=== PATIENT | male | born 1940 | race Caucasian/White ===

== ENCOUNTER → 2018-08-30 16:23 | Outpatient (CLI) | payer MEDICARE, OTHER, SELFPAY | PROVIDERS: PCP Internal Medicine; Visit Provider Internal Medicine | DX: N48.9 Disorder of penis, unspecified (principal) | CPT/HCPCS: 87255 ==

== ENCOUNTER → 2018-10-19 09:55 | Outpatient (CLI) | payer MEDICARE, OTHER, SELFPAY ==
[2018-10-19 10:39] LABS: Add Manual Diff / Slide Review NO; Basophils Percent Auto 0.7 % (0-2); Eosinophils Percent Auto 6.4 % (2-4); Hematocrit 42.5 % (41-53); Hemoglobin 14.5 g/dL (13.5-17.5); Lymphocytes Percent Auto 23.5 % (25-40); Mean Corpuscular HGB Conc 34.1 % (30-36); Mean Corpuscular Hemoglobin 32.4 PG (26-34); Mean Corpuscular Volume 95.3 fL (80-100); Monocytes Percent Auto 6.3 % (3-14); Neutrophils Absolute Auto 4200 /uL (1500-7000); Neutrophils Percent Auto 63.1 % (50-75); Platelet Count 156 X10^3/uL (150-400); Red Blood Cell Count 4.46 X10^6/uL (4.5-5.9); Red Cell Distribution Width 13.4 % (11.6-14.8); White Blood Cell Count 6.7 X10^3/uL (4.5-11.0)
[2018-10-19 10:51] LABS: Alanine Aminotransferase 34 IU/L (21-72); Albumin 4.4 g/dL (3.5-5.0); Albumin Globulin Ratio 1.2 (1.0-2.8); Alkaline Phosphatase 74 U/L (38-126); Aspartate Aminotransferase 32 IU/L (17-59); BUN Creatinine Ratio 22.2 (6-22); Bilirubin Total 0.4 mg/dL (0.2-1.3); Blood Urea Nitrogen 20 mg/dL (9-20); Calcium 9.3 mg/dL (8.4-10.2); Carbon Dioxide 29 mmol/L (22-32); Chloride 102 mmol/L (98-107); Cholesterol 134 mg/dL (140-199); Estimated Glomerular Filt Rate > 60.0 mL/min (>60); Globulin 3.6 g/dL (1.7-4.1); Glucose 98 mg/dL (80-110); HDL Cholesterol 30 mg/dL (40-60); HEMOLYSIS < 15 (0-50); LDL Cholesterol Calculated 79 mg/dL (<100); Potassium 3.7 mmol/L (3.4-5.1); Sodium 142 mmol/L (137-145); Triglycerides 126 mg/dL (35-150)
[2018-10-19 11:37] LABS: Thyroid Stimulating Hormone 1.66 uIU/mL (0.47-4.68)
== END ==
PROVIDERS: PCP Internal Medicine; Visit Provider Internal Medicine Cardiovascular Disease
DX: R60.0 Localized edema (principal); I48.0 Paroxysmal atrial fibrillation; E78.5 Hyperlipidemia, unspecified
CPT/HCPCS: 36415; 80053; 80061; 84443; 85025

== ENCOUNTER → 2018-11-04 12:12 | Outpatient (CLI) | payer MEDICARE, OTHER, SELFPAY ==
--- NOTE | 2018-11-04 | DI.ECHO.S_ITS ---
[facility]---------+ [facility] +---------+ : : [address] : [place] [address] : : : : [id number] : : : : Phone: [phone]---------+ Echocardiogram Report + + :Name: LIVAN GARCIA Study Date: 11/04/2018 Height: 72 in : :[facility] Weight: 260 lb : : Gender: Male BSA: 2.4 m2 : :: 1940 Age: 78 yrs BP: 122/58 mmHg: :Reason For Study: Edema : :Ordering Physician: Hillary : :Larissa Performed By: Lesly Salmon : :Referring: Dr. Ruiz Christian : + + Interpretation Summary The left ventricle is normal in size. The ejection fraction is estimated to be 60-65%. No significant change in LV function from the previous study. The right ventricle is grossly normal size. The right ventricular systolic function is normal. There is mild tricuspid regurgitation. The right ventricular systolic pressure is estimated to be at least 22 mmHg based on an estimated right atrial pressure of 3 mm Hg. The aortic root is mildly dilated. There is aortic root sclerosis/calcification. The patient was in atrial fibrillation with heart rates between 53-64 bpm during the exam. Since previous study, Cuauhtemoc byran is new. Procedure: A two-dimensional transthoracic echocardiogram with color flow and Doppler was performed. The study quality was technically adequate. Comparison is made with the echocardiogram of 04-16-17. The patient was in atrial fibrillation with heart rates between 53-64 bpm during the exam. Left Ventricle: The left ventricle is normal in size. Proximal septal thickening is noted. There is no echo evidence for significant left ventricular outflow tract obstruction. There is no thrombus. The ejection fraction is estimated to be 60-65%. There are no focal wall motion abnormalities. Diastolic parameters suggest a relaxation abnormality of the left ventricle, consistent with probable normal filling pressures. Right Ventricle: The right ventricle is grossly normal size. The right ventricular systolic function is normal. Atria: The left atrium is moderately dilated. The left atrium has mildly decreased in size since the prior echo exam. Right atrial size is normal. The interatrial septum is intact with no evidence for an atrial septal defect. Mitral Valve: The mitral valve leaflets appear mildly thickened, but open well. The mitral valve leaflets appear to open well. The mitral valve leaflets are slightly calcified. There is trace mitral regurgitation. Aortic Valve: The aortic valve is trileaflet. Leaflet mobility is minimally reduced. The aortic valve is mildly calcified. There is a nodular thickening of the right as well as noncoronary cusp seen in previous echo as well. There is no hemodynamically significant valvular aortic stenosis. No aortic regurgitation is present. Tricuspid Valve: The tricuspid valve leaflets are thin and pliable. There is mild tricuspid regurgitation. The right ventricular systolic pressure is estimated to be at least 22 mmHg based on an estimated right atrial pressure of 3 mm Hg. Pulmonic Valve: The pulmonic valve is not well seen, but is grossly normal. There is trace pulmonic regurgitation. Great Vessels: The aortic root is mildly dilated. There is aortic root sclerosis/calcification. The ascending aorta is at the upper limits of normal in size. Pericardium/ Pleura There is no pericardial effusion. There is no pleural effusion. MMode/2D Measurements & Calculations LVIDd: 5.6 cm Ao root diam: 4.2 cm LVIDs: 3.2 cm Aortic Jxn: 3.0 cm FS: 42.5 % asc Aorta Diam: 3.6 cm EPSS: 1.2 cm Ao Arch Diam (Prox Trans): 3.4 cm IVSd: 0.98 cm LVPWd: 0.91 cm LV potter. diameter/BSA (cm/m^2): 2.3 LV sys. diameter/BSA (cm/m^2): 1.4 LA dimension: 4.9 cm RA long axis: 5.5 cm LA A2 area: 31.5 cm2 RA area: 17.6 cm2 LA A4 area: 24.7 cm2 RA vol: 48.2 ml LA length (vol): 6.7 cm RA : 20.2 ml/m2 LA vol: 99.2 ml IVC diam: 1.1 cm LA vol index: 41.7 ml/m2 RVDd major: 6.1 cm RVD1 (basal): 3.7 cm RVD2 (mid): 3.4 cm Doppler Measurements & Calculations Ao V2 max: 173.0 cm/sec MV E max ru: 76.9 cm/sec Ao V2 mean: 120.6 cm/sec MV A max ru: 85.7 cm/sec Ao max P.0 mmHg MV E/A: 0.90 Ao mean P.6 mmHg Med Peak E' Ru: 7.4 cm/sec Ao V2 VTI: 40.1 cm E/E' med: 10.4 Lat Peak E' Ru: 9.1 cm/sec E/E' lat: 8.5 E/e' average: 9.5 MV dec time: 0.30 sec MV P1/2t: 87.0 msec TR max ru: 216.4 cm/sec MV P1/2t max ru: 76.6 cm/sec TR max P.8 mmHg MVA(P1/2t): 2.5 cm2 PA V2 max: 70.7 cm/sec PA V2 mean: 42.6 cm/sec PA mean P.88 mmHg PA Accel Time: 0.09 sec Reading Physician:EDGARDO
--- NOTE | 2018-11-04 | DI.US.S_ITS ---
PROCEDURE: US PERIPH VENOUS LOW EXTREM BI INDICATIONS: BILATERAL EDEMA TECHNIQUE: Real-time imaging, as well as color and pulse Doppler interrogation, were performed of the deep veins of both legs from the inguinal ligament to the popliteal fossa. COMPARISON: None. FINDINGS: The deep veins are normally compressible, and free of intraluminal thrombus. Color and pulse Doppler demonstrate normal phasic intravascular flow. There is normal augmentation response to distal compression maneuver. Edema present. IMPRESSION: No deep venous thrombosis identified within either the left or right lower extremities. Dictated by: Joey Spencer [facility] Interpreted: Wing Schneider MD on 11/04/2018 at 14:26 Approved by: Wing Schneider M.D. on 11/04/2018 at 17:17
== END ==
PROVIDERS: PCP Internal Medicine; Visit Provider Internal Medicine Cardiovascular Disease
DX: I07.1 Rheumatic tricuspid insufficiency (principal); R60.0 Localized edema; I48.91 Unspecified atrial fibrillation
CPT/HCPCS: 93306; 93970

== ENCOUNTER → 2019-04-10 14:34 | Outpatient (CLI) | payer MEDICARE, OTHER, SELFPAY ==
[2019-04-10 14:55] LABS: Hematocrit 43.4 % (41-53); Hemoglobin 14.6 g/dL (13.5-17.5)
[2019-04-10 15:15] LABS: Blood Urea Nitrogen 19 mg/dL (9-20); Calcium 9.2 mg/dL (8.4-10.2); Carbon Dioxide 28 mmol/L (22-32); Chloride 103 mmol/L (98-107); Estimated Glomerular Filt Rate > 60.0 mL/min (>60); Glucose 103 mg/dL (80-110); HEMOLYSIS < 15 (0-50); Sodium 141 mmol/L (137-145)
== END ==
PROVIDERS: Family Provider Internal Medicine; PCP Internal Medicine; Visit Provider Nurse Practitioner
DX: I48.1 Persistent atrial fibrillation (principal); R29.898 Other symptoms and signs involving the musculoskeletal system
CPT/HCPCS: 36415; 80048; 85014; 85018

== ENCOUNTER → 2019-04-17 07:44 | Outpatient (CLI) | payer MEDICARE, OTHER, SELFPAY ==
--- NOTE | 2019-04-17 07:48 | DI.US.S_ITS ---
PROCEDURE: US CAROTID DOPPLER BI INDICATIONS: TIA TECHNIQUE: Color and pulse Doppler interrogation was performed of both carotid systems, with image documentation and velocity measurements. COMPARISON: None. FINDINGS: Stenosis calculations are based on SRU (Society of Radiologists in Ultrasound) criteria. Right side: Brachial blood pressure: 134 / 74 mm Hg. Common carotid artery peak systolic velocity: 71 cm/sec. Internal carotid artery peak systolic velocity: 62 cm/sec. Internal carotid artery end diastolic velocity: 30 cm/sec. External carotid artery peak systolic velocity: 79 cm/sec. ICA/CCA peak systolic ratio: 0.9. Kaba scale imaging description: Mild soft plaque Percent internal carotid artery stenosis: Less than 50% stenosis. Vertebral artery: Flow direction is antegrade. Left side: Brachial blood pressure: 127/67 mm Hg. Common carotid artery peak systolic velocity: 86 cm/sec. Internal carotid artery peak systolic velocity: 55 cm/sec. Internal carotid artery end diastolic velocity: 17 cm/sec. External carotid artery peak systolic velocity: 116 cm/sec. ICA/CCA peak systolic ratio: 0.6. Kaba scale imaging description: Mild soft and calcific plaque Percent internal carotid artery stenosis: Less than 50% stenosis. Vertebral artery: Flow direction is antegrade. IMPRESSION: Less than 50% stenosis at the internal carotid arteries bilaterally. Dictated by: Km López M.D. on 04/17/2019 at 9:09 Approved by: Km López M.D. on 04/17/2019 at 9:11
== END ==
PROVIDERS: Family Provider Internal Medicine; PCP Internal Medicine; Referring Provider Internal Medicine Cardiovascular Disease; Visit Provider Nurse Practitioner
DX: G45.9 Transient cerebral ischemic attack, unspecified (principal)
CPT/HCPCS: 93880

== ENCOUNTER 2019-10-11 13:40 | Emergency (ER) | payer MEDICARE, OTHER, SELFPAY ==
[2019-10-11 13:40] VITALS: BP 152/68; PULSE 54; RESP 20; TEMP 36.9; O2SAT 97
[2019-10-11 14:01] VITALS: BP 102/62; PULSE 50; RESP 17; O2SAT 98
[2019-10-11 15:00] VITALS: BP 124/72; PULSE 78; O2SAT 98
--- NOTE | 2019-10-11 15:04 | DI.RAD.S_ITS ---
PROCEDURE: XR FOOT LT MIN 3V INDICATIONS: s/p fall 1 week ago, pain and swelling from knee to mid foot TECHNIQUE: 3 views of the foot were acquired. COMPARISON: [facility], , FOOT 3V LEFT, 10/27/2011, 11:13. [facility], , XR TIBIA FIBULA LT 2V, 10/11/2019, 15:01. FINDINGS: Bones: No fractures or dislocations. No suspicious bony lesions. Several accessory ossicles are seen. Age-appropriate bony degenerative changes are seen. Plantar and Achilles calcaneal spurs are seen. There is a small amount residual thymus tissue seen, which is not regarded to be pathologic in a patient of this age. Soft tissues: No tibiotalar joint effusion. Achilles tendon appears normal. IMPRESSION: No displaced fractures are seen. Dictated by: Arnaud Doshi M.D. on 10/11/2019 at 14:30 Approved by: Arnaud Doshi M.D. on 10/11/2019 at 14:32
--- NOTE | 2019-10-11 15:04 | DI.RAD.S_ITS ---
PROCEDURE: XR TIBIA FIBULA RT 2V INDICATIONS: s/p fall 1 week ago , pain and swelling TECHNIQUE: 2 views of the tibia and fibula were acquired. COMPARISON: [facility], CR, XR FOOT LT MIN 3V, 10/11/2019, 15:01. Knee series, 01/04/18. FINDINGS: Bones: No fractures or dislocations. No suspicious bony lesions. Age-appropriate bony degenerative changes are seen. Soft tissues: Prepatellar soft tissue swelling is seen. Calcification is seen along the knee jointline, which is attributed to meniscal calcification. IMPRESSION: No acute bony injury is seen. Prepatellar soft tissue swelling is seen. Dictated by: Arnaud Doshi M.D. on 10/11/2019 at 14:33 Approved by: Arnaud Doshi M.D. on 10/11/2019 at 14:34
--- NOTE | 2019-10-11 15:31 | ED_ITS ---
HPI - Fall <Nickolas LALY Hart - Last Filed: 10/11/19 23:29> General Chief Complaint: Fall Stated Complaint: GLF week ago, L ankle and hip pain Time Seen by Provider: 10/11/19 14:19 Source: patient Mode of arrival: Ambulatory Limitations: no limitations History of Present Illness HPI Narrative: This is a 79-year-old gentleman, nonsmoker, who presents to ED with left lower leg pain since he accidentally tripped and fall from vertigo about 10 days ago. He denies losing consciousness, neck pain, headache, vision change since the fall. Patient states he had bad bruise on his left side buttock which is improved at this time but the pain in his left ankle and mid foot is worse and has not improved. He also reports remaining swelling in left knee, lower extremity, ankle and midfoot. He had used his Percocet at home but this has not touched the pain. Patient reports pain improves when he dangles his affected leg and pain worsen with when he elevated the affected leg up on the bed. Patient reports intact sensation. Patient currently takes Xarelto daily for AFib. Related Data Home Medications Medication Instructions Recorded Confirmed metoprolol succinate [Toprol XL] 12.5 mg PO QDAY #0 07/23/17 09/21/19 acetylcarnitine 500 mg capsule 500 mg PO DAILY cap 04/10/19 09/21/19 alpha lipoic acid 100 mg capsule 300 mg PO DAILY cap 04/10/19 09/21/19 ascorbic acid (vitamin C) 500 mg 500 mg PO DAILY tab 04/10/19 09/21/19 tablet coenzyme Q10 150 mg capsule 150 mg PO DAILY 04/10/19 09/21/19 meclizine 25 mg chewable tablet 25 mg PO BID tab 04/10/19 09/21/19 quetiapine 25 mg tablet 25 mg PO DAILY tab 04/10/19 09/21/19 rivaroxaban 20 mg tablet 20 mg PO DAILY 04/10/19 09/21/19 Respironics Dreamstation CPAP #1 ea 07/27/19 09/21/19 melatonin 5 mg/15 mL oral liquid 1.5 mg PO ml 09/21/19 09/21/19 tizanidine 4 mg tablet See Rx Instructions PO SEE 12/12/19 12/12/19 INSTRUCTIONS tab Previous Rx's Medication Instructions Recorded clotrimazole-betamethasone 1 celestino TP TID #15 gm 02/24/17 Disabled Parking Permit ea #1 12/23/17 fluticasone propionate 1 spray INTRANASAL QDAY #1 bot 04/04/18 clindamycin phosphate 1 % TOPICAL BID #60 ml 11/09/18 rosuvastatin 20 mg tablet 20 mg PO QDAY #90 tab 03/22/19 hydrochlorothiazide 25 mg tablet 50 mg PO DAILY #180 tab 04/24/19 gabapentin 600 mg tablet 1,200 mg PO TID #540 tab 05/08/19 sertraline 100 mg tablet See Rx Instructions .ROUTE 07/25/19 .COMPLEX #180 tablet omeprazole 20 mg capsule,delayed 20 mg PO BID #180 cap 09/06/19 release lorazepam 0.5 mg tablet 0.5 mg PO BEDTIME PRN #14 tab MDD 10/09/19 0.5 mg oxycodone-acetaminophen 5 mg-325 1 tab PO Q4H PRN #60 tab 10/10/19 mg tablet cephalexin [Keflex] 500 mg PO Q6H 7 Days #28 cap 10/11/19 Allergies Allergy/AdvReac Type Severity Reaction Status Date / Time No Known Drug Allergies Allergy Verified 09/21/19 11:19 Review of Systems <LALY Garcia - Last Filed: 10/11/19 23:29> Review of Systems Narrative: General: Denies fever, chills, fatigue, malaise, sweats. HEENT: Denies sinus pain, ear pain, sore throat, difficulty swallowing, dizzines s. Respiratory: Denies dyspnea, cough, wheezing, hemoptysis, sputum. Cardiovascular: Denies chest pain, palpitations, orthopnea, edema. Gastrointestinal: Denies nausea, vomiting, abdominal pain, diarrhea, constipation, melena. : Denies dysuria, frequency, incontinence, hematuria, urinary retention. Musculoskeletal: See HPI Skin: Dry scab and redness on left knee. Denies rash, skin lesions, or other. Neurologic: Denies weakness, headache, numbness, change in speech, confusion, seizures, incoordination. Psychiatric: No concerning psychosocial issues. 12-point review of systems is negative except for those stated above. 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) Chronic anticoagulation (Chronic) Dorsalgia (Chronic) Mixed hyperlipidemia (Chronic 12/19/15) Obstructive sleep apnea syndrome (Chronic) Other insomnia (Chronic 06/26/16) Persistent atrial fibrillation (Chronic 11/09/17) Family History Brother Family history of esophageal cancer Social History marital status: number of children: 2 household members: spouse lives independently: Yes caregiver/support person: No housing: house pets and animals: No education level: college occupational status: other current occupational exposures/hazards: No 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 Head: normocephalic, atraumatic, no scalp lesions, non-tender. ENT: Bilateral auditory canals and tympanic membranes clear. Hearing grossly intact. Nose without bleeding, purulent discharge, septal hematoma or deviation. Turbinate without erythema or swelling. Facial sinuses nontender to palpate. Mucous membrane moist, no mucosal lesion. Throat without erythema, tonsillar hypertrophy or exudate. Uvula in midline, airway patent. Neck/Thyroid: neck supple, full range of motion, no visible masses or meningeal signs. No JVD, non-tender without lymphadenopathy. Skin: Redness, warmth, swelling around left patella. no suspicious rashes, lesions over other visible areas. Warm and dry and appropriate color for ethnicity. Heart: no clubbing, no cyanosis, no edema. S1 and S2 normal. RRR w/o murmurs, clicks, or bruits. Lungs: Breathing even and unlabored. No stridor. No accessory muscles used. Able to speak in full sentences. Chest: normal shape and expansion. Abdomen: non-obese, non-distended. Neurologic: alert and oriented. Cognitive exam, [employer] and PNS grossly intact on informal exam. Psych: good eye contact, normal affect. Initial Vital Signs Initial Vital Signs: Vital Signs Temperature 98.4 F 10/11/19 13:40 Pulse Rate 54 L 10/11/19 13:40 Respiratory Rate 10/11/19 13:40 Blood Pressure 152/68 H 10/11/19 13:40 Pulse Oximetry 97 10/11/19 13:40 Extrem Left lower extremity: normal capillary refill, edema (Left knee, amaya, ankle and mid foot) Details: pitting and 1+, knee Details: tenderness, swelling, normal ROM, abrasion and warmth, lower leg Details: tenderness (Anterior aspect of amaya), localized swelling Location: of the proximal lower leg, of the mid lower leg and of the distal lower leg and pitting edema Details: 1+; no deformity and no unusual warmth, ankle Details: tenderness, swelling and normal ROM and foot Details: normal capillary refill, tenderness, toes with normal ROM, edema Location: of the dorsal foot (Proximal to Mid foot) and vascular exam Details: dorsalis pedis pulse present and normal capillary refill <Sandy Cohn DO - Last Filed: 10/12/19 16:49> Initial Vital Signs Initial Vital Signs: Vital Signs Temperature 98.4 F 10/11/19 13:40 Pulse Rate 54 L 10/11/19 13:40 Respiratory Rate 10/11/19 13:40 Blood Pressure 152/68 H 10/11/19 13:40 Pulse Oximetry 97 10/11/19 13:40 Scores <LALY Garcia - Last Filed: 10/11/19 23:29> GCS [place] coma scale eye opening: Spontaneous [place] coma scale verbal response: Orientated [place] coma scale motor response: Obey commands [place] coma scale total score: 15 Course <LALY Garcia - Last Filed: 10/11/19 23:29> Orders Ordered: Discontinued Medications Cephalexin HCl (Keflex) 500 mg PO NOW ONE Stop: 10/11/19 16:08 Last Admin: 10/11/19 16:15 Dose: 500 mg Documented by: ERICOTEM Oxycodone/Acetaminophen (Percocet 5/325) 1 tab PO NOW ONE Stop: 10/11/19 15:06 Last Admin: 10/11/19 15:33 Dose: 1 tab Documented by: ANNALISE Vital Signs Vital signs: Vital Signs - 8 hr 10/11/19 15:57 10/11/19 16:00 Pulse Rate 83 55 L Respiratory Rate 16 Blood Pressure [Right Arm] 132/61 142/66 H Pulse Oximetry 98 98 <Sandy Cohn DO - Last Filed: 10/12/19 16:49> Orders Ordered: Discontinued Medications Cephalexin HCl (Keflex) 500 mg PO NOW ONE Stop: 10/11/19 16:08 Last Admin: 10/11/19 16:15 Dose: 500 mg Documented by: ERICOTEM Oxycodone/Acetaminophen (Percocet 5/325) 1 tab PO NOW ONE Stop: 10/11/19 15:06 Last Admin: 10/11/19 15:33 Dose: 1 tab Documented by: ANNALISE Vital Signs Vital signs: Vital Signs - 8 hr 10/11/19 15:57 10/11/19 16:00 Pulse Rate 83 55 L Respiratory Rate 16 Blood Pressure [Right Arm] 132/61 142/66 H Pulse Oximetry 98 98 MDM - Fall <LALY Garcia - Last Filed: 10/11/19 23:29> Differential Diagnosis Differential diagnosis: Likely other (Left knee fracture, cellulitis on left knee, sprain on left foot/ ankle, fracture on left foot/ ankle) Medical Records Attestation: I reviewed the patient's medical records. Imaging Data XR-Tib/fib LT: Radiologist's Impression: [address] [address] XRay Report Signed Patient: Bertin Bautista [facility]#: [id number] : 1940Acct:[id number] Age/Sex: 79 / MDate of Service: 10/11/19 Loc: ED Accession Number: [id number] Procedure: XR tibia fibula LT 2V Ordering Provider: Nickolas Hart PROCEDURE: XR TIBIA FIBULA RT 2V INDICATIONS: s/p fall 1 week ago , pain and swelling TECHNIQUE: 2 views of the tibia and fibula were acquired. COMPARISON: [facility], CR, XR FOOT LT MIN 3V, 10/11/2019, 15:01. Knee series, 01/04/18. FINDINGS: Bones: No fractures or dislocations. No suspicious bony lesions. Age- appropriate bony degenerative changes are seen. Soft tissues: Prepatellar soft tissue swelling is seen. Calcification is seen along the knee jointline, which is attributed to meniscal calcification. IMPRESSION: No acute bony injury is seen. Prepatellar soft tissue swelling is seen. Dictated by: Arnaud Doshi M.D. on 10/11/2019 at 14:33 Approved by: Arnaud Doshi M.D. on 10/11/2019 at 14:34 XR-Foot LT: Radiologist's Impression: [place] [address] XRay Report Signed Patient: Bertin Bautista [facility]#: [id number] : 1940Acct:[id number] Age/Sex: 79 / MDate of Service: 10/11/19 Loc: ED Accession Number: [id number] Procedure: XR foot LT min 3V Ordering Provider: Nickolas Hart PROCEDURE: XR FOOT LT MIN 3V INDICATIONS: s/p fall 1 week ago, pain and swelling from knee to mid foot TECHNIQUE: 3 views of the foot were acquired. COMPARISON: [facility], CR, FOOT 3V LEFT, 10/27/2011, 11:13. [facility], CR, XR TIBIA FIBULA LT 2V, 10/11/2019, 15:01. FINDINGS: Bones: No fractures or dislocations. No suspicious bony lesions. Several accessory ossicles are seen. Age-appropriate bony degenerative changes are seen. Plantar and Achilles calcaneal spurs are seen. There is a small amount residual thymus tissue seen, which is not regarded to be pathologic in a patient of this age. Soft tissues: No tibiotalar joint effusion. Achilles tendon appears normal. IMPRESSION: No displaced fractures are seen. Dictated by: Arnaud Doshi M.D. on 10/11/2019 at 14:30 Approved by: Arnaud Doshi M.D. on 10/11/2019 at 14:32 MDM Narrative Medical decision making narrative: This is a 79-year-old male who presents to ED with left lower leg discomfort from knee to foot for last he accidentally tripped and fell. Patient reports initially his left hip was bothersome which has improved but he continued to have swelling and discomfort mainly in his left mid foot and ankle. Physical exam exhibited swelling, redness, warmth to left knee and generalized swelling below throughout left mid foot. Patient complains of discomfort with palpation in his mid foot and ankle along left lower leg. Left knee physical exam is consistent with cellulitis. Considered DVT on left leg but this would be unlikely since patient is already on Xarelto and his pain is mostly in anterior aspect of lower leg and mid foot and ankle. X-ray shows no acute findings in left knee, tip/fib, ankle or foot. Patient has been walking on his injured foot although this has been increasing with movement. Patient has been taking his oxycodone for his back pain and also leg pain. Patient was medicated with Keflex 500 mg 1st dose while in ED and discharged to home with remaining Rx. Affected foot and ankle was wrapped with Nicholas wrap for support. Patient advised to elevate his affected leg if he continues to have swelling. Patient advised to take Tylenol as needed and he is oxycodone for severe pain. Return precautions were discussed with the patient and patient advised to follow with PCP and possible f/u with orthopedist. Patient verbalized understanding and agrees with the treatment plan. Discharge Plan Departure Patient Disposition: Home Clinical Impression: Cellulitis of knee, right Contusion of lower leg, left Qualifiers: Encounter type: initial encounter Qualified Code(s): S80.12XA - Contusion of left lower leg, initial encounter Discharge Date/Time: 10/11/19 16:32 Instructions: DI for Cellulitis -- Adult, DI for Contusion Activity Restrictions/Additional Instructions: You have been diagnosed with [left lower extremity contusion from fall 10 days ago and cellulitis on left knee. X-ray test today does not show acute findings such as fractures or dislocation on your knee, tip/fib, ankle or foot]. What to do: *Take your medications as directed. You can continue to take [id number] Tylenol and Percocet that you have at home. You can elevate affected leg for swelling. Please start taking Keflex every 6 hours for next 7 days. You were medicated with 1st dose while in ED. the prescription has been transmitted to [facility]. *Follow up with your primary care provider in 2-3 days, call for an appointment. Let them know you were seen in the ED and that we asked you to be seen in follow up. *Return to ED if you have any new, worsening, or concerning symptoms, such as [weakness, severe calf pain, breathing difficulty, chest pain, fever, tingling/numbness to lower extremities, or any acute concerns]. Prescriptions: New cephalexin [Keflex] 500 mg capsule 500 mg PO Q6H 7 Days Qty: 28 RF: 0 No Action clotrimazole-betamethasone 15 GM cream 1 celestino TP TID Qty: 15 RF: 0 metoprolol succinate [Toprol XL] 25 MG tablet extended release 24 hr 12.5 mg PO QDAY Qty: 0 RF: 0 Disabled Parking Permit Qty: 1 RF: 0 fluticasone propionate 50 mcg/actuation spray,suspension 1 spray Intranasal QDAY Qty: 1 RF: 3 clindamycin phosphate 1 % lotion 1 % Topical BID Qty: 60 RF: 3 rosuvastatin [Crestor] 20 mg tablet 20 mg PO QDAY Qty: 90 RF: 3 hydrochlorothiazide 25 mg tablet 50 mg PO DAILY Qty: 180 RF: 1 gabapentin [Neurontin] 600 mg tablet 1,200 mg PO TID Qty: 540 RF: 3 sertraline 100 mg tablet See Rx Instructions .ROUTE .COMPLEX Qty: 180 RF: 3 omeprazole 20 mg capsule,delayed release(DR/EC) 20 mg PO BID Qty: 180 RF: 3 lorazepam 0.5 mg tablet 0.5 mg PO BEDTIME MDD 0.5 mg PRN (Reason: sleep) Qty: 14 RF: 0 oxycodone-acetaminophen 5-325 mg tablet 1 tab PO Q4H PRN (Reason: pain in back/joints) Qty: 60 RF: 0 melatonin 5 mg/15 mL liquid 1.5 mg PO RF: 0 meclizine [Bonine] 25 mg tablet,chewable 25 mg PO BID RF: 0 Xarelto 20 mg tablet 20 mg PO DAILY RF: 0 quetiapine [Seroquel] 25 mg tablet 25 mg PO DAILY RF: 0 acetylcarnitine 500 mg capsule 500 mg PO DAILY RF: 0 ascorbic acid (vitamin C) 500 mg tablet 500 mg PO DAILY RF: 0 coenzyme Q10 150 mg capsule 150 mg PO DAILY RF: 0 alpha lipoic acid 100 mg capsule 300 mg PO DAILY RF: 0 tizanidine 4 mg tablet See Rx Instructions PO SEE INSTRUCTIONS RF: 0 (DME) Respironics Dreamstation CPAP Qty: 1 RF: 0 Referrals: Ruiz Christian MD [Primary Care Provider] -
[2019-10-11] MEDS: OXYCODONE/ACETAMINOPHEN 5/325 TABLET 1 TAB PO (15:33)
[2019-10-11 15:57] VITALS: BP 132/61; PULSE 83; O2SAT 98
[2019-10-11 16:00] VITALS: BP 142/66; PULSE 55; RESP 16; O2SAT 98
[2019-10-11] MEDS: cephALEXin 250 MG CAPSULE 500 MG PO (16:15)
== END 2019-10-11 16:32 | disposition home or self-care (01) ==
PROVIDERS: Emergency Provider Nurse Practitioner Family; Family Provider Internal Medicine; PCP Internal Medicine
DX: S90.32XA Contusion of left foot, initial encounter (principal); S90.02XA Contusion of left ankle, initial encounter; L03.115 Cellulitis of right lower limb; W01.0XXA Fall on same level from slipping, tripping and stumbling without subsequent striking against object, initial encounter
CPT/HCPCS: 73590; 73630; 99283

== ENCOUNTER 2019-11-27 15:39 | Emergency (ER) | payer MEDICARE, OTHER, SELFPAY ==
[2019-11-27 15:53] VITALS: BP 123/65; PULSE 56; RESP 14; TEMP 36.4; O2SAT 96; BMI 32.7
[2019-11-27 20:46] VITALS: BP 135/63; PULSE 67; O2SAT 97
--- NOTE | 2019-11-27 21:12 | ED_ITS ---
HPI - Skin/Abscess/Foreign Bdy General Chief complaint: Skin/Abscess/Foreign Body Stated complaint: Possible Blood Clot Right Leg Time Seen by Provider: 11/27/19 20:52 Source: patient Mode of arrival: Ambulatory Limitations: no limitations History of Present Illness HPI narrative: 79-year-old male comes to the emergency department with complaint of some right leg swelling particularly in the ankle. Patient states that the coloration has not had much change. He states he has had a couple spots that have been tender. He saw his chiropractor who thought he had a DVT. Did have some cellulitis in his left leg and has a bruise as well as a small hematoma on the knee from a fall. He states he was on antibiotics. He states that there is still some tingling and the nerve seem a little sensitive in both feet. Patient has not had fevers. No chest pain or shortness of breath. He states that thinks it does take a water pill or a diuretic to help with swelling in his extremities but he is not 100% sure. He does take Xarelto daily. He has never had any DVTs he has not had any long distance travel. Patient has a follow-up appointment with his primary tomorrow. Related Data Home Medications Medication Instructions Recorded Confirmed metoprolol succinate [Toprol XL] 12.5 mg PO QDAY #0 07/23/17 10/19/19 acetylcarnitine 500 mg capsule 500 mg PO DAILY cap 04/10/19 10/19/19 alpha lipoic acid 100 mg capsule 300 mg PO DAILY cap 04/10/19 10/19/19 ascorbic acid (vitamin C) 500 mg 500 mg PO DAILY tab 04/10/19 10/19/19 tablet coenzyme Q10 150 mg capsule 150 mg PO DAILY 04/10/19 10/19/19 quetiapine 25 mg tablet 25 mg PO DAILY tab 04/10/19 10/19/19 rivaroxaban 20 mg tablet 20 mg PO DAILY 04/10/19 11/27/19 Respironics Dreamstation CPAP #1 ea 07/27/19 10/19/19 tizanidine 4 mg tablet See Rx Instructions PO SEE 09/21/19 10/19/19 INSTRUCTIONS tab hydrochlorothiazide 25 mg tablet 25 mg PO DAILY tab 10/19/19 10/19/19 meclizine 25 mg chewable tablet 25 mg PO DAILY tab 10/19/19 10/19/19 melatonin 5 mg/15 mL oral liquid 2 mg PO ml 10/19/19 10/19/19 rosuvastatin 20 mg tablet 10 mg PO QDAY tab 10/19/19 10/19/19 Previous Rx's Medication Instructions Recorded clotrimazole-betamethasone 1 celestino TP TID #15 gm 02/24/17 Disabled Parking Permit ea #1 12/23/17 fluticasone propionate 1 spray INTRANASAL QDAY #1 bot 04/04/18 clindamycin phosphate 1 % TOPICAL BID #60 ml 11/09/18 gabapentin 600 mg tablet 1,200 mg PO TID #540 tab 05/08/19 sertraline 100 mg tablet See Rx Instructions .ROUTE 07/25/19 .COMPLEX #180 tablet omeprazole 20 mg capsule,delayed 20 mg PO BID #180 cap 09/06/19 release lorazepam 0.5 mg tablet 0.5 mg PO BEDTIME PRN #14 tab MDD 10/09/19 0.5 mg oxycodone-acetaminophen 5 mg-325 1 - 2 tab PO Q4H PRN #60 tab 11/21/19 mg tablet Allergies Allergy/AdvReac Type Severity Reaction Status Date / Time No Known Drug Allergies Allergy Verified 10/19/19 13:54 Review of Systems Review of Systems ROS Unobtainable: All systems reviewed & are unremarkable except as noted in HPI and below Patient History Medical History 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) Chronic anticoagulation (Chronic) Dorsalgia (Chronic) Mixed hyperlipidemia (Chronic 12/19/15) Obstructive sleep apnea syndrome (Chronic) Other insomnia (Chronic 06/26/16) Persistent atrial fibrillation (Chronic 11/09/17) Social History marital status: number of children: 2 household members: spouse lives independently: Yes caregiver/support person: No housing: house pets and animals: No education level: college occupational status: other current occupational exposures/hazards: No 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 HEENT: Head normocephalic, atraumatic, EOMI, pupils reactive, face symmetric, moist mucous membranes NECK: Supple, full range of motion CARDIOVASCULAR: Regular rate and rhythm without murmurs, rubs or gallops. RESPIRATORY: Breath sounds equal bilaterally, no wheezes rales or rhonchi. ABDOMEN: Soft, nontender. Normoactive bowel sounds all 4 quadrants. No guarding or rebound, rigidity, no mass : No CVA tenderness EXTREMITIES: Normal range of motion, no clubbing. Trace edema particularly in the right ankle. Nonpitting. Patient does not have any erythema, pallor or cyanosis in either lower extremity. The left knee does have what appears to be some ecchymosis and hematoma it is mildly tender with no fluctuance no warmth or erythema. Patient has 2+ pulses bilateral lower extremities. Full range of motion, normal gait with 5/5 muscle strength. Neurovascularly intact NEUROLOGICAL: Cranial nerves II through XII grossly intact. Moving all extremities SKIN: Warm, dry, no petechiae, no rashes or lesions. Initial Vital Signs Initial Vital Signs: Vital Signs Temperature 97.5 F L 11/27/19 15:53 Pulse Rate 56 L 11/27/19 15:53 Respiratory Rate 14 11/27/19 15:53 Blood Pressure 123/65 11/27/19 15:53 Pulse Oximetry 96 11/27/19 15:53 Course Orders Ordered: ED Orders 11/27/19 21:25 US perip venous low extrem rt Stat Vital Signs Vital signs: Vital Signs - 8 hr 11/27/19 23:18 Pulse Rate 70 Respiratory Rate 18 Blood Pressure [Left Arm] 125/68 Pulse Oximetry 98 MDM - Skin/Abscess/Foreign Bdy Imaging Data US - DVT: Radiologist's Impression: No evidence of DVT in right lower extremity MDM Narrative Medical decision making narrative: Discussed with patient my suspicion for DVT is low, he is on Xarelto. He has some trace edema at the ankle itself. He does not have any obvious infectious symptoms in either leg. He does not appear to be in CHF clinically or on physical exam. Patient left leg which he states had cellulitis does not appear to be infected at this time any does have some ecchymosis of his knee but that also does not appear infected. Discussed possible causes and reasons for follow-up he has follow-up tomorrow on the with his primary care physician for recheck. Discharge Plan Departure Patient Disposition: Home Clinical Impression: Leg pain, right Discharge Date/Time: 11/27/19 23:44 Instructions: DI for Leg Pain Activity Restrictions/Additional Instructions: Follow-up with your physician at your appointment. Continue home medications as prescribed. I would not recommend having or changing any antibiotics I do not see any obvious signs of cellulitis or infection at this time. I do know the bruising on your left knee. Your right lower extremity does not show any signs of DVT. I would recommend elevating your legs in the evening. Return to the ER for fevers greater 100.4 F, rapidly worsening swelling in her legs, new chest pain, shortness of breath, lightheadedness or passing out, persistent vomiting, black or bloody stools, new redness, pallor or cyanosis in your legs or other new or concerning symptoms. Prescriptions: No Action clotrimazole-betamethasone 15 GM cream 1 celestino TP TID Qty: 15 RF: 0 metoprolol succinate [Toprol XL] 25 MG tablet extended release 24 hr 12.5 mg PO QDAY Qty: 0 RF: 0 Disabled Parking Permit Qty: 1 RF: 0 fluticasone propionate 50 mcg/actuation spray,suspension 1 spray Intranasal QDAY Qty: 1 RF: 3 clindamycin phosphate 1 % lotion 1 % Topical BID Qty: 60 RF: 3 gabapentin [Neurontin] 600 mg tablet 1,200 mg PO TID Qty: 540 RF: 3 sertraline 100 mg tablet See Rx Instructions .ROUTE .COMPLEX Qty: 180 RF: 3 omeprazole 20 mg capsule,delayed release(DR/EC) 20 mg PO BID Qty: 180 RF: 3 lorazepam 0.5 mg tablet 0.5 mg PO BEDTIME MDD 0.5 mg PRN (Reason: sleep) Qty: 14 RF: 0 oxycodone-acetaminophen 5-325 mg tablet 1 - 2 tab PO Q4H PRN (Reason: pain in back/joints) Qty: 60 RF: 0 melatonin 5 mg/15 mL liquid 2 mg PO RF: 0 hydrochlorothiazide 25 mg tablet 25 mg PO DAILY RF: 0 rosuvastatin [Crestor] 20 mg tablet 10 mg PO QDAY RF: 0 Xarelto 20 mg tablet 20 mg PO DAILY RF: 0 quetiapine [Seroquel] 25 mg tablet 25 mg PO DAILY RF: 0 acetylcarnitine 500 mg capsule 500 mg PO DAILY RF: 0 ascorbic acid (vitamin C) 500 mg tablet 500 mg PO DAILY RF: 0 coenzyme Q10 150 mg capsule 150 mg PO DAILY RF: 0 alpha lipoic acid 100 mg capsule 300 mg PO DAILY RF: 0 tizanidine 4 mg tablet See Rx Instructions PO SEE INSTRUCTIONS RF: 0 meclizine [Bonine] 25 mg tablet,chewable 25 mg PO DAILY RF: 0 (DME) Respironics Dreamstation CPAP Qty: 1 RF: 0 Referrals: Ruiz Christian MD [Primary Care Provider] -
--- NOTE | 2019-11-27 21:25 | DI.US.S_ITS ---
PROCEDURE: US PERIPH VENOUS LOW EXTREM RT INDICATIONS: RT LEG SWELLING TECHNIQUE: Real-time imaging, as well as color and pulse Doppler interrogation, were performed of the lower extremity deep veins from the inguinal ligament to the popliteal fossa. COMPARISON: None. FINDINGS: The common femoral, femoral and popliteal veins are normally compressible, and free of intraluminal thrombus. Color and pulse Doppler demonstrate normal phasic intraluminal flow. There is normal augmentation response to distal compression maneuver. IMPRESSION: No evidence of deep vein thrombosis involving the right lower extremity. Dictated by: Alysha Hawley MD, PhD on 11/28/2019 at 7:12 Approved by: Alysha Hawley MD, PhD on 11/28/2019 at 7:13
[2019-11-27 23:18] VITALS: BP 125/68; PULSE 70; RESP 18; O2SAT 98
== END 2019-11-27 23:44 | disposition home or self-care (01) ==
PROVIDERS: Emergency Provider Emergency Medicine; Family Provider Internal Medicine; PCP Internal Medicine
DX: R60.0 Localized edema (principal); M79.661 Pain in right lower leg
CPT/HCPCS: 93971; 99283

== ENCOUNTER → 2020-03-26 10:22 | Outpatient (CLI) | payer MEDICARE, OTHER, SELFPAY ==
[2020-03-26 11:30] LABS: Add Manual Diff / Slide Review NO; Basophils Absolute Auto 0 /uL (0-100); Basophils Percent Auto 0.5 % (0-2); Eosinophils Absolute Auto 100 /uL (0-450); Eosinophils Percent Auto 2.2 % (2-4); Hematocrit 40.2 % (41-53); Hemoglobin 13.7 g/dL (13.5-17.5); Lymphocytes Absolute Auto 1400 /uL (1100-4500); Lymphocytes Percent Auto 26.8 % (25-40); Mean Corpuscular HGB Conc 34.1 % (30-36); Mean Corpuscular Hemoglobin 32.6 PG (26-34); Mean Corpuscular Volume 95.6 fL (80-100); Monocytes Absolute Auto 400 /uL (0-900); Monocytes Percent Auto 6.9 % (3-14); Neutrophils Absolute Auto 3400 /uL (1500-7000); Neutrophils Percent Auto 63.6 % (50-75); Platelet Count 142 X10^3/uL (150-400); Red Blood Cell Count 4.21 X10^6/uL (4.5-5.9); Red Cell Distribution Width 13.7 % (11.6-14.8); White Blood Cell Count 5.3 X10^3/uL (4.5-11.0)
[2020-03-26 12:04] LABS: Alanine Aminotransferase 20 IU/L (<50); Albumin 4.4 g/dL (3.5-5.0); Albumin Globulin Ratio 1.4 (1.0-2.8); Alkaline Phosphatase 75 U/L (38-126); Aspartate Aminotransferase 25 IU/L (17-59); BUN Creatinine Ratio 27.2 (6-22); Bilirubin Total 0.5 mg/dL (0.2-1.3); Blood Urea Nitrogen 22 mg/dL (9-20); Calcium 9.6 mg/dL (8.4-10.2); Carbon Dioxide 31 mmol/L (22-32); Chloride 102 mmol/L (98-107); Cholesterol 119 mg/dL (140-199); Estimated Glomerular Filt Rate > 60.0 mL/min (>60); Globulin 3.1 g/dL (1.7-4.1); Glucose 103 mg/dL (80-110); HDL Cholesterol 30 mg/dL (40-60); HEMOLYSIS < 15 (0-50); LDL Cholesterol Calculated 66 mg/dL (<100); Potassium 4.6 mmol/L (3.4-5.1); Sodium 141 mmol/L (137-145); Total Protein 7.5 g/dL (6.3-8.2); Triglycerides 117 mg/dL (35-150)
[2020-03-26 12:30] LABS: TSH w/ Reflex to FT4 2.09 uIU/mL (0.47-4.68)
== END ==
PROVIDERS: Family Provider Internal Medicine; PCP Internal Medicine; Referring Provider Internal Medicine Cardiovascular Disease; Visit Provider Internal Medicine
DX: I48.91 Unspecified atrial fibrillation (principal); E78.2 Mixed hyperlipidemia; I10 Essential (primary) hypertension; I48.19 Other persistent atrial fibrillation; S80.11XA Contusion of right lower leg, initial encounter; Z79.01 Long term (current) use of anticoagulants
CPT/HCPCS: 36415; 80053; 80061; 84443; 85025

== ENCOUNTER → 2020-08-15 15:01 | Outpatient (CLI) | payer MEDICARE, OTHER, SELFPAY ==
--- NOTE | 2020-08-15 15:04 | DI.RAD.S_ITS ---
PROCEDURE: XR RIBS RT MIN 3V W CXR 1V INDICATIONS: R rib pain approx 5 weeks s/p fall TECHNIQUE: 2 views of the right ribs were acquired, along with a single view chest. COMPARISON: [facility], CT, PE STUDY (CTA CHEST), 10/19/2012, 17:37. FINDINGS: Surgical changes and devices: None. Bones and chest wall: No fractures or dislocations. No suspicious bony lesions. Overlying soft tissues appear unremarkable. Lungs and pleura: There is a nodular density in the right upper lobe. Bilateral interstitial prominence. No pleural effusions or pneumothorax. Lungs appear clear. Mediastinum: Mediastinal contours appear normal. Heart size is normal. There is a moderate to large-sized hiatal hernia. IMPRESSION: 1. No right displaced rib fractures. 2. A nodular density in the right upper lobe. A chest CT with contrast is suggested for follow-up. 3. Moderate to large-sized hiatal hernia. Dictated by: Yaneli Saenz M.D. on 08/15/2020 at 17:18 Approved by: Yaneli Saenz M.D. on 08/15/2020 at 17:22
== END ==
PROVIDERS: Family Provider Internal Medicine; PCP Internal Medicine; Referring Provider Registered Nurse Diabetes Educator; Visit Provider Registered Nurse Diabetes Educator
DX: R07.81 Pleurodynia (principal); R91.1 Solitary pulmonary nodule; K44.9 Diaphragmatic hernia without obstruction or gangrene
CPT/HCPCS: 71101

== ENCOUNTER → 2020-08-19 10:24 | Outpatient (CLI) | payer MEDICARE, OTHER, SELFPAY ==
[2020-08-19 12:56] LABS: Alanine Aminotransferase 19 IU/L (<50); Albumin 4.4 g/dL (3.5-5.0); Albumin Globulin Ratio 1.4 (1.0-2.8); Alkaline Phosphatase 72 U/L (38-126); Aspartate Aminotransferase 25 IU/L (17-59); BUN Creatinine Ratio 28.4 (6-22); Bilirubin Total 0.5 mg/dL (0.2-1.3); Blood Urea Nitrogen 25 mg/dL (9-20); Calcium 9.5 mg/dL (8.4-10.2); Carbon Dioxide 33 mmol/L (22-32); Chloride 102 mmol/L (98-107); Cholesterol 118 mg/dL (140-199); Estimated Glomerular Filt Rate > 60.0 mL/min (>60); Globulin 3.2 g/dL (1.7-4.1); Glucose 94 mg/dL (80-110); HDL Cholesterol 28 mg/dL (40-60); HEMOLYSIS < 15 (0-50); LDL Cholesterol Calculated 63 mg/dL (<100); Potassium 4.3 mmol/L (3.4-5.1); Sodium 140 mmol/L (137-145); Total Protein 7.6 g/dL (6.3-8.2); Triglycerides 137 mg/dL (35-150)
== END ==
PROVIDERS: Internal Medicine Cardiovascular Disease; Family Provider Internal Medicine; PCP Internal Medicine; Referring Provider Internal Medicine; Visit Provider Internal Medicine
DX: E78.5 Hyperlipidemia, unspecified (principal)
CPT/HCPCS: 36415; 80053; 80061

== ENCOUNTER → 2020-08-20 12:11 | Outpatient (CLI) | payer MEDICARE, OTHER, SELFPAY ==
--- NOTE | 2020-08-20 12:12 | DI.CT.S_ITS ---
PROCEDURE: CT CHEST W CON INDICATIONS: abnormal CXR raising concern for nodular mass within the right upper lobe. TECHNIQUE: After the administration of intravenous contrast, 5 mm thick sections acquired from the pulmonary apices to the posterior costophrenic angles. 1 mm axial lung, 5 mm thick coronal and sagittal reformats and 7 mm axial MIP were acquired. For radiation dose reduction, the following was used: automated exposure control, adjustment of mA and/or kV according to patient size. COMPARISON: [facility], CR, XR RIBS RT MIN 3V W CXR 1V, 08/15/2020, 15:10. FINDINGS: Image quality: Excellent. Lungs and pleura: No acute air space opacities there is a chronic appearing interstitial prominence. The area of plain film concern from 08/15/20 at the right upper lobe medially represents superimposition by asymmetric prominence of the 1st costosternal junction, from arthritic change. No pleural effusions or pneumothorax. Central and peripheral airways are patent and normal in caliber. Mediastinum: Heart size is normal. No pericardial effusion. No mediastinal or hilar adenopathy by size criteria. Thoracic aorta and central pulmonary arteries are normal in size. Esophagus is normal in caliber. There is a moderate-sized hiatal hernia. Bones and chest wall: No suspicious bony lesions. No vertebral body compression fractures. No axillary or supraclavicular adenopathy by size criteria. Thyroid gland normal where well seen. Abdomen: Visualized upper abdominal solid organs appear normal. Upper abdominal bowel loops are normal in caliber. IMPRESSION: Mild pulmonary interstitial prominence, no evidence of neoplasm or active pneumonia. 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 No follow-up recommended. Incidental note is made of a moderate-sized hiatal hernia behind the heart. Dictated by: Km López M.D. on 08/20/2020 at 16:38 Approved by: Km López M.D. on 08/20/2020 at 16:41
== END ==
PROVIDERS: Family Provider Internal Medicine; PCP Internal Medicine; Referring Provider Internal Medicine; Visit Provider Internal Medicine
DX: R93.89 Abnormal findings on diagnostic imaging of other specified body structures (principal); R91.1 Solitary pulmonary nodule; K44.9 Diaphragmatic hernia without obstruction or gangrene
CPT/HCPCS: 71260; Q9967

== ENCOUNTER → 2021-01-13 13:25 | Outpatient (CLI) | payer MEDICARE, OTHER, SELFPAY ==
[2021-01-13 16:19] LABS: COVID19 -Nasal RAPID Negative (Negative)
== END ==
PROVIDERS: Family Provider Internal Medicine; PCP Internal Medicine; Visit Provider Physician Assistant
DX: Z01.812 Encounter for preprocedural laboratory examination (principal); Z20.822 Contact with and (suspected) exposure to COVID-19
CPT/HCPCS: 87635; C9803

== ENCOUNTER → 2021-03-24 10:26 | Outpatient (CLI) | payer MEDICARE, OTHER, SELFPAY ==
[2021-03-24 13:21] LABS: Alanine Aminotransferase 31 IU/L (<50); Albumin 4.4 g/dL (3.5-5.0); Albumin Globulin Ratio 1.2 (1.0-2.8); Alkaline Phosphatase 88 U/L (38-126); Aspartate Aminotransferase 33 IU/L (17-59); BUN Creatinine Ratio 22.6 (6-22); Bilirubin Total 0.4 mg/dL (0.2-1.3); Blood Urea Nitrogen 19 mg/dL (9-20); Calcium 9.7 mg/dL (8.4-10.2); Carbon Dioxide 28 mmol/L (22-32); Chloride 103 mmol/L (98-107); Cholesterol 135 mg/dL (140-199); Estimated Glomerular Filt Rate > 60.0 mL/min (>60); Globulin 3.8 g/dL (1.7-4.1); Glucose 111 mg/dL (80-110); HDL Cholesterol 29 mg/dL (40-60); HEMOLYSIS < 15 (0-50); LDL Cholesterol Calculated 73 mg/dL (<100); Potassium 4.2 mmol/L (3.4-5.1); Sodium 140 mmol/L (137-145); Total Protein 8.2 g/dL (6.3-8.2); Triglycerides 164 mg/dL (35-150)
== END ==
PROVIDERS: Family Provider Internal Medicine; PCP Internal Medicine; Referring Provider Internal Medicine; Visit Provider Internal Medicine
DX: E78.2 Mixed hyperlipidemia (principal); I10 Essential (primary) hypertension; I48.19 Other persistent atrial fibrillation
CPT/HCPCS: 36415; 80053; 80061

== ENCOUNTER → 2021-06-19 11:52 | Outpatient (CLI) | payer MEDICARE, OTHER, SELFPAY ==
--- NOTE | 2021-06-19 11:54 | DI.RAD.S_ITS ---
PROCEDURE: XR CHEST 2V INDICATIONS: chest pain TECHNIQUE: 2 views of the chest were acquired. COMPARISON: [facility], CR, XR SHOULDER 2+ VIEWS RIGHT, 04/08/2021, 15:00. [facility], CT, CT CHEST W CON, 08/20/2020, 12:30. FINDINGS: Surgical changes and devices: None. Lungs and pleura: Chronic interstitial prominence. No focal consolidation or pleural effusion. No pneumothorax. Mediastinum: Mediastinal contours are normal. Heart size is normal. Large hiatal hernia. Bones and chest wall: No suspicious bony abnormalities. Soft tissues appear unremarkable. Postsurgical changes in the left shoulder. IMPRESSION: 1. Chronic interstitial prominence. No focal consolidation. 2. Large hiatal hernia. Dictated by: Yaneli Saenz M.D. on 06/19/2021 at 17:56 Approved by: Yaneli Saenz M.D. on 06/19/2021 at 17:57
== END ==
PROVIDERS: Family Provider Internal Medicine; PCP Internal Medicine; Referring Provider Internal Medicine; Visit Provider Internal Medicine
DX: R07.89 Other chest pain (principal); K44.9 Diaphragmatic hernia without obstruction or gangrene; I48.0 Paroxysmal atrial fibrillation; I10 Essential (primary) hypertension; M25.561 Pain in right knee
CPT/HCPCS: 71046; 93005

== ENCOUNTER → 2021-07-21 13:44 | Outpatient (CLI) | payer MEDICARE, OTHER, SELFPAY ==
[2021-07-21 16:10] LABS: COVID19 -Nasal RAPID Negative (Negative)
== END ==
PROVIDERS: Family Provider Internal Medicine; PCP Internal Medicine; Visit Provider Nurse Practitioner Family
DX: Z01.812 Encounter for preprocedural laboratory examination (principal); Z20.822 Contact with and (suspected) exposure to COVID-19
CPT/HCPCS: 87635; C9803

== ENCOUNTER → 2021-07-22 13:23 | Outpatient (CLI) | payer MEDICARE, OTHER, SELFPAY ==
--- NOTE | 2021-07-22 14:46 | PM.TREADMILL ---
Cardiac Stress Test Report Referral & Results Date Patient Seen: 07/22/21 Requesting provider: Ruiz Christian Indication: Chest pain Rest ECG: Atrial fibrillation with ventricular response about 95 Procedure Note: Today following both written and verbal informed consent, the patient was exercised according to a standard Bud protocol. The patient exercised for a total of 2 minutes 50 seconds achieving a maximum heart rate of 161. Patient's maximum systolic blood pressure was 160. This was an estimated 4.6 MET's. Patient was unable to keep up with the treadmill even at the very slow rate and we had to discontinue the procedure. He also had rapid ventricular response in his atrial fibrillation with any exercise or activity although rapidly returned to a heart rate in the 90s at cessation of activity Blood pressure response was normal No ST-T segment changes Function aerobic impairment rates about 40% on the sedentary scale Impression: No evidence of ischemia. Atrial fibrillation with rapid ventricular response to exercise Patient's symptoms chest pain or very unlikely to be related to a cardiac source of symptoms. Patient persists with his paroxysmal atrial fibrillation as demonstrated by his AFib today when he was in normal sinus rhythm when I saw him in the office. He will return to his metoprolol therapy which should improve his overall rate control Please note: Actual ECG tracings can be found in the PACS system.
== END ==
PROVIDERS: Family Provider Internal Medicine; PCP Internal Medicine; Referring Provider Internal Medicine; Visit Provider Internal Medicine
DX: R07.9 Chest pain, unspecified (principal); I48.0 Paroxysmal atrial fibrillation
CPT/HCPCS: 93016; 93017; 93018

== ENCOUNTER → 2021-09-10 11:40 | Outpatient (CLI) | payer MEDICARE, OTHER, SELFPAY ==
--- NOTE | 2021-09-10 11:42 | DI.RAD.S_ITS ---
PROCEDURE: XR LUMBAR SPINE MIN 4V INDICATIONS: chronic Right buttock pain s/p lami and spinal cord stim TECHNIQUE: 5 views of the lumbar spine were acquired, including bilateral oblique views. COMPARISON: [facility], CT, CT LUMBAR SPINE WO CON, 09/10/2021, 11:52. FINDINGS: Bones: 5 nonrib-bearing vertebrae are present. Levocurvature of the lumbar spine. No vertebral body compression fractures. Mild to moderate disc height loss with endplate osteophytosis and facet arthrosis, most prominent at L3 -5. No suspicious bony lesions. Soft tissues: Overlying bowel gas pattern is normal. No suspicious soft tissue calcifications. A dorsal spinal device is noted. Oblique images: No substantial pars defects. IMPRESSION: Multilevel degenerative change. Dictated by: Zeke Booker M.D. on 09/10/2021 at 14:53 Approved by: Zeke Booker M.D. on 09/10/2021 at 14:58
--- NOTE | 2021-09-10 11:47 | DI.CT.S_ITS ---
PROCEDURE: CT LUMBAR SPINE WO CON INDICATIONS: chronic Right buttock pain s/p lami and spinal cord stim TECHNIQUE: Noncontrast 3 mm thick sections acquired from the T12 level to the sacrum. Sagittal and coronal reformats were constructed. For radiation dose reduction, the following was used: automated exposure control. COMPARISON: [facility], CR, XR LUMBAR SPINE MIN 4V, 09/10/2021, 11:45. FINDINGS: Image quality: Excellent. Bones: There is approximately 25? of convex left lumbar spine scoliosis. There is normal alignment of the visualized vertebral bodies. No acute vertebral body compression fractures. No suspicious lytic or blastic bony lesions. No pars defects. T12-L1: Disc height is normal. Mild, diffuse disc bulge. Mild bilateral facet hypertrophy. Mild narrowing of the central canal. Mild bilateral neural foraminal narrowing. No neural compression. L1-L2: Loss of disc height. Vacuum disc phenomenon. Mild to moderate diffuse disc bulge. [id number] bilateral facet hypertrophy. Moderate narrowing of the central canal. Mild bilateral neural foraminal narrowing. No neural compression. L2-L3: Loss of disc height. Mild, diffuse disc bulge. Mild bilateral facet hypertrophy. Mild narrowing of the central canal. Moderate right and mild left neural foraminal narrowing. No neural compression. L3-L4: Loss of disc height. Mild to moderate diffuse disc bulge. [id number] bilateral facet hypertrophy. Moderate narrowing of the central canal. Moderate right and mild left neural foraminal narrowing. No neural compression. L4-L5: Loss of disc height. Vacuum disc phenomenon. Moderate, diffuse disc bulge. Moderate bilateral facet hypertrophy. Status post left laminotomy. Moderate narrowing of the central canal. Severe right and moderate to severe left neural foraminal narrowing with compression of the exiting right L4 nerve root and slight compression of the exiting left L4 nerve root. L5-S1: Loss of disc height. Mild, diffuse disc bulge. Mild bilateral facet hypertrophy. Status post left laminotomy. No central stenosis. Mild right and severe left neural foraminal narrowing with compression of the exiting left L5 nerve root. Soft tissues: Spinal cord stimulator noted in the posterior paraspinous soft tissues with leads entering the epidural space at the L1-L2 level. No retroperitoneal masses or hematomas. Visualized aorta is normal in caliber. Scattered atherosclerotic calcifications involving the visualized abdominal and pelvic vasculature. IMPRESSION: 1. Convex left scoliosis. 2. Status post left L4-L5 and L5-S1 laminotomies. 3. Multilevel degenerative disc disease. 4. Multilevel facet arthropathy. 5. No severe central canal narrowing. 6. Severe right and moderate to severe left L4-L5 neural foraminal narrowing with compression of the exiting L4 nerve roots. Severe left L5-S1 neural foraminal narrowing with compression of the exiting left L5 nerve root. Dictated by: Alysha Hawley MD, PhD on 09/10/2021 at 14:28 Approved by: Alysha Hawley MD, PhD on 09/10/2021 at 14:35
== END ==
PROVIDERS: Family Provider Internal Medicine; PCP Internal Medicine; Referring Provider Physical Medicine & Rehabilitation; Visit Provider Physical Medicine & Rehabilitation
DX: M96.1 Postlaminectomy syndrome, not elsewhere classified (principal); M51.36 Other intervertebral disc degeneration, lumbar region; M51.37 Other intervertebral disc degeneration, lumbosacral region; M47.816 Spondylosis without myelopathy or radiculopathy, lumbar region; M47.817 Spondylosis without myelopathy or radiculopathy, lumbosacral region; M48.061 Spinal stenosis, lumbar region without neurogenic claudication; M48.07 Spinal stenosis, lumbosacral region; M41.86 Other forms of scoliosis, lumbar region; G89.29 Other chronic pain; Z96.82 Presence of neurostimulator
CPT/HCPCS: 72110; 72131

== ENCOUNTER → 2021-11-12 13:16 | Outpatient (CLI) | payer MEDICARE, OTHER, SELFPAY ==
[2021-11-12 15:06] LABS: COVID-19 CEPHEID PCR (VTM/NP) Negative (Negative)
== END ==
PROVIDERS: Family Provider Internal Medicine; PCP Internal Medicine; Visit Provider Family Medicine Sleep Medicine
DX: Z20.822 Contact with and (suspected) exposure to COVID-19 (principal)
CPT/HCPCS: C9803; U0003; U0005

== ENCOUNTER → 2021-11-21 10:40 | Outpatient (CLI) | payer MEDICARE, OTHER, SELFPAY ==
[2021-11-21 12:26] LABS: Alanine Aminotransferase 25 IU/L (<50); Albumin 4.3 g/dL (3.5-5.0); Albumin Globulin Ratio 1.3 (1.0-2.8); Alkaline Phosphatase 78 U/L (38-126); Aspartate Aminotransferase 29 IU/L (17-59); BUN Creatinine Ratio 28.6 (6-22); Bilirubin Total 0.5 mg/dL (0.2-1.3); Blood Urea Nitrogen 28 mg/dL (9-20); Calcium 9.4 mg/dL (8.4-10.2); Carbon Dioxide 32 mmol/L (22-32); Chloride 102 mmol/L (98-107); Cholesterol 145 mg/dL (140-199); Estimated Glomerular Filt Rate > 60.0 mL/min (>60); Globulin 3.3 g/dL (1.7-4.1); Glucose 95 mg/dL (80-110); HDL Cholesterol 35 mg/dL (40-60); HEMOLYSIS < 15 (0-50); LDL Cholesterol Calculated 74 mg/dL (<100); Potassium 4.1 mmol/L (3.4-5.1); Sodium 141 mmol/L (137-145); Total Protein 7.6 g/dL (6.3-8.2); Triglycerides 179 mg/dL (35-150)
== END ==
PROVIDERS: Family Provider Internal Medicine; PCP Internal Medicine; Referring Provider Internal Medicine Cardiovascular Disease; Visit Provider Internal Medicine Cardiovascular Disease
DX: E78.5 Hyperlipidemia, unspecified (principal)
CPT/HCPCS: 36415; 80053; 80061

== ENCOUNTER → 2022-04-02 13:47 | Outpatient (CLI) | payer MEDICARE, OTHER, SELFPAY ==
--- NOTE | 2022-04-02 | DI.ECHO.S_ITS ---
[facility] +---------+ : : [address] [place] [address] : : : : [phone] : : : : Phone: [phone] Echocardiogram Report + + :Name: LIVAN GARCIA Study Date: 04/02/2022 Height: 74 in : :[facility] ReadingLocation: Weight: 250 lb : : Gender: Male BSA: 2.4 m2 : :: 1940 Age: 81 yrs BP: 118/81 mmHg: :Reason For Study: ATRIAL FIBRILLATION : :Ordering Physician: MIKE, : :SINDI Performed By: Hoa Salazar : :Referring: SINDI MCKEON : + + Interpretation Summary The patient was in atrial fibrillation with heart rates between 85-115 bpm during the exam. The left ventricle is normal in size. The ejection fraction is estimated to be 50-55%. Previous LV ejection fraction 60 to 65%. That time patient was in A. fib and ventricular rate about 53-64 bpm. The right ventricle is mildly dilated. The right ventricular systolic function is normal. The aortic valve is mildly calcified. There is mildly reduced leaflet mobility. There is no hemodynamically significant valvular aortic stenosis. There is mild tricuspid regurgitation. Compared to the prior echo exam, there has been no change in TR severity. The right ventricular systolic pressure is estimated to be at least 31 mmHg based on an estimated right atrial pressure of 8 mm Hg. Procedure: A two-dimensional transthoracic echocardiogram with color flow and Doppler was performed. The study quality was technically adequate. Comparison is made with the echocardiogram of 11/04/2018. The patient was in atrial fibrillation with heart rates between 85-115 bpm during the exam. Left Ventricle: The left ventricle is normal in size. Proximal septal thickening is noted. There is no thrombus. The ejection fraction is estimated to be 50-55%. There is a mild dyssynchronous contraction pattern, consistent with a conduction abnormality. Diastolic function could not be accurately assessed due to atrial fibrillation. Right Ventricle: The right ventricle is mildly dilated. The right ventricular systolic function is normal. Atria: The left atrium is mildly dilated. The right atrium is moderate to severely dilated. The right atrium has significantly increased in size since the prior echo exam. There is no Doppler evidence for an interatrial shunt. Mitral Valve: The mitral valve leaflets appear mildly thickened, but open well. There is mild mitral annular calcification. The mitral valve leaflets are mildly calcified. There is mild mitral regurgitation. Aortic Valve: The aortic valve is mildly calcified. There is mildly reduced leaflet mobility. The aortic valve is trileaflet. There is a nodular thickening of the right as well as noncoronary cusp seen in previous echo as well. There is no hemodynamically significant valvular aortic stenosis. No aortic regurgitation is present. Tricuspid Valve: The tricuspid valve is normal in structure and function. There is mild tricuspid regurgitation. The right ventricular systolic pressure is estimated to be at least 31 mmHg based on an estimated right atrial pressure of 8 mm Hg. Compared to the prior echo exam, there has been no change in TR severity. Pulmonic Valve: The pulmonic valve is not well seen, but is grossly normal. There is trace pulmonic regurgitation. Great Vessels: The aortic root is mildly dilated. There is aortic root sclerosis/calcification. This is unchanged compared to the previous study. The dimensions of the ascending aorta are normal. The IVC is dilated (diameter is greater than 2.1 cm) yet it collapses greater than 50% with a sniff. This suggests a right atrial pressure of 8 mm Hg. Pericardium/ Pleura There is no pericardial effusion. There is no pleural effusion. MMode/2D Measurements & Calculations LVIDd: 4.7 cm LVOT diam: 2.1 cm LVIDs: 3.0 cm Ao root diam: 4.2 cm FS: 34.9 % asc Aorta Diam: 3.5 cm IVSd: 0.95 cm Ao Arch Diam (Prox Trans): 3.3 cm LVPWd: 1.2 cm LV potter. diameter/BSA (cm/m^2): 2.0 LV sys. diameter/BSA (cm/m^2): 1.3 LA A2 area: 33.5 cm2 RA long axis: 6.8 cm LA A4 area: 31.4 cm2 RA area: 29.0 cm2 LA length (vol): 7.9 cm RA vol: 104.0 ml LA vol: 112.6 ml RA : 43.5 ml/m2 LA vol index: 47.1 ml/m2 IVC diam: 2.1 cm RVD1 (basal): 4.4 cm RVD2 (mid): 3.4 cm TAPSE: 1.9 cm Doppler Measurements & Calculations Ao V2 max: 163.0 cm/sec LVOT Max Ru: 102.1 cm/sec Ao V2 mean: 117.8 cm/sec LV V1 max P.2 mmHg Ao max P.7 mmHg LV V1 VTI: 18.1 cm Ao mean P.3 mmHg KONSTANTIN(I,D): 2.2 cm2 Ao V2 VTI: 29.0 cm KONSTANTIN(V,D): 2.2 cm2 sev ratio: 0.62 KONSTANTIN indexed to BSA (cm^2/m^2): 0.93 MV E max ru: 110.2 cm/sec TR max ru: 239.8 cm/sec MV A max ru: 3.1 cm/sec TR max P.0 mmHg MV E/A: 35.8 PA V2 max: 78.5 cm/sec Med Peak E' Ru: 8.7 cm/sec PA V2 mean: 54.9 cm/sec E/E' med: 12.7 PA mean P.3 mmHg Lat Peak E' Ru: 10.0 cm/sec PA pr(Accel): 41.3 mmHg E/E' lat: 11.0 E/e' average: 11.8 MV dec time: 0.21 sec SV(LVOT): 64.2 ml Reading Physician:10:38 AM
== END ==
PROVIDERS: Family Provider Internal Medicine; PCP Internal Medicine; Referring Provider Internal Medicine Cardiovascular Disease; Visit Provider Internal Medicine Cardiovascular Disease
DX: I08.1 Rheumatic disorders of both mitral and tricuspid valves (principal); I48.19 Other persistent atrial fibrillation
CPT/HCPCS: 93306

== ENCOUNTER → 2022-07-08 13:50 | Outpatient (CLI) | payer MEDICARE, OTHER, SELFPAY | PROVIDERS: Family Provider Internal Medicine; PCP Internal Medicine; Referring Provider Physician Assistant; Visit Provider Physician Assistant | DX: I48.19 Other persistent atrial fibrillation (principal) ==

== ENCOUNTER → 2022-07-09 12:55 | Outpatient (CLI) | payer MEDICARE, OTHER, SELFPAY ==
--- NOTE | 2022-07-09 13:01 | DI.CT.S_ITS ---
PROCEDURE: CT ANGIO CHEST INDICATIONS: Other persistent atrial fibrillation TECHNIQUE: After the administration of intravenous contrast, 3 mm thick sections acquired from the pulmonary apices to the posterior costophrenic angles. 3-dimensional maximum intensity projection (MIP) coronal reformats were then acquired parallel to the pulmonary veins. For radiation dose reduction, the following was used: automated exposure control, adjustment of mA and/or kV according to patient size. COMPARISON: None. FINDINGS: Image quality: Excellent. Pulmonary veins: 3 pulmonary veins are identified. * Right superior pulmonary vein: 2.2 cm diameter, 1.4 cm from ostium to 1st order branch. * Right inferior pulmonary vein: 2.2 cm diameter, 2.0 cm from ostium to 1st order branch. * Left pulmonary vein: 1.9 cm diameter, 1.4 cm from ostium to 1st order branch. Lungs and pleura: No acute airspace opacities. There is peripheral interlobular septal thickening bilaterally and early honeycombing fibrosis at the bilateral lung bases. No acute airspace opacities. No pleural effusion or pneumothorax. Focal bronchiectatic airways are present within the lingula. Mediastinum: Heart size is normal, without pericardial effusion. No mediastinal or hilar adenopathy. Thoracic aorta and pulmonary arteries are normal in caliber and enhancement. Scattered atheromatous calcifications are present within the aortic arch. Esophagus is normal in caliber. There is a large hiatal hernia which is filled with food debris and gas. Bones and chest wall: No suspicious bony lesions. Ribs and thoracic spine appear intact throughout. No axillary or supraclavicular adenopathy. Thyroid gland is unremarkable . Abdomen: Visualized upper abdominal solid organs appear normal in the early arterial phase of enhancement. IMPRESSION: 1. Pulmonary veins as above. 2. Large hiatal hernia. 3. Pulmonary fibrosis. Dictated by: Malu Webb M.D. on 07/09/2022 at 16:15 Approved by: Malu Webb M.D. on 07/09/2022 at 16:21
[2022-07-09 13:36] LABS: BUN Creatinine Ratio 19.6 (6-22); Blood Urea Nitrogen 20 mg/dL (9-20); Calcium 8.9 mg/dL (8.4-10.2); Carbon Dioxide 25 mmol/L (22-32); Chloride 105 mmol/L (98-107); Estimated Glomerular Filt Rate > 60 mL/min (>60); Glucose 88 mg/dL (80-110); HEMOLYSIS < 15 (0-50); Potassium 4.3 mmol/L (3.4-5.1); Sodium 142 mmol/L (137-145)
== END ==
PROVIDERS: Family Provider Internal Medicine; PCP Internal Medicine; Referring Provider Physician Assistant; Visit Provider Physician Assistant
DX: I48.0 Paroxysmal atrial fibrillation (principal); I48.19 Other persistent atrial fibrillation; K44.9 Diaphragmatic hernia without obstruction or gangrene; J84.10 Pulmonary fibrosis, unspecified
CPT/HCPCS: 36415; 71275; 80048; Q9967

== ENCOUNTER → 2022-10-01 11:45 | Outpatient (CLI) | payer MEDICARE, OTHER, SELFPAY ==
[2022-10-01 13:23] LABS: BUN Creatinine Ratio 26.3 (6-22); Blood Urea Nitrogen 21 mg/dL (9-20); Carbon Dioxide 27 mmol/L (22-32); Chloride 102 mmol/L (98-107); Estimated Glomerular Filt Rate > 60 mL/min (>60); Glucose 102 mg/dL (80-110); HEMOLYSIS 15 (0-50); Potassium 4.2 mmol/L (3.4-5.1); Sodium 140 mmol/L (137-145)
== END ==
PROVIDERS: Physician Assistant Medical; Family Provider Internal Medicine; PCP Internal Medicine; Referring Provider Internal Medicine Cardiovascular Disease; Visit Provider Internal Medicine Cardiovascular Disease
DX: I48.0 Paroxysmal atrial fibrillation (principal)
CPT/HCPCS: 36415; 80048

== ENCOUNTER 2023-01-07 18:01 | Emergency (ER) | payer MEDICARE, OTHER, SELFPAY ==
[2023-01-07 18:20] VITALS: BP 124/86; PULSE 75; RESP 18; TEMP 36.2; O2SAT 99; BMI 32.7
--- NOTE | 2023-01-07 18:26 | DI.RAD.S_ITS ---
PROCEDURE: XR SHOULDER RT MIN 2V INDICATIONS: fall TECHNIQUE: 3 views of the shoulder were acquired. COMPARISON: None. FINDINGS: Bones: Moderate glenohumeral and acromioclavicular degenerative changes. No displaced fracture. Soft tissues: No suspicious calcifications. IMPRESSION: Degenerative changes. No acute radiographic abnormality. If there is high concern for further derangement, consider MRI evaluation. Dictated by: Marbin Martel M.D. on 01/07/2023 at 19:37 Approved by: Marbin Martel M.D. on 01/07/2023 at 19:38
--- NOTE | 2023-01-07 18:26 | DI.RAD.S_ITS ---
PROCEDURE: XR KNEE RT 3V INDICATIONS: fall TECHNIQUE: 3 views of the knee were acquired. COMPARISON: None. FINDINGS: Bones: Placed fracture or dislocation. Moderate tricompartmental joint space narrowing. Patellar enthesopathy. Soft tissues: Possible trace joint effusion. There are vascular calcifications. IMPRESSION: Possible small joint effusion. No displaced fracture or dislocation. If there is high concern for further derangement, consider MRI evaluation. Dictated by: Marbin Martel M.D. on 01/07/2023 at 19:38 Approved by: Marbin Martel M.D. on 01/07/2023 at 19:39
--- NOTE | 2023-01-07 19:51 | ED_ITS ---
HPI - General Adult General Chief complaint: Extremity Injury, Upper Stated complaint: rt shoulder injury Time Seen by Provider: 01/07/23 18:28 Source: patient Mode of arrival: Ambulatory Limitations: no limitations History of Present Illness HPI narrative: 82-year-old male who is here for evaluation of injuries that he sustained when he tripped and fell and injured his right knee in his right shoulder. He did n ot lose consciousness. He did not hit his head. He was able to get up and walk afterwards but is having quite a bit of discomfort in his right shoulder and his right knee. No other injuries from the event. Not on anticoagulation. Related Data Home Medications Medication Instructions Recorded Confirmed acetylcarnitine 500 mg capsule 500 mg PO DAILY 04/10/19 01/04/23 alpha lipoic acid 100 mg capsule 300 mg PO DAILY 04/10/19 01/04/23 ascorbic acid (vitamin C) 500 mg 500 mg PO DAILY 04/10/19 01/04/23 tablet coenzyme Q10 150 mg capsule 150 mg PO DAILY 04/10/19 01/04/23 rivaroxaban 20 mg tablet (Xarelto) 20 mg PO DAILY 04/10/19 01/04/23 Respironics Dreamstation CPAP #1 ea 07/27/19 01/04/23 meclizine 25 mg chewable tablet 25 mg PO DAILY 10/19/19 01/04/23 (Bonine) melatonin 5 mg/15 mL oral liquid 1 mg PO 02/14/20 01/04/23 acetaminophen 500 mg tablet 1,000 mg PO .4-5XD 07/23/22 01/04/23 (Tylenol Extra Strength) metoprolol succinate 25 mg 25 mg PO BID 07/23/22 01/04/23 tablet,extended release 24 hr propafenone 225 mg 225 mg PO Q12H 11/16/22 01/04/23 capsule,extended release 12 hr tizanidine 4 mg tablet 4 mg PO BEDTIME PRN muscle 11/16/22 01/04/23 spasticity Previous Rx's Medication Instructions Recorded Disabled Parking Permit ea ##1 12/23/17 clindamycin phosphate 1 % lotion 1 % topical BID #60 mL 11/09/18 clotrimazole-betamethasone 1 1 applic topical TID #45 grams 08/07/21 %-0.05 % topical cream rosuvastatin 10 mg tablet 10 mg PO DAILY #90 tabs 07/31/22 omeprazole 20 mg capsule,delayed 20 mg PO BID #180 caps 08/04/22 release gabapentin 600 mg tablet 1,200 mg PO TID #540 tabs 09/01/22 (Neurontin) bupropion HCl 150 mg 24 hr tablet, 300 mg PO DAILY #180 tabs 10/02/22 extended release oxycodone-acetaminophen 5 mg-325 1 tab PO Q4H PRN pain in 01/04/23 mg tablet back/joints #120 tabs sertraline 100 mg tablet 200 mg PO DAILY #180 tabs 01/04/23 Allergies Allergy/AdvReac Type Severity Reaction Status Date / Time hydrocodone [From Vicodin] Allergy Intermediate Confusion Verified 01/07/23 18:25 Review of Systems Constitutional Constitutional: Reports system reviewed and no additional complaints, except as documented Musculoskeletal Musculoskeletal: Reports system reviewed and no additional complaints, except as documented Integumentary/Breasts Skin/Breast: Reports system reviewed and no additional complaints, except as documented Neurologic Neurologic: Reports system reviewed and no additional complaints, except as documented Hematologic/Lymphatic On Anticoagulants: No Patient History Medical History 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) Chronic anticoagulation Chronic pain COVID-19 (~02/2022) 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 Lumbar post-laminectomy syndrome Mixed hyperlipidemia (12/19/15) Obstructive sleep apnea syndrome Other insomnia (06/26/16) Paroxysmal atrial fibrillation (~11/09/17) Uncomplicated opioid dependence Family History Brother Family history of esophageal cancer Social History marital status: number of children: 2 household members: spouse lives independently: Yes caregiver/support person: No housing: house pets and animals: No education level: college occupational status: other current occupational exposures/hazards: No Previous occupational history: [employer] travel history: recent leisure activities: music, reading and other Smoking Status: Never smoker Tobacco: How many years used: 0 quit status: quit date established second hand exposure: No alcohol intake: never substance use type: does not use Smoking Status: Never smoker alcohol intake frequency: 0-2 drinks per day Substance Use Type: does not use Exam Initial Vital Signs Initial Vital Signs: Vital Signs Temperature 97.2 F L 01/07/23 18:20 Pulse Rate 75 01/07/23 18:20 Respiratory Rate 18 01/07/23 18:20 Blood Pressure 124/86 01/07/23 18:20 Pulse Oximetry 99 01/07/23 18:20 Oxygen Delivery Method Room Air 01/07/23 18:20 Skin Other: Abrasion to the anterior aspect of the right knee Neuro General: patient alert, patient awake and moves all extremities Extrem Other: Patient has some discomfort the lateral aspect of the right knee however he can do a straight leg raise. Low suspicion for ACL MCL PCL and LCL tear. The right wrist and right elbow unremarkable. Some discomfort over the anterior portion of the right shoulder. AC joint is unremarkable. Patient has some discomfort with forward flexing of the shoulder. Course Orders Ordered: Discontinued Medications Bacitracin (Bacitracin Oint 0.9 Gm Pckt) 1 applic TOP NOW ONE Stop: 01/07/23 19:53 Last Admin: 01/07/23 20:11 Dose: 1 applic Documented By: KALEB Vital Signs Vital signs: Vital Signs - 8 hr 01/07/23 20:15 Temperature 97.7 F Pulse Rate 66 Respiratory Rate 16 Blood Pressure 132/70 Pulse Oximetry 98 Oxygen Delivery Method Room Air Medical Decision Making Imaging Data Extremity x-ray #1: Radiologist's Impression: PROCEDURE:? XR KNEE RT 3V ? INDICATIONS:? fall ? TECHNIQUE:? 3 views of the knee were acquired.? ? COMPARISON:? None. ? FINDINGS:? ? Bones:? Placed fracture or dislocation.? Moderate tricompartmental joint space narrowing. ?Patellar enthesopathy. ? Soft tissues:? Possible trace joint effusion.? There are vascular calcifications. ? ? IMPRESSION:? Possible small joint effusion.? No displaced fracture or dislocation.? If there is high concern for further derangement, consider MRI evaluation. Extremity x-ray #2: Radiologist's Impression: PROCEDURE:? XR SHOULDER RT MIN 2V ? INDICATIONS:? fall ? TECHNIQUE:? 3 views of the shoulder were acquired.? ? COMPARISON:? None. ? FINDINGS:? ? Bones:? Moderate glenohumeral and acromioclavicular degenerative changes.? No displaced fracture. ? Soft tissues:? No suspicious calcifications. ? IMPRESSION:? Degenerative changes.? No acute radiographic abnormality.? If there is high concern for further derangement, consider MRI evaluation. [facility] Narrative Medical decision making narrative: Patient is neurovascularly intact. Has an abrasion over the anterior aspect of his right knee that requires no intervention. No fractures noted. Patient can ambulate. I did discuss all this with him. We discussed the possibility that if his symptoms do not improve that he may need to see his primary doctor about further imaging. Expressed understanding and agreement. Discharge Plan Departure Patient Disposition: Home Clinical Impression: Knee pain, Abrasion of skin, Injury of right shoulder Instructions: Shoulder Sprain, DI for Knee Sprain Activity Restrictions/Additional Instructions: There are no fractures noted on the x-rays. You can use the sling for your comfort. I recommend that you contact your primary doctor for follow-up especially if your symptoms do not improve as you may need further evaluation by either physical therapy or Orthopedics. Return to the emergency department for new symptoms. Prescriptions: No Action Disabled Parking Permit Qty: 1 0RF clindamycin phosphate 1 % lotion 1 % Topical BID Qty: 60 3RF rosuvastatin 10 mg tablet 10 mg PO DAILY Qty: 90 3RF omeprazole 20 mg capsule,delayed release(DR/EC) 20 mg PO BID Qty: 180 3RF gabapentin [Neurontin] 600 mg tablet 1,200 mg PO TID Qty: 540 1RF bupropion HCl 150 mg tablet extended release 24 hr 300 mg PO DAILY Qty: 180 2RF melatonin 5 mg/15 mL liquid 1 mg PO clotrimazole-betamethasone 1-0.05 % cream 1 applic topical TID Qty: 45 3RF propafenone 225 mg capsule,extended release 12 hr 225 mg PO Q12H Xarelto 20 mg tablet 20 mg PO DAILY acetylcarnitine 500 mg capsule 500 mg PO DAILY ascorbic acid (vitamin C) 500 mg tablet 500 mg PO DAILY coenzyme Q10 150 mg capsule 150 mg PO DAILY alpha lipoic acid 100 mg capsule 300 mg PO DAILY meclizine [Bonine] 25 mg tablet,chewable 25 mg PO DAILY sertraline 100 mg tablet 200 mg PO DAILY Qty: 180 3RF oxycodone-acetaminophen 5-325 mg tablet 1 tab PO Q4H MDD 5 tabs per 24 hours PRN (Reason: pain in back/joints) Qty: 120 0RF metoprolol succinate 25 mg tablet extended release 24 hr 25 mg PO BID tizanidine 4 mg tablet 4 mg PO BEDTIME PRN (Reason: muscle spasticity) acetaminophen [Tylenol Extra Strength] 500 mg tablet 1,000 mg PO .4-5XD (DME) Respironics Dreamstation CPAP Qty: 1 Dose Instruction: As directed Patient Comments: Rx Instructions: Pressure: 7-11 cmH2O DME: [facility] Referrals: Ruiz Christian MD [Primary Care Provider] - Stand Alone Forms: Patient Portal/API
[2023-01-07] MEDS: BACITRACIN OINT 0.9 GM PCKT 1 APPLIC TOP (20:11)
[2023-01-07 20:15] VITALS: BP 132/70; PULSE 66; RESP 16; TEMP 36.5; O2SAT 98
== END 2023-01-07 20:10 | disposition home or self-care (01) ==
PROVIDERS: Emergency Provider Emergency Medicine; Family Provider Internal Medicine; PCP Internal Medicine
DX: S49.91XA Unspecified injury of right shoulder and upper arm, initial encounter (principal); S89.91XA Unspecified injury of right lower leg, initial encounter; W01.0XXA Fall on same level from slipping, tripping and stumbling without subsequent striking against object, initial encounter
CPT/HCPCS: 73030; 73562; 99283

== ENCOUNTER → 2023-05-04 13:06 | Outpatient (CLI) | payer MEDICARE, OTHER, SELFPAY ==
--- NOTE | 2023-05-04 13:07 | DI.RAD.S_ITS ---
PROCEDURE: XR LUMBAR SPINE MIN 4V INDICATIONS: Low back pain status post spinal cord stimulator TECHNIQUE: 5 views of the lumbar spine were acquired, including bilateral oblique views. COMPARISON: [facility], , XR LUMBAR SPINE MIN 4V, 09/10/2021, 11:45. FINDINGS: Bones: 5 nonrib-bearing vertebrae are present. There is normal bony alignment. Convex left scoliosis of the lumbar spine. No vertebral body compression fractures. No suspicious bony lesions. Severe degenerative disc changes throughout the lumbar spine. Severe L3-L4, L4-L5 and L5-S1 facet arthropathy. Moderate L1-L2 and L2-L3 facet arthropathy. Soft tissues: Overlying bowel gas pattern is normal. No suspicious soft tissue calcifications. Neurostimulator device is stable. Oblique images: No pars defects. IMPRESSION: 1. Multilevel degenerative disc disease. 2. Multilevel facet arthropathy. 3. No fracture. No acute osseous lesion. If symptoms and/or clinical suspicion for pathology persists, evaluation with CT or MRI should be considered for further assessment. Dictated by: Alysha Hawley MD, PhD on 05/04/2023 at 14:08 Approved by: Alysha Hawley MD, PhD on 05/04/2023 at 14:10
--- NOTE | 2023-05-04 13:14 | DI.CT.S_ITS ---
PROCEDURE: CT LUMBAR SPINE WO CON INDICATIONS: Low back pain status post spinal cord stimulator TECHNIQUE: Noncontrast 3 mm thick sections acquired from the T12 level to the sacrum. Sagittal and coronal reformats were constructed. For radiation dose reduction, the following was used: automated exposure control. COMPARISON: [facility], CT, CT LUMBAR SPINE WO CON, 09/10/2021, 11:52. FINDINGS: Image quality: Excellent. Bones: Mild levocurvature, centered at L2-L3. Spinal cord stimulator enters at L2-L3 and courses superiorly to the level of T10. Left hemilaminectomy at L4-L5 and L5-S1. No compression fractures. No acute vertebral body compression fractures. No suspicious lytic or blastic bony lesions. No pars defects. T10-T11: Posterior disc osteophyte complex. Xaed-iq-ajrungut canal stenosis. T11-T12: Posterior disc osteophyte complex. Mild canal stenosis. T12-L1: No canal stenosis or foraminal stenosis. L1-L2: No canal stenosis or foraminal stenosis. L2-L3: No canal stenosis or foraminal stenosis. L3-L4: Posterior disc osteophyte complex. Facet hypertrophy. Mild canal stenosis. L4-L5: Left hemilaminectomy. No canal stenosis. Moderate right foraminal stenosis and [id number] left foraminal stenosis. L5-S1: Left hemilaminectomy. No canal stenosis. Mild bilateral foraminal stenosis. Soft tissues: No retroperitoneal masses or hematomas. Visualized aorta is normal in caliber. IMPRESSION: 1. No acute bony abnormality. 2. There is a degree of canal stenosis at T10-T11, T11-T12, and L3-L4. Dictated by: Wing Schneider M.D. on 05/04/2023 at 17:23 Approved by: Wing Schneider M.D. on 05/04/2023 at 17:32
== END ==
PROVIDERS: Family Provider Internal Medicine; PCP Family Medicine; Referring Provider Physical Medicine & Rehabilitation; Visit Provider Physical Medicine & Rehabilitation
DX: M96.1 Postlaminectomy syndrome, not elsewhere classified (principal); M51.36 Other intervertebral disc degeneration, lumbar region; M47.816 Spondylosis without myelopathy or radiculopathy, lumbar region; M47.817 Spondylosis without myelopathy or radiculopathy, lumbosacral region; Z96.82 Presence of neurostimulator
CPT/HCPCS: 72110; 72131

== ENCOUNTER → 2023-08-03 12:25 | Outpatient (CLI) | payer MEDICARE, OTHER, SELFPAY ==
--- NOTE | 2023-08-03 12:27 | DI.RAD.S_ITS ---
PROCEDURE: XR SHOULDER LT MIN 2V INDICATIONS: LEFT SHOULDER PAIN TECHNIQUE: 3 views of the shoulder were acquired. COMPARISON: None. FINDINGS: Bones: Suture anchors in the left humeral head. Mild acromioclavicular joint and moderate glenohumeral joint osteoarthritis. No fractures or dislocations. No suspicious bony lesions. Visualized ribs appear intact. Soft tissues: No suspicious soft tissue calcifications. IMPRESSION: Osteoarthritis. Dictated by: Alysha Hawley MD, PhD on 08/03/2023 at 13:28 Approved by: Alysha Hawley MD, PhD on 08/03/2023 at 13:29
[2023-08-03 13:29] LABS: Add Manual Diff / Slide Review NO; Basophils Absolute Auto 0 /uL (0-100); Basophils Percent Auto 0.5 % (0-2); Eosinophils Absolute Auto 100 /uL (0-450); Eosinophils Percent Auto 1.2 % (2-4); Hematocrit 42.3 % (41-53); Hemoglobin 14.2 g/dL (13.5-17.5); Lymphocytes Absolute Auto 2100 /uL (1100-4500); Lymphocytes Percent Auto 30.3 % (25-40); Mean Corpuscular HGB Conc 33.5 % (30-36); Mean Corpuscular Hemoglobin 31.8 PG (26-34); Mean Corpuscular Volume 94.8 fL (80-100); Monocytes Absolute Auto 400 /uL (0-900); Monocytes Percent Auto 6.2 % (3-14); Neutrophils Absolute Auto 4400 /uL (1500-7000); Neutrophils Percent Auto 61.8 % (50-75); Platelet Count 119 X10^3/uL (150-400); Red Blood Cell Count 4.46 X10^6/uL (4.5-5.9); Red Cell Distribution Width 13.9 % (11.6-14.8)
[2023-08-03 13:41] LABS: Alanine Aminotransferase 22 IU/L (<50); Albumin 4.4 g/dL (3.5-5.0); Albumin Globulin Ratio 1.2 (1.0-2.8); Alkaline Phosphatase 92 U/L (38-126); Aspartate Aminotransferase 28 IU/L (17-59); BUN Creatinine Ratio 19.1 (6-22); Bilirubin Total 0.6 mg/dL (0.2-1.3); Blood Urea Nitrogen 17 mg/dL (9-20); Calcium 9.6 mg/dL (8.4-10.2); Carbon Dioxide 26 mmol/L (22-32); Chloride 101 mmol/L (98-107); Estimated Glomerular Filt Rate > 60 mL/min (>60); Globulin 3.7 g/dL (1.7-4.1); Glucose 111 mg/dL (80-110); HEMOLYSIS < 15 (0-50); Potassium 4.3 mmol/L (3.4-5.1); Sodium 139 mmol/L (137-145); Total Protein 8.1 g/dL (6.3-8.2)
== END ==
PROVIDERS: PCP Family Medicine; Referring Provider Physical Medicine & Rehabilitation; Visit Provider Physical Medicine & Rehabilitation
DX: M25.512 Pain in left shoulder (principal); M19.012 Primary osteoarthritis, left shoulder; E78.2 Mixed hyperlipidemia; I10 Essential (primary) hypertension
CPT/HCPCS: 36415; 73030; 80053; 85025

== ENCOUNTER → 2023-09-16 16:24 | Outpatient (CLI) | payer MEDICARE, OTHER, SELFPAY ==
--- NOTE | 2023-09-16 16:26 | DI.RAD.S_ITS ---
PROCEDURE: XR KNEE RT 3V INDICATIONS: knee djd TECHNIQUE: 3 views of the knee were acquired. COMPARISON: [facility], CR, XR KNEE 1 OR 2 VIEWS RIGHT, 07/13/2023, 11:09. [facility], CR, XR KNEE RT 3V, 01/07/2023, 18:31. FINDINGS: Bones: Stable postsurgical changes of right total knee arthroplasty. Stable postsurgical alignment. No evidence for acute hardware complication. No acute fractures. Soft tissues: No substantial joint effusion. No suspicious soft tissue calcifications. IMPRESSION: Stable postsurgical changes of right total knee arthroplasty. No evidence for hardware complication. Dictated by: Giuliano Loyola M.D. on 09/16/2023 at 18:11 Approved by: Giuliano Loyola M.D. on 09/16/2023 at 18:12
--- NOTE | 2023-09-16 16:26 | DI.RAD.S_ITS ---
PROCEDURE: XR KNEE LT 3V INDICATIONS: knee djd TECHNIQUE: 3 views of the knee were acquired. COMPARISON: [facility], CR, XR KNEE 4+ VIEWS BILATERAL, 04/02/2023, 10:36. [facility], CR, XR KNEE RT 3V, 01/07/2023, 18:31. FINDINGS: Bones: No acute fractures or dislocations. No suspicious bony lesions. Moderate tricompartmental degenerative changes of the left knee with marginal osteophyte formation. Mild medial and lateral femorotibial joint space narrowing. Soft tissues: Small joint effusion. No suspicious soft tissue calcifications. IMPRESSION: Left knee without acute fracture or dislocation. Moderate tricompartmental osteoarthrosis. Dictated by: Giuliano Loyola M.D. on 09/16/2023 at 18:09 Approved by: Giuliano Loyola M.D. on 09/16/2023 at 18:11
== END ==
PROVIDERS: PCP Family Medicine; Referring Provider Physical Medicine & Rehabilitation; Visit Provider Physical Medicine & Rehabilitation
DX: M17.0 Bilateral primary osteoarthritis of knee (principal); Z96.651 Presence of right artificial knee joint
CPT/HCPCS: 73562

== ENCOUNTER 2023-09-28 17:21 | Emergency (ER) | payer MEDICARE, OTHER, SELFPAY ==
[2023-09-28] VITALS (11 sets, daily range): BP systolic 119–139; BP diastolic 71–93; PULSE 67–135; RESP 9–23; TEMP 36.6; O2SAT 94–97; BMI 32.7
--- NOTE | 2023-09-28 17:37 | DI.RAD.S_ITS ---
PROCEDURE: XR CHEST 1V INDICATIONS: chest pain TECHNIQUE: One view of the chest was acquired. COMPARISON: [facility], CORI, XR CHEST 2V, 06/19/2021, 11:50. [facility], CORI, CHEST 1 VIEW, 07/23/2017, 17:03. FINDINGS: Surgical changes and devices: Spinal stimulator leads. Lungs and pleura: Lungs are clear. No pleural effusions or pneumothorax. Mediastinum: Mediastinal contours appear normal. Heart size is normal. Large hiatal hernia. Bones and chest wall: No suspicious bony lesions. Overlying soft tissues appear unremarkable. IMPRESSION: No acute cardiopulmonary abnormality is seen. Dictated by: Garcia Thompson M.D. on 09/28/2023 at 18:09 Approved by: Garcia Thompson M.D. on 09/28/2023 at 18:11
[2023-09-28] MEDS: ASPIRIN 81 MG CHEW TAB 324 MG PO (17:44)
[2023-09-28 18:04] LABS: Add Manual Diff / Slide Review NO; Basophils Absolute Auto 100 /uL (0-100); Basophils Percent Auto 0.9 % (0-2); Eosinophils Absolute Auto 200 /uL (0-450); Eosinophils Percent Auto 2.4 % (2-4); Hematocrit 39.7 % (41-53); Hemoglobin 13.4 g/dL (13.5-17.5); Lymphocytes Absolute Auto 1900 /uL (1100-4500); Lymphocytes Percent Auto 25.8 % (25-40); Mean Corpuscular HGB Conc 33.6 % (30-36); Mean Corpuscular Hemoglobin 31.3 PG (26-34); Monocytes Absolute Auto 500 /uL (0-900); Monocytes Percent Auto 6.8 % (3-14); Neutrophils Absolute Auto 4800 /uL (1500-7000); Neutrophils Percent Auto 64.1 % (50-75); Platelet Count 154 X10^3/uL (150-400); Red Blood Cell Count 4.27 X10^6/uL (4.5-5.9); Red Cell Distribution Width 13.6 % (11.6-14.8); White Blood Cell Count 7.5 X10^3/uL (4.5-11.0)
[2023-09-28 18:10] LABS: INR 1.3 (0.9-1.3); Prothrombin Time 15.3 SECONDS (9.4-12.5)
[2023-09-28 18:12] LABS: PTT Partial Thromboplastin Tim 38 SECONDS (25.1-36.5)
[2023-09-28 18:15] LABS: Alanine Aminotransferase 27 IU/L (<50); Albumin 4.2 g/dL (3.5-5.0); Albumin Globulin Ratio 1.1 (1.0-2.8); Alkaline Phosphatase 82 U/L (38-126); Aspartate Aminotransferase 33 IU/L (17-59); BUN Creatinine Ratio 22.6 (6-22); Bilirubin Total 0.6 mg/dL (0.2-1.3); Blood Urea Nitrogen 19 mg/dL (9-20); Calcium 9.4 mg/dL (8.4-10.2); Carbon Dioxide 26 mmol/L (22-32); Chloride 103 mmol/L (98-107); Creatine Kinase 131 U/L (55-170); Estimated Glomerular Filt Rate > 60 mL/min (>60); Globulin 3.7 g/dL (1.7-4.1); Glucose 120 mg/dL (80-110); Lipase 75 U/L (23-300); Potassium 3.9 mmol/L (3.4-5.1); Sodium 138 mmol/L (137-145); Total Protein 7.9 g/dL (6.3-8.2)
[2023-09-28 18:28] LABS: HEMOLYSIS 39 (0-50); Troponin I < 0.012 ng/mL (0.01-0.034)
--- NOTE | 2023-09-28 19:48 | ED_ITS ---
HPI - Chest Pain General Chief Complaint: Chest Pain Stated Complaint: heart problems, sent by Dr Dias Time Seen by Provider: 09/28/23 19:43 Source: patient Mode of arrival: Ambulatory Limitations: no limitations History of Present Illness HPI narrative: Gentleman comes to the ED today with a fleeting episode of chest pain at about 5:00 p.m.. He has atrial fibrillation and takes rivaroxaban for it. He was sitting at his computer when he had this episode of sharp chest pain in the left chest not associated with diaphoresis, dyspnea, nausea or radiation of pain. He is had similar episodes in the past lasting up to 2 hours. No recent stress test. He does not have coronary disease to his knowledge. He does have atrial fibrillation. He does not have hypertension or diabetes. He does take cholesterol lowering medication. He has no recent illness cough or fever. No trauma. Related Data Home Medications Medication Instructions Recorded Confirmed alpha lipoic acid 100 mg capsule 300 mg PO DAILY 04/10/19 09/20/23 ascorbic acid (vitamin C) 500 mg 500 mg PO DAILY 04/10/19 09/20/23 tablet coenzyme Q10 150 mg capsule 150 mg PO DAILY 04/10/19 09/20/23 rivaroxaban 20 mg tablet (Xarelto) 20 mg PO DAILY 04/10/19 09/20/23 Respironics Dreamstation CPAP #1 ea 07/27/19 09/20/23 melatonin 5 mg/15 mL oral liquid 1 mg PO 02/14/20 09/20/23 acetaminophen 500 mg tablet 1,000 mg PO .4-5XD 07/23/22 09/20/23 (Tylenol Extra Strength) metoprolol succinate 25 mg 25 mg PO BID 07/23/22 09/20/23 tablet,extended release 24 hr propafenone 225 mg 225 mg PO Q12H 11/16/22 09/20/23 capsule,extended release 12 hr ipratropium bromide 42 mcg (0.06 2 spray intranasal 3XD PRN 09/06/23 09/20/23 %) nasal spray Previous Rx's Medication Instructions Recorded Disabled Parking Permit ea ##1 12/23/17 clindamycin phosphate 1 % lotion 1 % topical BID #60 mL 11/09/18 rosuvastatin 10 mg tablet 10 mg PO DAILY #90 tabs 07/31/22 clotrimazole-betamethasone 1 1 applic topical TID #45 grams 05/24/23 %-0.05 % topical cream duloxetine 30 mg capsule,delayed 30 mg PO .QHS #90 caps 05/27/23 release duloxetine 60 mg capsule,delayed 60 mg PO DAILY #90 caps 05/27/23 release hydrochlorothiazide 12.5 mg tablet 12.5 mg PO DAILY #90 tabs 05/27/23 tamsulosin 0.4 mg capsule 0.4 mg PO BEDTIME #90 caps 05/27/23 oxycodone-acetaminophen 5 mg-325 1 tab PO Q4H PRN pain in 07/07/23 mg tablet back/joints #120 tabs omeprazole 20 mg capsule,delayed 20 mg PO BID #180 caps 07/13/23 release gabapentin 600 mg tablet 1,200 mg (2 x 600 mg) PO 3XD #540 08/18/23 tabs tizanidine 4 mg tablet 8 mg (2 x 4 mg) PO BEDTIME PRN 08/25/23 muscle spasticity #180 tabs trazodone 50 mg tablet 50 mg PO BEDTIME #60 tabs 08/25/23 Allergies Allergy/AdvReac Type Severity Reaction Status Date / Time hydrocodone [From Vicodin] Allergy Intermediate Confusion Verified 09/28/23 17:36 Patient History Medical History Leg edema BPH (benign prostatic hyperplasia) Spinal cord stimulator dysfunction Parkinsonism Depression COVID-19 (~02/2022) Degenerative joint disease of knee Uncomplicated opioid dependence Lumbar post-laminectomy syndrome Paroxysmal atrial fibrillation (~11/09/17) Chronic pain Chronic anticoagulation Other insomnia (06/26/16) Mixed hyperlipidemia (12/19/15) Obstructive sleep apnea syndrome Dorsalgia 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) Surgical History History of repair of right rotator cuff Family History Brother Family history of esophageal cancer Social History marital status: number of children: 2 household members: spouse lives independently: Yes caregiver/support person: No housing: house pets and animals: No education level: college occupational status: other current occupational exposures/hazards: No 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 HEAD: Atraumatic. Normocephalic. EYES: Sclera are clear without icterus. Extraocular movements are full. ENT: No rhinorrhea. NECK: Supple. Full range of motion. CARDIOVASCULAR: Normal rate and rhythm without murmur gallop or rub. RESPIRATORY: Clear to auscultation. Breath sounds equal bilaterally. No wheezes, rales, or rhonchi. GASTROINTESTINAL: Abdomen soft, non-tender, nondistended. EXTREMITIES: No edema, full range of motion. No obvious trauma. BACK: Normal inspection, no CVA tenderness. NEURO: Nonfocal examination, normal speech SKIN: No rash or erythema of visible areas PSYCH: Normally oriented. Normal range of affect. Appropriate behavior Initial Vital Signs Initial Vital Signs: Vital Signs Temperature 97.9 F 09/28/23 17:31 Pulse Rate 67 09/28/23 17:31 Respiratory Rate 16 09/28/23 17:31 Blood Pressure 139/81 09/28/23 17:31 Pulse Oximetry 95 09/28/23 17:31 Oxygen Delivery Method Room Air 09/28/23 17:31 Scores HEART Score Heart Score history: Slightly Suspicious Heart Score EKG: Normal Heart Score Age: > or = 65 years old Heart Score risk factors: 1-2 risk factors Heart Score troponin: < or = to normal limit Heart Score Total: 3 Course Orders Ordered: ED Orders 09/28/23 17:37 XR chest 1V Stat EKG-12 Lead Stat 09/28/23 17:53 Complete Blood Count AUTO DIFF Stat Comprehensive Metabolic Panel Stat Lipase Stat Magnesium Stat PTT Partial Thromboplastin William Stat Prothrombin Time INR Stat Troponin & CK Cardiac Panel Stat 09/28/23 19:52 Troponin I Stat Discontinued Medications Aspirin (Aspirin 81 Mg Chew Tab) 324 mg PO NOW ONE Stop: 09/28/23 17:38 Last Admin: 09/28/23 17:44 Dose: 324 mg Documented By: SB Vital Signs Vital signs: Vital Signs - 8 hr 09/28/23 17:31 09/28/23 17:42 09/28/23 17:48 Temperature 97.9 F Pulse Rate 67 135 H 130 H Respiratory Rate 16 23 11 L Blood Pressure 139/81 Pulse Oximetry 95 95 96 Oxygen Delivery Method Room Air 09/28/23 17:48 09/28/23 18:00 09/28/23 18:02 Temperature Pulse Rate 126 H 104 H Respiratory Rate 17 21 Blood Pressure 125/76 Pulse Oximetry 95 95 Oxygen Delivery Method 09/28/23 18:02 09/28/23 18:30 09/28/23 18:30 Temperature Pulse Rate 118 H Respiratory Rate 14 Blood Pressure 131/73 129/91 H Pulse Oximetry 94 Oxygen Delivery Method 09/28/23 19:00 09/28/23 19:00 09/28/23 19:30 Temperature Pulse Rate 108 H 123 H Respiratory Rate 9 L 13 Blood Pressure 129/93 H Pulse Oximetry 96 97 Oxygen Delivery Method Room Air 09/28/23 19:30 09/28/23 20:00 09/28/23 20:00 Temperature Pulse Rate 119 H Respiratory Rate 23 Blood Pressure 134/71 119/73 Pulse Oximetry Oxygen Delivery Method 09/28/23 20:30 09/28/23 20:30 09/28/23 20:52 Temperature Pulse Rate 118 H 96 H Respiratory Rate 15 Blood Pressure 129/89 129/89 Pulse Oximetry 97 Oxygen Delivery Method Room Air MDM - Chest Pain Lab Data 09/28/23 17:53 09/28/23 17:53 Labs: Lab Results 09/28/23 09/28/23 Range/Units 17:53 19:52 WBC 7.5 (4.5-11.0) X10^3/uL RBC 4.27 L (4.5-5.9) X10^6/uL Hgb 13.4 L (13.5-17.5) g/dL Hct 39.7 L (41-53) % MCV 93.0 (80-100) fL MCH 31.3 (26-34) PG MCHC 33.6 (30-36) % RDW 13.6 (11.6-14.8) % Plt Count 154 (150-400) X10^3/uL Neut % (Auto) 64.1 (50-75) % Lymph % (Auto) 25.8 (25-40) % [place] % (Auto) 6.8 (3-14) % Eos % (Auto) 2.4 (2-4) % Baso % (Auto) 0.9 (0-2) % Neut # (Auto) 4800 (4951-6533) /uL Lymph # (Auto) 1900 (5087-0679) /uL [place] # (Auto) 500 (0-900) /uL Eos # (Auto) 200 (0-450) /uL Baso # (Auto) 100 (0-100) /uL PT 15.3 H (9.4-12.5) SECONDS INR 1.3 (0.9-1.3) APTT 38 H (25.1-36.5) SECONDS Sodium 138 (137-145) mmol/L Potassium 3.9 (3.4-5.1) mmol/L Chloride 103 (98-107) mmol/L Carbon Dioxide 26 (22-32) mmol/L BUN 19 (9-20) mg/dL Creatinine 0.84 (0.66-1.25) mg/dL Estimated GFR > 60 (>60) mL/min BUN/Creatinine Ratio 22.6 H (6-22) Glucose 120 H (80-110) mg/dL Calcium 9.4 (8.4-10.2) mg/dL Magnesium 2.0 (1.6-2.3) mg/dL Total Bilirubin 0.6 (0.2-1.3) mg/dL AST 33 (17-59) IU/L ALT 27 (<50) IU/L Alkaline Phosphatase 82 (38-126) U/L Total Creatine Kinase 131 (55-170) U/L Troponin I < 0.012 < 0.012 (0.01-0.034) ng/mL Total Protein 7.9 (6.3-8.2) g/dL Albumin 4.2 (3.5-5.0) g/dL Globulin 3.7 (1.7-4.1) g/dL Albumin/Globulin Ratio 1.1 (1.0-2.8) Lipase 75 (23-300) U/L [facility] Narrative Medical decision making narrative: Heart score of 3 with atypical chest pain. Will repeat the troponin is still negative at 2 hours will discharge. He has no chest pain at this time nor has he since the 2 minute episode. Will refer to outpatient follow-up after this. Repeat troponin is negative. Home disposition with outpatient follow-up. Careful return precautions given. Discharge Plan Departure Patient Disposition: Home Clinical Impression: Chest pain Activity Restrictions/Additional Instructions: No immediately dangerous cause for chest pain is identified here after careful evaluation. This does not mean that there is no significant problem with your heart it only means that you do not need to be hospitalized right now. 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 You should return to the ED in the meantime if you have recurrent chest pain. Prescriptions: No Action Disabled Parking Permit Qty: 1 0RF clindamycin phosphate 1 % lotion 1 % Topical BID Qty: 60 3RF rosuvastatin 10 mg tablet 10 mg PO DAILY Qty: 90 3RF clotrimazole-betamethasone 1-0.05 % cream 1 applic topical TID Qty: 45 3RF oxycodone-acetaminophen 5-325 mg tablet 1 tab PO Q4H PRN (Reason: pain in back/joints) Qty: 120 0RF omeprazole 20 mg capsule,delayed release(DR/EC) 20 mg PO BID Qty: 180 3RF gabapentin 600 mg tablet 1,200 mg PO 3XD Qty: 540 3RF melatonin 5 mg/15 mL liquid 1 mg PO propafenone 225 mg capsule,extended release 12 hr 225 mg PO Q12H duloxetine 30 mg capsule,delayed release(DR/EC) 30 mg PO .QHS Qty: 90 1RF duloxetine 60 mg capsule,delayed release(DR/EC) 60 mg PO DAILY Qty: 90 1RF tamsulosin 0.4 mg capsule 0.4 mg PO BEDTIME Qty: 90 1RF hydrochlorothiazide 12.5 mg tablet 12.5 mg PO DAILY Qty: 90 1RF tizanidine 4 mg tablet 8 mg PO BEDTIME PRN (Reason: muscle spasticity) Qty: 180 1RF trazodone 50 mg tablet 50 mg PO BEDTIME Qty: 60 2RF Rx Instructions: 1 at bedtime, after 1 week you may increase to 2 at bedtime if needed Xarelto 20 mg tablet 20 mg PO DAILY ascorbic acid (vitamin C) 500 mg tablet 500 mg PO DAILY coenzyme Q10 150 mg capsule 150 mg PO DAILY alpha lipoic acid 100 mg capsule 300 mg PO DAILY metoprolol succinate 25 mg tablet extended release 24 hr 25 mg PO BID acetaminophen [Tylenol Extra Strength] 500 mg tablet 1,000 mg PO .4-5XD ipratropium bromide 42 mcg (0.06 %) spray,non-aerosol 2 spray intranasal 3XD PRN (DME) Respironics Dreamstation CPAP Qty: 1 Dose Instruction: As directed Patient Comments: Rx Instructions: Pressure: 7-11 cmH2O DME: Chris Referrals: Marco Portillo DO [Primary Care Provider] - Stand Alone Forms: Patient Portal/API
[2023-09-28 20:39] LABS: Troponin I < 0.012 ng/mL (0.01-0.034)
== END 2023-09-28 20:52 | disposition home or self-care (01) ==
PROVIDERS: Emergency Medicine; Emergency Provider Family Medicine Addiction Medicine; PCP Family Medicine; Referring Provider Internal Medicine Cardiovascular Disease
DX: R07.9 Chest pain, unspecified (principal); Z79.01 Long term (current) use of anticoagulants; Z79.899 Other long term (current) drug therapy
CPT/HCPCS: 36415; 71045; 80053; 82550; 83690; 83735; 84484; 85025; 85610; 85730; 93005; 93010; 99284

== ENCOUNTER 2023-09-30 18:08 | Observation (INO) | payer MEDICARE, OTHER, SELFPAY ==
[2023-09-30] VITALS (17 sets, daily range): BP systolic 118–181; BP diastolic 68–106; PULSE 50–122; RESP 0–22; TEMP 36.1–36.6; O2SAT 95–99; BMI 32.7; BMI 32.9
--- NOTE | 2023-09-30 19:37 | DI.RAD.S_ITS ---
PROCEDURE: XR CHEST 1V INDICATIONS: chest pain TECHNIQUE: One view of the chest was acquired. COMPARISON: [facility], CR, XR CHEST 1V, 09/28/2023, 17:52. FINDINGS: Surgical changes and devices: None. Lungs and pleura: Lungs are clear. No pleural effusions or pneumothorax. Mediastinum: Mediastinal contours appear normal. Retrocardiac lucency is present likely related to hernia. Heart size is normal. Bones and chest wall: No suspicious bony lesions. Overlying soft tissues appear unremarkable. IMPRESSION: No acute pulmonary process. Dictated by: Rachel Awan M.D. on 09/30/2023 at 20:15 Approved by: Rachel Awan M.D. on 09/30/2023 at 20:18
--- NOTE | 2023-09-30 19:38 | ED.CHESTPAIN ---
HPI - Chest Pain General Chief Complaint: Chest Pain Stated Complaint: chest pain PCP ref Time Seen by Provider: 09/30/23 19:16 Source: patient Mode of arrival: Ambulatory Limitations: no limitations History of Present Illness HPI narrative: This is an 83-year-old man with a history of permanent atrial fibrillation with chronic anticoagulation presenting with chest pain. He reports 2 episodes today of substernal chest pain lasting 30 minutes to 1 hour each. He describes it as pressure. It was not associated with nausea vomiting shortness of breath or diaphoresis. He was seen here 2 days ago for brief episode of chest pain which he says was different than what he had today. He is followed by Cardiology for atrial fibrillation but has not had a recent stress test has no known history coronary disease he does have elevated cholesterol is on a statin, no family history no history of diabetes he is a nonsmoker. He is not having chest pain when seen. He is not been having leg swelling or leg pain, he has been taking his anticoagulation he is not had fevers chills or other infectious symptoms. Related Data Home Medications Medication Instructions Recorded Confirmed alpha lipoic acid 100 mg capsule 300 mg PO DAILY 04/10/19 09/20/23 ascorbic acid (vitamin C) 500 mg 500 mg PO DAILY 04/10/19 09/20/23 tablet coenzyme Q10 150 mg capsule 150 mg PO DAILY 04/10/19 09/20/23 rivaroxaban 20 mg tablet (Xarelto) 20 mg PO DAILY 04/10/19 09/20/23 Respironics Dreamstation CPAP #1 ea 07/27/19 09/20/23 melatonin 5 mg/15 mL oral liquid 1 mg PO 02/14/20 09/20/23 acetaminophen 500 mg tablet 1,000 mg PO .4-5XD 07/23/22 09/20/23 (Tylenol Extra Strength) metoprolol succinate 25 mg 25 mg PO BID 07/23/22 09/20/23 tablet,extended release 24 hr propafenone 225 mg 225 mg PO Q12H 11/16/22 09/20/23 capsule,extended release 12 hr ipratropium bromide 42 mcg (0.06 2 spray intranasal 3XD PRN 09/06/23 09/20/23 %) nasal spray Previous Rx's Medication Instructions Recorded Disabled Parking Permit ea ##1 12/23/17 clindamycin phosphate 1 % lotion 1 % topical BID #60 mL 11/09/18 rosuvastatin 10 mg tablet 10 mg PO DAILY #90 tabs 07/31/22 clotrimazole-betamethasone 1 1 applic topical TID #45 grams 05/24/23 %-0.05 % topical cream duloxetine 30 mg capsule,delayed 30 mg PO .QHS #90 caps 05/27/23 release duloxetine 60 mg capsule,delayed 60 mg PO DAILY #90 caps 05/27/23 release hydrochlorothiazide 12.5 mg tablet 12.5 mg PO DAILY #90 tabs 05/27/23 tamsulosin 0.4 mg capsule 0.4 mg PO BEDTIME #90 caps 05/27/23 oxycodone-acetaminophen 5 mg-325 1 tab PO Q4H PRN pain in 07/07/23 mg tablet back/joints #120 tabs omeprazole 20 mg capsule,delayed 20 mg PO BID #180 caps 07/13/23 release gabapentin 600 mg tablet 1,200 mg (2 x 600 mg) PO 3XD #540 08/18/23 tabs tizanidine 4 mg tablet 8 mg (2 x 4 mg) PO BEDTIME PRN 08/25/23 muscle spasticity #180 tabs trazodone 50 mg tablet 50 mg PO BEDTIME #60 tabs 08/25/23 Allergies Allergy/AdvReac Type Severity Reaction Status Date / Time hydrocodone [From Vicodin] Allergy Intermediate Confusion Verified 09/30/23 18:19 Patient History Medical History Leg edema BPH (benign prostatic hyperplasia) Spinal cord stimulator dysfunction Parkinsonism Depression COVID-19 (~02/2022) Degenerative joint disease of knee Uncomplicated opioid dependence Lumbar post-laminectomy syndrome Paroxysmal atrial fibrillation (~11/09/17) Chronic pain Chronic anticoagulation Other insomnia (06/26/16) Mixed hyperlipidemia (12/19/15) Obstructive sleep apnea syndrome Dorsalgia 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) Surgical History History of repair of right rotator cuff Family History Brother Family history of esophageal cancer Social History marital status: number of children: 2 household members: spouse lives independently: Yes caregiver/support person: No housing: house pets and animals: No education level: college occupational status: other current occupational exposures/hazards: No 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: [employer] travel history: recent leisure activities: music, reading and other Smoking Status: Never smoker Tobacco: How many years used: 0 quit status: quit date established second hand exposure: No alcohol intake: never substance use type: does not use Smoking Status: Never smoker alcohol intake frequency: holidays/special occasions only Substance Use Type: does not use Exam Initial Vital Signs Initial Vital Signs: Vital Signs Temperature 97.8 F 09/30/23 18:19 Pulse Rate 102 H 09/30/23 18:19 Respiratory Rate 15 09/30/23 18:19 Blood Pressure 118/78 09/30/23 18:19 Pulse Oximetry 98 09/30/23 18:19 Oxygen Delivery Method Room Air 09/30/23 18:19 Const General: No acute distress HENMT Head: normal to inspection, normocephalic and atraumatic Neck Neck: supple Resp Effort & Inspection: normal respiratory effort Auscultation: clear to auscultation bilaterally Cardio Other: Irregularly irregular normal rate, no murmur Skin General: dry skin and warm Neuro General: patient alert and patient oriented x3 Course Orders Ordered: ED Orders 09/30/23 18:50 EKG-12 Lead Stat 09/30/23 19:37 XR chest 1V Stat 09/30/23 19:45 Complete Blood Count AUTO DIFF Stat Comprehensive Metabolic Panel Stat D Dimer Stat Lipase Stat Troponin & CK Cardiac Panel Stat Discontinued Medications Metoprolol Tartrate (Metoprolol Ir 25 Mg Tablet) 25 mg PO NOW ONE Stop: 09/30/23 21:00 Last Admin: 09/30/23 21:10 Dose: 25 mg Documented By: DEVI Reevaluation(s) Reevaluation #1: Patient remains pain-free, discussed plan for admission and plan to obtain CT angiogram he is in agreement. Ordered metoprolol 25 mg p.o. for heart rate above 110. Consultations Consultation #1: D/W hospitalist, Dr. Velez, accepts admission, CT angiogram is pending Vital Signs Vital signs: Vital Signs - 8 hr 09/30/23 18:19 09/30/23 18:40 09/30/23 19:00 Temperature 97.8 F Pulse Rate 102 H 113 H 101 H Respiratory Rate 15 14 Blood Pressure 118/78 Pulse Oximetry 98 98 97 Oxygen Delivery Method Room Air 09/30/23 19:01 09/30/23 19:01 09/30/23 20:00 Temperature Pulse Rate 99 H 109 H Respiratory Rate 13 18 Blood Pressure 134/68 Pulse Oximetry 97 98 Oxygen Delivery Method 09/30/23 20:30 Temperature Pulse Rate 119 H Respiratory Rate 14 Blood Pressure Pulse Oximetry 98 Oxygen Delivery Method MDM - Chest Pain Medical Records Data Medical records narrative: Reviewed cardiology note from May 05 of this year and reviewed emergency department note from 2 days ago Lab Data Lab results narrative: CBC is unremarkable, CMP unremarkable, troponin is normal x2, proBNP is elevated 09/30/23 19:45 09/30/23 19:45 Labs: Lab Results 09/30/23 Range/Units 19:45 WBC 6.3 (4.5-11.0) X10^3/uL RBC 4.18 L (4.5-5.9) X10^6/uL Hgb 13.1 L (13.5-17.5) g/dL Hct 39.0 L (41-53) % MCV 93.3 (80-100) fL MCH 31.2 (26-34) PG MCHC 33.5 (30-36) % RDW 13.8 (11.6-14.8) % Plt Count 139 L (150-400) X10^3/uL Neut % (Auto) 61.2 (50-75) % Lymph % (Auto) 27.8 (25-40) % [place] % (Auto) 6.9 (3-14) % Eos % (Auto) 3.5 (2-4) % Baso % (Auto) 0.6 (0-2) % Neut # (Auto) 3800 (4951-5392) /uL Lymph # (Auto) 1700 (6173-8538) /uL [place] # (Auto) 400 (0-900) /uL Eos # (Auto) 200 (0-450) /uL Baso # (Auto) 0 (0-100) /uL D-Dimer 1878 H (<500) ng/ml Sodium 137 (137-145) mmol/L Potassium 3.9 (3.4-5.1) mmol/L Chloride 102 (98-107) mmol/L Carbon Dioxide 28 (22-32) mmol/L BUN 18 (9-20) mg/dL Creatinine 0.76 (0.66-1.25) mg/dL Estimated GFR > 60 (>60) mL/min BUN/Creatinine Ratio 23.7 H (6-22) Glucose 127 H (80-110) mg/dL Calcium 9.2 (8.4-10.2) mg/dL Total Bilirubin 0.5 (0.2-1.3) mg/dL AST 28 (17-59) IU/L ALT 23 (<50) IU/L Alkaline Phosphatase 81 (38-126) U/L Total Creatine Kinase 117 (55-170) U/L Troponin I < 0.012 (0.01-0.034) ng/mL Total Protein 7.5 (6.3-8.2) g/dL Albumin 4.0 (3.5-5.0) g/dL Globulin 3.5 (1.7-4.1) g/dL Albumin/Globulin Ratio 1.1 (1.0-2.8) Lipase 78 (23-300) U/L Imaging Data Chest x-ray: My Impression: No acute disease on portable chest x-ray, the patient does have cardiomegaly Radiologist's Impression: Per Radiology, no acute findings ECG Data Interpretation: EKG shows atrial fibrillation rate of 99. No acute ST elevation, he has cues in 2 3 and AVF consistent with previous inferior infarction MDM Narrative Medical decision making narrative: 83-year-old man with a history atrial fibrillation who presents with chest pain. He is pain-free when seen, has had a couple of episodes of chest pain today and was also seen 2 days ago for chest pain. By his history, and from review of previous cardiology note he is not known to have ischemic disease. 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 He is hemodynamically stable in atrial fibrillation with an elevated D-dimer, CT angiogram has been ordered but think it is unlikely this is a pulmonary embolism. He will be admitted to the hospitalist service for further evaluation of his chest pain symptoms. Discharge Plan Departure Patient Disposition: Admitted as Observation Clinical Impression: Chest pain Qualifiers: Chest pain type: unspecified Qualified Code(s): R07.9 - Chest pain, unspecified Admit Date/Time: 09/30/23 21:41 Admit Provider: Nils Stroud
[2023-09-30 19:56] LABS: Add Manual Diff / Slide Review NO; Basophils Absolute Auto 0 /uL (0-100); Basophils Percent Auto 0.6 % (0-2); Eosinophils Absolute Auto 200 /uL (0-450); Eosinophils Percent Auto 3.5 % (2-4); Hemoglobin 13.1 g/dL (13.5-17.5); Lymphocytes Absolute Auto 1700 /uL (1100-4500); Lymphocytes Percent Auto 27.8 % (25-40); Mean Corpuscular HGB Conc 33.5 % (30-36); Mean Corpuscular Hemoglobin 31.2 PG (26-34); Mean Corpuscular Volume 93.3 fL (80-100); Monocytes Absolute Auto 400 /uL (0-900); Monocytes Percent Auto 6.9 % (3-14); Neutrophils Absolute Auto 3800 /uL (1500-7000); Neutrophils Percent Auto 61.2 % (50-75); Platelet Count 139 X10^3/uL (150-400); Red Blood Cell Count 4.18 X10^6/uL (4.5-5.9); Red Cell Distribution Width 13.8 % (11.6-14.8); White Blood Cell Count 6.3 X10^3/uL (4.5-11.0)
[2023-09-30 20:09] LABS: Alanine Aminotransferase 23 IU/L (<50); Albumin Globulin Ratio 1.1 (1.0-2.8); Alkaline Phosphatase 81 U/L (38-126); Aspartate Aminotransferase 28 IU/L (17-59); BUN Creatinine Ratio 23.7 (6-22); Bilirubin Total 0.5 mg/dL (0.2-1.3); Blood Urea Nitrogen 18 mg/dL (9-20); Calcium 9.2 mg/dL (8.4-10.2); Carbon Dioxide 28 mmol/L (22-32); Chloride 102 mmol/L (98-107); Creatine Kinase 117 U/L (55-170); D Dimer 1878 ng/ml (<500); Estimated Glomerular Filt Rate > 60 mL/min (>60); Globulin 3.5 g/dL (1.7-4.1); Glucose 127 mg/dL (80-110); HEMOLYSIS 15 (0-50); Lipase 78 U/L (23-300); Potassium 3.9 mmol/L (3.4-5.1); Sodium 137 mmol/L (137-145); Total Protein 7.5 g/dL (6.3-8.2)
[2023-09-30 20:20] LABS: Troponin I < 0.012 ng/mL (0.01-0.034)
[2023-09-30] MEDS: METOPROLOL IR 25 MG TABLET PO (21:10)
[2023-09-30] MEDS: ACETAMINOPHEN 325 MG TABLET 975 MG PO (21:59)
--- NOTE | 2023-09-30 22:00 | DI.CT.S_ITS ---
PROCEDURE: CT ANGIO CHEST PE PROTOCOL INDICATIONS: [facility] suspected TECHNIQUE: After the administration of intravenous contrast, 2 mm thick sections acquired from the pulmonary apices to the posterior costophrenic angles. 3-dimensional maximum intensity projection (MIP) coronal and sagittal reformats were then acquired through the thorax. For radiation dose reduction, the following was used: automated exposure control, adjustment of mA and/or kV according to patient size. COMPARISON: [facility], CR, XR CHEST 1V, 09/30/2023, 19:44. [facility], CT, CT ANGIO CHEST, 07/09/2022, 13:56. FINDINGS: Image quality: Diagnostic. Pulmonary arteries: Pulmonary arteries are normal in size, and demonstrate no intraluminal filling defects to suggest central pulmonary embolism. Lower Neck: No enlarged lymph nodes. Thyroid: No thyroid nodules which require sonographic follow up, per consensus guidelines. Axillae: No enlarged lymph nodes. Chest Wall: Unremarkable. Bones: Unremarkable. Lungs and Pleura: No pneumothorax or pleural effusions. No consolidation or suspicious nodules. Emphysematous changes are present. Heart: Heart size is enlarged. No pericardial effusion. Thoracic Vessels: No aortic aneurysm. Mediastinum and Mable: No enlarged lymph nodes. Esophagus: No wall thickening. Prominent hiatal hernia. Upper Abdomen: Visualized upper abdomen solid organs and bowel loops appear normal. IMPRESSION: No pulmonary embolus. No acute cardiopulmonary process. Dictated by: Rachel Awan M.D. on 09/30/2023 at 23:50 Approved by: Rachel Awan M.D. on 09/30/2023 at 23:52
[2023-09-30 22:33] LABS: Troponin I < 0.012 ng/mL (0.01-0.034)
--- NOTE | 2023-09-30 22:40 | DI.ECHO.S_ITS ---
[facility]+ [facility] +---------+ : : [address] : : : : [id number] : : : : Phone: [phone]+ Echocardiogram Report + + :Name: LIVAN GARCIA Study Date: 10/01/2023 Height: 74 in : :[facility] ReadingLocation: Weight: 255 lb : : Gender: Male BSA: 2.4 m2 : :: 1940 Age: 83 yrs BP: 137/84 mmHg: :Reason For Study: CHEST PAIN : :Ordering Physician: VAMSHI, : :JANUSZ Lyn MD Performed By: Hoa Salazar : :Referring: JANUSZ BONDS MD : + + Interpretation Summary The left ventricle is normal in size. Left ventricular systolic function is low normal. The ejection fraction is estimated to be 50-55%. There has been no significant change since the previous exam. There is a mild dyssynchronous contraction pattern, consistent with a conduction abnormality. The right ventricle is mildly dilated. The right ventricular systolic function is normal. The right ventricular systolic pressure is estimated to be at least 28 mmHg based on an estimated right atrial pressure of 8 mm Hg. The left atrium is moderately dilated. The right atrium is moderately dilated. There is mildly reduced leaflet mobility. There is no hemodynamically significant valvular aortic stenosis. There is mild to moderate tricuspid regurgitation. The aortic root is normal size. Procedure: A two-dimensional transthoracic echocardiogram with color flow and Doppler was performed. The study quality was technically adequate. Comparison is made with the echocardiogram of 04/02/2022. The patient was in atrial fibrillation with heart rates between 57-95 bpm during the exam. Left Ventricle: The left ventricle is normal in size. Proximal septal thickening is noted. Left ventricular systolic function is low normal. The ejection fraction is estimated to be 50-55%. There has been no significant change since the previous exam. There is a mild dyssynchronous contraction pattern, consistent with a conduction abnormality. Diastolic function could not be accurately assessed due to atrial fibrillation. Right Ventricle: The right ventricle is mildly dilated. The right ventricular systolic function is normal. Atria: The left atrium is moderately dilated. The right atrium is moderately dilated. There is no Doppler evidence for an interatrial shunt. Mitral Valve: The mitral valve leaflets appear mildly thickened, but open well. There is mild mitral annular calcification. There is trace mitral regurgitation. Aortic Valve: The aortic valve is moderately calcified. There is mildly reduced leaflet mobility. There is a nodular thickening of the right as well as noncoronary cusp.. There is no hemodynamically significant valvular aortic stenosis. There is trace aortic regurgitation. Tricuspid Valve: The tricuspid valve is normal in structure and function. There is mild to moderate tricuspid regurgitation. The right ventricular systolic pressure is estimated to be at least 28 mmHg based on an estimated right atrial pressure of 8 mm Hg. Pulmonic Valve: The pulmonic valve leaflets are thin and pliable; valve motion is normal. There is a trace or physiologic amount of pulmonic regurgitation. Great Vessels: The aortic root is normal size. The dimensions of the ascending aorta are normal. The IVC is of normal diameter and collapses less than 50% with a sniff. This suggests a right atrial pressure of 8 mm Hg. Pericardium/ Pleura There is no pericardial effusion. There is no pleural effusion. MMode/2D Measurements & Calculations LVIDd: 4.5 cm LVOT diam: 2.2 cm LVIDs: 2.9 cm Ao root diam: 3.9 cm FS: 35.8 % asc Aorta Diam: 3.8 cm EPSS: 1.4 cm IVSd: 1.1 cm LVPWd: 1.2 cm LV potter. diameter/BSA (cm/m^2): 1.9 LV sys. diameter/BSA (cm/m^2): 1.2 LA A2 area: 26.4 cm2 RA long axis: 6.8 cm LA A4 area: 34.0 cm2 RA area: 30.1 cm2 LA length (vol): 7.3 cm RA vol: 113.2 ml LA vol: 105.0 ml RA : 47.0 ml/m2 LA vol index: 43.6 ml/m2 IVC diam: 1.9 cm RVD1 (basal): 4.5 cm RVD2 (mid): 3.2 cm TAPSE: 1.8 cm Doppler Measurements & Calculations Ao V2 max: 157.6 cm/sec LVOT Max Ru: 72.2 cm/sec Ao V2 mean: 115.2 cm/sec LV V1 max P.1 mmHg Ao max P.9 mmHg LV V1 VTI: 14.8 cm Ao mean P.9 mmHg KONSTANTIN(I,D): 1.7 cm2 Ao V2 VTI: 33.8 cm KONSTANTIN(V,D): 1.8 cm2 sev ratio: 0.44 KONSTANTIN indexed to BSA (cm^2/m^2): 0.70 MV E max ru: 99.9 cm/sec TR max ru: 221.4 cm/sec MV A max ru: 0.71 cm/sec TR max P.6 mmHg MV E/A: 141.5 PA V2 max: 62.5 cm/sec Med Peak E' Ru: 8.7 cm/sec PA V2 mean: 42.7 cm/sec E/E' med: 11.5 PA mean P.83 mmHg Lat Peak E' Ru: 8.9 cm/sec PA pr(Accel): 46.5 mmHg E/E' lat: 11.2 E/e' average: 11.3 MV dec time: 0.19 sec MVA(VTI): 2.1 cm2 MV V2 mean: 70.4 cm/sec SV(LVOT): 57.0 ml MV mean P.4 mmHg MV V2 VTI: 26.5 cm Reading Physician:02:09 PM
[2023-10-01 03:00] VITALS: BP 137/84; PULSE 86; RESP 18; TEMP 35.8; O2SAT 93
[2023-10-01] MEDS: MORPHINE 2 MG/ML INJ IV ×3 (04:05→11:15)
--- NOTE | 2023-10-01 04:23 | P.HP_ITS ---
History of Present Illness History of Present Illness Date Patient Seen: 09/30/23 Chief complaint: chest pain PCP ref Narrative: 83 y/o with likely CAD, evidence of probable old OR on ECG, A-fib, HTN and HLD, presented to ed after he had 2 30-min episodes of substernal chest pain, w/o radiation, w/o associated dyspnea, dizziness, diaphoresis, palpitations, nausea. Initial workup negative for ACS or PE. Placed in observation suspected for unstable angina. [facility] Medical History Leg edema BPH (benign prostatic hyperplasia) Spinal cord stimulator dysfunction Parkinsonism Depression COVID-19 (~02/2022) Degenerative joint disease of knee Uncomplicated opioid dependence Lumbar post-laminectomy syndrome Paroxysmal atrial fibrillation (~11/09/17) Chronic pain Chronic anticoagulation Other insomnia (06/26/16) Mixed hyperlipidemia (12/19/15) Obstructive sleep apnea syndrome Dorsalgia 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) Surgical History History of repair of right rotator cuff Family History Brother Family history of esophageal cancer Social History marital status: number of children: 2 household members: spouse lives independently: Yes caregiver/support person: No housing: house pets and animals: No education level: college occupational status: other current occupational exposures/hazards: No 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: [employer] travel history: recent leisure activities: music, reading and other Smoking Status: Never smoker Tobacco: How many years used: 0 quit status: quit date established second hand exposure: No alcohol intake: never substance use type: does not use Meds Home Medications and Allergies Home Medications Medication Instructions Recorded Confirmed Type clindamycin phosphate 1 % lotion 1 % topical BID #60 mL 11/09/18 10/01/23 Rx rivaroxaban 20 mg tablet (Xarelto) 20 mg PO DAILY 04/10/19 10/01/23 History Respironics Dreamstation CPAP #1 ea 07/27/19 10/01/23 History melatonin 5 mg/15 mL oral liquid 1 mg PO BEDTIME 02/14/20 10/01/23 History acetaminophen 500 mg tablet 1,000 mg PO .4-5XD 07/23/22 10/01/23 History (Tylenol Extra Strength) metoprolol succinate 25 mg 25 mg PO BID 07/23/22 10/01/23 History tablet,extended release 24 hr rosuvastatin 10 mg tablet 10 mg PO DAILY #90 tabs 07/31/22 10/01/23 Rx propafenone 225 mg 225 mg PO Q12H 11/16/22 10/01/23 History capsule,extended release 12 hr clotrimazole-betamethasone 1 1 applic topical TID #45 grams 05/24/23 10/01/23 Rx %-0.05 % topical cream duloxetine 30 mg capsule,delayed 30 mg PO .QHS #90 caps 05/27/23 10/01/23 Rx release duloxetine 60 mg capsule,delayed 60 mg PO DAILY #90 caps 05/27/23 10/01/23 Rx release hydrochlorothiazide 12.5 mg tablet 12.5 mg PO DAILY #90 tabs 05/27/23 10/01/23 Rx tamsulosin 0.4 mg capsule 0.4 mg PO BEDTIME #90 caps 05/27/23 10/01/23 Rx oxycodone-acetaminophen 5 mg-325 1 tab PO Q4H PRN pain in 07/07/23 10/01/23 Rx mg tablet back/joints #120 tabs omeprazole 20 mg capsule,delayed 20 mg PO BID #180 caps 07/13/23 10/01/23 Rx release gabapentin 600 mg tablet 1,200 mg (2 x 600 mg) PO 3XD #540 08/18/23 10/01/23 Rx tabs tizanidine 4 mg tablet 8 mg (2 x 4 mg) PO BEDTIME PRN 08/25/23 10/01/23 Rx muscle spasticity #180 tabs trazodone 50 mg tablet 50 mg PO BEDTIME #60 tabs 08/25/23 10/01/23 Rx ipratropium bromide 42 mcg (0.06 2 spray intranasal 3XD PRN Insomnia 09/06/23 10/01/23 History %) nasal spray Disabled Parking Permit 1 ea 10/01/23 History Allergies Allergy/AdvReac Type Severity Reaction Status Date / Time hydrocodone [From Vicodin] Allergy Intermediate Confusion Verified 09/30/23 18:19 Review of Systems Constitutional Comments: negative Cardiovascular Comments: see HPI Respiratory Comments: w/o cough, wheezing, shortness of breath, hemoptysis Gastrointestinal Comments: heartburn Genitourinary Comments: mild voiding difficulties Exam Vital Signs (past 8 hours): - 09/30/23 20:30 09/30/23 21:00 09/30/23 21:11 Temperature Pulse Rate 119 H 117 H Respiratory Rate 14 17 Blood Pressure 139/106 H Pulse Oximetry 98 99 Oxygen Delivery Method Oxygen Flow Rate 09/30/23 21:11 09/30/23 21:30 09/30/23 21:30 Temperature Pulse Rate 122 H 88 Respiratory Rate 17 0 L Blood Pressure 163/85 H Pulse Oximetry 98 97 Oxygen Delivery Method Oxygen Flow Rate 09/30/23 22:00 09/30/23 22:00 09/30/23 22:01 Temperature Pulse Rate 101 H 105 H Respiratory Rate 17 15 Blood Pressure Pulse Oximetry 97 98 Oxygen Delivery Method Room Air CPAP Oxygen Flow Rate 09/30/23 22:01 09/30/23 22:30 09/30/23 22:31 Temperature Pulse Rate 109 H 117 H Respiratory Rate 1 L 12 Blood Pressure 181/99 H Pulse Oximetry 96 95 Oxygen Delivery Method Oxygen Flow Rate 09/30/23 22:31 09/30/23 23:00 09/30/23 23:00 Temperature Pulse Rate 115 H Respiratory Rate 11 L Blood Pressure 138/88 170/102 H Pulse Oximetry 95 Oxygen Delivery Method Oxygen Flow Rate 09/30/23 23:36 09/30/23 23:37 09/30/23 23:37 Temperature Pulse Rate 117 H 117 H Respiratory Rate 22 20 Blood Pressure 145/82 H Pulse Oximetry 96 95 Oxygen Delivery Method Oxygen Flow Rate 09/30/23 23:50 10/01/23 03:00 Temperature 97 F L 96.5 F L Pulse Rate 50 L 86 Respiratory Rate 17 18 Blood Pressure 141/72 H 137/84 Pulse Oximetry 95 93 Oxygen Delivery Method Oxygen Flow Rate 0 0 Oxygen Delivery Method Room Air,CPAP Oxygen Flow Rate 0 Const Other: Sitting in bed in no distress Neck Other: w/o JVD Resp Other: CTA Cardio Other: Irregularly irregular w/o leg edema Objective Labs 09/30/23 19:45 09/30/23 19:45 Labs: Laboratory Results - last 24 hr 09/30/23 09/30/23 19:45 21:54 WBC 6.3 RBC 4.18 L Hgb 13.1 L Hct 39.0 L MCV 93.3 MCH 31.2 MCHC 33.5 RDW 13.8 Plt Count 139 L Neut % (Auto) 61.2 Lymph % (Auto) 27.8 [place] % (Auto) 6.9 Eos % (Auto) 3.5 Baso % (Auto) 0.6 Neut # (Auto) 3800 Lymph # (Auto) 1700 [place] # (Auto) 400 Eos # (Auto) 200 Baso # (Auto) 0 D-Dimer 1878 H Sodium 137 Potassium 3.9 Chloride 102 Carbon Dioxide 28 BUN 18 Creatinine 0.76 Estimated GFR > 60 BUN/Creatinine Ratio 23.7 H Glucose 127 H Calcium 9.2 Total Bilirubin 0.5 AST 28 ALT 23 Alkaline Phosphatase 81 Total Creatine Kinase 117 Troponin I < 0.012 < 0.012 Total Protein 7.5 Albumin 4.0 Globulin 3.5 Albumin/Globulin Ratio 1.1 Lipase 78 Assessment & Plan Assessment and plan (1) Chest pain: Qualifiers: Chest pain type: unspecified Qualified Code(s): R07.9 - Chest pain, unspecified Status: Acute Plan: Likely old OR on ECG Telemetry monitoring, ASA, statin PRN NTG, morphine Echo pending (2) Paroxysmal atrial fibrillation: Status: Chronic Plan: BB, Xarelto (3) Chronic pain: Qualifiers: Chronic pain type: other chronic pain Qualified Code(s): G89.29 - Other chronic pain Status: Chronic Plan: This is in differential (4) Uncomplicated opioid dependence: Status: Chronic Plan: Neurontin, Tizanidine, Oxycodone, Tylenol (5) Depression: Qualifiers: Depression Type: major depressive disorder Major depression recurrence: single episode Active/Remission status: currently active Major depression episode severity: mild Qualified Code(s): F32.0 - Major depressive disorder, single episode, mild Status: Chronic Plan: Cymbalta (6) Hypertension: Qualifiers: Hypertension type: essential hypertension Qualified Code(s): I10 - Essential (primary) hypertension Status: Chronic (7) Mixed hyperlipidemia: Status: Chronic Plan: statin (8) BPH (benign prostatic hyperplasia): Qualifiers: Lower urinary tract symptom presence: symptoms present Lower urinary tract symptom detail: urinary obstruction Qualified Code(s): N40.1 - Benign prostatic hyperplasia with lower urinary tract symptoms; N13.8 - Other obstructive and reflux uropathy Status: Acute Plan: Flomax Quality VTE Deep Vein Thrombosis/Pulmonary Embolism Present on Admission: No
--- NOTE | 2023-10-01 05:14 | PC.NURSE ---
032 Patient complains of 6/10 pressure like chest pain with no radiation noted. Dr. Haskins notified at 032 with vitals of 137/84, heart rate of 86, Room air saturating at 93%. Morphine 2mg and Nitroglycerin 0.4mg (See Dec) ordered.
[2023-10-01 08:02] VITALS: BP 108/71; PULSE 72; RESP 19; TEMP 35.9; O2SAT 94
--- NOTE | 2023-10-01 08:05 | P.HP_ITS ---
History of Present Illness History of Present Illness Date Patient Seen: 09/30/23 Chief complaint: chest pain PCP ref Narrative: From overnight provider: 83 y/o with likely CAD, evidence of probable old AR on ECG, A-fib, HTN and HLD, presented to ed after he had 2 30-min episodes of substernal chest pain, w/o radiation, w/o associated dyspnea, dizziness, diaphoresis, palpitations, nausea. Initial workup negative for ACS or PE. Placed in observation suspected for unstable angina. [facility] Medical History Leg edema BPH (benign prostatic hyperplasia) Spinal cord stimulator dysfunction Parkinsonism Depression COVID-19 (~02/2022) Degenerative joint disease of knee Uncomplicated opioid dependence Lumbar post-laminectomy syndrome Paroxysmal atrial fibrillation (~11/09/17) Chronic pain Chronic anticoagulation Other insomnia (06/26/16) Mixed hyperlipidemia (12/19/15) Obstructive sleep apnea syndrome Dorsalgia 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) Surgical History History of repair of right rotator cuff Family History Brother Family history of esophageal cancer Social History marital status: number of children: 2 household members: spouse lives independently: Yes caregiver/support person: No housing: house pets and animals: No education level: college occupational status: other current occupational exposures/hazards: No 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: [employer] travel history: recent leisure activities: music, reading and other Smoking Status: Never smoker Tobacco: How many years used: 0 quit status: quit date established second hand exposure: No alcohol intake: never substance use type: does not use Meds Home Medications and Allergies Home Medications Medication Instructions Recorded Confirmed Type clindamycin phosphate 1 % lotion 1 % topical BID #60 mL 11/09/18 10/01/23 Rx rivaroxaban 20 mg tablet (Xarelto) 20 mg PO DAILY 04/10/19 10/01/23 History Respironics Dreamstation CPAP #1 ea 07/27/19 10/01/23 History melatonin 5 mg/15 mL oral liquid 1 mg PO BEDTIME 02/14/20 10/01/23 History acetaminophen 500 mg tablet 1,000 mg PO .4-5XD 07/23/22 10/01/23 History (Tylenol Extra Strength) metoprolol succinate 25 mg 25 mg PO BID 07/23/22 10/01/23 History tablet,extended release 24 hr rosuvastatin 10 mg tablet 10 mg PO DAILY #90 tabs 07/31/22 10/01/23 Rx propafenone 225 mg 225 mg PO Q12H 11/16/22 10/01/23 History capsule,extended release 12 hr clotrimazole-betamethasone 1 1 applic topical TID #45 grams 05/24/23 10/01/23 Rx %-0.05 % topical cream duloxetine 30 mg capsule,delayed 30 mg PO .QHS #90 caps 05/27/23 10/01/23 Rx release duloxetine 60 mg capsule,delayed 60 mg PO DAILY #90 caps 05/27/23 10/01/23 Rx release hydrochlorothiazide 12.5 mg tablet 12.5 mg PO DAILY #90 tabs 05/27/23 10/01/23 Rx tamsulosin 0.4 mg capsule 0.4 mg PO BEDTIME #90 caps 05/27/23 10/01/23 Rx oxycodone-acetaminophen 5 mg-325 1 tab PO Q4H PRN pain in 07/07/23 10/01/23 Rx mg tablet back/joints #120 tabs omeprazole 20 mg capsule,delayed 20 mg PO BID #180 caps 07/13/23 10/01/23 Rx release gabapentin 600 mg tablet 1,200 mg (2 x 600 mg) PO 3XD #540 08/18/23 10/01/23 Rx tabs tizanidine 4 mg tablet 8 mg (2 x 4 mg) PO BEDTIME PRN 08/25/23 10/01/23 Rx muscle spasticity #180 tabs trazodone 50 mg tablet 50 mg PO BEDTIME #60 tabs 08/25/23 10/01/23 Rx ipratropium bromide 42 mcg (0.06 2 spray intranasal 3XD PRN Insomnia 09/06/23 10/01/23 History %) nasal spray Allergies Allergy/AdvReac Type Severity Reaction Status Date / Time hydrocodone [From Vicodin] Allergy Intermediate Confusion Verified 09/30/23 18:19 Review of Systems Constitutional Comments: negative Cardiovascular Comments: see HPI Respiratory Comments: w/o cough, wheezing, shortness of breath, hemoptysis Gastrointestinal Comments: heartburn Genitourinary Comments: mild voiding difficulties Exam Vital Signs (past 8 hours): - 10/01/23 03:00 10/01/23 08:02 Temperature 96.5 F L 96.6 F L Pulse Rate 86 72 Respiratory Rate 18 19 Blood Pressure 137/84 108/71 Pulse Oximetry 93 94 Oxygen Flow Rate 0 0 Oxygen Delivery Method Room Air,CPAP Oxygen Flow Rate 0 Const Other: Sitting in bed in no distress Neck Other: w/o JVD Resp Other: CTA Cardio Other: Irregularly irregular w/o leg edema Objective Labs 10/01/23 08:05 10/01/23 08:05 Labs: Laboratory Results - last 24 hr 09/30/23 09/30/23 19:45 21:54 WBC 6.3 RBC 4.18 L Hgb 13.1 L Hct 39.0 L MCV 93.3 MCH 31.2 MCHC 33.5 RDW 13.8 Plt Count 139 L Neut % (Auto) 61.2 Lymph % (Auto) 27.8 [place] % (Auto) 6.9 Eos % (Auto) 3.5 Baso % (Auto) 0.6 Neut # (Auto) 3800 Lymph # (Auto) 1700 [place] # (Auto) 400 Eos # (Auto) 200 Baso # (Auto) 0 D-Dimer 1878 H Sodium 137 Potassium 3.9 Chloride 102 Carbon Dioxide 28 BUN 18 Creatinine 0.76 Estimated GFR > 60 BUN/Creatinine Ratio 23.7 H Glucose 127 H Calcium 9.2 Total Bilirubin 0.5 AST 28 ALT 23 Alkaline Phosphatase 81 Total Creatine Kinase 117 Troponin I < 0.012 < 0.012 Total Protein 7.5 Albumin 4.0 Globulin 3.5 Albumin/Globulin Ratio 1.1 Lipase 78 Assessment & Plan Assessment and plan (1) Chest pain: Qualifiers: Chest pain type: unspecified Qualified Code(s): R07.9 - Chest pain, unspecified Status: Acute Plan: Likely old AR on ECG Telemetry monitoring, ASA, statin PRN NTG, morphine Echo pending non-nuc stress pending (2) Paroxysmal atrial fibrillation: Status: Chronic Plan: Deacon DOMINGUEZ (3) Chronic pain: Qualifiers: Chronic pain type: other chronic pain Qualified Code(s): G89.29 - Other chronic pain Status: Chronic Plan: This is in differential (4) Uncomplicated opioid dependence: Status: Chronic Plan: Neurontin, Tizanidine, Oxycodone, Tylenol (5) Depression: Qualifiers: Active/Remission status: currently active Depression Type: major depressive disorder Major depression episode severity: mild Major depression recurrence: single episode Qualified Code(s): F32.0 - Major depressive disorder, single episode, mild Status: Chronic Plan: Cymbalta (6) Hypertension: Qualifiers: Hypertension type: essential hypertension Qualified Code(s): I10 - Essential (primary) hypertension Status: Chronic (7) Mixed hyperlipidemia: Status: Chronic Plan: statin (8) BPH (benign prostatic hyperplasia): Qualifiers: Lower urinary tract symptom detail: urinary obstruction Lower urinary tract symptom presence: symptoms present Qualified Code(s): N40.1 - Benign prostatic hyperplasia with lower urinary tract symptoms; N13.8 - Other obstructive and reflux uropathy Status: Acute Plan: Flomax Quality VTE Deep Vein Thrombosis/Pulmonary Embolism Present on Admission: No
[2023-10-01 08:25] LABS: Add Manual Diff / Slide Review NO; Basophils Absolute Auto 0 /uL (0-100); Basophils Percent Auto 0.7 % (0-2); Eosinophils Absolute Auto 200 /uL (0-450); Eosinophils Percent Auto 3.7 % (2-4); Hematocrit 35.9 % (41-53); Hemoglobin 12.1 g/dL (13.5-17.5); Lymphocytes Absolute Auto 2100 /uL (1100-4500); Lymphocytes Percent Auto 32.6 % (25-40); Mean Corpuscular HGB Conc 33.7 % (30-36); Mean Corpuscular Hemoglobin 31.4 PG (26-34); Mean Corpuscular Volume 93.2 fL (80-100); Monocytes Absolute Auto 500 /uL (0-900); Monocytes Percent Auto 7.5 % (3-14); Neutrophils Absolute Auto 3600 /uL (1500-7000); Neutrophils Percent Auto 55.5 % (50-75); Platelet Count 120 X10^3/uL (150-400); Red Blood Cell Count 3.85 X10^6/uL (4.5-5.9); Red Cell Distribution Width 14.1 % (11.6-14.8); White Blood Cell Count 6.6 X10^3/uL (4.5-11.0)
[2023-10-01 08:27] LABS: BUN Creatinine Ratio 21.8 (6-22); Blood Urea Nitrogen 17 mg/dL (9-20); Calcium 9.1 mg/dL (8.4-10.2); Carbon Dioxide 27 mmol/L (22-32); Chloride 104 mmol/L (98-107); Estimated Glomerular Filt Rate > 60 mL/min (>60); Glucose 92 mg/dL (80-110); HEMOLYSIS < 15 (0-50); Sodium 138 mmol/L (137-145)
[2023-10-01] MEDS: DULOXETINE 30 MG CAPSULE 60 MG PO (10:11)
[2023-10-01] MEDS: RIVAROXABAN 10 MG TABLET 20 MG PO (10:12)
[2023-10-01] MEDS: OXYCODONE/ACETAMINOPHEN 5/325 TABLET 1 TAB PO (10:12)
[2023-10-01] MEDS: GABAPENTIN 600 MG TABLET 1200 MG PO (10:12)
[2023-10-01] MEDS: ACETAMINOPHEN 325 MG TABLET 650 MG PO (10:14)
--- NOTE | 2023-10-01 13:08 | CM.DANOTE ---
Initial DCP Assessment Note Pt is an 83 yo male, resident of [place], arrives w/chest pain, admitted OBS for work up, chest pain r/o PCP: Marco Portillo Payer: EUGENIA/Teja Reviewed chart, pt discussed in multidisciplinary rounds this morning. Nuclear stress test and echo then likely home pending results. Met w/patient and his Gisele, introduced self and role. Patient lives w/spouse, indp w/walker only at night when he gets up to the BR. Patient continues to drive. 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 No barriers identified at this time to patient's safe discharge home w/family to assist; close outpatient f/u recommended. CM team will plan to follow closely in case any DC needs or concerns arise. RODRIGO Martines Discharge Planning/Care Management CM Discharge Assessment Start: 10/01/23 13:01 Freq: Status: Active Protocol: Document 10/01/23 13:06 STACIA (Rec: 10/01/23 13:07 STACIA [id number]) Discharge Planning Assessment Assigned Manager Grant RODRIGO Amezcua DPOA/Assigned Designee Name Gisele Bautista, spouse Contact Information [phone] Advance Directives? No History Provided By Patient,Significant Other, Medical Record Prior Living Arrangements House Household Members spouse Type of transporation used prior to Drives own vehicle admit Independent with ADL's Yes Is patient alert and oriented? Yes Barriers to Discharge No Comment Home w/spouse with close outpatient follow up Discharge Plan Home Transportation Arrangement Spouse Referrals Initiated None needed
--- NOTE | 2023-10-01 15:13 | PC.NURSE ---
DSischarge: Pt feels ready to d/c to home. Had some mild c/p this am which resolved. Had echo/stress test. He was given results by Dr. Barrientos. Reviewed d/c instructions. Questions answered. Pt d/c to home via auto with spouse.
--- NOTE | 2023-10-01 15:23 | PM.DS.1 ---
History of Present Illness History of Present Illness Chief complaint: chest pain PCP ref Narrative: From overnight provider: 83 y/o with likely CAD, evidence of probable old CT on ECG, A-fib, HTN and HLD, presented to ed after he had 2 30-min episodes of substernal chest pain, w/o radiation, w/o associated dyspnea, dizziness, diaphoresis, palpitations, nausea. Initial workup negative for ACS or PE. Placed in observation suspected for unstable angina. Discharge Providers Provider Date of admission: 09/30/23 21:41 Discharge Date: 10/01/23 Primary care physician: Marco Portillo DO Discharge provider: River Barrientos DO Summary Hospital Course Discharge Diagnosis: (1) Chest pain: Qualifiers: Chest pain type: unspecified Qualified Code(s): R07.9 - Chest pain, unspecified Status: Acute Plan: Likely old CT on ECG, no acute changes Telemetry monitoring, ASA, statin PRN NTG, morphine Echo reassuring with EF 50-55%, no WMA, mild-mod TR Nuclear stress test was low risk Patient will f/up with cardiology in 1 week Chest pain may be esophageal spasms as he has h/o GERD and Parra's (2) Paroxysmal atrial fibrillation: Status: Chronic Plan: BB, Xarelto (3) Chronic pain: Qualifiers: Chronic pain type: other chronic pain Qualified Code(s): G89.29 - Other chronic pain Status: Chronic Plan: This is in differential (4) Uncomplicated opioid dependence: Status: Chronic Plan: Neurontin, Tizanidine, Oxycodone, Tylenol (5) Depression: Qualifiers: Depression Type: major depressive disorder Major depression recurrence: single episode Active/Remission status: currently active Major depression episode severity: mild Qualified Code(s): F32.0 - Major depressive disorder, single episode, mild Status: Chronic Plan: Cymbalta (6) Hypertension: Qualifiers: Hypertension type: essential hypertension Qualified Code(s): I10 - Essential (primary) hypertension Status: Chronic (7) Mixed hyperlipidemia: Status: Chronic Plan: statin (8) BPH (benign prostatic hyperplasia): Qualifiers: Lower urinary tract symptom presence: symptoms present Lower urinary tract symptom detail: urinary obstruction Qualified Code(s): N40.1 - Benign prostatic hyperplasia with lower urinary tract symptoms; N13.8 - Other obstructive and reflux uropathy Status: Acute Plan: [facility] Hospital Course: Admitted for chest pain. Echo, nuclear stress test, EKG, and troponins all reassuring suggesting non-cardiac cause. Discharged home to follow-up with his superintendent menagerie in 1 week. Exam Vital Signs (past 8 hours): - 10/01/23 08:02 10/01/23 09:00 Temperature 96.6 F L Pulse Rate 72 Respiratory Rate 19 Blood Pressure 108/71 Pulse Oximetry 94 Oxygen Delivery Method Room Air Oxygen Flow Rate 0 Oxygen Delivery Method Room Air Oxygen Flow Rate 0 Const Other: Sitting in bed in no distress Neck Other: w/o JVD Resp Other: CTA Cardio Other: Irregularly irregular w/o leg edema Objective Labs 10/01/23 08:05 10/01/23 08:05 Labs: Laboratory Results - last 24 hr 09/30/23 09/30/23 10/01/23 19:45 21:54 08:05 WBC 6.3 6.6 RBC 4.18 L 3.85 L Hgb 13.1 L 12.1 L Hct 39.0 L 35.9 L MCV 93.3 93.2 MCH 31.2 31.4 MCHC 33.5 33.7 RDW 13.8 14.1 Plt Count 139 L 120 L Neut % (Auto) 61.2 55.5 Lymph % (Auto) 27.8 32.6 Clare % (Auto) 6.9 7.5 Eos % (Auto) 3.5 3.7 Baso % (Auto) 0.6 0.7 Neut # (Auto) 3800 3600 Lymph # (Auto) 1700 2100 Clare # (Auto) 400 500 Eos # (Auto) 200 200 Baso # (Auto) 0 0 D-Dimer 1878 H Sodium 137 138 Potassium 3.9 4.0 Chloride 102 104 Carbon Dioxide 28 27 BUN 18 17 Creatinine 0.76 0.78 Estimated GFR > 60 > 60 BUN/Creatinine Ratio 23.7 H 21.8 Glucose 127 H 92 Calcium 9.2 9.1 Total Bilirubin 0.5 AST 28 ALT 23 Alkaline Phosphatase 81 Total Creatine Kinase 117 Troponin I < 0.012 < 0.012 Total Protein 7.5 Albumin 4.0 Globulin 3.5 Albumin/Globulin Ratio 1.1 Lipase 78 [facility] Medical History Leg edema BPH (benign prostatic hyperplasia) Spinal cord stimulator dysfunction Parkinsonism Depression COVID-19 (~02/2022) Degenerative joint disease of knee Uncomplicated opioid dependence Lumbar post-laminectomy syndrome Paroxysmal atrial fibrillation (~11/09/17) Chronic pain Chronic anticoagulation Other insomnia (06/26/16) Mixed hyperlipidemia (12/19/15) Obstructive sleep apnea syndrome Dorsalgia 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) Surgical History History of repair of right rotator cuff Family History Brother Family history of esophageal cancer Social History marital status: number of children: 2 household members: spouse lives independently: Yes caregiver/support person: No housing: house pets and animals: No education level: college occupational status: other current occupational exposures/hazards: No 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 All of your cardiac workup was reassuring suggesting this pain is not from your heart. Please follow-up with your superintendent [facility]agerie about this. It may have been an esophageal spasm. Discharge orders & Medications Prescriptions: Continued clindamycin phosphate 1 % lotion 1 % Topical BID Qty: 60 3RF rosuvastatin 10 mg tablet 10 mg PO DAILY Qty: 90 3RF clotrimazole-betamethasone 1-0.05 % cream 1 applic topical TID Qty: 45 3RF oxycodone-acetaminophen 5-325 mg tablet 1 tab PO Q4H PRN (Reason: pain in back/joints) Qty: 120 0RF omeprazole 20 mg capsule,delayed release(DR/EC) 20 mg PO BID Qty: 180 3RF gabapentin 600 mg tablet 1,200 mg PO 3XD Qty: 540 3RF melatonin 5 mg/15 mL liquid 1 mg PO BEDTIME propafenone 225 mg capsule,extended release 12 hr 225 mg PO Q12H duloxetine 30 mg capsule,delayed release(DR/EC) 30 mg PO .QHS Qty: 90 1RF duloxetine 60 mg capsule,delayed release(DR/EC) 60 mg PO DAILY Qty: 90 1RF tamsulosin 0.4 mg capsule 0.4 mg PO BEDTIME Qty: 90 1RF hydrochlorothiazide 12.5 mg tablet 12.5 mg PO DAILY Qty: 90 1RF tizanidine 4 mg tablet 8 mg PO BEDTIME PRN (Reason: muscle spasticity) Qty: 180 1RF trazodone 50 mg tablet 50 mg PO BEDTIME Qty: 60 2RF Rx Instructions: 1 at bedtime, after 1 week you may increase to 2 at bedtime if needed Xarelto 20 mg tablet 20 mg PO DAILY metoprolol succinate 25 mg tablet extended release 24 hr 25 mg PO BID acetaminophen [Tylenol Extra Strength] 500 mg tablet 1,000 mg PO .4-5XD ipratropium bromide 42 mcg (0.06 %) spray,non-aerosol 2 spray intranasal 3XD PRN (Reason: Insomnia) (DME) [employer]pir[employer] CPAP Qty: 1 Dose Instruction: As directed Patient Comments: Rx Instructions: Pressure: 7-11 cmH2O DME: [facility] Follow up/Referrals: Marco Portillo, [Primary Care Provider] - 2 Weeks Visit Report/Discharge Packet Instructions: DI for Cardiac Stress Test, DI for Chest Pain Stand Alone Forms: Patient Portal/API, Stroke Signs & Symptoms Discharge Data Primary Care Provider: Marco Portillo Attending Provider: Nils Stroud Admit Date/Time: 09/30/23 21:41 Quality VTE Deep Vein Thrombosis/Pulmonary Embolism Present on Admission: No
--- NOTE | 2023-10-02 04:49 | DI.NM.S_ITS ---
DATE OF SERVICE: 10/01/2023 PROCEDURE: Pharmacological perfusion study INDICATIONS: Chest pain with underlying AFib, hypertension, hyperlipidemia. RADIOPHARMACEUTICAL: 26.6 mCi technetium-99m Myoview IV was injected at stress and 11.7 mCi technetium-99m Myoview IV was injected at rest. CARDIAC STRESS: The patient underwent IV Lexiscan perfusion study under the supervision of an attending and staff. She remained hemodynamically stable. Baseline rhythm AFib. During stress, no convincing ischemic EKG changes seen. No new significant arrhythmias. Minimal dyspnea. No chest discomfort. RAW DATA: There is increased subdiaphragmatic activity. GATED STUDY: Resting LV ejection fraction 54% and stress LV ejection fraction 62% without any significant wall motion abnormalities. Resting end-diastolic volume 109 mL. TID ratio 0.90 which is within normal limits. Lung/heart ratio 0.34 which is within normal limits. MYOCARDIAL PERFUSION SCAN: Stress supine, resting supine images were compared to each other. There are no stress prone images. Resting supine images revealed small size minimally decreased perfusion of inferior apex; however stress supine images revealed normal myocardial perfusion. Sum stress score and resting score is zero. There is increased subdiaphragmatic activity. CONCLUSION: This is a normal myocardial perfusion scan as some stress score and summed rest score is zero. Normal myocardial perfusion seen during stress supine images. The stress LV ejection fraction is 62%. Overall low-risk myocardial perfusion scan. Bertin Bautista - GINA/olivia/jeni doc#: [id number]/job#: [id number] dd: 10/01/2023 13:01:00 dt: 10/02/2023 04:38:00 DICTATING MD/COPIES TO: Hillary Dias MD COPIES MNE: MEG;
== END 2023-10-01 15:30 | disposition home or self-care (01) ==
LOC: ED 20:59 → AC 21:42
PROVIDERS: Admitting Provider Internal Medicine; Emergency Provider Emergency Medicine; PCP Family Medicine; Visit Provider Internal Medicine
DX: R07.9 Chest pain, unspecified (principal); I48.0 Paroxysmal atrial fibrillation; I10 Essential (primary) hypertension; E78.2 Mixed hyperlipidemia; G89.29 Other chronic pain; F11.20 Opioid dependence, uncomplicated; F32.0 Major depressive disorder, single episode, mild; N40.1 Benign prostatic hyperplasia with lower urinary tract symptoms; N13.8 Other obstructive and reflux uropathy
CPT/HCPCS: 36415; 71045; 71275; 78452; 80048; 80053; 82550; 83690; 84484; 85025; 85379; 93005; 93010; 93017; 93306; 96374; 96376; 99284; G0378; A9502; J2270; J2785; Q9967

== ENCOUNTER → 2024-02-15 17:00 | Outpatient (CLI) | payer MEDICARE, OTHER, SELFPAY ==
[2023-09-30 22:00] VITALS: BMI 32.9
--- NOTE | 2024-02-15 17:03 | DI.RAD.S_ITS ---
PROCEDURE: XR KNEE RT 3V INDICATIONS: Fall onto right knee 02/01/24, previous knee replacement TECHNIQUE: 3 views of the knee were acquired. COMPARISON: [facility], CR, XR KNEE LT 3V, 09/16/2023, 16:40. [facility], CR, XR KNEE RT 3V, 01/07/2023, 18:31. FINDINGS: Bones: No fractures or dislocations. No suspicious bony lesions. Well-aligned, intact arthroplasty without hardware complication. Soft tissues: No joint effusion. No suspicious soft tissue calcifications. IMPRESSION: No acute bony abnormality or significant effusion. Dictated by: Garcia Thompson M.D. on 02/16/2024 at 8:11 Approved by: Garcia Thompson M.D. on 02/16/2024 at 8:11
--- NOTE | 2024-02-15 17:03 | DI.RAD.S_ITS ---
PROCEDURE: XR SHOULDER RT MIN 2V INDICATIONS: Increased pain of right shoulder after fall on 01/31 TECHNIQUE: 3 views of the shoulder were acquired. COMPARISON: [facility], CR, XR SHOULDER LT MIN 2V, 08/03/2023, 12:30. [facility], CR, XR SHOULDER RT MIN 2V, 01/07/2023, 18:31. FINDINGS: Bones: No fractures or dislocations. No suspicious bony lesions. Visualized ribs appear intact. Glenohumeral joint space narrowing with osteophytosis. Soft tissues: No suspicious soft tissue calcifications. IMPRESSION: No acute bony abnormality. Moderate glenohumeral osteoarthritis. Dictated by: Garcia Thompson M.D. on 02/16/2024 at 8:53 Approved by: Garcia Thompson M.D. on 02/16/2024 at 8:54
== END ==
PROVIDERS: PCP Family Medicine; Referring Provider Physician Assistant; Visit Provider Physician Assistant
DX: S46.009A Unspecified injury of muscle(s) and tendon(s) of the rotator cuff of unspecified shoulder, initial encounter (principal); M19.011 Primary osteoarthritis, right shoulder; M25.561 Pain in right knee; Z96.651 Presence of right artificial knee joint; X58.XXXA Exposure to other specified factors, initial encounter
CPT/HCPCS: 73030; 73562

== ENCOUNTER 2024-04-04 13:30 | Outpatient (CLI) | payer MEDICARE, OTHER, SELFPAY ==
[2023-09-30 22:00] VITALS: BMI 32.9
[2024-04-04] VITALS (7 sets, daily range): BP systolic 115–138; BP diastolic 61–79; PULSE 76–116; RESP 10–18; TEMP 36.7; O2SAT 93–97
--- NOTE | 2024-04-04 14:23 | DI.RAD.S_ITS ---
PROCEDURE: PAIN L INTERLAMINAR/CAUDAL INJ INDICATIONS: PARA LEFT L5/S1 TLESI COMPARISON: None. FINDINGS: Fluoroscopic spot filming was performed to verify placement of spinal needles at the left L5-S1 level(s), as labeled on the films. Appropriate location(s) of the needle tip(s) was confirmed by injection of iodinated contrast. IMPRESSION: Intraoperative guidance provided. Dictated by: Fady Gomez M.D. on 04/04/2024 at 22:26 Approved by: Fady Gomez M.D. on 04/04/2024 at 22:26
[2024-04-04] MEDS: MIDAZOLAM 2 MG/2 ML VIAL IV (14:38)
[2024-04-04] MEDS: BUPIVACAINE 0.25% (PF) VIAL 2 ML INJ (14:40)
[2024-04-04] MEDS: DEXAMETHASONE 10 MG/ML VIAL INJ (14:40)
[2024-04-04] MEDS: iopamidoL 15 ML VIAL 3 ML INJ (14:40)
[2024-04-04] MEDS: BETAMETHASONE 30 MG/5 ML MDV 6 MG INJ (14:40)
--- NOTE | 2024-04-04 14:51 | P.PCN_ITS ---
Date/Time/Diagnoses Date of procedure: 04/04/24 Time of procedure: 14:51 Pre-procedure diagnosis: 1. HNP WITH RADICULAR FEATURES, 2. MULTILEVEL CENTRAL STENOSIS, Post-procedure diagnosis: same Procedure Notes Procedure: 1. FLUOROSCOPICALLY GUIDED CONTRAST CONTROLLED INTERLAMINAR EPIDURAL STEROID INJECTION - L5/S1 Indications: Bertin is referred by Dr. Portillo for treatment of Bilateral Foraminal Stenosis L>R LE symptoms. Physician: Mario Cornejo Total Fluoroscopy time (seconds): 9 Total sedation minutes: 9 Complications: none Procedure in detail & Post-procedure care: FINDINGS Multilevel Central Spinal Stenosis with Nerve Root Compression DESCRIPTION OF PROCEDURE Fluoroscopically guided, contrast-controlled L5/S1 translaminar epidural steroid injection. Following review of allergy and review of potential side effects and complications, including, but not necessarily limited to, infection, allergic reaction, local tissue breakdown, temporary as well as permanent nerve injury, paralysis, stroke and possible , the patient indicated that the patient understood and agreed to proceed. An informed consent document was signed by the patient, witnessed by a nurse, and placed in the patient's chart. Additionally, other treatment options including modalities, medications, and physical therapy were reviewed with the patient. After review of previous anaesthesic history and IV conscious sedation the patient was deemed safe to proceed with today?s procedure with IV conscious sedation as ASA class II designation. Safety time-out was performed to confirm patient ID, procedure to be performed and site of procedure. IV sedation was accomplished with a combination of 2mg of Versed administered by the RN after DO order, titrated to patient comfort during the course of the procedure while the patient remained responsive to all verbal commands. In the prone position, following sterile prep and drape of the lumbar region, the L5/S1 translaminar space was identified fluoroscopically. The skin was anesthetized via a 25-gauge, 1.5-inch needle with 1% lidocaine solution. At this point, a 22-gauge short bevel spinal needle was atraumatically introduced and advanced under fluoroscopic guidance into the region of the L5/S1 translaminar space. Depth was confirmed on lateral view. Radiological data, including multiple fluoroscopic views of the lumbar spine, reveal a spinal needle at the L5/S1 translaminar space. Lateral views then show placement of the needle in the epidural space. Subsequent views show contrast material flowing superiorly and inferiorly in the epidural space. No vascular or intrathecal uptake is observed. At this point, using loss of resistance technique with saline and air, the epidural space was entered. This was confirmed following negative aspiration with injection of approximately 1.5cc of Isovue 200, showing excellent epidural flow without vascular or intrathecal uptake. At this point, 1 cc of 1% lidocai ne solution combined with 2cc or 10mg of dexamethasone and 6mg of betamethasone was injected without incident. The patent tolerated the procedure without signs of symptoms of complications prior to transfer to the recovery area for further monitoring. The patient was then transferred to the recovery area where they were observed for an appropriate period of time after the injection. The patient reported a VAS score of 6 prior to the procedure and a post-procedure VAS of 0. POST OP INSTRUCTIONS The patient was provided a Pain Log to continue to record their response to the target-specific procedure prior to follow-up visit with their referring physician. Additionally, specific post-injection care instructions and a contact number to our office were provided if concerns arise regarding possible complications associated with the procedure are suspected.
--- NOTE | 2024-04-04 15:16 | PC.NURSE ---
Discharge Patient very sleepy after procedure. Patient easily wakes to verbal stimuli. Patient able to stand with stand-by assistance. Patient able to tuck in his shirts and button pants and belt by himself. Patient's notified that patient is still sleepy but is appropriate to discharge home. Patient's stated that there is one step into the home and that she is okay with patient discharging at this time.
== END 2024-04-04 15:15 | disposition home or self-care (01) ==
PROVIDERS: PCP Family Medicine; Referring Provider Physical Medicine & Rehabilitation; Visit Provider Physical Medicine & Rehabilitation
DX: M51.17 Intervertebral disc disorders with radiculopathy, lumbosacral region (principal); M48.07 Spinal stenosis, lumbosacral region
CPT/HCPCS: 62323; J0702; J1100; J2250; J3490

== ENCOUNTER 2024-05-03 19:01 | Emergency (ER) | payer MEDICARE, OTHER, SELFPAY ==
[2023-09-30 22:00] VITALS: BMI 32.9
[2024-05-03] VITALS (13 sets, daily range): BP systolic 132–156; BP diastolic 77–96; PULSE 71–116; RESP 16–18; TEMP 36.8; O2SAT 92–99; BMI 32.7
--- NOTE | 2024-05-03 19:15 | DI.RAD.S_ITS ---
PROCEDURE: XR KNEE LT 3V INDICATIONS: pain/swelling s/p fall TECHNIQUE: 3 views of the knee were acquired. COMPARISON: [facility], CR, XR KNEE RT 3V, 02/15/2024, 17:13. FINDINGS: Bones: Moderate tricompartmental degenerative changes of the left knee. No fractures or dislocations. No suspicious bony lesions. Soft tissues: Small joint effusion. Moderate soft tissue swelling over the anteromedial aspect of the left knee. Concurrent prepatellar bursitis not excluded. No suspicious soft tissue calcifications. IMPRESSION: No acute bony abnormality. Tricompartmental degenerative changes. Small joint effusion. Moderate soft tissue swelling over the anteromedial aspect of the left knee with possible concurrent prepatellar bursitis. If there are persistent symptoms or clinical suspicion for pathology, then repeat radiographs or advanced imaging (CT or MRI) may be considered for further evaluation. Dictated by: Giuliano Loyola M.D. on 05/03/2024 at 20:15 Approved by: Giuliano Loyola M.D. on 05/03/2024 at 20:16
--- NOTE | 2024-05-03 19:44 | PC.NURSE ---
Pt has swelling to left knee. Measures 55 cm in diameter. Bruising noted to medial aspect of knee. Pt reports pain to left side.
--- NOTE | 2024-05-03 21:22 | ED_ITS ---
HPI - Fall General Chief Complaint: Fall Stated Complaint: lt knee injury, swelling, pain Time Seen by Provider: 05/03/24 21:22 Source: patient Mode of arrival: Wheelchair History of Present Illness HPI Narrative: 83-year-old male with history of chronic Eliquis anticoagulation, prior right knee replacement, no left knee replacement or surgery, had ground level fall yesterday afternoon, with increasing pain and swelling to the left knee since then. No other injuries. He does not have injury to his right knee replacement, no right lower extremity pain. He does not have pain to his distal affected side and left ankle or foot, no pain at left proximal femur to hip. He denies also any injury or pain to his face, head, neck, upper back, lower back, abdomen, chest. No upper extremity injuries. He is still taking blood thinner medications. He has chronic pain for which he takes Percocet usually half tablet multiple times daily. No numbness or tingling to his distal right leg foot toes. Related Data Home Medications Medication Instructions Recorded Confirmed rivaroxaban 20 mg tablet (Xarelto) 20 mg PO DAILY 04/10/19 03/27/24 Respironics Dreamstation CPAP #1 ea 07/27/19 03/27/24 acetaminophen 500 mg tablet 1,000 mg PO .4-5XD 07/23/22 03/27/24 (Tylenol Extra Strength) metoprolol succinate 25 mg 25 mg PO BID 07/23/22 03/27/24 tablet,extended release 24 hr propafenone 225 mg 225 mg PO Q12H 11/16/22 03/27/24 capsule,extended release 12 hr ipratropium bromide 42 mcg (0.06 2 spray intranasal 3XD PRN Insomnia 09/06/23 03/27/24 %) nasal spray tizanidine 4 mg tablet 10.5 mg PO BEDTIME PRN muscle 02/10/24 03/27/24 spasticity Previous Rx's Medication Instructions Recorded clindamycin phosphate 1 % lotion 1 % topical BID #60 mL 11/09/18 clotrimazole-betamethasone 1 1 applic topical TID #45 grams 05/24/23 %-0.05 % topical cream omeprazole 20 mg capsule,delayed 20 mg PO BID #180 caps 07/13/23 release gabapentin 600 mg tablet 1,200 mg (2 x 600 mg) PO 3XD #540 08/18/23 tabs rosuvastatin 10 mg tablet 10 mg PO DAILY #90 tabs 10/05/23 Disabled Parking Permint #1 ea 11/09/23 oxycodone-acetaminophen 5 mg-325 1 tab PO Q4H PRN pain in 01/04/24 mg tablet back/joints #120 tabs tamsulosin 0.4 mg capsule 0.4 mg PO BID #180 caps 02/10/24 mupirocin 2 % topical ointment 1 applic topical TID #15 grams 02/11/24 hydrochlorothiazide 12.5 mg tablet 12.5 mg PO DAILY #90 tabs 03/09/24 duloxetine 60 mg capsule,delayed 60 mg PO DAILY #90 caps 03/20/24 release Allergies Allergy/AdvReac Type Severity Reaction Status Date / Time hydrocodone [From Vicodin] Allergy Intermediate Confusion Verified 02/21/24 15:09 Review of Systems Review of Systems Narrative: see HPI Patient History Medical History Cellulitis Rotator cuff tear arthropathy Leg edema BPH (benign prostatic hyperplasia) Spinal cord stimulator dysfunction Parkinsonism Depression COVID-19 (~02/2022) Degenerative joint disease of knee Uncomplicated opioid dependence Lumbar post-laminectomy syndrome Paroxysmal atrial fibrillation (~11/09/17) Chronic pain Chronic anticoagulation Other insomnia (06/26/16) Mixed hyperlipidemia (12/19/15) Obstructive sleep apnea syndrome Dorsalgia 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) Surgical History History of repair of right rotator cuff Family History Brother Family history of esophageal cancer Social History marital status: number of children: 2 household members: spouse lives independently: Yes caregiver/support person: No housing: house pets and animals: No education level: college occupational status: other current occupational exposures/hazards: No 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 HEAD: Atraumatic. Normocephalic. EYES: Pupils equal round and reactive. Extraocular motions intact. No scleral icterus. No injection or drainage. ENT: Nose without bleeding, purulent drainage. Throat without erythema, tonsillar hypertrophy or exudate. Airway patent. NECK: Trachea midline. Non tender CARDIOVASCULAR: Regular rate and rhythm without murmurs, gallops, or rubs. RESPIRATORY: Clear to auscultation. Breath sounds equal bilaterally. No wheezes, rales, or rhonchi. GASTROINTESTINAL: Abdomen soft, non-tender, nondistended. EXTREMITIES: Left knee with medial swelling, non fluctuant, no tenderness to medial or lateral joint line. No tenderness to the proximal mid left thigh or hip, no tenderness to distal left foreleg ankle or foot. No obvious injury to the right lower extremity, nor to either upper extremity. BACK: Nontender without deformity or crepitance. No flank tenderness. NEURO: AOx3. Nonfocal gross motor functions, limited left lower extremity evaluation due to knee injury/pain SKIN: No rash or erythema of visible areas Initial Vital Signs Initial Vital Signs: Vital Signs Temperature 98.3 F 05/03/24 19:07 Pulse Rate 114 H 05/03/24 19:07 Respiratory Rate 16 05/03/24 19:07 Blood Pressure 142/84 H 05/03/24 19:07 Pulse Oximetry 99 05/03/24 19:07 Oxygen Delivery Method Room Air 05/03/24 19:07 Course Orders Ordered: ED Orders 05/03/24 19:15 XR knee LT 3V Stat 05/03/24 22:18 CT LE LT wo con Stat Discontinued Medications Acetaminophen (Acetaminophen 325 Mg Tablet) 650 mg PO NOW ONE Stop: 05/03/24 21:23 Last Admin: 05/03/24 23:00 Dose: 650 mg Documented By: Oxycodone/Acetaminophen (Oxycodone/Acetaminophen 5/325 Tablet) 1 tab PO NOW ONE Stop: 05/04/24 01:23 Last Admin: 05/04/24 01:30 Dose: 1 tab Documented By: Vital Signs Vital signs: Vital Signs - 8 hr 05/03/24 20:00 05/03/24 20:02 05/03/24 20:02 Temperature Pulse Rate 75 95 H Respiratory Rate Blood Pressure 134/86 Pulse Oximetry 92 98 Oxygen Delivery Method 05/03/24 20:30 05/03/24 20:30 05/03/24 21:00 Temperature Pulse Rate 104 H Respiratory Rate Blood Pressure 137/77 145/78 H Pulse Oximetry 98 Oxygen Delivery Method 05/03/24 21:00 05/03/24 21:30 05/03/24 21:31 Temperature Pulse Rate 96 H 109 H Respiratory Rate Blood Pressure 153/96 H Pulse Oximetry 98 98 Oxygen Delivery Method 05/03/24 21:31 05/03/24 22:00 05/03/24 22:00 Temperature Pulse Rate 109 H 87 Respiratory Rate Blood Pressure 142/83 H Pulse Oximetry 99 98 Oxygen Delivery Method 05/03/24 22:30 05/03/24 22:34 05/03/24 22:34 Temperature Pulse Rate 71 79 Respiratory Rate Blood Pressure 132/77 Pulse Oximetry 98 98 Oxygen Delivery Method 05/04/24 00:29 05/04/24 00:30 05/04/24 00:31 Temperature Pulse Rate 70 101 H 82 Respiratory Rate 18 Blood Pressure 155/89 H Pulse Oximetry 96 97 97 Oxygen Delivery Method 05/04/24 00:31 05/04/24 01:00 05/04/24 01:48 Temperature 98.4 F Pulse Rate 77 65 Respiratory Rate 18 18 Blood Pressure 155/89 H 135/78 Pulse Oximetry 97 98 Oxygen Delivery Method Room Air MDM - Fall Imaging Data CT Left Knee: Radiologist's Impression: [address] [address] [address] Scan Report Signed Patient: Bertin Bautista MR#: [id number] : 1940 Acct:[id number] Age/Sex: 83 / M Date of Service: 05/03/24 Loc: ED Accession Number: [id number] Procedure: CT LE LT wo con Ordering Provider: Kleber Cleveland MD PROCEDURE: CT LE LT W CON INDICATIONS: left knee TECHNIQUE: Noncontrast 1-1.5 mm axial sections acquired from the mid-patella to the proximal tibia, with coronal and sagittal reformats. COMPARISON: [facility], CR, XR KNEE 4+ VIEWS RIGHT, 09/09/2022, 9:52. [facility], CT, LOWER EXTREMITY WO CONTRAST, 05/28/2017, 13:24. FINDINGS: Image quality: Diagnostic Bones: Visualized osseous structures appear intact. No acute fracture or dislocation identified. Moderate tricompartmental osteoarthrosis noted with prominent marginal osteophytes. Small intra-articular calcifications may represent sequela of osteoarthrosis/osseous intra-articular loose bodies. Soft tissues: Small knee joint effusion. There is mild diffuse skin thickening of the left knee with moderate diffuse subcutaneous soft tissue edema. There is a heterogeneous, ill-defined, relatively hyperdense area noted over the anteromedial aspect of the left knee measuring approximately 10.0 x 5.0 cm in axial cross-sectional dimension approximately 10.3 cm in longitudinal dimension. This is noted just superficial to the medial patellofemoral retinaculum. Possible more focal component over the superficial margin of the patella. No suspicious soft tissue mass. Vascular calcifications. IMPRESSION: Moderate tricompartmental osteoarthritic changes of the left knee. No definite fracture. Normal alignment. Small suprapatellar joint effusion. Moderate diffuse skin thickening and subcutaneous soft tissue edema involving the anterior left knee with a more focal, heterogeneous hyperdense area over the anteromedial aspect of the left knee, just superficial to the medial patellofemoral retinaculum. Findings may represent a hematoma. A more focal component suggested over the superficial margin of the patella which may represent concurrent prepatellar bursitis. An infectious process not excluded if clinically appropriate. Dictated by: Giuliano Loyola M.D. on 05/03/2024 at 23:59 Approved by: Giuliano Loyola M.D. on 05/04/2024 at 0:08 Extremity x-ray #1: Radiologist's Impression: [address] [address] XRay Report Signed Patient: Bertin Bautista MR#: [id number] : 1940 Acct:[id number] Age/Sex: 83 / M Date of Service: 05/03/24 Loc: ED Accession Number: [id number] Procedure: XR knee LT 3V Ordering Provider: Kleber Cleveland MD PROCEDURE: XR KNEE LT 3V INDICATIONS: pain/swelling s/p fall TECHNIQUE: 3 views of the knee were acquired. COMPARISON: [facility], CR, XR KNEE RT 3V, 02/15/2024, 17:13. FINDINGS: Bones: Moderate tricompartmental degenerative changes of the left knee. No fractures or dislocations. No suspicious bony lesions. Soft tissues: Small joint effusion. Moderate soft tissue swelling over the anteromedial aspect of the left knee. Concurrent prepatellar bursitis not excluded. No suspicious soft tissue calcifications. IMPRESSION: No acute bony abnormality. Tricompartmental degenerative changes. Small joint effusion. Moderate soft tissue swelling over the anteromedial aspect of the left knee with possible concurrent prepatellar bursitis. If there are persistent symptoms or clinical suspicion for pathology, then repeat radiographs or advanced imaging (CT or MRI) may be considered for further evaluation. Dictated by: Giuliano Loyola M.D. on 05/03/2024 at 20:15 Approved by: Giuliano Loyola M.D. on 05/03/2024 at 20:16 Discharge Plan Departure Patient Disposition: Home Clinical Impression: Contusion of knee, Chronic anticoagulation, Hematoma Activity Restrictions/Additional Instructions: History of Eliquis chronic anticoagulation. Ground level fall, left knee pain and swelling, on exam there is considerable swelling to the anteromedial aspect of the left knee, possibly in the subcutaneous region, versus intra-articular within the joint. X-ray knee without obvious fracture changes per radiologist's report. CT scan left knee showed hematoma changes in the soft tissue, no obvious fracture to the bony structures, small effusion within the knee joint at this time. Knee placed in immobilizer, you tolerated your walker in the knee immobilizer well, try to keep from putting weight on that knee for now. Continue taking your Percocet chronic pain medication. Follow up with Orthopedic surgery, contact information given for Dr. Baugh who you sedating you seen in the past. Return earlier to this/nearest emergency department for any change worsening symptoms or any concerns prior Prescriptions: No Action clindamycin phosphate 1 % lotion 1 % Topical BID Qty: 60 3RF clotrimazole-betamethasone 1-0.05 % cream 1 applic topical TID Qty: 45 3RF omeprazole 20 mg capsule,delayed release(DR/EC) 20 mg PO BID Qty: 180 3RF gabapentin 600 mg tablet 1,200 mg PO 3XD Qty: 540 3RF rosuvastatin 10 mg tablet 10 mg PO DAILY Qty: 90 3RF (DME) Disabled Parking Permint See Rx Instructions .ROUTE .MEDSUPPLY Qty: 1 0RF Rx Instructions: I find this patient to be medically disabled and qualified for Disabled Parking as indicated and signed on the Accompanying Disabled Parking Application for individuals. tamsulosin 0.4 mg capsule 0.4 mg PO BID Qty: 180 1RF mupirocin 2 % ointment 1 applic topical TID Qty: 15 0RF Rx Instructions: apply three times a day to affected area hydrochlorothiazide 12.5 mg tablet 12.5 mg PO DAILY Qty: 90 1RF duloxetine 60 mg capsule,delayed release(DR/EC) 60 mg PO DAILY Qty: 90 1RF propafenone 225 mg capsule,extended release 12 hr 225 mg PO Q12H oxycodone-acetaminophen 5-325 mg tablet 1 tab PO Q4H PRN (Reason: pain in back/joints) Qty: 120 0RF tizanidine 4 mg tablet 10.5 mg PO BEDTIME PRN (Reason: muscle spasticity) Xarelto 20 mg tablet 20 mg PO DAILY metoprolol succinate 25 mg tablet extended release 24 hr 25 mg PO BID acetaminophen [Tylenol Extra Strength] 500 mg tablet 1,000 mg PO .4-5XD ipratropium bromide 42 mcg (0.06 %) spray,non-aerosol 2 spray intranasal 3XD PRN (Reason: Insomnia) (DME) Respironics Dreamstation CPAP Qty: 1 Dose Instruction: As directed Patient Comments: Rx Instructions: Pressure: 7-11 cmH2O DME: [facility] Referrals: Jasmina Street MD [Physician] - Marco Portillo DO [Primary Care Provider] - Stand Alone Forms: Patient Portal/API
--- NOTE | 2024-05-03 22:18 | DI.CT.S_ITS ---
PROCEDURE: CT LE LT W CON INDICATIONS: left knee TECHNIQUE: Noncontrast 1-1.5 mm axial sections acquired from the mid-patella to the proximal tibia, with coronal and sagittal reformats. COMPARISON: [facility] [place], CR, XR KNEE 4+ VIEWS RIGHT, 09/09/2022, 9:52. [facility], CT, LOWER EXTREMITY WO CONTRAST, 05/28/2017, 13:24. FINDINGS: Image quality: Diagnostic Bones: Visualized osseous structures appear intact. No acute fracture or dislocation identified. Moderate tricompartmental osteoarthrosis noted with prominent marginal osteophytes. Small intra-articular calcifications may represent sequela of osteoarthrosis/osseous intra-articular loose bodies. Soft tissues: Small knee joint effusion. There is mild diffuse skin thickening of the left knee with moderate diffuse subcutaneous soft tissue edema. There is a heterogeneous, ill-defined, relatively hyperdense area noted over the anteromedial aspect of the left knee measuring approximately 10.0 x 5.0 cm in axial cross-sectional dimension approximately 10.3 cm in longitudinal dimension. This is noted just superficial to the medial patellofemoral retinaculum. Possible more focal component over the superficial margin of the patella. No suspicious soft tissue mass. Vascular calcifications. IMPRESSION: Moderate tricompartmental osteoarthritic changes of the left knee. No definite fracture. Normal alignment. Small suprapatellar joint effusion. Moderate diffuse skin thickening and subcutaneous soft tissue edema involving the anterior left knee with a more focal, heterogeneous hyperdense area over the anteromedial aspect of the left knee, just superficial to the medial patellofemoral retinaculum. Findings may represent a hematoma. A more focal component suggested over the superficial margin of the patella which may represent concurrent prepatellar bursitis. An infectious process not excluded if clinically appropriate. Dictated by: Giuliano Loyola M.D. on 05/03/2024 at 23:59 Approved by: Giuliano Loyola M.D. on 05/04/2024 at 0:08
[2024-05-03] MEDS: ACETAMINOPHEN 325 MG TABLET 650 MG PO (23:00)
[2024-05-04 00:29] VITALS: BP 155/89; PULSE 70; RESP 18; O2SAT 96
[2024-05-04 00:30] VITALS: PULSE 101; O2SAT 97
[2024-05-04 00:31] VITALS: BP 155/89; PULSE 82; O2SAT 97
--- NOTE | 2024-05-04 00:34 | PC.NURSE ---
Pt up in room with knee immobilizer in place and using walker. pt able to ambulate in room with steady gait.
[2024-05-04 01:00] VITALS: PULSE 77; RESP 18; O2SAT 97
[2024-05-04] MEDS: OXYCODONE/ACETAMINOPHEN 5/325 TABLET 1 TAB PO (01:30)
[2024-05-04 01:48] VITALS: BP 135/78; PULSE 65; RESP 18; TEMP 36.9; O2SAT 98
== END 2024-05-04 01:50 | disposition home or self-care (01) ==
PROVIDERS: Emergency Provider Emergency Medicine; PCP Family Medicine
DX: S80.02XA Contusion of left knee, initial encounter (principal); Z79.01 Long term (current) use of anticoagulants; W18.30XA Fall on same level, unspecified, initial encounter; Z79.899 Other long term (current) drug therapy
CPT/HCPCS: 73562; 73700; 99283; 99284

== ENCOUNTER → 2024-05-16 16:25 | Outpatient (CLI) | payer MEDICARE, OTHER, SELFPAY ==
[2023-09-30 22:00] VITALS: BMI 32.9
--- NOTE | 2024-05-16 16:27 | DI.US.S_ITS ---
PROCEDURE: US PERIPH VENOUS LOW EXTREM LT INDICATIONS: PAIN IN LEFT ANKLE AND JOINTS OF LEFT FOOT TECHNIQUE: Real-time imaging, as well as color and pulse Doppler interrogation, were performed of the lower extremity deep veins from the inguinal ligament to the popliteal fossa, with documentation of the visualized calf veins. COMPARISON: None. FINDINGS: The common femoral, femoral, popliteal, and the visualized calf veins are normally compressible, and free of intraluminal thrombus. Color and pulse Doppler demonstrate normal phasic intraluminal flow. There is normal augmentation response to distal compression maneuver. Note is made of a fluid collection left medial knee measuring 2.9 x 6.2 x 14.6 cm. IMPRESSION: No findings of lower extremity deep venous thrombosis. Relatively prominent fluid collection involving the medial left knee, uncertain etiology and clinical significance. This does not appear entirely hypoechoic and could represent a resolving hematoma or unusual manifestation of synovial protrusion. Please correlate clinically and depending on the clinical status follow-up by MR scanning may become necessary. Dictated by: Km López M.D. on 05/17/2024 at 9:48 Approved by: Km López M.D. on 05/17/2024 at 9:50
== END ==
LOC: US 16:26
PROVIDERS: PCP Family Medicine; Referring Provider Orthopaedic Surgery Foot and Ankle Surgery; Visit Provider Orthopaedic Surgery Foot and Ankle Surgery
DX: M25.572 Pain in left ankle and joints of left foot (principal)
CPT/HCPCS: 93971

== ENCOUNTER → 2024-06-06 12:49 | Outpatient (CLI) | payer MEDICARE, OTHER, SELFPAY ==
[2023-09-30 22:00] VITALS: BMI 32.9
--- NOTE | 2024-06-06 12:51 | DI.RAD.S_ITS ---
PROCEDURE: XR SHOULDER LT MIN 2V INDICATIONS: LEFT SHOULDER PAIN TECHNIQUE: Three views of the shoulder were acquired. COMPARISON: [facility], CR, XR SHOULDER RT MIN 2V, 02/15/2024, 17:13. FINDINGS: Bones: No fractures or dislocations. Bone anchors in the humeral head. Spurring of the glenoid fossa partially seen. No shoulder separation. No suspicious bony lesions. Visualized ribs appear intact. Soft tissues: No suspicious soft tissue calcifications. IMPRESSION: No acute bony abnormality. Surgical changes in the left humeral head. Probable glenohumeral joint osteoarthritis. Dictated by: Oralia Friedman M.D. on 06/06/2024 at 13:37 Approved by: Oralia Friedman M.D. on 06/06/2024 at 13:38
--- NOTE | 2024-06-06 12:51 | DI.RAD.S_ITS ---
PROCEDURE: XR SHOULDER RT MIN 2V INDICATIONS: RIGHT SHOULDER PAIN TECHNIQUE: Three views of the shoulder were acquired. COMPARISON: [facility], CR, XR SHOULDER RT MIN 2V, 02/15/2024, 17:13. FINDINGS: Bones: No fractures or dislocations. There is a tiny calcification inferior to the glenoid fossa, present previously. No suspicious bony lesions. Visualized ribs appear intact. Soft tissues: No suspicious soft tissue calcifications. IMPRESSION: No acute bony abnormality. Dictated by: Oralia Friedman M.D. on 06/06/2024 at 13:38 Approved by: Oralia Friedman M.D. on 06/06/2024 at 13:39
== END ==
PROVIDERS: PCP Family Medicine; Referring Provider Physical Medicine & Rehabilitation; Visit Provider Physical Medicine & Rehabilitation
DX: M75.101 Unspecified rotator cuff tear or rupture of right shoulder, not specified as traumatic (principal); M12.811 Other specific arthropathies, not elsewhere classified, right shoulder; M25.511 Pain in right shoulder; M25.512 Pain in left shoulder
CPT/HCPCS: 73030

== ENCOUNTER → 2024-07-20 10:20 | Outpatient (CLI) | payer MEDICARE, OTHER, SELFPAY ==
[2023-09-30 22:00] VITALS: BMI 32.9
[2024-07-20 11:26] LABS: Add Manual Diff / Slide Review NO; Basophils Absolute Auto 0 /uL (0-100); Basophils Percent Auto 0.5 % (0-2); Eosinophils Absolute Auto 100 /uL (0-450); Eosinophils Percent Auto 1.7 % (2-4); Hematocrit 39.9 % (41-53); Lymphocytes Absolute Auto 1300 /uL (1100-4500); Lymphocytes Percent Auto 23.2 % (25-40); Mean Corpuscular HGB Conc 32.6 % (30-36); Mean Corpuscular Volume 95.1 fL (80-100); Monocytes Absolute Auto 500 /uL (0-900); Neutrophils Absolute Auto 3800 /uL (1500-7000); Neutrophils Percent Auto 66.6 % (50-75); Platelet Count 100 X10^3/uL (150-400); Red Cell Distribution Width 14.2 % (11.6-14.8); White Blood Cell Count 5.7 X10^3/uL (4.5-11.0)
[2024-07-20 11:42] LABS: Alanine Aminotransferase 22 IU/L (<50); Albumin 4.1 g/dL (3.5-5.0); Albumin Globulin Ratio 1.3 (1.0-2.8); Alkaline Phosphatase 85 U/L (38-126); Aspartate Aminotransferase 25 IU/L (17-59); BUN Creatinine Ratio 21.1 (6-22); Bilirubin Total 0.5 mg/dL (0.2-1.3); Blood Urea Nitrogen 19 mg/dL (9-20); Calcium 9.2 mg/dL (8.4-10.2); Carbon Dioxide 30 mmol/L (22-32); Chloride 104 mmol/L (98-107); Cholesterol 111 mg/dL (140-199); Estimated Glomerular Filt Rate > 60 mL/min (>60); Globulin 3.1 g/dL (1.7-4.1); Glucose 115 mg/dL (80-110); HDL Cholesterol 39 mg/dL (40-60); HEMOLYSIS < 15 (0-50); LDL Cholesterol Calculated 50 mg/dL (<100); Potassium 4.1 mmol/L (3.4-5.1); Sodium 139 mmol/L (137-145); Total Protein 7.2 g/dL (6.3-8.2); Triglycerides 111 mg/dL (35-150)
== END ==
LOC: LAB 10:23
PROVIDERS: PCP Family Medicine; Referring Provider Internal Medicine Cardiovascular Disease; Visit Provider Internal Medicine Cardiovascular Disease
DX: I48.20 Chronic atrial fibrillation, unspecified (principal); I65.23 Occlusion and stenosis of bilateral carotid arteries; I48.0 Paroxysmal atrial fibrillation
CPT/HCPCS: 36415; 80053; 80061; 85025

== ENCOUNTER → 2024-11-13 13:12 | Outpatient (CLI) | payer MEDICARE, OTHER, SELFPAY ==
[2023-09-30 22:00] VITALS: BMI 32.9
--- NOTE | 2024-11-13 13:14 | DI.RAD.S_ITS ---
PROCEDURE: FL ARTHROGRAM SHOULDER RT INDICATIONS: H/O rotator cuff surgery COMPARISON: None. TECHNIQUE: The indications, alternatives, benefits, risks, and complications of the procedure were explained to the patient. Written informed consent was obtained and placed in the chart. The shoulder was examined fluoroscopically and a site for needle placement chosen for entry into the glenohumeral joint from an anterior approach. The skin was prepped and draped in a sterile fashion, and 1% lidocaine infiltrated from skin down to joint capsule. A spinal needle was inserted into the glenohumeral joint, and a small amount of iodinated contrast media injected to confirm intra-articular placement of the needle tip. This was followed by approximately 12 mL of iodinated contrast. The needle was removed and a dressing was applied. The patient was given postprocedural instructions and sent to the CT suite for imaging. FINDINGS: A single fluoroscopic spot image demonstrates intra-articular location of injected iodinated contrast. IMPRESSION: Successful fluoroscopically guided administration of iodinated contrast solution into the shoulder joint for CT arthrogram. Dictated by: Abdifatah George M.D. on 11/13/2024 at 14:21 Approved by: Abdifatah George M.D. on 11/13/2024 at 14:22
--- NOTE | 2024-11-13 13:16 | DI.CT.S_ITS ---
PROCEDURE: CT UPPER EXT RIGHT ARTHROGRAM INDICATIONS: H/O rotator cuff surgery TECHNIQUE: After the intra-articular administration of 12 mL of dilute non-ionic contrast, 1-1.5 mm thick sections acquired from the acromioclavicular joint to the inferior scapula, with coronal and sagittal reformatting. COMPARISON: None. FINDINGS: Image quality: Excellent. Bones: Moderate degenerative changes of the acromioclavicular joint. Type 1 acromion. No os acromiale. Large amount of contrast extravasating into the subacromial/subdeltoid space. No acute fracture. No focal chondral defect of the glenohumeral articulation. Soft tissues: There is full-thickness, full width tear of the supraspinatus at the footprint. There is full-thickness, full width tear of the infraspinatus at the critical zone. The tendon of the supraspinatus and the infraspinatus are retracted to the level of the glenoid. The teres minor is unremarkable. Full-thickness tear of the superior fiber of the subscapularis. Severe fatty atrophy of the supraspinatus, infraspinatus, and the superior fiber of the subscapularis. Superior labral tear, extending anteriorly to the anterior labrum. Punctate paralabral cyst about the anterior superior labrum. Full-thickness tear of the extra-articular biceps tendon. There is 6 mm loose body within the bicipital groove. The intra-articular biceps tendon is not well visualized, likely torn as well. Other soft tissue findings: Left atrial appendage occluder device is noted. Mild calcification of the visualized thoracic aorta. Peripheral reticulation of bilateral lung, most pronounced in the left lingula, raising concern for pulmonary fibrosis. Mosaic attenuation of the visualized upper lung, raising concern for air trapping versus small vessel disease. IMPRESSION: 1. Moderate degenerative changes of the acromioclavicular joint. 2. Full-thickness, full width tear of the supraspinatus and infraspinatus with tendon retraction. 3. Full-thickness tear of the superior fiber of the subscapularis. 4. Labral tear with punctate paralabral cyst. 5. Full-thickness tear of the proximal biceps tendon with 6 mm loose body within the bicipital sheath. 6. Findings suggestive of pulmonary fibrosis. Dictated by: Radha Messer M.D. on 11/13/2024 at 16:09 Approved by: Radha Messer M.D. on 11/13/2024 at 16:21
[2024-11-13] MEDS: LIDOCAINE 1% 20 ML INJ (14:02)
== END ==
PROVIDERS: Family Provider Family Medicine; PCP Family Medicine; Referring Provider Orthopaedic Surgery; Visit Provider Orthopaedic Surgery
DX: M75.121 Complete rotator cuff tear or rupture of right shoulder, not specified as traumatic (principal); S43.431A Superior glenoid labrum lesion of right shoulder, initial encounter; S46.211A Strain of muscle, fascia and tendon of other parts of biceps, right arm, initial encounter; M75.40 Impingement syndrome of unspecified shoulder; Z98.890 Other specified postprocedural states
CPT/HCPCS: 23350; 73040; 73200; Q9967

== ENCOUNTER → 2025-01-11 11:57 | Outpatient (CLI) | payer MEDICARE, OTHER, SELFPAY ==
[2023-09-30 22:00] VITALS: BMI 32.9
--- NOTE | 2025-01-11 11:59 | DI.CT.S_ITS ---
PROCEDURE: CT SHOULDER RIGHT WITHOUT CON INDICATIONS: IMPINGEMENT SYNDROME. RIGHT SHOULDER PAIN TECHNIQUE: Noncontrast 0.75 mm thick sections acquired from the acromioclavicular joint to the inferior scapula, with coronal and sagittal reformatting. COMPARISON: [facility], CT, CT UPPER EXT RIGHT ARTHROGRAM, 11/13/2024, 13:56. FINDINGS: Image quality: Excellent. Bones: No acute fracture or dislocation. Joints: Moderate glenohumeral osteoarthritis. Mild acromioclavicular osteoarthritis. Small glenohumeral joint effusion. Muscles: Severe supraspinatus, subscapularis, and infraspinatus muscle atrophy. Tendons: Nonvisualization of the long head of the biceps tendon contour at the bicipital groove. Vessels: No aneurysmal dilatation of the visualized right upper extremity arterial vasculature. Lymph nodes: No right axillary lymphadenopathy. Other soft tissues: Subpleural reticulation without honeycombing of the right lung parenchyma. Mild traction bronchiolectasis. IMPRESSION: 1. Moderate glenohumeral osteoarthritis. 2. Mild acromioclavicular osteoarthritis. 3. Interstitial lung disease. Dictated by: Danny Dial M.D. on 01/11/2025 at 20:43 Approved by: Danny Dial M.D. on 01/11/2025 at 20:50
== END ==
PROVIDERS: Family Provider Family Medicine; PCP Family Medicine; Referring Provider Family Medicine; Visit Provider Orthopaedic Surgery
DX: M75.41 Impingement syndrome of right shoulder (principal); M19.011 Primary osteoarthritis, right shoulder; J84.9 Interstitial pulmonary disease, unspecified
CPT/HCPCS: 73200

== ENCOUNTER 2025-03-28 15:48 | Emergency (ER) | payer MEDICARE, OTHER, SELFPAY ==
[2025-01-25 08:43] VITALS: BMI 32.9
[2025-03-28] VITALS (12 sets, daily range): BP systolic 125–155; BP diastolic 72–104; PULSE 59–104; RESP 1–20; TEMP 36.5–36.6; O2SAT 96–99; BMI 35.2
--- NOTE | 2025-03-28 16:01 | DI.CT.S_ITS ---
PROCEDURE: CT HEAD/BRAIN WO CON INDICATIONS: glf TECHNIQUE: Noncontrast 4.5 mm thick angled axial sections acquired from the foramen magnum to the vertex, with coronal and sagittal reformats. For radiation dose reduction, the following was used: automated exposure control, adjustment of mA and/or kV according to patient size. COMPARISON: None. FINDINGS: Image quality: Diagnostic. CSF spaces: Basal cisterns are patent. No extra-axial fluid collections. The ventricles are symmetric in size and shape. Brain: No acute intracranial hemorrhage or mass effect. There is cerebral volume loss, with resultant ventricular and sulcal prominence. There are periventricular and deep white matter chronic small vessel ischemic changes. There is intracranial internal carotid artery atherosclerosis. Skull and face: Frontal scalp edema is seen with overlying dressing material. Calvarium and visualized facial bones appear intact, without suspicious lesions. Sinuses: Visualized sinuses and mastoids are clear. IMPRESSION: No acute intracranial pathology. Approved by: Silvino Thrasher M.D. on 03/28/2025 at 16:49
--- NOTE | 2025-03-28 16:01 | DI.CT.S_ITS ---
PROCEDURE: CT CERVICAL SPINE WO CON INDICATIONS: glf TECHNIQUE: Noncontrast 3 mm thick sections acquired from the skull base to the T4 level. Sagittal and coronal reformats were then constructed. For radiation dose reduction, the following was used: automated exposure control, adjustment of mA and/or kV according to patient size. COMPARISON: None. FINDINGS: Image quality: Excellent. Bones: No acute fractures or dislocations. Visualized superior ribs are intact. Osseous bridging across the C3-4 and C6-7 disc spaces. Atlanto odontoid degenerative changes with surrounding calcified pannus. No acute odontoid fracture is seen. Multilevel disc space narrowing and degenerative endplate changes. Multilevel uncovertebral joint and facet hypertrophy. Soft tissues: Prevertebral soft tissues are normal in thickness. No paravertebral hematomas. No apical pneumothoraces. Heart is enlarged. Bilateral carotid bifurcation atherosclerotic calcifications. IMPRESSION: No acute displaced fracture or traumatic subluxation. Approved by: Silvino Thrasher M.D. on 03/28/2025 at 16:53
--- NOTE | 2025-03-28 16:02 | DI.RAD.S_ITS ---
PROCEDURE: XR KNEE LT 3V INDICATIONS: glf TECHNIQUE: 3 views of the knee were acquired. COMPARISON: [facility], CR, XR KNEE LT 3V, 05/03/2024, 19:29. [facility], CR, XR KNEE LT 3V, 09/16/2023, 16:40. FINDINGS: Bones: No acute fractures or dislocations. No suspicious bony lesions. Tricompartmental joint space narrowing. Soft tissues: Small joint effusion. Chondrocalcinosis. IMPRESSION: No acute osseous abnormality. If there is continued clinical concern or persistent symptoms, repeat radiographs or cross-sectional imaging (e.g. CT, MRI) may be helpful for further evaluation. Tricompartmental osteoarthrosis. Chondrocalcinosis. Small joint effusion. Approved by: Silvino Thrasher M.D. on 03/28/2025 at 16:47
[2025-03-28 16:31] LABS: Add Manual Diff / Slide Review NO; Basophils Absolute Auto 0 /uL (0-100); Basophils Percent Auto 0.4 % (0-2); Eosinophils Absolute Auto 200 /uL (0-450); Eosinophils Percent Auto 2.9 % (2-4); Hematocrit 40.7 % (41-53); Hemoglobin 13.3 g/dL (13.5-17.5); Lymphocytes Absolute Auto 1500 /uL (1100-4500); Lymphocytes Percent Auto 25.2 % (25-40); Mean Corpuscular HGB Conc 32.7 % (30-36); Mean Corpuscular Hemoglobin 30.9 PG (26-34); Mean Corpuscular Volume 94.5 fL (80-100); Monocytes Absolute Auto 500 /uL (0-900); Monocytes Percent Auto 7.8 % (3-14); Neutrophils Absolute Auto 3900 /uL (1500-7000); Neutrophils Percent Auto 63.7 % (50-75); Platelet Count 106 X10^3/uL (150-400); White Blood Cell Count 6.1 X10^3/uL (4.5-11.0)
[2025-03-28 16:32] LABS: INR 1.1 (0.9-1.3)
[2025-03-28 16:35] LABS: PTT Partial Thromboplastin Tim 38 SECONDS (25.1-36.5)
--- NOTE | 2025-03-28 16:48 | ED.TRAUMA ---
HPI - Trauma General Chief Complaint: Trauma Stated Complaint: Mechanical Fall Time Seen by Provider: 03/28/25 15:51 Source: patient and EMS Mode of arrival: Ambulatory History of Present Illness HPI narrative: 84-year-old gentleman history of atrial fibrillation status post Watchman on both Plavix and aspirin had a mechanical fall today tripping and hitting the hardwood floor on the way down with his head but did not lose any consciousness but bleeding profusely brought in via EMS for further evaluation. Patient denies dizziness, chest pain, shortness of breath, blurred vision, bowel or bladder incontinence. Other than what is stated 14 point review of system is negative. Related Data Home Medications ?Medication ?Instructions ?Recorded ?Confirmed Respironics Dreamstation CPAP #1 ea 07/27/19 02/19/25 acetaminophen 500 mg tablet 1,000 mg PO .4-5XD 07/23/22 02/19/25 (Tylenol Extra Strength) ipratropium bromide 42 mcg (0.06 2 spray intranasal 3XD PRN Insomnia 09/06/23 02/19/25 %) nasal spray alpha lipoic acid PO 11/10/24 02/19/25 ascorbate calcium (vitamin C) PO 11/10/24 02/19/25 aspirin 81 mg tablet,delayed 81 mg PO DAILY 11/10/24 02/19/25 release (Adult Low Dose Aspirin) cholecalciferol (vitamin D3) PO 11/10/24 02/19/25 metoprolol succinate 25 mg 12.5 mg PO BID 11/10/24 02/19/25 tablet,extended release 24 hr clopidogrel 75 mg tablet 75 mg PO DAILY 01/12/25 02/19/25 pantoprazole 20 mg tablet,delayed 20 mg PO BID 01/12/25 02/19/25 release Previous Rx's ?Medication ?Instructions ?Recorded clindamycin phosphate 1 % lotion 1 % topical BID #60 mL 11/09/18 clotrimazole-betamethasone 1 1 applic topical TID #45 grams 05/24/23 %-0.05 % topical cream Disabled Parking Permint #1 ea 11/09/23 mupirocin 2 % topical ointment 1 applic topical TID #15 grams 02/11/24 gabapentin 600 mg tablet 1,200 mg (2 x 600 mg) PO 3XD #540 10/22/24 tabs duloxetine 60 mg capsule,delayed 60 mg PO DAILY #90 caps 09/18/24 release tamsulosin 0.4 mg capsule 0.4 mg PO BID #180 caps 11/09/24 rosuvastatin 10 mg tablet 10 mg PO ONCE PM #90 tabs 11/28/24 tizanidine 4 mg tablet 10 mg (2.5 x 4 mg) PO BEDTIME PRN 01/23/25 muscle spasticity #75 tabs hydrocodone 5 mg-acetaminophen 325 1 tab PO BEDTIME PRN pain #30 tabs 01/30/25 mg tablet hydrocodone 5 mg-acetaminophen 325 1 tab PO BEDTIME PRN pain #30 tabs 01/30/25 mg tablet duloxetine 30 mg capsule,delayed 30 mg PO DAILY #90 caps 02/19/25 release hydrocodone 5 mg-acetaminophen 325 1 tab PO BEDTIME PRN pain #30 tabs 02/19/25 mg tablet oxycodone-acetaminophen 5 mg-325 1 tab PO BID PRN pain #60 tabs 02/19/25 mg tablet oxycodone-acetaminophen 5 mg-325 1 tab PO BID PRN pain #60 tabs 02/19/25 mg tablet oxycodone-acetaminophen 5 mg-325 1 tab PO BID PRN pain in 02/19/25 mg tablet back/joints #60 tabs hydrochlorothiazide 12.5 mg tablet 12.5 mg PO DAILY #90 tabs 03/16/25 Allergies Allergy/AdvReac Type Severity Reaction Status Date / Time No Known Drug Allergies Allergy Verified 03/28/25 15:56 Review of Systems Review of Systems ROS Unobtainable: All systems reviewed & are unremarkable except as noted in HPI and below Patient History Medical History Presence of Watchman left atrial appendage closure device Cellulitis Rotator cuff tear arthropathy Leg edema BPH (benign prostatic hyperplasia) Spinal cord stimulator dysfunction Parkinsonism Depression COVID-19 (~02/2022) Degenerative joint disease of knee Uncomplicated opioid dependence Lumbar post-laminectomy syndrome Paroxysmal atrial fibrillation (~11/09/17) Chronic pain Chronic anticoagulation Other insomnia (06/26/16) Mixed hyperlipidemia (12/19/15) Obstructive sleep apnea syndrome Dorsalgia 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) Surgical History History of repair of right rotator cuff Family History Brother Family history of esophageal cancer Social History marital status: number of children: 2 household members: spouse lives independently: Yes caregiver/support person: No housing: house pets and animals: No education level: college occupational status: other current occupational exposures/hazards: No 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 Well-developed patient, in mild distress. HEAD: Atraumatic. Normocephalic. EYES: Pupils equal round and reactive. Extraocular motions intact. No scleral icterus. No injection or drainage. ENT: Nose without bleeding, purulent drainage. Throat without erythema, tonsillar hypertrophy or exudate. Airway patent. NECK: Trachea midline. Non tender CARDIOVASCULAR: Regular rate and rhythm without murmurs, gallops, or rubs. RESPIRATORY: Clear to auscultation. Breath sounds equal bilaterally. No wheezes, rales, or rhonchi. GASTROINTESTINAL: Abdomen soft, non-tender, nondistended. EXTREMITIES: No edema or joint tenderness. BACK: Nontender without deformity or crepitance. No flank tenderness. NEURO: AOx3. GCS 15 nonfocal neuro exam moving all extremities spontaneously SKIN: No rash or erythema of visible areas Initial Vital Signs Initial Vital Signs: Vital Signs Temperature 98 F 03/28/25 15:56 Pulse Rate 59 L 03/28/25 15:56 Respiratory Rate 20 03/28/25 15:56 Blood Pressure 148/87 H 03/28/25 15:56 Pulse Oximetry 97 03/28/25 15:56 Oxygen Delivery Method Room Air 03/28/25 15:56 Procedures Laceration Repair Laceration 1: Time of procedure: 17:42 Site: scalp Size (cm): 2.0 Description: irregular Depth: simple, single layer Local Anesthetic: lidocaine 1% and with epi Amount of anesthesia used (mL): 3 Skin layer closed with: vivi Number of sutures: 6 Course Orders Ordered: ED Orders 03/28/25 15:50 CBC Auto Diff [Complete Blood Count AUTO DIFF] Stat PT [Prothrombin Time INR] Stat PTT Partial Thromboplastin William Stat 03/28/25 16:01 CT cervical spine wo con Stat CT head/brain wo con Stat 03/28/25 16:02 XR knee LT 3V Stat Vital Signs Vital signs: Vital Signs - 8 hr 03/28/25 15:56 Temperature 98 F Pulse Rate 59 L Respiratory Rate 20 Blood Pressure 148/87 H Pulse Oximetry 97 Oxygen Delivery Method Room Air MDM - Trauma Lab Data 03/28/25 15:50 Labs: Lab Results 03/28/25 Range/Units 15:50 WBC 6.1 (4.5-11.0) X10^3/uL RBC 4.30 L (4.5-5.9) X10^6/uL Hgb 13.3 L (13.5-17.5) g/dL Hct 40.7 L (41-53) % MCV 94.5 (80-100) fL MCH 30.9 (26-34) PG MCHC 32.7 (30-36) % RDW 16.0 H (11.6-14.8) % Plt Count 106 L (150-400) X10^3/uL Neut % (Auto) 63.7 (50-75) % Lymph % (Auto) 25.2 (25-40) % Coffey % (Auto) 7.8 (3-14) % Eos % (Auto) 2.9 (2-4) % Baso % (Auto) 0.4 (0-2) % Neut # (Auto) 3900 (0146-7967) /uL Lymph # (Auto) 1500 (8287-0051) /uL Coffey # (Auto) 500 (0-900) /uL Eos # (Auto) 200 (0-450) /uL Baso # (Auto) 0 (0-100) /uL PT 13.0 H (9.4-12.5) SECONDS INR 1.1 (0.9-1.3) APTT 38 H (25.1-36.5) SECONDS Imaging Data CT scan - head: Radiologist's Impression: [address] [address] [address] Scan Report Signed Patient: Bertin Bautista MR#: [id number] : 1940 Acct:[id number] Age/Sex: 84 / M Date of Service: 03/28/25 Loc: ED Accession Number: [id number] Procedure: CT head/brain wo con Ordering Provider: Ruiz Reyez D.O. PROCEDURE: CT HEAD/BRAIN WO CON INDICATIONS: glf TECHNIQUE: Noncontrast 4.5 mm thick angled axial sections acquired from the foramen magnum to the vertex, with coronal and sagittal reformats. For radiation dose reduction, the following was used: automated exposure control, adjustment of mA and/or kV according to patient size. COMPARISON: None. FINDINGS: Image quality: Diagnostic. CSF spaces: Basal cisterns are patent. No extra-axial fluid collections. The ventricles are symmetric in size and shape. Brain: No acute intracranial hemorrhage or mass effect. There is cerebral volume loss, with resultant ventricular and sulcal prominence. There are periventricular and deep white matter chronic small vessel ischemic changes. There is intracranial internal carotid artery atherosclerosis. Skull and face: Frontal scalp edema is seen with overlying dressing material. Calvarium and visualized facial bones appear intact, without suspicious lesions. Sinuses: Visualized sinuses and mastoids are clear. IMPRESSION: No acute intracranial pathology. Extremity x-ray #1: Radiologist's Impression: [address] [address] XRay Report Signed Patient: Bertin Bautista MR#: [id number] : 1940 Acct:[id number] Age/Sex: 84 / M Date of Service: 03/28/25 Loc: ED Accession Number: [id number] Procedure: XR knee LT 3V Ordering Provider: Ruiz Reyez D.O. PROCEDURE: XR KNEE LT 3V INDICATIONS: glf TECHNIQUE: 3 views of the knee were acquired. COMPARISON: [facility], CR, XR KNEE LT 3V, 05/03/2024, 19:29. [facility], CR, XR KNEE LT 3V, 09/16/2023, 16:40. FINDINGS: Bones: No acute fractures or dislocations. No suspicious bony lesions. Tricompartmental joint space narrowing. Soft tissues: Small joint effusion. Chondrocalcinosis. IMPRESSION: No acute osseous abnormality. If there is continued clinical concern or persistent symptoms, repeat radiographs or cross-sectional imaging (e.g. CT, MRI) may be helpful for further evaluation. Tricompartmental osteoarthrosis. Chondrocalcinosis. Small joint effusion. MDM Narrative Medical decision making narrative: Vital signs, nurse triage note, medication list, previous ER visits, and CT scan reviewed all reviewed. CT scan did not show any acute process. And knee x-ray did not show any acute process. 6 vivi placed with Surgicel applied to affected area. Differential diagnosis subarachnoid hemorrhage subdural epidural hemorrhage contusion fracture. Follow up with PCP in 7-14 days for staple removal. Discharge Plan Departure Patient Disposition: Home Clinical Impression: Forehead laceration Qualifiers: Encounter type: initial encounter Qualified Code(s): S01.81XA - Laceration without foreign body of other part of head, initial encounter Instructions: DI for Trauma Activity Restrictions/Additional Instructions: Return with new or worsening symptom. Staple removal in 7-14 days with PCP Prescriptions: No Action clindamycin phosphate 1 % lotion 1 % Topical BID Qty: 60 3RF clotrimazole-betamethasone 1-0.05 % cream 1 applic topical TID Qty: 45 3RF (DME) Disabled Parking Permint See Rx Instructions .ROUTE .MEDSUPPLY Qty: 1 0RF Rx Instructions: I find this patient to be medically disabled and qualified for Disabled Parking as indicated and signed on the Accompanying Disabled Parking Application for individuals. mupirocin 2 % ointment 1 applic topical TID Qty: 15 0RF Rx Instructions: apply three times a day to affected area gabapentin 600 mg tablet 1,200 mg PO 3XD Qty: 540 3RF duloxetine 60 mg capsule,delayed release(DR/EC) 60 mg PO DAILY Qty: 90 1RF tamsulosin 0.4 mg capsule 0.4 mg PO BID Qty: 180 3RF rosuvastatin 10 mg tablet 10 mg PO ONCE PM Qty: 90 3RF tizanidine 4 mg tablet 10 mg PO BEDTIME PRN (Reason: muscle spasticity) Qty: 75 2RF hydrocodone-acetaminophen 5-325 mg tablet 1 tab PO BEDTIME PRN (Reason: pain) Qty: 30 0RF Rx Instructions: refill 2 hydrocodone-acetaminophen 5-325 mg tablet 1 tab PO BEDTIME PRN (Reason: pain) Qty: 30 0RF Rx Instructions: refill 3 hydrochlorothiazide 12.5 mg tablet 12.5 mg PO DAILY Qty: 90 3RF alpha lipoic acid PO ascorbate calcium (vitamin C) PO aspirin [Adult Low Dose Aspirin] 81 mg tablet,delayed release (DR/EC) 81 mg PO DAILY cholecalciferol (vitamin D3) PO duloxetine 30 mg capsule,delayed release(DR/EC) 30 mg PO DAILY Qty: 90 3RF oxycodone-acetaminophen 5-325 mg tablet 1 tab PO BID PRN (Reason: pain) Qty: 60 0RF oxycodone-acetaminophen 5-325 mg tablet 1 tab PO BID PRN (Reason: pain) Qty: 60 0RF oxycodone-acetaminophen 5-325 mg tablet 1 tab PO BID PRN (Reason: pain in back/joints) Qty: 60 0RF hydrocodone-acetaminophen 5-325 mg tablet 1 tab PO BEDTIME PRN (Reason: pain) Qty: 30 0RF pantoprazole 20 mg tablet,delayed release (DR/EC) 20 mg PO BID clopidogrel 75 mg tablet 75 mg PO DAILY metoprolol succinate 25 mg tablet extended release 24 hr 12.5 mg PO BID acetaminophen [Tylenol Extra Strength] 500 mg tablet 1,000 mg PO .4-5XD ipratropium bromide 42 mcg (0.06 %) spray,non-aerosol 2 spray intranasal 3XD PRN (Reason: Insomnia) (DME) Respironics Dreamstation CPAP Qty: 1 Dose Instruction: As directed Patient Comments: Rx Instructions: Pressure: 7-11 cmH2O DME: [facility] Referrals: Marco Portillo DO [Primary Care Provider, Family Practice] Stand Alone Forms: Patient Portal/API
== END 2025-03-28 18:14 | disposition home or self-care (01) ==
PROVIDERS: Emergency Provider Family Medicine; Family Provider Family Medicine; PCP Family Medicine
DX: S01.81XA Laceration without foreign body of other part of head, initial encounter (principal); W01.198A Fall on same level from slipping, tripping and stumbling with subsequent striking against other object, initial encounter; Z79.01 Long term (current) use of anticoagulants
CPT/HCPCS: 12001; 70450; 72125; 73562; 85025; 85610; 85730; 99283; 99284

== ENCOUNTER → 2025-05-15 15:12 | Outpatient (CLI) | payer MEDICARE, OTHER, SELFPAY ==
[2025-01-25 08:43] VITALS: BMI 32.9
--- NOTE | 2025-05-15 15:16 | DI.RAD.S_ITS ---
PROCEDURE: XR LUMBAR SPINE 2-3V INDICATIONS: Severe worsening Lumbar/L hip pain TECHNIQUE: 3 views of the lumbar spine were acquired. COMPARISON: [facility], CR, XR LUMBAR SPINE MIN 4V, 05/04/2023, 13:05. FINDINGS: Lumbar spine curvature and alignment: Normal. Bones: Mild chronic right lateral L2-L3 L4 compression fractures noted Disc spaces: Severe degenerative disc disease is seen at each lumbar level. There is also severe L4-5 and L5-S1 degenerative facet disease Soft tissues: No soft tissue swelling, calcification or mass. IMPRESSION: Degeneration. Progressing 2022 Dictated by: Ruiz Cabrera M.D. on 05/16/2025 at 11:10 Approved by: Ruiz Cabrera M.D. on 05/16/2025 at 11:11
--- NOTE | 2025-05-15 15:16 | DI.RAD.S_ITS ---
PROCEDURE: XR HIP W PEL IF DONE LT 2V INDICATIONS: Severe worsening Lumbar/L hip pain TECHNIQUE: Two views of the hip were acquired. COMPARISON: None. FINDINGS: Bones: CAM configuration left femoral head neck junction predispose to femoral acetabular impingement and labral tear SI and hip joints: Normal in width and alignment without arthritic change. Severe L3-4 L4-5 L5-S1 degenerative disc disease noted. Soft tissues: No soft tissue swelling, calcification or mass. IMPRESSION: Severe L3-4 through L5-S1 degenerative disc disease. CAM configuration left femoral head neck junction Dictated by: Ruiz Cabrera M.D. on 05/16/2025 at 11:09 Approved by: Ruiz Cabrera M.D. on 05/16/2025 at 11:10
== END ==
PROVIDERS: Family Provider Family Medicine; PCP Family Medicine; Referring Provider Family Medicine; Visit Provider Family Medicine
DX: M51.369 Other intervertebral disc degeneration, lumbar region without mention of lumbar back pain or lower extremity pain (principal); M51.379 Other intervertebral disc degeneration, lumbosacral region without mention of lumbar back pain or lower extremity pain; M47.816 Spondylosis without myelopathy or radiculopathy, lumbar region; M47.817 Spondylosis without myelopathy or radiculopathy, lumbosacral region; M48.56XA Collapsed vertebra, not elsewhere classified, lumbar region, initial encounter for fracture; M21.852 Other specified acquired deformities of left thigh; M96.1 Postlaminectomy syndrome, not elsewhere classified; M25.552 Pain in left hip
CPT/HCPCS: 72100; 73502

== ENCOUNTER → 2025-07-10 11:37 | Outpatient (CLI) | payer MEDICARE, OTHER, SELFPAY ==
[2025-05-21 12:41] VITALS: BMI 32.9
[2025-07-10 12:58] LABS: Alanine Aminotransferase 21 IU/L (<50); Albumin 4.4 g/dL (3.5-5.0); Albumin Globulin Ratio 1.3 (1.0-2.8); Alkaline Phosphatase 101 U/L (38-126); Blood Urea Nitrogen 16 mg/dL (9-20); Calcium 9.2 mg/dL (8.4-10.2); Carbon Dioxide 26 mmol/L (22-32); Chloride 100 mmol/L (98-107); Cholesterol 125 mg/dL (140-199); Estimated Glomerular Filt Rate > 60 mL/min (>60); Globulin 3.3 g/dL (1.7-4.1); Glucose 115 mg/dL (70-99); HDL Cholesterol 40 mg/dL (40-60); HEMOLYSIS < 15 (0-50); Potassium 4.2 mmol/L (3.4-5.1); Sodium 138 mmol/L (137-145); Total Protein 7.7 g/dL (6.3-8.2); Triglycerides 139 mg/dL (35-150)
== END ==
PROVIDERS: Family Provider Family Medicine; PCP Family Medicine; Referring Provider Family Medicine; Visit Provider Internal Medicine Cardiovascular Disease
DX: E78.5 Hyperlipidemia, unspecified (principal)
CPT/HCPCS: 36415; 80053; 80061

== ENCOUNTER → 2025-07-25 09:34 | Outpatient (CLI) | payer MEDICARE, OTHER, SELFPAY ==
[2025-05-21 12:41] VITALS: BMI 32.9
[2025-07-25 10:11] LABS: Add Manual Diff / Slide Review NO; Hematocrit 41.0 % (41-53); Hemoglobin 13.6 g/dL (13.5-17.5); Lymphocytes Absolute Auto 1400 /uL (1100-4500); Mean Corpuscular HGB Conc 33.1 % (30-36); Mean Corpuscular Hemoglobin 31.0 PG (26-34); Mean Corpuscular Volume 93.6 fL (80-100); Platelet Count 123 X10^3/uL (150-400)
[2025-07-25 10:29] LABS: Alanine Aminotransferase 18 IU/L (<50); Albumin 4.4 g/dL (3.5-5.0); Albumin Globulin Ratio 1.3 (1.0-2.8); Alkaline Phosphatase 75 U/L (38-126); Blood Urea Nitrogen 22 mg/dL (9-20); Calcium 9.0 mg/dL (8.4-10.2); Carbon Dioxide 28 mmol/L (22-32); Chloride 99 mmol/L (98-107); Estimated Glomerular Filt Rate > 60 mL/min (>60); Globulin 3.3 g/dL (1.7-4.1); Glucose 114 mg/dL (70-99); Potassium 5.2 mmol/L (3.4-5.1); Sodium 136 mmol/L (137-145); Total Protein 7.7 g/dL (6.3-8.2)
[2025-07-25 10:30] LABS: HEMOLYSIS 140 (0-50)
[2025-07-25 11:17] LABS: Appearance Urine UA CLEAR; Bilirubin Urine UA NEGATIVE (NEGATIVE); Color Urine UA YELLOW; Glucose Urine UA NEGATIVE (Negative); Ketones Urine UA NEGATIVE (NEGATIVE); Leukocyte Esterase Urine UA NEGATIVE (NEGATIVE); Nitrite Urine UA NEGATIVE (Negative); Occult Blood Urine UA NEGATIVE (Negative); Protein Urine UA NEGATIVE (Negative); Specific Gravity Urine UA 1.015 (1.000-1.035); Urobilinogen Urine UA 0.2 E.U./dL (0.2); pH Urine UA 5.5 (4.5-8.0)
[2025-07-25 11:32] LABS: Culture Indicated Urine Cult Not Indicated
== END ==
PROVIDERS: Family Provider Family Medicine; PCP Family Medicine; Referring Provider Family Medicine; Visit Provider Family Medicine
DX: R10.30 Lower abdominal pain, unspecified (principal)
CPT/HCPCS: 36415; 80053; 81001; 85025

== ENCOUNTER → 2025-07-26 15:58 | Outpatient (CLI) | payer MEDICARE, OTHER, SELFPAY ==
[2025-05-21 12:41] VITALS: BMI 32.9
--- NOTE | 2025-07-26 16:00 | DI.ECHO.S_ITS ---
[facility] : : [address] : : [place] : : [address] : : Phone: [phone] Echocardiogram Report + + :Name: LIVAN GARCIA Study Date: 07/26/2025 Height: 74 in : :[facility] : Weight: 260 lb : : Gender: Male BSA: 2.4 m2 : :: 1940 Age: 84 yrs BP: 118/80 mmHg: :Reason For Study: A-Fib : :Ordering Physician: Sindi : :Sunita Mckeon Performed By: Erick Stevenosn : :Referring: SINDI MCKEON : + + Interpretation Summary Atrial fibrillation with heart rate 94-114 bpm. The left ventricle is normal in size. The ejection fraction is estimated to be 50-55%. The right ventricle is mildly dilated. The right ventricular systolic function is normal. There is mild mitral regurgitation. The aortic valve is moderately calcified. The aortic valve is trileaflet. There is mild to moderately reduced leaflet mobility. Previously mildly reduced. The peak aortic velocity is 1.8 m/sec. The calculated aortic valve area is 1.6 cm2. There is no hemodynamically significant valvular aortic stenosis. There is mild to moderate tricuspid regurgitation. Compared to the prior echo exam, there has been no change in TR severity. The inferior vena cava was not well visualized. Procedure: A two-dimensional transthoracic echocardiogram with color flow and Doppler was performed. The study quality was technically adequate. Comparison is made with the echocardiogram of 10/01/2023. The heart rate ranged between 94-114 bpm during the study. Atrial fibrillation with heart rate 94-114 bpm. Left Ventricle: The left ventricle is normal in size. Left ventricular wall thickness is mildly increased. There is no thrombus. The ejection fraction is estimated to be 50-55%. There has been no significant change since the previous exam. There is a mild dyssynchronous contraction pattern, consistent with a conduction abnormality. Diastolic function is indeterminate. Right Ventricle: The right ventricle is mildly dilated. There has been no significant change since the previous study. The right ventricular systolic function is normal. Atria: The left atrium is moderately dilated. There has been no significant change since the previous study. The right atrium is moderately dilated. There is no Doppler evidence for an interatrial shunt. Mitral Valve: There is mild to moderate mitral annular calcification. The mitral valve leaflets appear mildly thickened. Some restriction of mitral leaflets excursion without any significant mitral stenosis. No significant mitral valve stenosis. There is mild mitral regurgitation. Aortic Valve: The aortic valve is trileaflet. The aortic valve is moderately calcified. There is a nodular thickening of the right as well as noncoronary cusp. Seen on previous echo as well. There is mild to moderately reduced leaflet mobility. There is mild aortic stenosis. The calculated aortic valve area is 1.6 cm2. The peak aortic velocity is 1.8 m/sec. The aortic valve mean gradient is 7.6 mmHg. sev ratio 0.39. There is no hemodynamically significant valvular aortic stenosis. No aortic regurgitation is present. Tricuspid Valve: The tricuspid valve is not well visualized, but is grossly normal. There is mild to moderate tricuspid regurgitation. Right ventricular systolic pressure is estimated to be 28 mmHg plus the clinically estimated CVP which cannot be estimated on this exam. Compared to the prior echo exam, there has been no change in TR severity. Pulmonic Valve: The pulmonic valve is not well seen, but is grossly normal. There is trace pulmonic regurgitation. Great Vessels: There is aortic root sclerosis/calcification. The aortic root is normal size. The dimensions of the ascending aorta are normal. The aortic arch could not be visualized. The pulmonary artery is normal size. The inferior vena cava was not well visualized. Pericardium/ Pleura There is no pericardial effusion. MMode/2D Measurements & Calculations LVIDd: 4.4 cm LVOT diam: 2.2 cm LVIDs: 2.8 cm Ao root diam: 3.7 cm FS: 34.9 % asc Aorta Diam: 3.2 cm EPSS: 1.4 cm IVSd: 1.2 cm LVPWd: 1.3 cm LV potter. diameter/BSA (cm/m^2): 1.8 LV sys. diameter/BSA (cm/m^2): 1.2 LA A2 area: 30.0 cm2 RA long axis: 7.4 cm LA A4 area: 32.9 cm2 RA area: 29.3 cm2 LA length (vol): 8.4 cm RA vol: 99.0 ml LA vol: 100.3 ml RA : 40.8 ml/m2 LA vol index: 41.3 ml/m2 RVD1 (basal): 3.9 cm RVD2 (mid): 4.8 cm TAPSE: 1.6 cm Doppler Measurements & Calculations Ao V2 max: 182.8 cm/sec LVOT Max Ru: 72.2 cm/sec Ao V2 mean: 129.6 cm/sec LV V1 max P.1 mmHg Ao max P.4 mmHg LV V1 VTI: 11.4 cm Ao mean P.6 mmHg KONSTANTIN(I,D): 1.5 cm2 Ao V2 VTI: 29.6 cm KONSTANTIN(V,D): 1.5 cm2 sev ratio: 0.39 KONSTANTIN indexed to BSA (cm^2/m^2): 0.62 MV E max ru: 103.3 cm/sec TR max ru: 248.4 cm/sec MV A max ru: 47.4 cm/sec TR max P.7 mmHg MV E/A: 2.2 PA V2 max: 52.8 cm/sec Med Peak E' Ru: 8.8 cm/sec PA V2 mean: 33.3 cm/sec E/E' med: 11.8 PA mean P.56 mmHg Lat Peak E' Ru: 8.9 cm/sec PA pr(Accel): 39.2 mmHg E/E' lat: 11.6 E/e' average: 11.7 MV dec time: 0.13 sec SV(LVOT): 44.7 ml Qp/Qs (V,Ao): 1.0/11.7 Qp/Qs (V,LVOT): 1.0/1.7 Reading Physician:04:34 PM
== END ==
LOC: ECHO 16:00
PROVIDERS: Family Provider Family Medicine; PCP Family Medicine; Referring Provider Internal Medicine Cardiovascular Disease; Visit Provider Internal Medicine Cardiovascular Disease
DX: I48.21 Permanent atrial fibrillation (principal); I08.3 Combined rheumatic disorders of mitral, aortic and tricuspid valves; I70.0 Atherosclerosis of aorta
CPT/HCPCS: 93306

== ENCOUNTER → 2025-08-02 14:49 | Outpatient (CLI) | payer MEDICARE, OTHER, SELFPAY ==
[2025-05-21 12:41] VITALS: BMI 32.9
--- NOTE | 2025-08-02 14:51 | DI.CT.S_ITS ---
PROCEDURE: CT CHEST ABD PEL W CON INDICATIONS: LOWER ABD PAIN TECHNIQUE: After the administration of intravenous contrast, 5 mm thick sections acquired from the lung apices to the symphysis. 5 mm coronal and sagittal reformats were performed, with additional 7 mm MIP reformats through the lungs. For radiation dose reduction, the following was used: automated exposure control, adjustment of mA and/or kV according to patient size. COMPARISON: None. FINDINGS: Image quality: Excellent. CHEST: Lower Neck: No enlarged lymph nodes. Thyroid: No thyroid nodules which require sonographic follow up, per consensus guidelines. Axillae: No enlarged lymph nodes. Chest Wall: Unremarkable. Lungs and Pleura: No pneumothorax or pleural effusions. Multifocal areas of subpleural reticulation and fibrotic change, with honeycombing in the lingula. Heart: Cardiomegaly with right heart enlargement. No pericardial effusion. Moderate coronary artery calcifications. Left atrial appendage devices present. Thoracic Vessels: The aorta and pulmonary arteries demonstrate normal size. Mediastinum and Mable: Mildly prominent mediastinal lymph nodes, not enlarged. Esophagus: No wall thickening. Large hiatal hernia containing the majority of the stomach. ABDOMEN: Liver: Cirrhotic liver morphology. Indeterminate hypodense lesions in the liver : a 2.9 centimeter lesion in segment 6 at the posterior medial aspect (2/104), and a 2.8 centimeter lesion at the inferior aspect of segment 8 anteriorly (2/85). Gallbladder: No radiopaque gallstones or wall thickening. Biliary ducts: No biliary dilation. Pancreas: No ductal dilation. Spleen: Size is within normal limits. Adrenal Glands: No adrenal nodules. Kidneys and Ureters: Cysts and additional subcentimeter hypodensities too small to fully characterize. A left renal cyst contains a coarse peripheral calcification (2/127). There is a left greater than right pelviectasis without joel hydronephrosis. Stomach and Bowel: Multifocal areas of long segment colonic wall thickening, for example in the right upper quadrants (2/122) and the sigmoid (2/169), which may be seen with portal colopathy. Colonic diverticulosis without evidence of acute diverticulitis. Peritoneum: Small volume ascites, predominantly in the right upper quadrant. No free air. Ventral Wall: No significant ventral hernia. Abdominal Nodes: No retroperitoneal or mesenteric adenopathy by size criteria. Vessels: Aorta and inferior vena cava are normal in size. PELVIS: Pelvic Organs: Unremarkable. Bladder: No bladder wall thickening, accounting for underdistention. Pelvic Nodes: No enlarged lymph nodes. Miscellaneous: No inguinal hernias are seen. Bones: No aggressive osseous abnormality. Degenerative changes are present. The thoracic spinal cord stimulator is present. IMPRESSION: 1. Cirrhotic liver with indeterminate hypodense lesions in the right liver as above. Recommend further characterization with triphasic liver protocol CT or MR. 2. Small volume ascites. 3. Large hiatal hernia containing a majority of the stomach. 4. Multifocal areas of long segment colonic wall thickening which may be seen with portal colopathy, although infectious/inflammatory process cannot be excluded. 5. Multifocal areas of subpleural reticulation and fibrotic change in the lungs, with honeycombing in the lingula. Findings may be seen with early interstitial lung disease in a UIP pattern, although findings are not basilar predominant as would be typical. Recommend correlation with pulmonary consultation and pulmonary function testing. Dictated by: Yesenia Mtz M.D. on 08/02/2025 at 18:16 Approved by: Yesenia Mtz M.D. on 08/02/2025 at 18:33
== END ==
LOC: CT 14:50
PROVIDERS: Family Provider Family Medicine; PCP Family Medicine; Referring Provider Family Medicine; Visit Provider Family Medicine
DX: K74.60 Unspecified cirrhosis of liver (principal); R18.8 Other ascites; K44.9 Diaphragmatic hernia without obstruction or gangrene; R10.30 Lower abdominal pain, unspecified; K76.9 Liver disease, unspecified; K57.90 Diverticulosis of intestine, part unspecified, without perforation or abscess without bleeding; I51.7 Cardiomegaly; I25.10 Atherosclerotic heart disease of native coronary artery without angina pectoris; N28.1 Cyst of kidney, acquired
CPT/HCPCS: 71260; 74177; Q9967

== ENCOUNTER → 2025-08-09 12:46 | Outpatient (CLI) | payer MEDICARE, OTHER, SELFPAY ==
[2025-05-21 12:41] VITALS: BMI 32.9
--- NOTE | 2025-08-09 12:47 | DI.CT.S_ITS ---
PROCEDURE: CT ABDOMEN LIVER PROTOCOL INDICATIONS: Abnormalities found on plain CT scan concerning for cirrhosi TECHNIQUE: 4 phase scanning was performed. Non-contrast 5 mm axial sections acquired from the diaphragm to the iliac crests. Following the administration of intravenous contrast, 5 mm thick arterial-phase, portal venous-phase, and 5-minute delayed phase images were acquired through the liver. 5 mm thick coronal and sagittal reformats were performed. For radiation dose reduction, the following was used: automated exposure control, adjustment of mA and/or kV according to patient size. COMPARISON: [facility], CT, CT CHEST ABD PEL W CON, 08/02/2025, 16:10. FINDINGS: Image quality: Excellent. Lower chest: Stable interstitial densities. Large hiatal hernia. Trace right pleural effusion. Cardiomegaly. ABDOMEN: Liver: Cirrhotic liver again seen. Stable appearance on the unenhanced images of the hypodense area anteriorly at the junction of segments 4 and 8 measuring 2.2 cm as well as the area posteriorly in segment 6 measuring also 2.2 cm. There is no abnormal enhancement at these levels. No areas of arterial hyper enhancement or washout seen. Major vascular structures appear patent Gallbladder: No radiopaque gallstones or wall thickening. Biliary ducts: No biliary dilation. Pancreas: No ductal dilation. Spleen: Mild splenomegaly measuring 14.1 cm. Adrenal Glands: No adrenal nodules. Kidneys and Ureters: Stable Bosniak 2 cystic lesion the left kidney. Stomach and Bowel: Normal colonic caliber, without significant wall thickening. Peritoneum: There is stable small to moderate amount of ascites. Significant mesenteric edema again seen. No definite fluid collection. Ventral Wall: No hernia. Abdominal Nodes: No retroperitoneal or mesenteric adenopathy by size criteria. Vessels: Aorta and inferior vena cava are normal in size. PELVIS: Pelvic Organs: Unremarkable. Bladder: Unremarkable. Pelvic Nodes: No enlarged lymph nodes. Miscellaneous: No inguinal hernias are seen. Bones: No aggressive osseous abnormality. IMPRESSION: 1. Redemonstration of cirrhotic liver with mild splenomegaly and stable small to moderate amount of ascites. 2. The previously seen hypodense areas in the liver anteriorly and posteriorly do not demonstrate abnormal enhancement. These are probably due to confluent fibrosis given the subcapsular location. No suspicious focal lesion otherwise. 3. If there is significant elevation of tumor markers for hepatocellular carcinoma or cholangiocarcinoma, MRI may be considered at this time, given the superior soft tissue contrast. Otherwise, follow-up MRI may be obtained in 3 months. Dictated by: Tung House M.D. on 08/09/2025 at 21:44 Approved by: Tung House M.D. on 08/09/2025 at 21:54
== END ==
PROVIDERS: Family Provider Family Medicine; PCP Family Medicine; Referring Provider Family Medicine; Visit Provider Family Medicine
DX: K74.60 Unspecified cirrhosis of liver (principal); R18.8 Other ascites; K44.9 Diaphragmatic hernia without obstruction or gangrene; I51.7 Cardiomegaly; R16.1 Splenomegaly, not elsewhere classified; K76.9 Liver disease, unspecified
CPT/HCPCS: 74170; Q9967

== ENCOUNTER → 2025-08-15 13:46 | Outpatient (CLI) | payer MEDICARE, OTHER, SELFPAY ==
[2025-05-21 12:41] VITALS: BMI 32.9
[2025-08-16 15:35] LABS: Hep C Virus Ab w/Reflex Quant NEGATIVE s/c (NEGATIVE)
[2025-08-17 01:40] LABS: Hepatitis A Antibody IgM Negative (Negative); Hepatitis B Core Antibody IgM Negative (Negative); Hepatitis C Antibody Non Reactive (Non Reactive)
== END ==
PROVIDERS: Family Provider Family Medicine; PCP Family Medicine; Referring Provider Family Medicine; Visit Provider Family Medicine
DX: K74.60 Unspecified cirrhosis of liver (principal); R18.8 Other ascites
CPT/HCPCS: 36415; 80074; 86803

== ENCOUNTER → 2025-08-23 10:02 | Outpatient (CLI) | payer MEDICARE, OTHER, SELFPAY ==
[2025-05-21 12:41] VITALS: BMI 32.9
--- NOTE | 2025-08-23 10:03 | DI.US.S_ITS ---
PROCEDURE: US ABDOMEN LIMITED INDICATIONS: Cirrhosis of liver TECHNIQUE: Real-time scanning was performed of the abdominal and retroperitoneal organs, with image documentation. COMPARISON: [facility], CT, CT ABDOMEN LIVER PROTOCOL, 08/09/2025, 13:26. [facility], US, ABDOMEN LIMITED, 05/08/2015, 9:56. FINDINGS: Liver: Suboptimal visualization of the left liver lobe. Right liver measures 14.6 cm in length. Coarse liver parenchyma. Indeterminate poorly defined 1.7 x 1.3 x 1.3 cm subcapsular right liver focus. Questionable peripheral vascularity. No intrahepatic biliary dilation. Nodular liver capsule compatible with cirrhosis. Gallbladder: Fluid noted in the gallbladder fossa. Gallbladder wall thickening is noted. No gallstones identified. Sonographic [place] sign was not assessed or documented. Biliary ducts: Not well seen. Pancreas: Not well seen. Miscellaneous: Djdx-[id number] ascites. Spleen measures 11.4 x 11.4 x 5.4 cm. Volume measures 372 cc. IMPRESSION: Cirrhotic liver. Indeterminate 1.7 cm possible right liver mass. Recommend correlating with beta HCG levels and follow-up MRI with and without contrast. Gallbladder wall thickening. No definite gallstones. Findings could be due to ascites and/or underlying liver dysfunction. Suboptimal visualization of the biliary system and pancreas. [id number] ascites. Prominent spleen. Dictated by: Bren العراقي M.D. on 08/24/2025 at 14:56 Approved by: Bren العراقي M.D. on 08/24/2025 at 15:04
[2025-08-23 11:38] LABS: Add Manual Diff / Slide Review NO; Hematocrit 41.9 % (41-53); Hemoglobin 13.9 g/dL (13.5-17.5); Lymphocytes Absolute Auto 1300 /uL (1100-4500); Mean Corpuscular HGB Conc 33.3 % (30-36); Mean Corpuscular Hemoglobin 31.0 PG (26-34); Mean Corpuscular Volume 93.4 fL (80-100); Platelet Count 147 X10^3/uL (150-400)
[2025-08-23 11:47] LABS: INR 1.2 (0.9-1.3); Prothrombin Time 13.5 SECONDS (9.4-12.5)
[2025-08-23 11:57] LABS: Alanine Aminotransferase 18 IU/L (<50); Albumin 4.0 g/dL (3.5-5.0); Albumin Globulin Ratio 1.3 (1.0-2.8); Alkaline Phosphatase 102 U/L (38-126); Globulin 3.2 g/dL (1.7-4.1); HEMOLYSIS < 15 (0-50); Total Protein 7.2 g/dL (6.3-8.2)
[2025-08-23 15:50] LABS: Hepatitis B Surface Antigen NEGATIVE s/c (NEGATIVE)
[2025-08-27 10:09] LABS: ANA Screen, IFA Positive (.)
== END ==
PROVIDERS: Family Provider Family Medicine; PCP Family Medicine; Referring Provider Family Medicine; Visit Provider Nurse Practitioner Gerontology
DX: K74.69 Other cirrhosis of liver (principal); R18.8 Other ascites
CPT/HCPCS: 36415; 76705; 80076; 85025; 85610; 86015; 86038; 87340

== ENCOUNTER → 2025-09-20 14:29 | Outpatient (CLI) | payer MEDICARE, OTHER, SELFPAY ==
[2025-05-21 12:41] VITALS: BMI 32.9
[2025-09-20 15:22] LABS: Add Manual Diff / Slide Review NO; Hematocrit 42.6 % (41-53); Hemoglobin 14.2 g/dL (13.5-17.5); Lymphocytes Absolute Auto 1500 /uL (1100-4500); Mean Corpuscular HGB Conc 33.4 % (30-36); Mean Corpuscular Hemoglobin 31.2 PG (26-34); Mean Corpuscular Volume 93.5 fL (80-100); Platelet Count 285 X10^3/uL (150-400)
== END ==
PROVIDERS: Family Provider Family Medicine; PCP Family Medicine; Referring Provider Family Medicine
DX: R10.84 Generalized abdominal pain (principal)
CPT/HCPCS: 36415; 82105; 85025

== ENCOUNTER 2025-10-02 11:20 | Inpatient (IN) | payer MEDICARE, OTHER, SELFPAY ==
[2025-10-01 16:14] VITALS: BMI 32.9
[2025-10-02] VITALS (40 sets, daily range): BP systolic 103–186; BP diastolic 65–114; PULSE 82–153; RESP 18–26; TEMP 35.9–36.6; O2SAT 90–97; BMI 35.8
--- NOTE | 2025-10-02 11:43 | DI.CT.S_ITS ---
PROCEDURE: CT ABDOMEN PELVIS W CON INDICATIONS: abd pain TECHNIQUE: After the administration of intravenous contrast, axial sections acquired from the lung bases to the pubic symphysis. Coronal and sagittal reformats were performed. For radiation dose reduction, the following was used: automated exposure control, adjustment of mA and/or kV according to patient size. COMPARISON: [facility], CT, CT CHEST ABD PEL W CON, 08/02/2025, 16:10. [facility], CT, CT ABDOMEN LIVER PROTOCOL, 08/09/2025, 13:26. FINDINGS: Image quality: Diagnostic. Lower Chest: Interval worsening of pulmonary status. [id number] bilateral pleural effusions with bibasilar atelectasis. Moderate hiatal hernia containing stomach. Cardiomegaly with percutaneous aortic valve. ABDOMEN: Liver: Cirrhosis. Interval increase in the size of a hypodense lesion at the junction of segment 4 and segment 8 which previously measured 2.2 cm. It now measures 3.2 cm on image 40 of series 2. A posterior inferior right lobe liver lesion in segment 6 appears to have increased in size, it previously measured approximately 2.1 cm on prior image 53 of series 6. It currently measures approximately 2.6 cm on image 58. Gallbladder: No radiopaque gallstones or wall thickening. Biliary ducts: No biliary dilation. Pancreas: No ductal dilation. Spleen: Size is within normal limits. Adrenal Glands: No adrenal nodules. Kidneys and Ureters: No hydronephrosis. No solid mass. No complex renal cystic lesion which requires follow up. Stomach and Bowel: Normal colonic caliber, without significant wall thickening. Peritoneum: Interval increase in diffuse ascites, now severe. Suspect peritoneal carcinomatosis. Ventral Wall: No significant ventral hernia. Abdominal Nodes: No retroperitoneal or mesenteric adenopathy by size criteria. Vessels: Aorta and inferior vena cava are normal in size. PELVIS: Pelvic Organs: Unremarkable. Bladder: No bladder wall thickening, accounting for underdistention. Pelvic Nodes: No enlarged lymph nodes. Miscellaneous: No inguinal hernias are seen. Bones: No aggressive osseous abnormality. Remote posterior decompressive surgery in the lower lumbar region. Dorsal column stimulator. Severe lumbar degenerative change. IMPRESSION: 1. Significant interval increase in ascites, now large. 2. Suspect peritoneal carcinomatosis. 3. Interval increase in 1 and possibly 2 liver lesions in a patient with underlying cirrhosis. Suspect hepatoma. 3. Bilateral mild to moderate pleural effusions with bibasilar atelectasis now present. 4. Cardiomegaly. Dictated by: Wing Schneider M.D. on 10/02/2025 at 13:38 Approved by: Wing Schneider M.D. on 10/02/2025 at 13:40
[2025-10-02 11:55] LABS: Add Manual Diff / Slide Review NO; Hematocrit 43.5 % (41-53); Hemoglobin 14.4 g/dL (13.5-17.5); Lymphocytes Absolute Auto 1100 /uL (1100-4500); Mean Corpuscular HGB Conc 33.0 % (30-36); Mean Corpuscular Hemoglobin 30.8 PG (26-34); Mean Corpuscular Volume 93.3 fL (80-100); Platelet Count 270 X10^3/uL (150-400)
--- NOTE | 2025-10-02 12:02 | EKG_ITS ---
[place] [address] [address] [place] [id number] Test Date: 2025-10-02 Pat Name: Bertin Bautista Department: [facility] Room: Gender: Male Public Address Technician: : 1940 Requested By: Order Number: [id number] Reading MD: Ruiz Christian MD Measurements Intervals Wanda Rate: 143 P: NE: QRS: -69 QRSD: 78 T: 47 QT: 294 QTc: 453 Interpretive Statements Critical Test Result: High HR Atrial fibrillation with rapid ventricular response Left axis deviation Inferior infarct , age undetermined Anterior infarct , age undetermined Electronically Signed On 10-02-2025 17:15:00 PST by Ruiz Christian MD
[2025-10-02 12:06] LABS: Alanine Aminotransferase 27 IU/L (<50); Albumin 3.7 g/dL (3.5-5.0); Albumin Globulin Ratio 1.0 (1.0-2.8); Alkaline Phosphatase 110 U/L (38-126); Blood Urea Nitrogen 18 mg/dL (9-20); Calcium 8.8 mg/dL (8.4-10.2); Carbon Dioxide 24 mmol/L (22-32); Chloride 99 mmol/L (98-107); Estimated Glomerular Filt Rate > 60 mL/min (>60); Globulin 3.7 g/dL (1.7-4.1); Glucose 125 mg/dL (70-99); HEMOLYSIS 19 (0-50); Lipase 31 U/L (23-300); Potassium 3.7 mmol/L (3.4-5.1); Sodium 133 mmol/L (137-145); Total Protein 7.4 g/dL (6.3-8.2)
--- NOTE | 2025-10-02 13:40 | ED.ABDPAIN ---
HPI - Abdominal Pain <Sandycedrick Cohn, DO - Last Filed: 10/03/25 10:04> General Chief Complaint: Abdominal Pain Stated Complaint: sent by pcp, liver concerns Time Seen by Provider: 10/02/25 11:24 Source: patient Mode of arrival: Wheelchair History of Present Illness HPI narrative: 85-year-old male history of atrial fibrillation status post Watchman, hypertension, dyslipidemia on Flomax chronic back pain with a spinal stimulator head. Patient presents today with a increasing discomfort in the right liver region abdomen becoming more distended over time. Patient notes she has has a liver pain and describes the edges of has a belly hurting. He states he has been somewhat distended. Denies any chest pain or pressure, sometimes feel short of breath with the exertion. Denies any nausea or vomiting. He notes some decreased appetite, states he has been having tube stools daily no black or bloody stools reported. He has noted some decrease in urine output. Denies any new edema bilateral lower extremities. Patient states that has quite uncomfortable today he has been prescribed oxycodone by Dr. Portillo but has not filled it yet, he also takes gabapentin. He has not had anything for pain today. He has been following with a gastro enterology, he is scheduled to have an MRI of his abdomen on 10/09/2025 in [place] because of a spinal stimulator he can not have 1 locally. States he has had prior shoulder surgery, knee replacement in the [facility], spinal stimulator replaced several times, and a Watchman device. He does not take any anticoagulants see takes medications for hypertension, dyslipidemia Flomax denies any diabetes. No tobacco, alcohol or recreational drugs. Notes allergy to codeine but states he has seemed to tolerate other narcotics without issue. Dr. Portillo is his primary care physician. Related Data Home Medications ?Medication ?Instructions ?Recorded ?Confirmed ascorbate calcium (vitamin C) 1 tab PO .qday 11/10/24 10/02/25 aspirin 81 mg tablet,delayed 81 mg PO DAILY 11/10/24 10/02/25 release (Adult Low Dose Aspirin) cholecalciferol (vitamin D3) 1 tab PO 11/10/24 09/10/25 azelastine 137 mcg (0.1 %) nasal 2 spray intranasal Q12H 05/21/25 10/02/25 spray ipratropium bromide 42 mcg (0.06 2 spray intranasal ONCE PM PRN 08/30/25 10/02/25 %) nasal spray Insomnia omeprazole 20 mg capsule,delayed 20 mg PO DAILY 08/30/25 10/02/25 release tizanidine 4 mg tablet 12 mg PO DAILY PRN for muscle spasm 08/30/25 10/02/25 amitriptyline 10 mg tablet 10 mg PO BEDTIME 10/02/25 10/02/25 gabapentin 600 mg tablet See Rx Instructions PO .COMPLEX 10/02/25 10/02/25 metoprolol succinate 25 mg 37.5 mg PO BID 10/02/25 10/02/25 tablet,extended release 24 hr polyethylene glycol 3350 17 17 g PO BID 10/02/25 10/02/25 gram/dose oral powder Previous Rx's ?Medication ?Instructions ?Recorded clindamycin phosphate 1 % lotion 1 % topical BID #60 mL 11/09/18 tamsulosin 0.4 mg capsule 0.4 mg PO BID #180 caps 11/09/24 hydrochlorothiazide 12.5 mg tablet 12.5 mg PO DAILY #90 tabs 03/16/25 duloxetine 60 mg capsule,delayed 60 mg PO DAILY #90 caps 04/16/25 release lidocaine 5 % topical patch 1 patch topical DAILY #30 ea 08/28/25 duloxetine 30 mg capsule,delayed 30 mg PO DAILY #90 caps 09/25/25 release oxycodone 5 mg tablet 5 mg PO BID PRN pain #90 tabs 10/02/25 rosuvastatin 10 mg tablet 10 mg PO DAILY #90 tabs 10/02/25 Allergies Allergy/AdvReac Type Severity Reaction Status Date / Time codeine Allergy Verified 10/02/25 11:25 Review of Systems <Sandy Cohn DO - Last Filed: 10/03/25 10:04> Review of Systems ROS Unobtainable: All systems reviewed & are unremarkable except as noted in HPI and below Patient History <Sandy Cohn DO - Last Filed: 10/03/25 10:04> Medical History Chronic atrial fibrillation with rapid ventricular response Cirrhosis of liver Insomnia Greater trochanteric bursitis of right hip Mild concussion Presence of Watchman left atrial appendage closure device Cellulitis Rotator cuff tear arthropathy Leg edema BPH (benign prostatic hyperplasia) Spinal cord stimulator dysfunction Parkinsonism Depression COVID-19 (~02/2022) Degenerative joint disease of knee Uncomplicated opioid dependence Lumbar post-laminectomy syndrome Paroxysmal atrial fibrillation (~11/09/17) Chronic pain Chronic anticoagulation Other insomnia (06/26/16) Mixed hyperlipidemia (12/19/15) Obstructive sleep apnea syndrome Dorsalgia 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) Surgical History History of repair of right rotator cuff Family History Brother Family history of esophageal cancer Social History marital status: number of children: 2 household members: spouse lives independently: Yes caregiver/support person: No housing: house pets and animals: No education level: college occupational status: other current occupational exposures/hazards: No 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[employer]: [employer] travel history: recent leisure activities: music, reading and other Smoking Status: Never smoker Tobacco: How many years used: 0 quit status: quit date established second hand exposure: No alcohol intake: never substance use type: does not use Smoking Status: Never smoker alcohol intake frequency: holidays/special occasions only Exam <Sandy Cohn DO - Last Filed: 10/03/25 10:04> Narrative Exam Narrative: GENERAL: Alert and oriented x three, male in moderate distress HEENT: Head normocephalic, atraumatic, EOMI, pupils reactive, face symmetric, moist mucous membranes NECK: Supple, full range of motion CARDIOVASCULAR: Regular rate and rhythm without murmurs, rubs or gallops. RESPIRATORY: Breath sounds equal bilaterally, no wheezes rales or rhonchi. No tachypnea or accessory muscle use. ABDOMEN: Soft, abdomen is distended in his soft. He has mild tenderness particularly over the liver. Normoactive bowel sounds all 4 quadrants. No guarding or rebound, rigidity, no mass : No CVA tenderness EXTREMITIES: Normal range of motion, mild edema bilateral lower extremities.. Neurovascularly intact NEUROLOGICAL: Cranial nerves II through XII grossly intact. Moving all extremities SKIN: Warm, dry, no petechiae, no rashes or lesions. Initial Vital Signs Initial Vital Signs: Vital Signs Temperature 96.6 F L 10/02/25 11:24 Pulse Rate 82 10/02/25 11:24 Respiratory Rate 18 10/02/25 11:24 Blood Pressure 119/80 10/02/25 11:24 Pulse Oximetry 94 10/02/25 11:24 Oxygen Delivery Method Room Air 10/02/25 11:24 <Ruiz Reyez, DO - Last Filed: 10/02/25 17:06> Initial Vital Signs Initial Vital Signs: Vital Signs Temperature 96.6 F L 10/02/25 11:24 Pulse Rate 82 10/02/25 11:24 Respiratory Rate 18 10/02/25 11:24 Blood Pressure 119/80 10/02/25 11:24 Pulse Oximetry 94 10/02/25 11:24 Oxygen Delivery Method Room Air 10/02/25 11:24 Course <Sandy Cohn, DO - Last Filed: 10/03/25 10:04> Orders Ordered: Amitriptyline HCl (Amitriptyline 10 Mg Tablet) 10 mg PO BEDTIME [facility] Last Admin: 10/02/25 21:33 Dose: 10 mg Documented By: FM Aspirin (Aspirin Ec 81 Mg Tablet) 81 mg PO DAILY [facility] Last Admin: 10/03/25 09:25 Dose: 81 mg Documented By: NW Atorvastatin Calcium (Atorvastatin 20 Mg Tablet) 20 mg PO DAILY [facility] Last Admin: 10/03/25 09:25 Dose: 20 mg Documented By: NW Duloxetine HCl (Duloxetine 30 Mg Capsule.Dr) 90 mg PO BEDTIME [facility] Last Admin: 10/02/25 21:33 Dose: 90 mg Documented By: FM Gabapentin (Gabapentin 600 Mg Tablet) 600 mg PO AC [facility] Last Admin: 10/03/25 07:57 Dose: 600 mg Documented By: NW Gabapentin (Gabapentin 600 Mg Tablet) 1,200 mg PO BEDTIME [facility] Last Admin: 10/02/25 21:37 Dose: 1,200 mg Documented By: FM Ibuprofen (Ibuprofen 600 Mg Tablet) 600 mg PO Q6H PRN PRN Reason: Fever/Mild Pain (1-3) Last Admin: 10/03/25 07:56 Dose: 600 mg Documented By: NW Ipratropium Bono (Ipratropium 0.06% Nasal 15 Ml) 2 spray NASAL BEDTIME PRN PRN Reason: Nasal Congestion Lidocaine (Lidocaine 5% Patch) 1 each TOP DAILY [facility] Last Admin: 10/03/25 09:24 Dose: 1 each Documented By: NW Metoprolol Succinate (Metoprolol Er 25 Mg Tablet) 37.5 mg PO BID [facility] Last Admin: 10/03/25 09:31 Dose: 37.5 mg Documented By: Admin: 10/02/25 21:35 Dose: 37.5 mg Documented By: FM Morphine Sulfate (Morphine 2 Mg/Ml Inj) 2 mg IV Q4HR PRN PRN Reason: Pain, Moderate (4-6) Last Admin: 10/02/25 21:29 Dose: 2 mg Documented By: FM Naloxone HCl (Naloxone 0.4 Mg/Ml Vial) 0.2 mg IV Q2MIN PRN PRN Reason: Opiate Reversal Non-Formulary Medication (Azelastine) 2 spray NASAL Q12H [facility] Last Admin: 10/03/25 09:32 Dose: Not Given Documented By: Admin: 10/02/25 22:43 Dose: Not Given Documented By: PINO Oxycodone HCl (Oxycodone Ir 5 Mg Tablet) 5 mg PO BID PRN PRN Reason: pain Last Admin: 10/03/25 07:56 Dose: 5 mg Documented By: CRISTI Pantoprazole Sodium (Pantoprazole Dr 20 Mg Tablet) 20 mg PO 0600 [facility] Last Admin: 10/03/25 05:58 Dose: 20 mg Documented By: PINO Polyethylene Glycol (Polyethylene Glycol 3350 17 Gm Powd.Pack) 17 gm PO BID [facility] Last Admin: 10/03/25 09:24 Dose: 17 gm Documented By: Admin: 10/02/25 21:33 Dose: 17 gm Documented By: PINO Tamsulosin HCl (Tamsulosin 0.4 Mg Capsule) 0.4 mg PO BID [facility] Last Admin: 10/03/25 09:25 Dose: 0.4 mg Documented By: Admin: 10/02/25 21:37 Dose: 0.4 mg Documented By: PINO Tizanidine HCl (Tizanidine 4 Mg Tablet) 12 mg PO DAILY PRN PRN Reason: for muscle spasm Last Admin: 10/02/25 21:33 Dose: 12 mg Documented By: FM Discontinued Medications Diltiazem HCl (Diltiazem 25 Mg/5 Ml Sdv) 10 mg IV NOW ONE Stop: 10/02/25 15:05 Last Admin: 10/02/25 15:14 Dose: 10 mg Documented By: DEVI Diltiazem HCl (Diltiazem 25 Mg/5 Ml Sdv) 10 mg IV NOW ONE Stop: 10/02/25 17:05 Last Admin: 10/02/25 17:15 Dose: 10 mg Documented By: DEVI Duloxetine HCl (Duloxetine 30 Mg Capsule.Dr) 60 mg PO DAILY SAROJ Gabapentin (Gabapentin 600 Mg Tablet) 0 mg PO .COMPLEX SAROJ Diltiazem HCl 125 mg/ Sodium (Chloride) 125 mls @ 5 mls/hr IV TITRATE SAROJ; Protocol Last Titration: 10/02/25 21:30 Dose: 0 mg/hr, 0 mls/hr Documented By: Titration: 10/02/25 18:45 Dose: 15 mg/hr, 15 mls/hr Documented By: Titration: 10/02/25 18:06 Dose: 10 mg/hr, 10 mls/hr Documented By: Admin: 10/02/25 17:20 Dose: 5 mg/hr, 5 mls/hr Documented By: DEVI Metoprolol Succinate (Metoprolol Er 25 Mg Tablet) 37.5 mg PO NOW ONE Stop: 10/02/25 15:28 Last Admin: 10/02/25 15:44 Dose: 37.5 mg Documented By: DEVI Metoprolol Tartrate (Metoprolol Tartrate 5 Mg/5 Ml Inj) 5 mg IV Q5M SAROJ Stop: 10/02/25 16:41 Last Admin: 10/02/25 16:57 Dose: 5 mg Documented By: DEVI Metoprolol Tartrate (Metoprolol Ir 25 Mg Tablet) 25 mg PO NOW ONE Stop: 10/02/25 19:16 Morphine Sulfate (Morphine 4 Mg/Ml Inj) 4 mg IV NOW ONE Stop: 10/02/25 14:11 Last Admin: 10/02/25 14:31 Dose: 4 mg Documented By: DVEI Morphine Sulfate (Morphine 4 Mg/Ml Inj) 4 mg IV NOW ONE Stop: 10/02/25 17:04 Last Admin: 10/02/25 17:16 Dose: 4 mg Documented By: DEVI Non-Formulary Medication (Omeprazole) 20 mg PO DAILY [facility] Non-Formulary Medication (Rosuvastatin) 10 mg PO DAILY [facility] Ondansetron HCl (Ondansetron 4 Mg/2 Ml Inj) 4 mg IV NOW PRN PRN Reason: Nausea And Vomiting Ondansetron HCl (Ondansetron 4 Mg Odt) 4 mg PO NOW PRN PRN Reason: Nausea And Vomiting Vital Signs Vital signs: Vital Signs - 8 hr 10/02/25 11:24 10/02/25 12:02 10/02/25 12:03 Temperature 96.6 F L Pulse Rate 82 150 H Respiratory Rate 18 Blood Pressure 119/80 123/90 Pulse Oximetry 94 94 Oxygen Delivery Method Room Air 10/02/25 12:15 10/02/25 12:15 10/02/25 12:33 Temperature Pulse Rate 144 H 130 H Respiratory Rate Blood Pressure 127/94 H Pulse Oximetry 96 95 Oxygen Delivery Method 10/02/25 12:34 10/02/25 12:34 10/02/25 12:45 Temperature Pulse Rate 131 H 140 H Respiratory Rate Blood Pressure 137/88 Pulse Oximetry 95 91 Oxygen Delivery Method 10/02/25 12:45 10/02/25 13:00 10/02/25 13:00 Temperature Pulse Rate 142 H Respiratory Rate Blood Pressure 151/97 H 152/89 H Pulse Oximetry 90 L Oxygen Delivery Method 10/02/25 13:15 10/02/25 13:15 10/02/25 13:30 Temperature Pulse Rate 141 H 142 H Respiratory Rate Blood Pressure 132/84 Pulse Oximetry 90 L 93 Oxygen Delivery Method 10/02/25 13:30 10/02/25 13:45 10/02/25 13:45 Temperature Pulse Rate 144 H Respiratory Rate Blood Pressure 131/102 H 141/114 H Pulse Oximetry 96 Oxygen Delivery Method 10/02/25 14:00 10/02/25 14:00 10/02/25 14:15 Temperature Pulse Rate 141 H Respiratory Rate Blood Pressure 154/96 H 137/91 H Pulse Oximetry 96 Oxygen Delivery Method 10/02/25 14:15 10/02/25 14:47 10/02/25 14:48 Temperature Pulse Rate 141 H 140 H 138 H Respiratory Rate Blood Pressure Pulse Oximetry 96 96 96 Oxygen Delivery Method 10/02/25 14:48 10/02/25 15:00 10/02/25 15:00 Temperature Pulse Rate 149 H Respiratory Rate 20 Blood Pressure 153/94 H 136/97 H Pulse Oximetry 97 Oxygen Delivery Method 10/02/25 15:14 10/02/25 15:44 10/02/25 16:59 Temperature Pulse Rate 153 H 130 H 135 H Respiratory Rate Blood Pressure 136/97 H 133/95 H Pulse Oximetry Oxygen Delivery Method <Ruiz Reyez, DO - Last Filed: 10/02/25 17:06> Orders Ordered: Amitriptyline HCl (Amitriptyline 10 Mg Tablet) 10 mg PO BEDTIME [facility] Last Admin: 10/02/25 21:33 Dose: 10 mg Documented By: FM Aspirin (Aspirin Ec 81 Mg Tablet) 81 mg PO DAILY [facility] Last Admin: 10/03/25 09:25 Dose: 81 mg Documented By: NW Atorvastatin Calcium (Atorvastatin 20 Mg Tablet) 20 mg PO DAILY [facility] Last Admin: 10/03/25 09:25 Dose: 20 mg Documented By: NW Duloxetine HCl (Duloxetine 30 Mg Capsule.Dr) 90 mg PO BEDTIME [facility] Last Admin: 10/02/25 21:33 Dose: 90 mg Documented By: FM Gabapentin (Gabapentin 600 Mg Tablet) 600 mg PO AC [facility] Last Admin: 10/03/25 07:57 Dose: 600 mg Documented By: NW Gabapentin (Gabapentin 600 Mg Tablet) 1,200 mg PO BEDTIME [facility] Last Admin: 10/02/25 21:37 Dose: 1,200 mg Documented By: PINO Ibuprofen (Ibuprofen 600 Mg Tablet) 600 mg PO Q6H PRN PRN Reason: Fever/Mild Pain (1-3) Last Admin: 10/03/25 07:56 Dose: 600 mg Documented By: NW Ipratropium Bono (Ipratropium 0.06% Nasal 15 Ml) 2 spray NASAL BEDTIME PRN PRN Reason: Nasal Congestion Lidocaine (Lidocaine 5% Patch) 1 each TOP DAILY [facility] Last Admin: 10/03/25 09:24 Dose: 1 each Documented By: NW Metoprolol Succinate (Metoprolol Er 25 Mg Tablet) 37.5 mg PO BID [facility] Last Admin: 10/03/25 09:31 Dose: 37.5 mg Documented By: Admin: 10/02/25 21:35 Dose: 37.5 mg Documented By: FM Morphine Sulfate (Morphine 2 Mg/Ml Inj) 2 mg IV Q4HR PRN PRN Reason: Pain, Moderate (4-6) Last Admin: 10/02/25 21:29 Dose: 2 mg Documented By: FM Naloxone HCl (Naloxone 0.4 Mg/Ml Vial) 0.2 mg IV Q2MIN PRN PRN Reason: Opiate Reversal Non-Formulary Medication (Azelastine) 2 spray NASAL Q12H [facility] Last Admin: 10/03/25 09:32 Dose: Not Given Documented By: Admin: 10/02/25 22:43 Dose: Not Given Documented By: PINO Oxycodone HCl (Oxycodone Ir 5 Mg Tablet) 5 mg PO BID PRN PRN Reason: pain Last Admin: 10/03/25 07:56 Dose: 5 mg Documented By: NW Pantoprazole Sodium (Pantoprazole Dr 20 Mg Tablet) 20 mg PO 0600 [facility] Last Admin: 10/03/25 05:58 Dose: 20 mg Documented By: PINO Polyethylene Glycol (Polyethylene Glycol 3350 17 Gm Powd.Pack) 17 gm PO BID [facility] Last Admin: 10/03/25 09:24 Dose: 17 gm Documented By: Admin: 10/02/25 21:33 Dose: 17 gm Documented By: PINO Tamsulosin HCl (Tamsulosin 0.4 Mg Capsule) 0.4 mg PO BID [facility] Last Admin: 10/03/25 09:25 Dose: 0.4 mg Documented By: Admin: 10/02/25 21:37 Dose: 0.4 mg Documented By: PINO Tizanidine HCl (Tizanidine 4 Mg Tablet) 12 mg PO DAILY PRN PRN Reason: for muscle spasm Last Admin: 10/02/25 21:33 Dose: 12 mg Documented By: PINO Discontinued Medications Diltiazem HCl (Diltiazem 25 Mg/5 Ml Sdv) 10 mg IV NOW ONE Stop: 10/02/25 15:05 Last Admin: 10/02/25 15:14 Dose: 10 mg Documented By: DEVI Diltiazem HCl (Diltiazem 25 Mg/5 Ml Sdv) 10 mg IV NOW ONE Stop: 10/02/25 17:05 Last Admin: 10/02/25 17:15 Dose: 10 mg Documented By: DEVI Duloxetine HCl (Duloxetine 30 Mg Capsule.Dr) 60 mg PO DAILY [facility] Gabapentin (Gabapentin 600 Mg Tablet) 0 mg PO .COMPLEX SAROJ Diltiazem HCl 125 mg/ Sodium (Chloride) 125 mls @ 5 mls/hr IV TITRATE SAROJ; Protocol Last Titration: 10/02/25 21:30 Dose: 0 mg/hr, 0 mls/hr Documented By: Titration: 10/02/25 18:45 Dose: 15 mg/hr, 15 mls/hr Documented By: Titration: 10/02/25 18:06 Dose: 10 mg/hr, 10 mls/hr Documented By: Admin: 10/02/25 17:20 Dose: 5 mg/hr, 5 mls/hr Documented By: DEVI Metoprolol Succinate (Metoprolol Er 25 Mg Tablet) 37.5 mg PO NOW ONE Stop: 10/02/25 15:28 Last Admin: 10/02/25 15:44 Dose: 37.5 mg Documented By: DEVI Metoprolol Tartrate (Metoprolol Tartrate 5 Mg/5 Ml Inj) 5 mg IV Q5M SAROJ Stop: 10/02/25 16:41 Last Admin: 10/02/25 16:57 Dose: 5 mg Documented By: DEVI Metoprolol Tartrate (Metoprolol Ir 25 Mg Tablet) 25 mg PO NOW ONE Stop: 10/02/25 19:16 Morphine Sulfate (Morphine 4 Mg/Ml Inj) 4 mg IV NOW ONE Stop: 10/02/25 14:11 Last Admin: 10/02/25 14:31 Dose: 4 mg Documented By: DEVI Morphine Sulfate (Morphine 4 Mg/Ml Inj) 4 mg IV NOW ONE Stop: 10/02/25 17:04 Last Admin: 10/02/25 17:16 Dose: 4 mg Documented By: DEVI Non-Formulary Medication (Omeprazole) 20 mg PO DAILY [facility] Non-Formulary Medication (Rosuvastatin) 10 mg PO DAILY [facility] Ondansetron HCl (Ondansetron 4 Mg/2 Ml Inj) 4 mg IV NOW PRN PRN Reason: Nausea And Vomiting Ondansetron HCl (Ondansetron 4 Mg Odt) 4 mg PO NOW PRN PRN Reason: Nausea And Vomiting Vital Signs Vital signs: Vital Signs - 8 hr 10/02/25 11:24 10/02/25 12:02 10/02/25 12:03 Temperature 96.6 F L Pulse Rate 82 150 H Respiratory Rate 18 Blood Pressure 119/80 123/90 Pulse Oximetry 94 94 Oxygen Delivery Method Room Air 10/02/25 12:15 10/02/25 12:15 10/02/25 12:33 Temperature Pulse Rate 144 H 130 H Respiratory Rate Blood Pressure 127/94 H Pulse Oximetry 96 95 Oxygen Delivery Method 10/02/25 12:34 10/02/25 12:34 10/02/25 12:45 Temperature Pulse Rate 131 H 140 H Respiratory Rate Blood Pressure 137/88 Pulse Oximetry 95 91 Oxygen Delivery Method 10/02/25 12:45 10/02/25 13:00 10/02/25 13:00 Temperature Pulse Rate 142 H Respiratory Rate Blood Pressure 151/97 H 152/89 H Pulse Oximetry 90 L Oxygen Delivery Method 10/02/25 13:15 10/02/25 13:15 10/02/25 13:30 Temperature Pulse Rate 141 H 142 H Respiratory Rate Blood Pressure 132/84 Pulse Oximetry 90 L 93 Oxygen Delivery Method 10/02/25 13:30 10/02/25 13:45 10/02/25 13:45 Temperature Pulse Rate 144 H Respiratory Rate Blood Pressure 131/102 H 141/114 H Pulse Oximetry 96 Oxygen Delivery Method 10/02/25 14:00 10/02/25 14:00 10/02/25 14:15 Temperature Pulse Rate 141 H Respiratory Rate Blood Pressure 154/96 H 137/91 H Pulse Oximetry 96 Oxygen Delivery Method 10/02/25 14:15 10/02/25 14:47 10/02/25 14:48 Temperature Pulse Rate 141 H 140 H 138 H Respiratory Rate Blood Pressure Pulse Oximetry 96 96 96 Oxygen Delivery Method 10/02/25 14:48 10/02/25 15:00 10/02/25 15:00 Temperature Pulse Rate 149 H Respiratory Rate 20 Blood Pressure 153/94 H 136/97 H Pulse Oximetry 97 Oxygen Delivery Method 10/02/25 15:14 10/02/25 15:44 10/02/25 16:59 Temperature Pulse Rate 153 H 130 H 135 H Respiratory Rate Blood Pressure 136/97 H 133/95 H Pulse Oximetry Oxygen Delivery Method MDM - Abdominal Pain <Sandy Cohn, DO - Last Filed: 10/03/25 10:04> Lab Data 10/03/25 04:45 10/03/25 04:45 Labs: Lab Results 10/02/25 Range/Units 11:30 WBC 9.5 (4.5-11.0) X10^3/uL RBC 4.66 (4.5-5.9) X10^6/uL Hgb 14.4 (13.5-17.5) g/dL Hct 43.5 (41-53) % MCV 93.3 (80-100) fL MCH 30.8 (26-34) PG MCHC 33.0 (30-36) % RDW 15.2 H (11.6-14.8) % Plt Count 270 (150-400) X10^3/uL Neut % (Auto) 78.9 H (50-75) % Lymph % (Auto) 11.5 L (25-40) % Armstrong % (Auto) 7.9 (3-14) % Eos % (Auto) 1.0 L (2-4) % Baso % (Auto) 0.7 (0-2) % Neut # (Auto) 7500 H (6686-1774) /uL Lymph # (Auto) 1100 (5532-9522) /uL Armstrong # (Auto) 700 (0-900) /uL Eos # (Auto) 100 (0-450) /uL Baso # (Auto) 100 (0-100) /uL Sodium 133 L (137-145) mmol/L Potassium 3.7 (3.4-5.1) mmol/L Chloride 99 (98-107) mmol/L Carbon Dioxide 24 (22-32) mmol/L BUN 18 (9-20) mg/dL Creatinine 0.81 (0.66-1.25) mg/dL Estimated GFR > 60 (>60) mL/min BUN/Creatinine Ratio 22.2 H (6-22) Glucose 125 H (70-99) mg/dL Calcium 8.8 (8.4-10.2) mg/dL Total Bilirubin 0.8 (0.2-1.3) mg/dL AST 35 (17-59) IU/L ALT 27 (<50) IU/L Alkaline Phosphatase 110 (38-126) U/L Total Protein 7.4 (6.3-8.2) g/dL Albumin 3.7 (3.5-5.0) g/dL Globulin 3.7 (1.7-4.1) g/dL Albumin/Globulin Ratio 1.0 (1.0-2.8) Lipase 31 (23-300) U/L MDM Narrative Medical decision making narrative: Labs show white count of 9.5 hemoglobin of 14.4 platelets of 270. Chemistries shows sodium 133 otherwise appropriate BUN and creatinine are normal glucose is 125 LFTs are normal, lipase is 31. EKG shows AFib rate of 143 QRS is 78 QTC 453. Patient has prior this shows atrial fibrillation with a rate of 99 from 09/30/2023. AFib with a RVR rate of 135, QRS [address] QTC [address] No acute ST changes. CT abdomen pelvis shows significant interval increase in the ascites not large, suspect peritoneal carcinomatosis, interval increase in 1 and possibly 2 liver lesions in patient with the underlying cirrhosis, suspect hepatoma. Bilateral [id number] pleural effusions with bibasilar atelectasis now present. Cardiomegaly. Reviewed findings with the patient he has been following with the Gastroenterology, he is supposed to have an MR of his abdomen 10/09/2025 he states he had tumor marker ordered recently but was in normal range reviewed his imaging today which is concerning for potential malignancy. He is currently stable discussed possibly obtaining paracentesis. Spoke with Dr. Harris who would recommend waiting the pad patient follow up with Oncology before paracentesis. Patient developed AFib RVR initially at a heart rate in the 80s, he notes he has chronic atrial fibrillation states he is always in atrial fibrillation does have a Watchman is not anticoagulated he states it did not he gives medications today. We will give him his oral morning medications. Spoke with the patient's Gastroenterology team, they recommend admitting for diagnosis paracentesis and treatment in his atrial fibrillation. Spoke with Dr. Mustafa, asked if we can try to rate control with IV metoprolol x3 and new paracentesis here in the department. If unsuccessful she is happy to accept for AFib RVR with the plan for paracentesis tomorrow. I did speak with diagnostic imaging they state radiology is available for paracentesis tomorrow. Patient signed out to Dr. Reyez while awaiting, metoprolol Case d/w to give another dilitazem dose IVP push and to start on Diltiazem drip and admission to hospital. <Ruiz Reyez, DO - Last Filed: 10/02/25 17:06> Lab Data Labs: Lab Results 10/02/25 Range/Units 11:30 WBC 9.5 (4.5-11.0) X10^3/uL RBC 4.66 (4.5-5.9) X10^6/uL Hgb 14.4 (13.5-17.5) g/dL Hct 43.5 (41-53) % MCV 93.3 (80-100) fL MCH 30.8 (26-34) PG MCHC 33.0 (30-36) % RDW 15.2 H (11.6-14.8) % Plt Count 270 (150-400) X10^3/uL Neut % (Auto) 78.9 H (50-75) % Lymph % (Auto) 11.5 L (25-40) % Armstrong % (Auto) 7.9 (3-14) % Eos % (Auto) 1.0 L (2-4) % Baso % (Auto) 0.7 (0-2) % Neut # (Auto) 7500 H (6843-6723) /uL Lymph # (Auto) 1100 (0768-8790) /uL Armstrong # (Auto) 700 (0-900) /uL Eos # (Auto) 100 (0-450) /uL Baso # (Auto) 100 (0-100) /uL Sodium 133 L (137-145) mmol/L Potassium 3.7 (3.4-5.1) mmol/L Chloride 99 (98-107) mmol/L Carbon Dioxide 24 (22-32) mmol/L BUN 18 (9-20) mg/dL Creatinine 0.81 (0.66-1.25) mg/dL Estimated GFR > 60 (>60) mL/min BUN/Creatinine Ratio 22.2 H (6-22) Glucose 125 H (70-99) mg/dL Calcium 8.8 (8.4-10.2) mg/dL Total Bilirubin 0.8 (0.2-1.3) mg/dL AST 35 (17-59) IU/L ALT 27 (<50) IU/L Alkaline Phosphatase 110 (38-126) U/L Total Protein 7.4 (6.3-8.2) g/dL Albumin 3.7 (3.5-5.0) g/dL Globulin 3.7 (1.7-4.1) g/dL Albumin/Globulin Ratio 1.0 (1.0-2.8) Lipase 31 (23-300) U/L MDM Narrative Medical decision making narrative: Labs show white count of 9.5 hemoglobin of 14.4 platelets of 270. Chemistries shows sodium 133 otherwise appropriate BUN and creatinine are normal glucose is 125 LFTs are normal, lipase is 31. EKG shows AFib rate of 143 QRS is 78 QTC 453. Patient has prior this shows atrial fibrillation with a rate of 99 from 09/30/2023. AFib with a RVR rate of 135, QRS 78 QTC 453. No acute ST changes. CT abdomen pelvis shows significant interval increase in the ascites not large, suspect peritoneal carcinomatosis, interval increase in 1 and possibly 2 liver lesions in patient with the underlying cirrhosis, suspect hepatoma. Bilateral [id number] pleural effusions with bibasilar atelectasis now present. Cardiomegaly. Reviewed findings with the patient he has been following with the Gastroenterology, he is supposed to have an MR of his abdomen 10/09/2025 he states he had tumor marker ordered recently but was in normal range reviewed his imaging today which is concerning for potential malignancy. He is currently stable discussed possibly obtaining paracentesis. Spoke with Dr. Harris who would recommend waiting the pad patient follow up with Oncology before paracentesis. Patient developed AFib RVR initially at a heart rate in the 80s, he notes he has chronic atrial fibrillation states he is always in atrial fibrillation does have a Watchman is not anticoagulated he states it did not he gives medications today. We will give him his oral morning medications. Spoke with the patient's Gastroenterology team, they recommend admitting for diagnosis paracentesis and treatment in his atrial fibrillation. Case d/w to give another dilitazem dose IVP push and to start on Diltiazem drip and admission to hospital. Discharge Plan Departure Patient Disposition: Admitted As Inpatient Clinical Impression: Atrial fibrillation, Abdominal ascites Admit Date/Time: 10/02/25 17:05 Admit Provider: Adry Mustafa
[2025-10-02] MEDS: MORPHINE 4 MG/ML INJ IV ×2 (14:31→17:16)
--- NOTE | 2025-10-02 14:51 | EKG_ITS ---
[address] [address] Test Date: 2025-10-02 Pat Name: Bertin Bautista Department: [facility] Room: Gender: Male Receiving Associate: KEYLA : 1940 Requested By: Order Number: [id number] Reading MD: Ruiz Christian MD Measurements Intervals [place] Rate: 135 P: [place]: QRS: -64 QRSD: 78 T: 43 QT: 302 QTc: 453 Interpretive Statements Atrial fibrillation with rapid ventricular response Left axis deviation Inferior infarct , age undetermined Anterolateral infarct , age undetermined NO SIGNIFICANT CHANGE FROM PRIOR TRACING Electronically Signed On 10-02-2025 17:17:05 PST by Ruiz Christian MD
[2025-10-02] MEDS: METOPROLOL ER 25 MG TABLET 37.5 MG PO ×2 (15:44→21:35)
[2025-10-02] MEDS: METOPROLOL TARTRATE 5 MG/5 ML INJ IV (16:57)
--- NOTE | 2025-10-02 18:16 | PC.NURSE ---
Pt up from ED, telemetry showing Afib with a rate >120. Dilt drip titrated up to 10. Pt alert and in good spirits. RQ pain under control at this time.
--- NOTE | 2025-10-02 20:05 | PM.HP.1 ---
History of Present Illness History of Present Illness Date Patient Seen: 10/02/25 Time Patient Seen: 19:00 Chief complaint: Ascites Narrative: 85-year-old male with atrial fibrillation status post Watchman, hypertension, hyperlipidemia, chronic back pain with spinal stimulator who presents with increasing abdominal discomfort and distention. The patient notes that the edges of his belly hurt. He ascribes this pain to being liver pain. He has ascites for which she has been followed by Gastroenterology in [place]. The patient tells me that they initially thought he had cirrhosis then fatty liver. He also mentioned that 1 of the providers said his liver problem might be related to chronic Tylenol use. Patient states that he takes up to 6 500 mg Tylenol tablets daily and has been doing this for 15 years. He is scheduled for an MRI of his abdomen on 10/09/2025 in [place]. The MRI can not be done locally because he has a spinal stimulator. The patient was sent to the ER by his primary care provider for paracentesis for diagnosis and for therapeutic reasons. However presentation in the emergency room he was found to have rapid ventricular rate not responsive to IV diltiazem or IV metoprolol. He was then placed on a diltiazem drip and admitted to the ICU. The patient denies chest pain or shortness of breath. He has not been having nausea or vomiting. He notes just the abdominal distention, pain and decreased appetite. Otherwise review of systems is negative. [facility] Medical History Chronic atrial fibrillation with rapid ventricular response Cirrhosis of liver Insomnia Greater trochanteric bursitis of right hip Mild concussion Presence of Watchman left atrial appendage closure device Cellulitis Rotator cuff tear arthropathy Leg edema BPH (benign prostatic hyperplasia) Spinal cord stimulator dysfunction Parkinsonism Depression COVID-19 (~02/2022) Degenerative joint disease of knee Uncomplicated opioid dependence Lumbar post-laminectomy syndrome Paroxysmal atrial fibrillation (~11/09/17) Chronic pain Chronic anticoagulation Other insomnia (06/26/16) Mixed hyperlipidemia (12/19/15) Obstructive sleep apnea syndrome Dorsalgia 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) Surgical History History of repair of right rotator cuff Family History Brother Family history of esophageal cancer Social History marital status: number of children: 2 household members: spouse lives independently: Yes caregiver/support person: No housing: house pets and animals: No education level: college occupational status: other current occupational exposures/hazards: No 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: [employer] travel history: recent leisure activities: music, reading and other Smoking Status: Never smoker Tobacco: How many years used: 0 quit status: quit date established second hand exposure: No alcohol intake: never substance use type: does not use Meds Home Medications and Allergies Home Medications ?Medication ?Instructions ?Recorded ?Confirmed ?Type clindamycin phosphate 1 % lotion 1 % topical BID #60 mL 11/09/18 10/02/25 Rx tamsulosin 0.4 mg capsule 0.4 mg PO BID #180 caps 11/09/24 10/02/25 Rx ascorbate calcium (vitamin C) 1 tab PO .qday 11/10/24 10/02/25 History aspirin 81 mg tablet,delayed 81 mg PO DAILY 11/10/24 10/02/25 History release (Adult Low Dose Aspirin) cholecalciferol (vitamin D3) 1 tab PO 11/10/24 09/10/25 History hydrochlorothiazide 12.5 mg tablet 12.5 mg PO DAILY #90 tabs 03/16/25 10/02/25 Rx duloxetine 60 mg capsule,delayed 60 mg PO DAILY #90 caps 04/16/25 10/02/25 Rx release azelastine 137 mcg (0.1 %) nasal 2 spray intranasal Q12H 05/21/25 10/02/25 History spray lidocaine 5 % topical patch 1 patch topical DAILY #30 ea 08/28/25 10/02/25 Rx ipratropium bromide 42 mcg (0.06 2 spray intranasal ONCE PM PRN 08/30/25 10/02/25 History %) nasal spray Insomnia omeprazole 20 mg capsule,delayed 20 mg PO DAILY 08/30/25 10/02/25 History release tizanidine 4 mg tablet 12 mg PO DAILY PRN for muscle spasm 08/30/25 10/02/25 History duloxetine 30 mg capsule,delayed 30 mg PO DAILY #90 caps 09/25/25 10/02/25 Rx release amitriptyline 10 mg tablet 10 mg PO BEDTIME 10/02/25 10/02/25 History gabapentin 600 mg tablet See Rx Instructions PO .COMPLEX 10/02/25 10/02/25 History metoprolol succinate 25 mg 37.5 mg PO BID 10/02/25 10/02/25 History tablet,extended release 24 hr oxycodone 5 mg tablet 5 mg PO BID PRN pain #90 tabs 10/02/25 10/02/25 Rx polyethylene glycol 3350 17 17 g PO BID 10/02/25 10/02/25 History gram/dose oral powder rosuvastatin 10 mg tablet 10 mg PO DAILY #90 tabs 10/02/25 10/02/25 Rx Allergies Allergy/AdvReac Type Severity Reaction Status Date / Time codeine Allergy Verified 10/02/25 11:25 Review of Systems Review of Systems Narrative: Fourteen system review of systems performed and pertinent positives and negatives are noted in the HPI. Otherwise review of systems negative. Exam Vital Signs (past 8 hours): - 10/02/25 12:15 10/02/25 12:15 10/02/25 12:33 Pulse Rate 144 H 130 H Respiratory Rate Blood Pressure 127/94 H Pulse Oximetry 96 95 Oxygen Delivery Method 10/02/25 12:34 10/02/25 12:34 10/02/25 12:45 Pulse Rate 131 H 140 H Respiratory Rate Blood Pressure 137/88 Pulse Oximetry 95 91 Oxygen Delivery Method 10/02/25 12:45 10/02/25 13:00 10/02/25 13:00 Pulse Rate 142 H Respiratory Rate Blood Pressure 151/97 H 152/89 H Pulse Oximetry 90 L Oxygen Delivery Method 10/02/25 13:15 10/02/25 13:15 10/02/25 13:30 Pulse Rate 141 H 142 H Respiratory Rate Blood Pressure 132/84 Pulse Oximetry 90 L 93 Oxygen Delivery Method 10/02/25 13:30 10/02/25 13:45 10/02/25 13:45 Pulse Rate 144 H Respiratory Rate Blood Pressure 131/102 H 141/114 H Pulse Oximetry 96 Oxygen Delivery Method 10/02/25 14:00 10/02/25 14:00 10/02/25 14:15 Pulse Rate 141 H Respiratory Rate Blood Pressure 154/96 H 137/91 H Pulse Oximetry 96 Oxygen Delivery Method 10/02/25 14:15 10/02/25 14:47 10/02/25 14:48 Pulse Rate 141 H 140 H 138 H Respiratory Rate Blood Pressure Pulse Oximetry 96 96 96 Oxygen Delivery Method 10/02/25 14:48 10/02/25 15:00 10/02/25 15:00 Pulse Rate 149 H Respiratory Rate 20 Blood Pressure 153/94 H 136/97 H Pulse Oximetry 97 Oxygen Delivery Method 10/02/25 15:14 10/02/25 15:15 10/02/25 15:15 Pulse Rate 153 H 151 H Respiratory Rate 22 Blood Pressure 136/97 H 126/90 Pulse Oximetry 96 Oxygen Delivery Method 10/02/25 15:30 10/02/25 15:30 10/02/25 15:44 Pulse Rate 137 H 130 H Respiratory Rate 20 Blood Pressure 133/95 H 133/95 H Pulse Oximetry 95 Oxygen Delivery Method 10/02/25 15:45 10/02/25 15:45 10/02/25 16:00 Pulse Rate 141 H 144 H Respiratory Rate 22 22 Blood Pressure 126/87 Pulse Oximetry 97 96 Oxygen Delivery Method 10/02/25 16:00 10/02/25 16:15 10/02/25 16:15 Pulse Rate 142 H Respiratory Rate 20 Blood Pressure 116/83 130/93 H Pulse Oximetry 96 Oxygen Delivery Method 10/02/25 16:30 10/02/25 16:30 10/02/25 16:45 Pulse Rate 142 H Respiratory Rate 20 Blood Pressure 111/90 113/85 Pulse Oximetry 96 Oxygen Delivery Method 10/02/25 16:45 10/02/25 16:59 10/02/25 17:00 Pulse Rate 145 H 135 H 139 H Respiratory Rate 20 22 Blood Pressure Pulse Oximetry 95 96 Oxygen Delivery Method 10/02/25 17:00 10/02/25 17:15 10/02/25 17:15 Pulse Rate 135 H Respiratory Rate Blood Pressure 130/88 124/91 H 124/91 H Pulse Oximetry Oxygen Delivery Method 10/02/25 17:15 10/02/25 17:20 10/02/25 17:30 Pulse Rate 133 H 114 H 93 H Respiratory Rate 25 H 18 Blood Pressure 124/91 H Pulse Oximetry 96 95 Oxygen Delivery Method 10/02/25 17:31 10/02/25 17:31 10/02/25 17:58 Pulse Rate 94 H 129 H Respiratory Rate 22 22 Blood Pressure 138/83 Pulse Oximetry 96 Oxygen Delivery Method 10/02/25 17:58 10/02/25 18:00 10/02/25 18:35 Pulse Rate 127 H Respiratory Rate 20 Blood Pressure 156/84 H Pulse Oximetry 92 Oxygen Delivery Method Nasal Cannula Oxygen Delivery Method Nasal Cannula Narrative Exam Narrative: Vitals reviewed and notable for tachycardia Alert and oriented, well-nourished, well-developed, no acute distress Tachycardic, irregular, no murmurs Clear to auscultation bilaterally Abdomen tense, distended, dull to percussion, with diffuse tenderness to palpation Warm without edema Neuro grossly nonfocal Pleasant and cooperative Objective ECG Impression: EKG demonstrates atrial fibrillation with rapid ventricular rate Imaging CT scan - abdomen: Radiologist's impression: Abdominal pelvic CT with significant interval increase in ascites, now large. Suspect peritoneal carcinomatosis, increased size of 1 or 2 liver lesions inpatient with underlying cirrhosis, bilateral [id number] pleural effusions Labs 10/02/25 11:30 10/02/25 11:30 Labs: Laboratory Results - last 24 hr 10/02/25 11:30 WBC 9.5 RBC 4.66 Hgb 14.4 Hct 43.5 MCV 93.3 MCH 30.8 MCHC 33.0 RDW 15.2 H Plt Count 270 Neut % (Auto) 78.9 H Lymph % (Auto) 11.5 L [place] % (Auto) 7.9 Eos % (Auto) 1.0 L Baso % (Auto) 0.7 Neut # (Auto) 7500 H Lymph # (Auto) 1100 eviewed and notable forMono # (Auto) 700 Eos # (Auto) 100 Baso # (Auto) 100 Sodium 133 L Potassium 3.7 Chloride 99 Carbon Dioxide 24 BUN 18 Creatinine 0.81 Estimated GFR > 60 BUN/Creatinine Ratio 22.2 H Glucose 125 H Calcium 8.8 Total Bilirubin 0.8 AST 35 ALT 27 Alkaline Phosphatase 110 Total Protein 7.4 Albumin 3.7 Globulin 3.7 Albumin/Globulin Ratio 1.0 Lipase 31 Assessment & Plan Assessment & Plan narrative: 85-year-old male with increasing ascites, possible peritoneal carcinomatosis and cirrhosis demonstrated on CT. He was referred for paracentesis but was found to be in AFib with rapid ventricular rate. The AFib is not new but he is generally rate rate controlled. Atrial fibrillation with RVR Noting any coagulated with anything besides aspirin because he is status post Watchman Continue aspirin Continue diltiazem drip, taper off as tolerated Resume outpatient metoprolol Cirrhosis Ascites Possible peritoneal carcinomatosis Therapeutic/diagnostic Paracentesis tomorrow if the patient's rate is controlled -study has not been ordered pending response to diltiazem drip Follow-up with gastroenterology in [place] for further evaluation of liver disease and peritoneal carcinomatosis Time-Based Coding :: 55 minutes spent with patient and on the chart (including review of chart, obtaining history, exam, reviewing outside data, placing orders, documenting exam and treatment plan, and counseling patient).
[2025-10-02] MEDS: MORPHINE 2 MG/ML INJ IV (21:29)
[2025-10-02] MEDS: tiZANidine 4 MG TABLET 12 MG PO (21:33)
[2025-10-02] MEDS: AMITRIPTYLINE 10 MG TABLET PO (21:33)
[2025-10-02] MEDS: GABAPENTIN 600 MG TABLET 1200 MG PO (21:37)
[2025-10-02] MEDS: TAMSULOSIN 0.4 MG CAPSULE PO (21:37)
[2025-10-03] VITALS (88 sets, daily range): BP systolic 71–175; BP diastolic 52–110; PULSE 70–144; RESP 14–27; TEMP 36.2–36.7; O2SAT 89–98
[2025-10-03 05:30] LABS: Blood Urea Nitrogen 15 mg/dL (9-20); Calcium 8.4 mg/dL (8.4-10.2); Carbon Dioxide 25 mmol/L (22-32); Chloride 101 mmol/L (98-107); Estimated Glomerular Filt Rate > 60 mL/min (>60); Glucose 115 mg/dL (70-99); HEMOLYSIS < 15 (0-50); Potassium 3.6 mmol/L (3.4-5.1); Sodium 134 mmol/L (137-145)
[2025-10-03 05:33] LABS: Add Manual Diff / Slide Review NO; Hematocrit 40.4 % (41-53); Hemoglobin 13.4 g/dL (13.5-17.5); Lymphocytes Absolute Auto 1200 /uL (1100-4500); Mean Corpuscular HGB Conc 33.1 % (30-36); Mean Corpuscular Hemoglobin 30.6 PG (26-34); Mean Corpuscular Volume 92.6 fL (80-100); Platelet Count 246 X10^3/uL (150-400)
[2025-10-03] MEDS: PANTOPRAZOLE DR 20 MG TABLET PO (05:58)
[2025-10-03] MEDS: IBUPROFEN 600 MG TABLET PO ×2 (07:56→17:05)
[2025-10-03] MEDS: GABAPENTIN 600 MG TABLET PO ×3 (07:57→17:05)
--- NOTE | 2025-10-03 08:42 | DI.CT.S_ITS ---
PROCEDURE: CT CHEST WO CON INDICATIONS: chf effusion TECHNIQUE: Noncontrast 5 mm thick sections acquired from the pulmonary apices to the posterior costophrenic angles. 1 mm lung window, 5 mm thick coronal and sagittal and 7 mm axial MIP reformats were then acquired. For radiation dose reduction, the following was used: automated exposure control, adjustment of mA and/or kV according to patient size. COMPARISON: [facility], CT, CT CHEST ABD PEL W CON, 08/02/2025, 16:10. FINDINGS: Image quality: Diagnostic. Lower Neck: No enlarged lymph nodes. Thyroid: No thyroid nodules which require sonographic follow up, per consensus guidelines. Axillae: No enlarged lymph nodes. Chest Wall: Unremarkable. Bones: Unremarkable. Lungs and Pleura: N no pneumothorax. Small left and moderate right layering dependent pleural effusions. Smooth interlobular septal thickening with subpleural ground-glass opacities mild consistent with pulmonary edema. Heart: Heart size is enlarged with a left atrial closure device, aortic valve calcifications, and moderate LAD and left circumflex coronary artery calcifications.. No pericardial effusion. Thoracic Vessels: The aorta and pulmonary arteries demonstrate normal size. Mediastinum and Mable: No enlarged lymph nodes. Esophagus: No wall thickening. Large hiatal hernia. Upper Abdomen: Cirrhotic liver morphology with moderate abdominal ascites. IMPRESSION: Moderate pulmonary edema with right moderate and small left pleural effusions. Cardiomegaly with biatrial enlargement, and moderate coronary artery calcifications. Large hiatal hernia. Partially visualized cirrhosis with moderate ascites. Dictated by: Jonatan Beckwith M.D. on 10/03/2025 at 17:17 Approved by: Jonatan Beckwith M.D. on 10/03/2025 at 17:20
[2025-10-03] MEDS: LIDOCAINE 5% PATCH 1 EACH TOP (09:24)
[2025-10-03] MEDS: ASPIRIN EC 81 MG TABLET PO (09:25)
[2025-10-03] MEDS: ATORVASTATIN 20 MG TABLET PO (09:25)
[2025-10-03] MEDS: TAMSULOSIN 0.4 MG CAPSULE PO ×2 (09:25→21:57)
[2025-10-03] MEDS: METOPROLOL ER 25 MG TABLET 37.5 MG PO ×2 (09:31→21:48)
--- NOTE | 2025-10-03 10:31 | DI.ECHO.S_ITS ---
[facility] : : [id number] : [place] : : [id number] : : Phone: [phone] Echocardiogram Report + + :Name: LIVAN GARCIA Study Date: 10/04/2025 Height: 72 in : :[facility] ReadingLocation: Weight: 264 lb : : Gender: Male BSA: 2.4 m2 : :: 1940 Age: 85 yrs BP: 107/78 mmHg: :Reason For Study: ATRIAL FIBRILLATION : :Ordering Physician: TELMA, : :RAY Performed By: Robert Morgan : :Referring: RAY HOLLIS : + + Interpretation Summary This is a technically difficult study characterized by limited endocardial visualization. It was a limited study in scope ordered for A-fib evaluation; available views suggest that the goal of the study was to evaluate LV systolic function. Next time I recommend Definity echo contrast due to limited endocardial visualization on apical views. A-fib with variable rate; heart rate is 99-115 bpm. Normal LV size and mild concentric LVH. There is mild global hypokinesis. Ejection fraction is mildly reduced estimated at 45-50%.. D-shaped LV in systole and diastole consistent with RV pressure overload. Aortic valve is a trileaflet structure characterized by moderately thickened and calcified leaflets with mildly reduced leaflet excursion. Mildly dilated aortic root. Compared to prior echo July 26, 2025 LV is slightly less dynamic. Ejection fraction is down from 50-55% to 45-50%. D-shaped appearance of LV in systole and diastole is stable. Procedure: A two-dimensional transthoracic echocardiogram with color flow and Doppler was performed. The study quality was technically adequate. Comparison is made with the echocardiogram of 07/26/2025. The patient was in atrial fibrillation with heart rates between 82-121 bpm during the exam. Left Ventricle: The left ventricle is normal in size. Left ventricular wall thickness is mildly increased. A false chord is noted (normal variant). The ejection fraction is estimated to be 45-50%. Mitral Valve: There is mild to moderate mitral annular calcification. The mitral valve leaflets appear mildly thickened. There is no mitral regurgitation noted. Aortic Valve: The aortic valve is trileaflet. The aortic valve is moderately calcified. No aortic regurgitation is present. Tricuspid Valve: There is mild tricuspid regurgitation. The right ventricular systolic pressure is estimated to be at least 40 mmHg based on an estimated right atrial pressure of 8 mm Hg. Pulmonic Valve: The pulmonic valve is not well visualized. There is trace pulmonic regurgitation. Great Vessels: The aortic root is mildly dilated. The IVC is dilated (diameter is greater than 2.1 cm) yet it collapses greater than 50% with a sniff. This suggests a right atrial pressure of 8 mm Hg. Pericardium/ Pleura There is no pericardial effusion. There is no pleural effusion. MMode/2D Measurements & Calculations LVIDd: 3.6 cm Ao root diam: 4.1 cm LVIDs: 2.9 cm FS: 20.8 % IVSd: 1.2 cm LVPWd: 1.1 cm LV potter. diameter/BSA (cm/m^2): 1.5 LV sys. diameter/BSA (cm/m^2): 1.2 Doppler Measurements & Calculations TR max candy: 280.5 cm/sec TR max P.5 mmHg Electronically signed by: Herminia Farmer M.D. on Reading Physician:10/04/2025 03:15 PM
[2025-10-03] MEDS: AMIODARONE 150 MG/100 ML PIGGYBACK 600 MG IV (11:51)
[2025-10-03 12:02] LABS: NT-proBNP (BNP-Adult 18+) 1540 pg/mL (<450)
[2025-10-03] MEDS: AMIODARONE 360 MG/200 ML PIGGYBACK 33.3 MG IV (12:08)
[2025-10-03] MEDS: MORPHINE 2 MG/ML INJ IV ×2 (14:06→21:46)
[2025-10-03] MEDS: DOCUSATE 100 MG CAPSULE PO ×2 (15:23→21:50)
--- NOTE | 2025-10-03 15:37 | CM.DANOTE ---
Initial DCP Assessment Note. Review EMR and PT Interview. Met with patient at bedside to discuss discharge needs.PT is alert x 4 sitting up in bed.. No acute distress. Dependent on DME Lives with . [facility]. P. [phone] Payor:?MCR? PCP: Summary & Plan: 85 y/o male arrived to ED via POV c/o Abd pain. Admitted INPT. Dx. Acites, A. Fib. with RVR. Plan: Medical management of Heart Rate, Diagnostic Parenthesis (r/o CA). History of Whatchman procedure. Discharge Planning/Care Management CM Discharge Assessment Start: 10/02/25 17:20 Freq: Status: Active Protocol: Document 10/03/25 15:35 SM (Rec: 10/03/25 15:37 SM [id number]) Discharge Planning Assessment Assigned Discharge Marina Freedman RN CM Home Theater Experience Expert Provider Dr. Portillo Insurance Medicare Advance Directives? No History Provided By Patient,Significant Other,Medical Record Prior Living House Arrangements Household Members spouse Type of Drives own vehicle transporation used prior to admit Caregiver for No Another Comment TBD DME Already Rented / Bath Bench,FWW / Walker,Cane,Bedside Commode Owned Comment TBD Barriers to No Discharge Comment Home w/spouse with close outpatient follow up Discharge Plan Home Transportation Spouse Arrangement Additional Comment TBD Review Status In Process Please Provide Date 10/03/25 Initial DC Assessment Was Performed Next Review Type Continued Stay Review
--- NOTE | 2025-10-03 16:09 | PC.NURSE ---
[id number] pt has had difficulty with bowel movements; added colace to orders; pt started this; pt has rested in bed after lunch; HR still tachy; amiodarone continues as charted. pt has visiting; BP is more stable than this am. will continue to follow for all changes. Placed 20 g IV right anterior wrist about 1115, this got accidentally removed when pt got out of chair to go to bed; site at left AC in use for IV med; pt tolerating care well. spouse remains with pt.
--- NOTE | 2025-10-03 16:14 | PC.NURSE ---
pt tolerated IV access for 2nd site; this site got accidentally removed when pt went from chair back to bed.
--- NOTE | 2025-10-03 16:32 | P.PN_ITS ---
Subjective Subjective Date Patient Seen: 10/03/25 Time Patient Seen: 16:32 Interval history: Chief complaint: Abdominal discomfort with the ascites with possible carcinomatosis versus portal hypotension or congestive hepatopathy with AFib RVR History of present illness: 10/02: 85-year-old male with atrial fibrillation status post Watchman, hypertension, hyperlipidemia, chronic back pain with spinal stimulator who presents with increasing abdominal discomfort and distention. The patient notes that the edges of his belly hurt. He ascribes this pain to being liver pain. He has ascites for which she has been followed by Gastroenterology in [place]. The patient tells me that they initially thought he had cirrhosis then fatty liver. He also mentioned that 1 of the providers said his liver problem might be related to chronic Tylenol use. Patient states that he takes up to 6 500 mg Tylenol tablets daily and has been doing this for 15 years. He is scheduled for an MRI of his abdomen on 10/09/2025 in [place]. The MRI can not be done locally because he has a spinal stimulator. The patient was sent to the ER by his primary care provider for paracentesis for diagnosis and for therapeutic reasons. However presentation in the emergency room he was found to have rapid ventricular rate not responsive to IV diltiazem or IV metoprolol. He was then placed on a diltiazem drip and admitted to the ICU. The patient denies chest pain or shortness of breath. He has not been having nausea or vomiting. He notes just the abdominal distention, pain and decreased appetite. Otherwise review of systems is negative. CT abdomen and pelvis: 1. Significant interval increase in ascites, now large. 2. Suspect peritoneal carcinomatosis. 3. Interval increase in 1 and possibly 2 liver lesions in a patient with underlying cirrhosis. Suspect hepatoma. 3. Bilateral mild to moderate pleural effusions with bibasilar atelectasis now present. 4. Cardiomegaly. CT of the chest by my evaluation does not show pericardial effusion any change from previous done in July Hospital course: 10/03: Discussed the patient with Dr. Dias [phone] we reviewed the findings and recommendations were to start amiodarone infusion and consider digoxin 250 mcg for [address] of the chest does not show pericardial effusion pain can obtain an echocardiogram tomorrow. Concern is that the increased abdominal pressure is compressing or reducing the flow of the IVC and triggering rapid response to chronic atrial fibrillation. We will need an attempt to do ultrasound-guided paracentesis hopefully this will help relieve Review of systems: No fever or chills rigors No chest pain dyspnea despite tachycardia Is having abdominal pain discomfort especially with coughing No nausea vomiting diarrhea Physical exam: Alert cogent elderly male HEENT unremarkable Heart irregularly irregular rhythm Lungs clear from apices to bases Abdomen is tense not particularly locally tender but generalized tenderness Extremities 2+ pedal edema Assessment and plan 85-year-old male with increasing ascites, possible peritoneal carcinomatosis and cirrhosis demonstrated on CT. He was referred for paracentesis but was found to be in AFib with rapid ventricular rate. The AFib is not new but he is generally rate rate controlled. Atrial fibrillation with RVR Noting any coagulated with anything besides aspirin because he is status post Watchman * Continue aspirin * Loading with amiodarone and digoxin short-term (complications may occur and long-term use) * Echocardiogram to evaluate for compression of the IVC and hemodynamics * Attempt to get a paracentesis and observe the effect Cirrhosis Ascites Possible peritoneal carcinomatosis * Therapeutic/diagnostic Paracentesis tomorrow if the patient's rate is controlled -study has not been ordered pending response to diltiazem drip * Follow-up with gastroenterology in [place] for further evaluation of liver disease and peritoneal carcinomatosis DVT prophylaxis: * Aspirin and SCDs only Code status: * Full code blue Disposition: * Inpatient ICU Time-Based Coding :: 55 minutes spent with patient and on the chart (including review of chart, obtaining history, exam, reviewing outside data, placing orders, documenting exam and treatment plan, and counseling patient). Exam Vital Signs (past 8 hours): - 10/03/25 08:45 10/03/25 08:45 10/03/25 08:50 Temperature 97.1 F L Pulse Rate 70 Respiratory Rate Blood Pressure 117/79 Pulse Oximetry 95 10/03/25 09:01 10/03/25 09:28 10/03/25 09:29 Temperature Pulse Rate 134 H Respiratory Rate Blood Pressure 113/84 107/69 Pulse Oximetry 98 10/03/25 09:30 10/03/25 09:31 10/03/25 10:33 Temperature Pulse Rate 82 144 H 136 H Respiratory Rate Blood Pressure 107/68 Pulse Oximetry 98 89 L 10/03/25 10:36 10/03/25 10:36 10/03/25 10:39 Temperature Pulse Rate 122 H 129 H Respiratory Rate Blood Pressure 107/81 Pulse Oximetry 96 96 10/03/25 11:00 10/03/25 11:11 10/03/25 11:17 Temperature Pulse Rate 140 H 120 H Respiratory Rate 27 H Blood Pressure 106/77 106/77 Pulse Oximetry 10/03/25 11:30 10/03/25 11:58 10/03/25 11:58 Temperature Pulse Rate 136 H 139 H Respiratory Rate 20 18 Blood Pressure 133/84 Pulse Oximetry 10/03/25 12:00 10/03/25 12:00 10/03/25 12:02 Temperature Pulse Rate 137 H 134 H Respiratory Rate 22 21 Blood Pressure 107/75 Pulse Oximetry 10/03/25 12:02 10/03/25 12:05 10/03/25 12:05 Temperature Pulse Rate 129 H Respiratory Rate 22 Blood Pressure 112/82 110/80 Pulse Oximetry 10/03/25 12:11 10/03/25 12:11 10/03/25 12:15 Temperature Pulse Rate 128 H 129 H Respiratory Rate 18 18 Blood Pressure 120/79 Pulse Oximetry 10/03/25 12:15 10/03/25 12:21 10/03/25 12:21 Temperature Pulse Rate 135 H Respiratory Rate 21 Blood Pressure 133/82 152/94 H Pulse Oximetry 10/03/25 12:26 10/03/25 12:26 10/03/25 12:30 Temperature Pulse Rate 133 H 137 H Respiratory Rate 23 23 Blood Pressure 120/75 Pulse Oximetry 10/03/25 12:32 10/03/25 12:32 10/03/25 12:35 Temperature Pulse Rate 133 H 135 H Respiratory Rate 20 23 Blood Pressure 111/89 Pulse Oximetry 10/03/25 12:35 10/03/25 12:40 10/03/25 12:40 Temperature Pulse Rate 129 H Respiratory Rate 19 Blood Pressure 119/87 111/90 Pulse Oximetry 10/03/25 12:45 10/03/25 12:45 10/03/25 13:00 Temperature Pulse Rate 131 H 132 H Respiratory Rate 20 22 Blood Pressure 127/95 H Pulse Oximetry 10/03/25 13:03 10/03/25 13:03 10/03/25 13:06 Temperature Pulse Rate 127 H 125 H Respiratory Rate 23 20 Blood Pressure 145/93 H Pulse Oximetry 10/03/25 13:06 10/03/25 13:11 10/03/25 13:11 Temperature Pulse Rate 120 H Respiratory Rate 19 Blood Pressure 107/66 108/73 Pulse Oximetry 10/03/25 13:15 10/03/25 13:15 10/03/25 13:20 Temperature Pulse Rate 124 H 124 H Respiratory Rate 19 19 Blood Pressure 108/66 Pulse Oximetry 10/03/25 13:20 10/03/25 13:30 10/03/25 13:30 Temperature Pulse Rate 124 H Respiratory Rate 16 Blood Pressure 117/73 110/68 Pulse Oximetry 10/03/25 13:35 10/03/25 13:35 10/03/25 13:40 Temperature Pulse Rate 130 H Respiratory Rate 19 Blood Pressure 122/81 139/101 H Pulse Oximetry 10/03/25 13:40 10/03/25 13:46 10/03/25 13:46 Temperature Pulse Rate 132 H 130 H Respiratory Rate 21 17 Blood Pressure 156/87 H Pulse Oximetry 10/03/25 13:51 10/03/25 13:51 10/03/25 13:57 Temperature Pulse Rate 129 H Respiratory Rate 17 Blood Pressure 115/61 102/75 Pulse Oximetry 10/03/25 13:57 10/03/25 14:00 10/03/25 14:00 Temperature Pulse Rate 126 H 126 H Respiratory Rate 16 16 Blood Pressure 112/68 Pulse Oximetry 10/03/25 14:05 10/03/25 14:05 10/03/25 14:39 Temperature Pulse Rate 126 H 118 H Respiratory Rate 21 25 H Blood Pressure 112/86 Pulse Oximetry 90 L 10/03/25 14:43 10/03/25 14:43 10/03/25 15:00 Temperature Pulse Rate 125 H 126 H Respiratory Rate 18 17 Blood Pressure 106/79 Pulse Oximetry 95 95 10/03/25 15:00 10/03/25 15:30 10/03/25 15:30 Temperature Pulse Rate 127 H Respiratory Rate 19 Blood Pressure 114/62 135/75 Pulse Oximetry 96 10/03/25 16:00 10/03/25 16:00 10/03/25 16:04 Temperature Pulse Rate 129 H 130 H Respiratory Rate 19 20 Blood Pressure 146/107 H Pulse Oximetry 96 96 10/03/25 16:04 Temperature Pulse Rate Respiratory Rate Blood Pressure 127/94 H Pulse Oximetry Oxygen Delivery Method Nasal Cannula Oxygen Flow Rate 2 Objective Labs 10/03/25 04:45 10/03/25 04:45 Labs: Laboratory Results - last 24 hr 10/03/25 04:45 WBC 7.6 RBC 4.36 L Hgb 13.4 L Hct 40.4 L MCV 92.6 MCH 30.6 MCHC 33.1 RDW 15.2 H Plt Count 246 Neut % (Auto) 71.5 Lymph % (Auto) 16.3 L [place] % (Auto) 9.2 Eos % (Auto) 1.8 L Baso % (Auto) 1.2 Neut # (Auto) 5400 Lymph # (Auto) 1200 [place] # (Auto) 700 Eos # (Auto) 100 Baso # (Auto) 100 Sodium 134 L Potassium 3.6 Chloride 101 Carbon Dioxide 25 BUN 15 Creatinine 0.74 Estimated GFR > 60 BUN/Creatinine Ratio 20.3 Glucose 115 H Calcium 8.4 NT-Pro-B Natriuret Pep 1540 H PFS Medical History Chronic atrial fibrillation with rapid ventricular response Cirrhosis of liver Insomnia Greater trochanteric bursitis of right hip Mild concussion Presence of Watchman left atrial appendage closure device Cellulitis Rotator cuff tear arthropathy Leg edema BPH (benign prostatic hyperplasia) Spinal cord stimulator dysfunction Parkinsonism Depression COVID-19 (~02/2022) Degenerative joint disease of knee Uncomplicated opioid dependence Lumbar post-laminectomy syndrome Paroxysmal atrial fibrillation (~11/09/17) Chronic pain Chronic anticoagulation Other insomnia (06/26/16) Mixed hyperlipidemia (12/19/15) Obstructive sleep apnea syndrome Dorsalgia 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) Surgical History History of repair of right rotator cuff Family History Brother Family history of esophageal cancer Social History marital status: number of children: 2 household members: spouse lives independently: Yes caregiver/support person: No housing: house pets and animals: No education level: college occupational status: other current occupational exposures/hazards: No 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
[2025-10-03] MEDS: DIGOXIN 500 MCG/2 ML AMPUL 250 MCG IV ×2 (17:35→23:30)
[2025-10-03] MEDS: AMIODARONE 360 MG/200 ML PIGGYBACK 16.7 MG IV (18:05)
--- NOTE | 2025-10-03 18:36 | PC.NURSE ---
[id number] has followed pt.and effects of Amiodarone Pt has remained in afib with rate above 110; pt has had some abd. pain; pt reports some issues in his past history with swallowing and has had some issues with recent cough. Spouse is still with pt; pt is able to sit up in chair and use restroom as needed; pt able to use walker and take steps; pt has no acute changes in heart rate with motion, but afib. has been addressed by Cardiology and hospitalist; IV digoxin initiated; Amioderone continues at the standard rate 16.7 ml/hr for this time.
--- NOTE | 2025-10-03 18:55 | PC.NURSE ---
1615 placed SL IV left wrist and noted great blood return and easy flush with NS; pt tolerated this site and IV digoxin well tolerated; HR by 1900 remains above 120; pt has no new symptoms.
[2025-10-03] MEDS: guaiFENesin Solution 100 MG/5 ML UDC 200 MG PO (21:45)
[2025-10-03] MEDS: GABAPENTIN 600 MG TABLET 1200 MG PO (21:46)
[2025-10-03] MEDS: AMITRIPTYLINE 10 MG TABLET PO (21:47)
[2025-10-03 21:48] LABS: Magnesium 2.0 mg/dL (1.6-2.3)
[2025-10-04] VITALS (86 sets, daily range): BP systolic 84–161; BP diastolic 51–101; PULSE 76–145; RESP 13–33; TEMP 36.2–36.4; O2SAT 90–97
[2025-10-04] MEDS: DIGOXIN 500 MCG/2 ML AMPUL 250 MCG IV ×2 (04:34→10:41)
[2025-10-04] MEDS: PANTOPRAZOLE DR 20 MG TABLET PO (05:21)
[2025-10-04] MEDS: AMIODARONE 180 MG/100 ML PIGGYBACK 16.7 MG IV (05:23)
[2025-10-04] MEDS: MORPHINE 2 MG/ML INJ IV (05:42)
[2025-10-04] MEDS: LIDOCAINE 5% PATCH 1 EACH TOP (05:59)
[2025-10-04 08:06] LABS: Add Manual Diff / Slide Review NO; Hematocrit 42.8 % (41-53); Hemoglobin 14.3 g/dL (13.5-17.5); Lymphocytes Absolute Auto 1400 /uL (1100-4500); Mean Corpuscular HGB Conc 33.6 % (30-36); Mean Corpuscular Hemoglobin 31.0 PG (26-34); Mean Corpuscular Volume 92.5 fL (80-100); Platelet Count 259 X10^3/uL (150-400)
[2025-10-04 08:15] LABS: INR 1.2 (0.9-1.3); Prothrombin Time 13.2 SECONDS (9.4-12.5)
[2025-10-04 08:18] LABS: PTT Partial Thromboplastin Tim 32 SECONDS (25.1-36.5)
[2025-10-04 08:20] LABS: Alanine Aminotransferase 28 IU/L (<50); Albumin 3.5 g/dL (3.5-5.0); Albumin Globulin Ratio 1.0 (1.0-2.8); Alkaline Phosphatase 119 U/L (38-126); Blood Urea Nitrogen 15 mg/dL (9-20); Calcium 8.7 mg/dL (8.4-10.2); Carbon Dioxide 27 mmol/L (22-32); Chloride 97 mmol/L (98-107); Estimated Glomerular Filt Rate > 60 mL/min (>60); Globulin 3.6 g/dL (1.7-4.1); Glucose 125 mg/dL (70-99); HEMOLYSIS 19 (0-50); Magnesium 1.9 mg/dL (1.6-2.3); Potassium 3.9 mmol/L (3.4-5.1); Sodium 133 mmol/L (137-145); Total Protein 7.1 g/dL (6.3-8.2)
[2025-10-04] MEDS: GABAPENTIN 600 MG TABLET PO ×3 (08:27→17:38)
[2025-10-04] MEDS: ATORVASTATIN 20 MG TABLET PO (08:27)
[2025-10-04] MEDS: DOCUSATE 100 MG CAPSULE PO (08:27)
[2025-10-04] MEDS: METOPROLOL ER 25 MG TABLET 37.5 MG PO ×2 (08:27→20:42)
[2025-10-04] MEDS: TAMSULOSIN 0.4 MG CAPSULE PO ×2 (08:27→20:43)
[2025-10-04] MEDS: ASPIRIN EC 81 MG TABLET PO (08:27)
[2025-10-04] MEDS: guaiFENesin Solution 100 MG/5 ML UDC 200 MG PO (08:32)
--- NOTE | 2025-10-04 08:49 | PC.NURSE ---
0730 DR CASTRO AT BEDSIDE. AWARE OF PT WITH CONTINUED AFIB RVR 130S-140S ON AMIO GTT. PLAN DISCUSSED WITH MD. AWAITING ECHO. 0830 DR CASTRO AT BEDSIDE. STATES ER DOC PLANNING TO COME UP TO PERFORM PARACENTESIS.
--- NOTE | 2025-10-04 10:18 | PM.CN.IH.1 ---
History of Present Illness Consult details Date Patient Seen: 10/04/25 Time Patient Seen: 10:18 Chief complaint: Ascites Reason for consult: Paracentesis Requesting provider: Km Medina Narrative: Surgical consult requested for paracentesis procedure. 85yo M with worsening ascites, caval compression, reduced cardiac preload. Meds Home Medications and Allergies Home Medications ?Medication ?Instructions ?Recorded ?Confirmed ?Type clindamycin phosphate 1 % lotion 1 % topical BID #60 mL 11/09/18 10/02/25 Rx tamsulosin 0.4 mg capsule 0.4 mg PO BID #180 caps 11/09/24 10/02/25 Rx ascorbate calcium (vitamin C) 1 tab PO .qday 11/10/24 10/02/25 History aspirin 81 mg tablet,delayed 81 mg PO DAILY 11/10/24 10/02/25 History release (Adult Low Dose Aspirin) cholecalciferol (vitamin D3) 1 tab PO 11/10/24 09/10/25 History hydrochlorothiazide 12.5 mg tablet 12.5 mg PO DAILY #90 tabs 03/16/25 10/02/25 Rx duloxetine 60 mg capsule,delayed 60 mg PO DAILY #90 caps 04/16/25 10/02/25 Rx release azelastine 137 mcg (0.1 %) nasal 2 spray intranasal Q12H 05/21/25 10/02/25 History spray lidocaine 5 % topical patch 1 patch topical DAILY #30 ea 08/28/25 10/02/25 Rx ipratropium bromide 42 mcg (0.06 2 spray intranasal ONCE PM PRN 08/30/25 10/02/25 History %) nasal spray Insomnia omeprazole 20 mg capsule,delayed 20 mg PO DAILY 08/30/25 10/02/25 History release tizanidine 4 mg tablet 12 mg PO DAILY PRN for muscle spasm 08/30/25 10/02/25 History duloxetine 30 mg capsule,delayed 30 mg PO DAILY #90 caps 09/25/25 10/02/25 Rx release amitriptyline 10 mg tablet 10 mg PO BEDTIME 10/02/25 10/02/25 History gabapentin 600 mg tablet See Rx Instructions PO .COMPLEX 10/02/25 10/02/25 History metoprolol succinate 25 mg 37.5 mg PO BID 10/02/25 10/02/25 History tablet,extended release 24 hr oxycodone 5 mg tablet 5 mg PO BID PRN pain #90 tabs 10/02/25 10/02/25 Rx polyethylene glycol 3350 17 17 g PO BID 10/02/25 10/02/25 History gram/dose oral powder rosuvastatin 10 mg tablet 10 mg PO DAILY #90 tabs 10/02/25 10/02/25 Rx Allergies Allergy/AdvReac Type Severity Reaction Status Date / Time codeine Allergy Verified 10/02/25 11:25 Exam Vital Signs (past 8 hours): - 10/04/25 02:30 10/04/25 03:00 10/04/25 03:00 Temperature Pulse Rate 125 H 126 H Respiratory Rate 21 20 Blood Pressure 140/70 Pulse Oximetry 92 93 Oxygen Delivery Method 10/04/25 03:30 10/04/25 04:00 10/04/25 04:00 Temperature Pulse Rate 125 H 127 H Respiratory Rate 25 H 24 Blood Pressure 127/82 Pulse Oximetry 91 92 Oxygen Delivery Method 10/04/25 04:13 10/04/25 04:30 10/04/25 04:34 Temperature 97.1 F L Pulse Rate 130 H 127 H Respiratory Rate 19 Blood Pressure 127/82 Pulse Oximetry 92 Oxygen Delivery Method 10/04/25 05:17 10/04/25 05:30 10/04/25 06:00 Temperature Pulse Rate 126 H 127 H 128 H Respiratory Rate 22 20 18 Blood Pressure Pulse Oximetry 94 94 93 Oxygen Delivery Method 10/04/25 06:30 10/04/25 06:47 10/04/25 06:47 Temperature Pulse Rate 133 H 132 H Respiratory Rate 18 20 Blood Pressure 121/82 Pulse Oximetry 95 94 Oxygen Delivery Method 10/04/25 07:00 10/04/25 07:00 10/04/25 07:30 Temperature Pulse Rate 136 H 138 H Respiratory Rate 20 21 Blood Pressure 124/83 Pulse Oximetry 94 94 Oxygen Delivery Method 10/04/25 08:00 10/04/25 08:00 10/04/25 08:27 Temperature Pulse Rate 135 H 134 H Respiratory Rate 25 H Blood Pressure 124/83 131/98 H Pulse Oximetry Oxygen Delivery Method Room Air 10/04/25 08:28 10/04/25 08:28 10/04/25 08:30 Temperature Pulse Rate 137 H 137 H Respiratory Rate 19 24 Blood Pressure 131/98 H Pulse Oximetry 95 95 Oxygen Delivery Method 10/04/25 09:00 10/04/25 09:03 10/04/25 09:03 Temperature Pulse Rate 141 H 124 H Respiratory Rate 33 H 24 Blood Pressure 107/78 Pulse Oximetry 95 96 Oxygen Delivery Method 10/04/25 09:34 Temperature Pulse Rate 120 H Respiratory Rate Blood Pressure 107/78 Pulse Oximetry Oxygen Delivery Method Oxygen Delivery Method Room Air Oxygen Flow Rate 0 Narrative Exam Narrative: ABD: distended abd with ascites, non-peritoneal Objective Labs 10/04/25 07:58 10/04/25 07:58 Labs: Laboratory Results - last 24 hr 10/03/25 10/03/25 10/04/25 04:45 21:17 07:58 WBC 9.8 RBC 4.62 Hgb 14.3 Hct 42.8 MCV 92.5 MCH 31.0 MCHC 33.6 RDW 14.7 Plt Count 259 Neut % (Auto) 77.1 H Lymph % (Auto) 13.7 L [place] % (Auto) 7.1 Eos % (Auto) 1.4 L Baso % (Auto) 0.7 Neut # (Auto) 7600 H Lymph # (Auto) 1400 [place] # (Auto) 700 Eos # (Auto) 100 Baso # (Auto) 100 PT 13.2 H INR 1.2 APTT 32 Sodium 133 L Potassium 3.9 Chloride 97 L Carbon Dioxide 27 BUN 15 Creatinine 0.76 Estimated GFR > 60 BUN/Creatinine Ratio 19.7 Glucose 125 H Calcium 8.7 Magnesium 2.0 1.9 Total Bilirubin 0.6 AST 45 ALT 28 Alkaline Phosphatase 119 NT-Pro-B Natriuret Pep 1540 H Total Protein 7.1 Albumin 3.5 Globulin 3.6 Albumin/Globulin Ratio 1.0 PFSH Medical History Chronic atrial fibrillation with rapid ventricular response Cirrhosis of liver Insomnia Greater trochanteric bursitis of right hip Mild concussion Presence of Watchman left atrial appendage closure device Cellulitis Rotator cuff tear arthropathy Leg edema BPH (benign prostatic hyperplasia) Spinal cord stimulator dysfunction Parkinsonism Depression COVID-19 (~02/2022) Degenerative joint disease of knee Uncomplicated opioid dependence Lumbar post-laminectomy syndrome Paroxysmal atrial fibrillation (~11/09/17) Chronic pain Chronic anticoagulation Other insomnia (06/26/16) Mixed hyperlipidemia (12/19/15) Obstructive sleep apnea syndrome Dorsalgia 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) Surgical History History of repair of right rotator cuff Family History Brother Family history of esophageal cancer Social History marital status: number of children: 2 household members: spouse lives independently: Yes caregiver/support person: No housing: house pets and animals: No education level: college occupational status: other current occupational exposures/hazards: No 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 CT images demonstrate RUQ as best target due to large volume of ascites between liver and abdominal wall. Platelet count and coags acceptable for procedure The risks, benefits and options regarding the procedure were explained to the patient in detail. Risk discussion included but not limited to: bleeding, infection, injury to underlying viscera. The patient was encouraged to ask questions and they were answered to their satisfaction. The patient understands and is agreeable to proceed. Time-Based Coding :: [TOTAL MINUTES] spent with patient and on the chart (including review of chart, obtaining history, exam, reviewing outside data, placing orders, documenting exam and treatment plan, and counseling patient) on [DATE]. PROFEE Charge Codes Inpatient or Observation consultation: [id number]
--- NOTE | 2025-10-04 10:21 | PM.OP.1 ---
Operative Date/Time/Diagnoses Date of procedure: 10/04/25 Time of procedure: 10:21 Pre-op diagnosis: Malignant ascites Post-op diagnosis: same Procedure & Clinicians Procedure: Paracentesis Same procedure(s) as scheduled: Yes Indications: 85yo M with worsening malignant ascites, caval compression, decreased cardiac preload Surgeon: Sukh Salgado Assisted?: No Anesthesia Type: Local Operative Notes Findings: Easy access on initial insertion, high volume, thin, serous fluid Closure Type: not applicable Specimen(s): other (Specimen containers filled with ascites fluid for lab) Prosthetic devices, grafts, tissues, transplants, or devices: Paracentesis catheter Applied: other (Paracentesis catheter) Estimated Blood Loss (mL): 1 Blood products transfused: none Procedure in detail: After informed consent, the right upper quadrant was prepped and draped in the usual sterile manner. I selected a site in the right upper quadrant that was free of underlying viscera after reviewing the CT images. This site was anesthetized with 1% lidocaine a total of 5 cc. I infiltrated the skin and subcutaneous tissues. I made a small skin opening with the tip of an 11 blade. The paracentesis catheter was inserted easily and immediately returned ascites fluid. The needle was withdrawn and the catheter was advanced. It was secured to the skin with 2-0 silk and a sterile dressing. The tubing was connected to the catheter and applied to low intermittent wall suction. I filled the specimen containers with ascites fluid. The fluid was thin and serous and nonbloody. The patient tolerated the procedure well. All sharps used during the procedure were disposed of in the sharps container. The estimated blood loss was nil. This was performed as a bedside procedure in the ICU. Complications: none Post-operative Condition: stable Disposition: ICU Plan for aftercare: Continued ICU care
[2025-10-04] MEDS: AMIODARONE 200 MG TABLET PO ×2 (10:41→17:38)
--- NOTE | 2025-10-04 10:55 | CM.DPC ---
DCP Cont. Reviewed EMR and team rounds for pt's medical status and updates. Per Hospitalist, pt will be getting a paracentesis today. Monitoring for any final needs.
--- NOTE | 2025-10-04 11:13 | P.PN_ITS ---
Subjective Subjective Date Patient Seen: 10/04/25 Time Patient Seen: 11:14 Interval history: Chief complaint: Abdominal discomfort with the ascites with possible carcinomatosis versus portal hypotension or congestive hepatopathy with AFib RVR History of present illness: 10/02: 85-year-old male with atrial fibrillation status post Watchman, hypertension, hyperlipidemia, chronic back pain with spinal stimulator who presents with increasing abdominal discomfort and distention. The patient notes that the edges of his belly hurt. He ascribes this pain to being liver pain. He has ascites for which she has been followed by Gastroenterology in [place]. The patient tells me that they initially thought he had cirrhosis then fatty liver. He also mentioned that 1 of the providers said his liver problem might be related to chronic Tylenol use. Patient states that he takes up to 6 500 mg Tylenol tablets daily and has been doing this for 15 years. He is scheduled for an MRI of his abdomen on 10/09/2025 in [place]. The MRI can not be done locally because he has a spinal stimulator. The patient was sent to the ER by his primary care provider for paracentesis for diagnosis and for therapeutic reasons. However presentation in the emergency room he was found to have rapid ventricular rate not responsive to IV diltiazem or IV metoprolol. He was then placed on a diltiazem drip and admitted to the ICU. The patient denies chest pain or shortness of breath. He has not been having nausea or vomiting. He notes just the abdominal distention, pain and decreased appetite. Otherwise review of systems is negative. CT abdomen and pelvis: 1. Significant interval increase in ascites, now large. 2. Suspect peritoneal carcinomatosis. 3. Interval increase in 1 and possibly 2 liver lesions in a patient with underlying cirrhosis. Suspect hepatoma. 3. Bilateral mild to moderate pleural effusions with bibasilar atelectasis now present. 4. Cardiomegaly. CT of the chest by my evaluation does not show pericardial effusion any change from previous done in July Hospital course: 10/03: Discussed the patient with Dr. Dias [phone] we reviewed the findings and recommendations were to start amiodarone infusion and consider digoxin 250 mcg for [address] of the chest does not show pericardial effusion pain can obtain an echocardiogram tomorrow. Concern is that the increased abdominal pressure is compressing or reducing the flow of the IVC and triggering rapid response to chronic atrial fibrillation. We will need an attempt to do ultrasound-guided paracentesis hopefully this will help relieve 10/04: Developed nonproductive cough today paracentesis performed by Dr. Salgado and is draining heart rate still 135 despite amiodarone and digoxin intravenously converted over to oral amiodarone today Review of systems: No fever or chills rigors No chest pain dyspnea despite tachycardia Is having abdominal pain discomfort especially with coughing No nausea vomiting diarrhea Physical exam: Alert cogent elderly male HEENT unremarkable Heart irregularly irregular rhythm Lungs clear from apices to bases Abdomen is tense not particularly locally tender but generalized tenderness Extremities 2+ pedal edema Assessment and plan 85-year-old male with increasing ascites, possible peritoneal carcinomatosis and cirrhosis demonstrated on CT. He was referred for paracentesis but was found to be in AFib with rapid ventricular rate. The AFib is not new but he is generally rate rate controlled. Atrial fibrillation with RVR Noting any coagulated with anything besides aspirin because he is status post Watchman * Continue aspirin * Loading with amiodarone and digoxin short-term (complications may occur and long-term use) * Echocardiogram to evaluate for compression of the IVC and hemodynamics * Hopefully paracentesis we will reduce intra-abdominal pressure and possible IVC dynamics resulting in better rate control Cirrhosis Ascites Possible peritoneal carcinomatosis * Therapeutic/diagnostic Paracentesis performed 10/[address] Salgado sent for cell count cytology and culture * Follow-up with gastroenterology in [place] for further evaluation of liver disease and suspected peritoneal carcinomatosis DVT prophylaxis: * Aspirin and SCDs only Code status: * Full code blue Disposition: * Inpatient ICU Time-Based Coding :: 35 minutes spent with patient and on the chart (including review of chart, obtaining history, exam, reviewing outside data, placing orders, documenting exam and treatment plan, and counseling patient). Exam Vital Signs (past 8 hours): - 10/04/25 03:30 10/04/25 04:00 10/04/25 04:00 Temperature Pulse Rate 125 H 127 H Respiratory Rate 25 H 24 Blood Pressure 127/82 Pulse Oximetry 91 92 Oxygen Delivery Method 10/04/25 04:13 10/04/25 04:30 10/04/25 04:34 Temperature 97.1 F L Pulse Rate 130 H 127 H Respiratory Rate 19 Blood Pressure 127/82 Pulse Oximetry 92 Oxygen Delivery Method 10/04/25 05:17 10/04/25 05:30 10/04/25 06:00 Temperature Pulse Rate 126 H 127 H 128 H Respiratory Rate 22 20 18 Blood Pressure Pulse Oximetry 94 94 93 Oxygen Delivery Method 10/04/25 06:30 10/04/25 06:47 10/04/25 06:47 Temperature Pulse Rate 133 H 132 H Respiratory Rate 18 20 Blood Pressure 121/82 Pulse Oximetry 95 94 Oxygen Delivery Method 10/04/25 07:00 10/04/25 07:00 10/04/25 07:30 Temperature Pulse Rate 136 H 138 H Respiratory Rate 20 21 Blood Pressure 124/83 Pulse Oximetry 94 94 Oxygen Delivery Method 10/04/25 08:00 10/04/25 08:00 10/04/25 08:27 Temperature Pulse Rate 135 H 134 H Respiratory Rate 25 H Blood Pressure 124/83 131/98 H Pulse Oximetry Oxygen Delivery Method Room Air 10/04/25 08:28 10/04/25 08:28 10/04/25 08:30 Temperature Pulse Rate 137 H 137 H Respiratory Rate 19 24 Blood Pressure 131/98 H Pulse Oximetry 95 95 Oxygen Delivery Method 10/04/25 09:00 10/04/25 09:03 10/04/25 09:03 Temperature Pulse Rate 141 H 124 H Respiratory Rate 33 H 24 Blood Pressure 107/78 Pulse Oximetry 95 96 Oxygen Delivery Method 10/04/25 09:30 10/04/25 09:34 10/04/25 10:00 Temperature Pulse Rate 124 H 120 H Respiratory Rate 20 Blood Pressure 107/78 116/80 Pulse Oximetry 94 Oxygen Delivery Method 10/04/25 10:00 10/04/25 10:05 10/04/25 10:05 Temperature Pulse Rate 120 H 116 H Respiratory Rate 23 20 Blood Pressure 116/78 Pulse Oximetry 92 92 Oxygen Delivery Method 10/04/25 10:10 10/04/25 10:10 10/04/25 10:15 Temperature Pulse Rate 117 H 118 H Respiratory Rate 24 21 Blood Pressure 116/69 Pulse Oximetry 92 93 Oxygen Delivery Method 10/04/25 10:15 10/04/25 10:20 10/04/25 10:20 Temperature Pulse Rate 116 H Respiratory Rate 20 Blood Pressure 118/78 108/72 Pulse Oximetry 93 Oxygen Delivery Method 10/04/25 10:25 10/04/25 10:25 10/04/25 10:30 Temperature Pulse Rate 118 H 115 H Respiratory Rate 23 21 Blood Pressure 121/70 Pulse Oximetry 92 93 Oxygen Delivery Method 10/04/25 10:30 10/04/25 10:36 10/04/25 10:36 Temperature Pulse Rate 116 H Respiratory Rate 19 Blood Pressure 102/75 116/68 Pulse Oximetry 92 Oxygen Delivery Method 10/04/25 10:40 10/04/25 10:40 10/04/25 10:41 Temperature Pulse Rate 118 H 114 H Respiratory Rate 23 Blood Pressure 109/76 109/76 Pulse Oximetry 94 Oxygen Delivery Method 10/04/25 10:45 10/04/25 10:45 10/04/25 10:50 Temperature Pulse Rate 118 H 116 H Respiratory Rate 21 21 Blood Pressure 97/73 Pulse Oximetry 93 94 Oxygen Delivery Method 10/04/25 10:50 10/04/25 10:55 10/04/25 10:55 Temperature Pulse Rate 117 H Respiratory Rate 20 Blood Pressure 119/89 117/83 Pulse Oximetry 94 Oxygen Delivery Method Oxygen Delivery Method Room Air Oxygen Flow Rate 0 Objective Labs 10/04/25 07:58 10/04/25 07:58 Labs: Laboratory Results - last 24 hr 10/03/25 10/03/25 10/04/25 04:45 21:17 07:58 WBC 9.8 RBC 4.62 Hgb 14.3 Hct 42.8 MCV 92.5 MCH 31.0 MCHC 33.6 RDW 14.7 Plt Count 259 Neut % (Auto) 77.1 H Lymph % (Auto) 13.7 L [place] % (Auto) 7.1 Eos % (Auto) 1.4 L Baso % (Auto) 0.7 Neut # (Auto) 7600 H Lymph # (Auto) 1400 [place] # (Auto) 700 Eos # (Auto) 100 Baso # (Auto) 100 PT 13.2 H INR 1.2 APTT 32 Sodium 133 L Potassium 3.9 Chloride 97 L Carbon Dioxide 27 BUN 15 Creatinine 0.76 Estimated GFR > 60 BUN/Creatinine Ratio 19.7 Glucose 125 H Calcium 8.7 Magnesium 2.0 1.9 Total Bilirubin 0.6 AST 45 ALT 28 Alkaline Phosphatase 119 NT-Pro-B Natriuret Pep 1540 H Total Protein 7.1 Albumin 3.5 Globulin 3.6 Albumin/Globulin Ratio 1.0 PFSH Medical History Chronic atrial fibrillation with rapid ventricular response Cirrhosis of liver Insomnia Greater trochanteric bursitis of right hip Mild concussion Presence of Watchman left atrial appendage closure device Cellulitis Rotator cuff tear arthropathy Leg edema BPH (benign prostatic hyperplasia) Spinal cord stimulator dysfunction Parkinsonism Depression COVID-19 (~02/2022) Degenerative joint disease of knee Uncomplicated opioid dependence Lumbar post-laminectomy syndrome Paroxysmal atrial fibrillation (~11/09/17) Chronic pain Chronic anticoagulation Other insomnia (06/26/16) Mixed hyperlipidemia (12/19/15) Obstructive sleep apnea syndrome Dorsalgia 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) Surgical History History of repair of right rotator cuff Family History Brother Family history of esophageal cancer Social History marital status: number of children: 2 household members: spouse lives independently: Yes caregiver/support person: No housing: house pets and animals: No education level: college occupational status: other current occupational exposures/hazards: No 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
--- NOTE | 2025-10-04 11:38 | PC.NURSE ---
0981 DR MOSER AT BEDSIDE TO PERFORM PARACENTESIS. CONSENT COMPLETED BY AND PLACED IN CHART. TIME OUT DONE BY DR MOSER. APPROXIMATELY 15 MIN TO COMPLETE PROCEDURE. VITALS OBSERVED CONTINUOUSLY THROUGHOUT SHIFT. DRAIN PLACED TO LIWS PER DR CASTRO AT BEDSIDE. ASCITES FLUID DRAINING TO SUCTION CANISTER. LAB SAMPLES WALKED DOWN TO LAB.
[2025-10-04 12:01] LABS: Body Fluid Tot Nucleated Cells 620 /uL
[2025-10-04 12:48] LABS: Body Fluid Clotted? NO CLOTS PRESENT
[2025-10-04 13:04] LABS: Basophils Body Fluid 0 %; Eosinophils Body Fluid 0 %
[2025-10-04 13:26] LABS: Lymphocytes Body Fluid 49 %; Neutrophils Body Fluid 10 %
[2025-10-04 13:28] LABS: Abnormal Cells Body Fluid 7 %; MESO/MACRO/MONO Body Fluid 34 %
[2025-10-04 13:31] LABS: Comment Body Fluid ABNORMAL CELLS SEEN:
--- NOTE | 2025-10-04 14:27 | PC.NURSE ---
1415 MATTHEW AT BEDSIDE DISCUSSING PLAN OF CARE. PARACENTESIS DRAIN STOPPED/TUBING CLAMPED. BP STABLE BUT DECREASED WITH SYSTOLIC IN 90S. TOTAL OF 7.4L OF ASCITES FLUID REMOVED. CATHETER REMOVED BY AMBAR RANKIN PER DR CASTRO VERBAL ORDER. CHG TEGADERM DRESSING PLACED. PT STATES FEELING OF RELIEF. ABDOMEN APPEARS FLATTER/ SOFTER TO PALPATION COMPARED TO THIS MORNING.
[2025-10-04] MEDS: ALBUMIN HUMAN 12.5 GM/50 ML VIAL IV (14:51)
[2025-10-04] MEDS: AMITRIPTYLINE 10 MG TABLET PO (20:41)
[2025-10-04] MEDS: GABAPENTIN 600 MG TABLET 1200 MG PO (20:47)
[2025-10-04] MEDS: tiZANidine 4 MG TABLET 12 MG PO (20:56)
[2025-10-05] VITALS (45 sets, daily range): BP systolic 89–146; BP diastolic 53–82; PULSE 69–130; RESP 6–65; TEMP 36–36.6; O2SAT 91–96
[2025-10-05] MEDS: TAMSULOSIN 0.4 MG CAPSULE PO ×2 (08:55→20:31)
[2025-10-05] MEDS: AMIODARONE 200 MG TABLET 400 MG PO ×2 (08:55→17:14)
[2025-10-05] MEDS: GABAPENTIN 600 MG TABLET PO ×3 (08:56→17:14)
[2025-10-05] MEDS: ATORVASTATIN 20 MG TABLET PO (08:56)
[2025-10-05] MEDS: ASPIRIN EC 81 MG TABLET PO (08:56)
[2025-10-05] MEDS: DOCUSATE 100 MG CAPSULE PO ×2 (08:56→20:31)
[2025-10-05] MEDS: PANTOPRAZOLE DR 20 MG TABLET PO (08:56)
[2025-10-05] MEDS: DIGOXIN 500 MCG/2 ML AMPUL IV (08:56)
[2025-10-05] MEDS: LIDOCAINE 5% PATCH 1 EACH TOP (08:57)
--- NOTE | 2025-10-05 09:22 | PC.NURSE ---
0745 DR CASTRO AT BEDSIDE. MADE AWARE OF PATIENT'S HYPOTENSION WITH SYSTOLIC BP IN 90S OVERNIGHT. ALSO MADE AWARE OF AFIB CONTINUED UP TO 120S-130S BUT NOT SUSTAINED. PLAN TO DISCUSS WITH CARDIOLOGY AND ADJUST ORDERS.
--- NOTE | 2025-10-05 12:16 | P.PN_ITS ---
Subjective Subjective Date Patient Seen: 10/05/25 Time Patient Seen: 12:16 Interval history: Paracentesis 7.4 liters yesterday Catheter removed Exam Vital Signs (past 8 hours): - 10/05/25 07:00 10/05/25 08:00 10/05/25 08:25 Pulse Rate 118 H 116 H 130 H Respiratory Rate 18 20 24 Blood Pressure Pulse Oximetry 96 Oxygen Delivery Method 10/05/25 08:25 10/05/25 08:45 10/05/25 08:56 Pulse Rate 122 H Respiratory Rate Blood Pressure 126/72 126/72 Pulse Oximetry Oxygen Delivery Method Room Air 10/05/25 08:56 10/05/25 09:00 10/05/25 10:00 Pulse Rate 122 H 123 H 107 H Respiratory Rate 14 20 Blood Pressure 126/72 Pulse Oximetry Oxygen Delivery Method 10/05/25 11:00 10/05/25 11:15 10/05/25 11:15 Pulse Rate 69 116 H Respiratory Rate 20 Blood Pressure 120/71 Pulse Oximetry 95 94 Oxygen Delivery Method Oxygen Delivery Method Room Air Oxygen Flow Rate 0 Narrative Exam Narrative: ABD: paracentesis catheter site in RUQ clean and dry, without drainage or erythema Objective Labs 10/04/25 07:58 10/04/25 07:58 Labs: Laboratory Results - last 24 hr 10/04/25 10:23 Fluid Color Yellow Fluid Appearance Slightly cloudy Fluid Neutrophils % 10 Fluid Lymphocytes % 49 Fluid Eosinophils % 0 Fluid Basophils % 0 Fluid [place] % 34 Fluid Abnormal Cells 7 Body Fluid Clot No clots present Fluid Comment Abnormal cells seen: [facility] Medical History Chronic atrial fibrillation with rapid ventricular response Cirrhosis of liver Insomnia Greater trochanteric bursitis of right hip Mild concussion Presence of Watchman left atrial appendage closure device Cellulitis Rotator cuff tear arthropathy Leg edema BPH (benign prostatic hyperplasia) Spinal cord stimulator dysfunction Parkinsonism Depression COVID-19 (~02/2022) Degenerative joint disease of knee Uncomplicated opioid dependence Lumbar post-laminectomy syndrome Paroxysmal atrial fibrillation (~11/09/17) Chronic pain Chronic anticoagulation Other insomnia (06/26/16) Mixed hyperlipidemia (12/19/15) Obstructive sleep apnea syndrome Dorsalgia 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) Surgical History History of repair of right rotator cuff Family History Brother Family history of esophageal cancer Social History marital status: number of children: 2 household members: spouse lives independently: Yes caregiver/support person: No housing: house pets and animals: No education level: college occupational status: other current occupational exposures/hazards: No 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: [employer] travel history: recent leisure activities: music, reading and other Smoking Status: Never smoker Tobacco: How many years used: 0 quit status: quit date established second hand exposure: No alcohol intake: never substance use type: does not use Assessment & Plan Assessment and plan (1) Abdominal ascites: Qualifiers: Ascites type: malignant Qualified Code(s): R18.0 - Malignant ascites Status: Acute Plan Catheter removed after 7.4l Will sign off Available to repeat paracentesis prn Time-Based Coding :: [TOTAL MINUTES] spent with patient and on the chart (including review of chart, obtaining history, exam, reviewing outside data, placing orders, documenting exam and treatment plan, and counseling patient) on [DATE]. 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
--- NOTE | 2025-10-05 13:22 | PC.NURSE ---
4459 DR CASTRO AT BEDSIDE DISCUSSING PLAN OF CARE WITH PATIENT AND . PT C/O PAIN TO ABDOMEN AND OVERALL NOT FEELING WELL. MD TO PLACE ORDERS FOR CT ABDOMEN, LABS, AND POSSIBLY ATBX.
[2025-10-05] MEDS: MORPHINE 2 MG/ML INJ IV (13:28)
--- NOTE | 2025-10-05 13:42 | DI.CT.S_ITS ---
PROCEDURE: CT ABDOMEN PELVIS WO CON INDICATIONS: Abdominal pain carcinomatosis paracentesis TECHNIQUE: CT of the abdomen and pelvis was obtained without intravenous contrast. Coronal and sagittal reformats were performed. For radiation dose reduction, the following was used: automated exposure control, adjustment of mA and/or kV according to patient size. COMPARISON: [facility], CT, CT ABDOMEN PELVIS W CON, 10/02/2025, 12:18. [facility], US, US ABDOMEN LIMITED, 08/23/2025, 10:32. FINDINGS: Image quality: Quality of visualization is reduced by absence of intravenous contrast. No oral contrast either. Lower Chest: Bilateral small to moderate pleural effusions slightly greater on the left when compared to the recent prior contrast-enhanced CT scanning 10/02/25. Large hiatal hernia behind the heart, previously present ABDOMEN: Liver: Cirrhotic morphology of the liver, several anterior subcapsular right anterior hepatic segment hypodensities are less well visualized on this noncontrast study but have not changed over the prior 3 days. Gallbladder: Poorly visualized, no calcified gallstones. Biliary ducts: No biliary dilation. Pancreas: No ductal dilation. Spleen: Size is within normal limits. Adrenal Glands: No adrenal nodules. Kidneys and Ureters: No hydronephrosis. No contour-deforming mass. Stomach and Bowel: Normal colonic caliber, without significant wall thickening. Peritoneum: Again noted is significant ascites and evidence of peritoneal carcinomatosis as indicated by peritoneal surface thickening along both the visceral and parietal peritoneal surfaces.. No free air. Ventral Wall: No significant hernia. Abdominal Nodes: No retroperitoneal or mesenteric adenopathy by size criteria. Vessels: Aorta and inferior vena cava are normal in size. PELVIS: Pelvic Organs: Unremarkable. Bladder: Unremarkable. Pelvic Nodes: No enlarged lymph nodes. Miscellaneous: No inguinal hernias are seen. Bones: No aggressive osseous abnormality. IMPRESSION: 1. Quality of visualization is limited by the absence of both oral and intravenous contrast. Within the constraints of this study and with comparison to the contrast-enhanced study performed 3 days earlier there is little if any change identified. 2. Bilateral small to moderate pleural effusions, perhaps slightly increased on the left. Large retrocardiac hiatal hernia. 3. Hepatic masses are less well visualized by this examination but have been previously documented and are suspicious for representing multifocal hepatoma or possibly hepatic metastatic disease in the setting of cirrhotic morphology of the liver. 4. Malignant ascites is relatively prominent, there is visceral and parietal peritoneal thickening to the degree that generalized carcinomatosis within the peritoneum is considered likely present 5. No evidence of intestinal obstruction or perforation. No abscess is found. Dictated by: Km López M.D. on 10/05/2025 at 15:19 Approved by: Km López M.D. on 10/05/2025 at 15:30
--- NOTE | 2025-10-05 13:43 | P.PN_ITS ---
Subjective Subjective Date Patient Seen: 10/05/25 Time Patient Seen: 13:43 Interval history: Chief complaint: Abdominal discomfort with the ascites with possible carcinomatosis versus portal hypotension or congestive hepatopathy with AFib RVR History of present illness: 10/02: 85-year-old male with atrial fibrillation status post Watchman, hypertension, hyperlipidemia, chronic back pain with spinal stimulator who presents with increasing abdominal discomfort and distention. The patient notes that the edges of his belly hurt. He ascribes this pain to being liver pain. He has ascites for which she has been followed by Gastroenterology in [place]. The patient tells me that they initially thought he had cirrhosis then fatty liver. He also mentioned that 1 of the providers said his liver problem might be related to chronic Tylenol use. Patient states that he takes up to 6 500 mg Tylenol tablets daily and has been doing this for 15 years. He is scheduled for an MRI of his abdomen on 10/09/2025 in [place]. The MRI can not be done locally because he has a spinal stimulator. The patient was sent to the ER by his primary care provider for paracentesis for diagnosis and for therapeutic reasons. However presentation in the emergency room he was found to have rapid ventricular rate not responsive to IV diltiazem or IV metoprolol. He was then placed on a diltiazem drip and admitted to the ICU. The patient denies chest pain or shortness of breath. He has not been having nausea or vomiting. He notes just the abdominal distention, pain and decreased appetite. Otherwise review of systems is negative. CT abdomen and pelvis: 1. Significant interval increase in ascites, now large. 2. Suspect peritoneal carcinomatosis. 3. Interval increase in 1 and possibly 2 liver lesions in a patient with underlying cirrhosis. Suspect hepatoma. 3. Bilateral mild to moderate pleural effusions with bibasilar atelectasis now present. 4. Cardiomegaly. CT of the chest by my evaluation does not show pericardial effusion any change from previous done in July Hospital course: 10/03: Discussed the patient with Dr. Dias [phone] we reviewed the findings and recommendations were to start amiodarone infusion and consider digoxin 250 mcg for [address] of the chest does not show pericardial effusion pain can obtain an echocardiogram tomorrow. Concern is that the increased abdominal pressure is compressing or reducing the flow of the IVC and triggering rapid response to chronic atrial fibrillation. We will need an attempt to do ultrasound-guided paracentesis hopefully this will help relieve 10/04: Developed nonproductive cough today paracentesis performed by Dr. Salgado and is draining heart rate still 135 despite amiodarone and digoxin intravenously converted over to oral amiodarone today 10/05: Having some abdominal discomfort and some diarrhea this morning feeling fatigued poor diet at this time Review of systems: No fever or chills rigors No chest pain dyspnea despite tachycardia Is having abdominal pain discomfort especially with coughing No nausea vomiting diarrhea Physical exam: Alert cogent elderly male HEENT unremarkable Heart irregularly irregular rhythm Lungs clear from apices to bases Abdomen soft no restless more amount of localized deep tenderness in the left lower quadrant Extremities 2+ pedal edema Assessment and plan 85-year-old male with increasing ascites, possible peritoneal carcinomatosis and cirrhosis demonstrated on CT. He was referred for paracentesis but was found to be in AFib with rapid ventricular rate. The AFib is not new but he is generally rate rate controlled. Abdominal pain and diarrhea in the setting of suspected carcinomatosis 24 hours after paracentesis * CBC CMP * Blood culture * CT abdomen and pelvis no contrast * Empiric Zosyn Atrial fibrillation with RVR Noting any coagulated with anything besides aspirin because he is status post Watchman * Continue aspirin * Loading with amiodarone and digoxin short-term (complications may occur and long-term use) * Echocardiogram to evaluate for compression of the IVC and hemodynamics * Hopefully paracentesis we will reduce intra-abdominal pressure and possible IVC dynamics resulting in better rate control Cirrhosis Ascites Possible peritoneal carcinomatosis * Therapeutic/diagnostic Paracentesis performed 10/[address] Salgado sent for cell count cytology and culture * Follow-up with gastroenterology in [place] for further evaluation of liver disease and suspected peritoneal carcinomatosis DVT prophylaxis: * Aspirin and SCDs only Code status: * Full code blue Disposition: * Inpatient acute care anticipate 2 more days of hospitalization Time-Based Coding :: 35 minutes spent with patient and on the chart (including review of chart, obtaining history, exam, reviewing outside data, placing orders, documenting exam and treatment plan, and counseling patient). Exam Vital Signs (past 8 hours): - 10/05/25 07:00 10/05/25 08:00 10/05/25 08:25 Pulse Rate 118 H 116 H 130 H Respiratory Rate 18 20 24 Blood Pressure Pulse Oximetry 96 Oxygen Delivery Method 10/05/25 08:25 10/05/25 08:45 10/05/25 08:56 Pulse Rate 122 H Respiratory Rate Blood Pressure 126/72 126/72 Pulse Oximetry Oxygen Delivery Method Room Air 10/05/25 08:56 10/05/25 09:00 10/05/25 10:00 Pulse Rate 122 H 123 H 107 H Respiratory Rate 14 20 Blood Pressure 126/72 Pulse Oximetry Oxygen Delivery Method 10/05/25 11:00 10/05/25 11:15 10/05/25 11:15 Pulse Rate 69 116 H Respiratory Rate 20 Blood Pressure 120/71 Pulse Oximetry 95 94 Oxygen Delivery Method Oxygen Delivery Method Room Air Oxygen Flow Rate 0 Objective Labs 10/04/25 07:58 10/04/25 07:58 PFSH Medical History Chronic atrial fibrillation with rapid ventricular response Cirrhosis of liver Insomnia Greater trochanteric bursitis of right hip Mild concussion Presence of Watchman left atrial appendage closure device Cellulitis Rotator cuff tear arthropathy Leg edema BPH (benign prostatic hyperplasia) Spinal cord stimulator dysfunction Parkinsonism Depression COVID-19 (~02/2022) Degenerative joint disease of knee Uncomplicated opioid dependence Lumbar post-laminectomy syndrome Paroxysmal atrial fibrillation (~11/09/17) Chronic pain Chronic anticoagulation Other insomnia (06/26/16) Mixed hyperlipidemia (12/19/15) Obstructive sleep apnea syndrome Dorsalgia 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) Surgical History History of repair of right rotator cuff Family History Brother Family history of esophageal cancer Social History marital status: number of children: 2 household members: spouse lives independently: Yes caregiver/support person: No housing: house pets and animals: No education level: college occupational status: other current occupational exposures/hazards: No 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
[2025-10-05 15:07] LABS: Add Manual Diff / Slide Review NO; Hematocrit 47.7 % (41-53); Hemoglobin 16.0 g/dL (13.5-17.5); Lymphocytes Absolute Auto 1100 /uL (1100-4500); Mean Corpuscular HGB Conc 33.4 % (30-36); Mean Corpuscular Hemoglobin 30.9 PG (26-34); Mean Corpuscular Volume 92.5 fL (80-100); Platelet Count 263 X10^3/uL (150-400)
[2025-10-05] MEDS: PIPERACILLIN/TAZO 3.375 GM in SODIUM CHLORIDE 0.9% 100 ML IV ×2 (15:12→21:47)
[2025-10-05 15:20] LABS: Alanine Aminotransferase 27 IU/L (<50); Albumin 3.6 g/dL (3.5-5.0); Albumin Globulin Ratio 1.0 (1.0-2.8); Alkaline Phosphatase 131 U/L (38-126); Blood Urea Nitrogen 12 mg/dL (9-20); Calcium 8.5 mg/dL (8.4-10.2); Carbon Dioxide 23 mmol/L (22-32); Chloride 97 mmol/L (98-107); Estimated Glomerular Filt Rate > 60 mL/min (>60); Globulin 3.6 g/dL (1.7-4.1); Glucose 117 mg/dL (70-99); HEMOLYSIS < 15 (0-50); Potassium 4.1 mmol/L (3.4-5.1); Sodium 132 mmol/L (137-145); Total Protein 7.2 g/dL (6.3-8.2)
--- NOTE | 2025-10-05 15:48 | PC.NURSE ---
[facility] IS REQUESTING A PATIENT APPOINTING FOR A SCAN TO VERIFY WATCHMAN DEVICE PLACEMENT AND LET HER KNOW THEY COULD USE THE SCANS HE HAS HAD DONE HERE. CALLED RADIOLOGY TO FAX CHEST CT FROM 10/03 TO [facility] IN [place]. MATTHEW MADE AWARE.
[2025-10-05] MEDS: AMITRIPTYLINE 10 MG TABLET PO (20:30)
[2025-10-05] MEDS: GABAPENTIN 600 MG TABLET 1200 MG PO (20:30)
[2025-10-05] MEDS: tiZANidine 4 MG TABLET 12 MG PO (20:31)
[2025-10-05] MEDS: guaiFENesin Solution 100 MG/5 ML UDC 200 MG PO (20:31)
[2025-10-05 23:05] LABS: Clostridium difficile toxin AB Not Detected (Not Detect); Enteroaggregative E.coli Not Detected (Not Detect); Enteropathogenic E.coli Not Detected (Not Detect); Enterotoxigenic E.coli It/st Not Detected (Not Detect); Plesiomonsa shigelloides Not Detected (Not Detect); Shiga-like toxin-prod E.coli Not Detected (Not Detect)
[2025-10-06] VITALS (62 sets, daily range): BP systolic 82–141; BP diastolic 50–102; PULSE 74–121; RESP 8–32; TEMP 36.5–37.1; O2SAT 92–96
[2025-10-06] MEDS: PIPERACILLIN/TAZO 3.375 GM in SODIUM CHLORIDE 0.9% 100 ML IV ×3 (05:55→21:09)
[2025-10-06] MEDS: AMIODARONE 200 MG TABLET 400 MG PO ×2 (08:03→16:57)
[2025-10-06] MEDS: PANTOPRAZOLE DR 20 MG TABLET PO (08:05)
[2025-10-06] MEDS: GABAPENTIN 600 MG TABLET PO ×3 (08:05→16:57)
[2025-10-06] MEDS: LIDOCAINE 5% PATCH 1 EACH TOP (08:36)
[2025-10-06] MEDS: ASPIRIN EC 81 MG TABLET PO (08:37)
[2025-10-06] MEDS: TAMSULOSIN 0.4 MG CAPSULE PO ×2 (08:37→20:32)
[2025-10-06] MEDS: ATORVASTATIN 20 MG TABLET PO (08:37)
[2025-10-06] MEDS: DIGOXIN 0.125 MG TABLET 0.25 MG PO (09:49)
[2025-10-06] MEDS: MORPHINE 2 MG/ML INJ IV ×2 (10:37→15:51)
--- NOTE | 2025-10-06 10:37 | DI.CT.S_ITS ---
PROCEDURE: CT ANGIO CHEST PE PROTOCOL INDICATIONS: pe TECHNIQUE: After the administration of intravenous contrast, 2 mm thick sections acquired from the pulmonary apices to the posterior costophrenic angles. 3-dimensional maximum intensity projection (MIP) coronal and sagittal reformats were then acquired through the thorax. For radiation dose reduction, the following was used: automated exposure control, adjustment of mA and/or kV according to patient size. COMPARISON: [facility], CT, CT ABDOMEN LIVER PROTOCOL, 08/09/2025, 13:26. [facility], CT, CT CHEST WO CON, 10/03/2025, 10:15. [facility], CT, CT ABDOMEN PELVIS WO CON, 10/05/2025, 15:01. [facility], CT, CT ANGIO CHEST PE PROTOCOL, 09/30/2023, 23:16. FINDINGS: Image quality: Diagnostic. Pulmonary arteries: Pulmonary arteries are normal in size, and demonstrate no intraluminal filling defects to suggest central pulmonary embolism. Lower Neck: No enlarged lymph nodes. Thyroid: No thyroid nodules which require sonographic follow up, per consensus guidelines. Axillae: No enlarged lymph nodes. Chest Wall: Unremarkable. Bones: A thoracic spine stimulator is seen. Lungs and Pleura: There is a small to moderate right-sided pleural effusion and a small left-sided pleural effusion. Overlying atelectasis can be seen. Areas of subpleural fibrosis can be seen. Heart: Heart size is mildly enlarged. No pericardial effusion. A left-sided closure device is seen. Thoracic Vessels: No aortic aneurysm. Mediastinum and Mable: No enlarged lymph nodes. Esophagus: No wall thickening. There is a moderate to large hiatal hernia. Upper Abdomen: Within the anterior liver, there is again seen a poorly enhancing lesion. There is moderate ascites seen involving the upper abdomen. The visualized portions of the upper abdominal structures are otherwise unremarkable for imaging technique. IMPRESSION: No pulmonary embolus. There is a small to moderate right-sided and a small left-sided pleural effusion. There is mild cardiomegaly. Moderate ascites. Stable liver lesion. Additional findings: Left-sided cardiac closure device Thoracic spine stimulator Moderate to large hiatal hernia Dictated by: Arnaud Doshi M.D. on 10/06/2025 at 11:31 Approved by: Arnaud Doshi M.D. on 10/06/2025 at 11:36
[2025-10-06] MEDS: IBUPROFEN 600 MG TABLET PO (10:38)
[2025-10-06] MEDS: METOPROLOL IR 25 MG TABLET PO ×2 (12:07→18:15)
[2025-10-06 13:06] LABS: Digoxin 1.7 ng/mL (0.8-2.0)
[2025-10-06] MEDS: NYSTATIN SUSP 500,000 UNIT/5 ML UDC 500000 UNIT PO ×3 (13:17→20:31)
--- NOTE | 2025-10-06 13:26 | PC.NURSE ---
1200 pt eating his meal; started nystatin after meal to prevent med from being washed away with food and oral fluids.
--- NOTE | 2025-10-06 15:13 | P.PN_ITS ---
Subjective Subjective Date Patient Seen: 10/06/25 Time Patient Seen: 15:13 Interval history: Chief complaint: Abdominal discomfort with the ascites with possible carcinomatosis versus portal hypotension or congestive hepatopathy with AFib RVR History of present illness: 10/02: 85-year-old male with atrial fibrillation status post Watchman, hypertension, hyperlipidemia, chronic back pain with spinal stimulator who presents with increasing abdominal discomfort and distention. The patient notes that the edges of his belly hurt. He ascribes this pain to being liver pain. He has ascites for which she has been followed by Gastroenterology in [place]. The patient tells me that they initially thought he had cirrhosis then fatty liver. He also mentioned that 1 of the providers said his liver problem might be related to chronic Tylenol use. Patient states that he takes up to 6 500 mg Tylenol tablets daily and has been doing this for 15 years. He is scheduled for an MRI of his abdomen on 10/09/2025 in [place]. The MRI can not be done locally because he has a spinal stimulator. The patient was sent to the ER by his primary care provider for paracentesis for diagnosis and for therapeutic reasons. However presentation in the emergency room he was found to have rapid ventricular rate not responsive to IV diltiazem or IV metoprolol. He was then placed on a diltiazem drip and admitted to the ICU. The patient denies chest pain or shortness of breath. He has not been having nausea or vomiting. He notes just the abdominal distention, pain and decreased appetite. Otherwise review of systems is negative. CT abdomen and pelvis: 1. Significant interval increase in ascites, now large. 2. Suspect peritoneal carcinomatosis. 3. Interval increase in 1 and possibly 2 liver lesions in a patient with underlying cirrhosis. Suspect hepatoma. 3. Bilateral mild to moderate pleural effusions with bibasilar atelectasis now present. 4. Cardiomegaly. CT of the chest by my evaluation does not show pericardial effusion any change from previous done in July Hospital course: 10/03: Discussed the patient with Dr. Dias [phone] we reviewed the findings and recommendations were to start amiodarone infusion and consider digoxin 250 mcg for [address] of the chest does not show pericardial effusion pain can obtain an echocardiogram tomorrow. Concern is that the increased abdominal pressure is compressing or reducing the flow of the IVC and triggering rapid response to chronic atrial fibrillation. We will need an attempt to do ultrasound-guided paracentesis hopefully this will help relieve 10/04: Developed nonproductive cough today paracentesis performed by Dr. Salgado and is draining heart rate still 135 despite amiodarone and digoxin intravenously converted over to oral amiodarone today 10/05: Having some abdominal discomfort and some diarrhea this morning feeling fatigued poor diet at this time 10/06: Patient heart rate running in the 110s to 125 based on the findings echocardiogram is CT of the chest for pulmonary embolus was performed which did not show pulmonary embolus but a moderate right-sided and small left-sided pleural effusion. Case was discussed with Dr. Dias Review of systems: No fever or chills rigors No chest pain dyspnea despite tachycardia Is having abdominal pain discomfort especially with coughing No nausea vomiting diarrhea Physical exam: Alert cogent elderly male HEENT unremarkable Heart irregularly irregular rhythm Lungs clear from apices to bases Abdomen soft no restless more amount of localized deep tenderness in the left lower quadrant Extremities 2+ pedal edema Echocardiogram 10/06: A-fib with variable rate; heart rate is 99-115 bpm. Normal LV size and mild concentric LVH. There is mild global hypokinesis. Ejection fraction is mildly reduced estimated at 45-50%.. D-shaped LV in systole and diastole consistent with RV pressure overload. Compared to prior echo July 26, 2025 LV is slightly less dynamic. Ejection fraction is down from 50-55% to 45-50%. D-shaped appearance of LV in systole and diastole is stable. Tricuspid Valve: There is mild tricuspid regurgitation. The right ventricular systolic pressure is estimated to be at least 40 mmHg based on an estimated right atrial pressure of 8 mm Hg. Pulmonic Valve: The pulmonic valve is not well visualized. There is trace pulmonic regurgitation. CT PE protocol 10/06: No pulmonary embolus. There is a small to moderate right-sided and a small left-sided pleural effusion. There is mild cardiomegaly. Moderate ascites. Stable liver lesion. Assessment and plan 85-year-old male with increasing ascites, possible peritoneal carcinomatosis and cirrhosis demonstrated on CT. He was referred for paracentesis but was found to be in AFib with rapid ventricular rate. The AFib is not new but he is generally rate rate controlled. Right ventricular pressure overload and reduced measured ejection fraction on echocardiogram 10/06: * No pulmonary embolus * Bilateral pleural effusions moderate and small Abdominal pain and diarrhea in the setting of suspected carcinomatosis 24 hours after paracentesis * GI film panel positive for norovirus Atrial fibrillation with RVR Noting any coagulated with anything besides aspirin because he is status post Watchman * Continue aspirin * Loading with amiodarone and digoxin short-term (complications may occur and long-term use) * Echocardiogram to evaluate for compression of the IVC and hemodynamics as above * Adding Lopressor 25 mg every 6 hours to reduce heart rate Cirrhosis Ascites Possible peritoneal carcinomatosis * Therapeutic/diagnostic Paracentesis performed 10/[address] Salgado sent for cell count cytology and culture * Follow-up with gastroenterology in [place] for further evaluation of liver disease and suspected peritoneal carcinomatosis DVT prophylaxis: * Aspirin and SCDs only Code status: * Full code blue Disposition: * Inpatient acute care anticipate 2 more days of hospitalization Time-Based Coding :: 35 minutes spent with patient and on the chart (including review of chart, obtaining history, exam, reviewing outside data, placing orders, documenting exam and treatment plan, and counseling patient). Exam Vital Signs (past 8 hours): - 10/06/25 08:00 10/06/25 08:37 10/06/25 09:49 Temperature 97.8 F Pulse Rate 74 120 H 120 H Respiratory Rate 18 Blood Pressure 141/76 H 141/96 H 140/91 H Pulse Oximetry 94 Oxygen Flow Rate 0 10/06/25 09:50 10/06/25 12:00 Temperature 97.7 F Pulse Rate 120 H 74 Respiratory Rate 18 Blood Pressure 140/91 H 99/71 Pulse Oximetry 96 Oxygen Flow Rate 0 Oxygen Delivery Method Room Air Oxygen Flow Rate 0 Objective Labs 10/05/25 14:50 10/05/25 14:50 Labs: Laboratory Results - last 24 hr 10/05/25 10/05/25 10/06/25 14:50 19:50 12:29 Sodium 132 L Potassium 4.1 Chloride 97 L Carbon Dioxide 23 BUN 12 Creatinine 0.73 Estimated GFR > 60 BUN/Creatinine Ratio 16.4 Glucose 117 H Calcium 8.5 Total Bilirubin 0.9 AST 37 ALT 27 Alkaline Phosphatase 131 H Total Protein 7.2 Albumin 3.6 Globulin 3.6 Albumin/Globulin Ratio 1.0 Stl C. cayetanensis PCR Not detected Stool Rotavirus (PCR) Not detected Stool Adenovirus (PCR) Not detected Stool Astrovirus (PCR) Not detected Stool Cryptosporidium PCR Not detected Stl E.coli Shiga Tox PCR Not detected St Sh/Enteroin Ecoli PCR Not detected Stl Enterotoxigenic E PCR Not detected Stool EPEC (PCR) Not detected Stl E. histolytica PCR Not detected Stool Giardia Lamblia PCR Not detected Stool Sapovirus (PCR) Not detected Stl P. shigelloides PCR Not detected St Y.enterocolitica PCR Not detected Stool Vibrio (PCR) Not detected Stl Vibrio cholerae PCR Not detected Stl Enteroaggr Ecoli PCR Not detected Stl Norovirus GI/GII PCR Detected Digoxin 1.7 Campylobacter (PCR) Not detected C. difficile Tox (PCR) Not detected Salmonella (PCR) Not detected PFSH Medical History Chronic atrial fibrillation with rapid ventricular response Cirrhosis of liver Insomnia Greater trochanteric bursitis of right hip Mild concussion Presence of Watchman left atrial appendage closure device Cellulitis Rotator cuff tear arthropathy Leg edema BPH (benign prostatic hyperplasia) Spinal cord stimulator dysfunction Parkinsonism Depression COVID-19 (~02/2022) Degenerative joint disease of knee Uncomplicated opioid dependence Lumbar post-laminectomy syndrome Paroxysmal atrial fibrillation (~11/09/17) Chronic pain Chronic anticoagulation Other insomnia (06/26/16) Mixed hyperlipidemia (12/19/15) Obstructive sleep apnea syndrome Dorsalgia 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) Surgical History History of repair of right rotator cuff Family History Brother Family history of esophageal cancer Social History marital status: number of children: 2 household members: spouse lives independently: Yes caregiver/support person: No housing: house pets and animals: No education level: college occupational status: other current occupational exposures/hazards: No 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
--- NOTE | 2025-10-06 15:33 | PC.NURSE ---
pt has had MD updates about his care and plans for all care needs; pt tolerating new med orders; HR improving; BP is stable; family has visited. Pt tolerated going to and from CT; was able to sit after CT and eat while up in chair; RN encouraged pt to sit up a while after lunch to avoid pressure on his heart,lungs and abd. after his meal; pt was able to tolerate this. Red, sore tongue being treated with Nystatin orally; teaching about this provided; pt postitive for Norovirus explained and MD was informed of lab results from last night's labs about 0900; precautions in place; family and visitors have been informed; family is wearing PPE and pt will continue to follow precautions about his status by informing his family of plan of care for this.
--- NOTE | 2025-10-06 17:49 | PC.NURSE ---
pt OOB again for his meal; tolerating being OOB to chair well today. spouse with pt.
[2025-10-06] MEDS: AMITRIPTYLINE 10 MG TABLET PO (20:31)
[2025-10-06] MEDS: tiZANidine 4 MG TABLET 12 MG PO (20:32)
[2025-10-06] MEDS: GABAPENTIN 600 MG TABLET 1200 MG PO (20:32)
[2025-10-06] MEDS: SODIUM CHLORIDE 0.9% FLUSH 10 ML IV (21:10)
[2025-10-07] VITALS (51 sets, daily range): BP systolic 79–129; BP diastolic 51–84; PULSE 77–132; RESP 13–30; TEMP 36.1–36.9; O2SAT 91–96
[2025-10-07] MEDS: PANTOPRAZOLE DR 20 MG TABLET PO (05:09)
[2025-10-07] MEDS: METOPROLOL IR 25 MG TABLET PO (05:09)
[2025-10-07] MEDS: PIPERACILLIN/TAZO 3.375 GM in SODIUM CHLORIDE 0.9% 100 ML IV ×3 (05:09→21:23)
[2025-10-07] MEDS: SODIUM CHLORIDE 0.9% FLUSH 10 ML IV ×2 (09:36→21:23)
[2025-10-07] MEDS: LIDOCAINE 5% PATCH 1 EACH TOP (09:36)
[2025-10-07] MEDS: NYSTATIN SUSP 500,000 UNIT/5 ML UDC 500000 UNIT PO ×4 (09:36→21:22)
[2025-10-07] MEDS: ATORVASTATIN 20 MG TABLET PO (09:37)
[2025-10-07] MEDS: AMIODARONE 200 MG TABLET 400 MG PO ×2 (09:37→17:05)
[2025-10-07] MEDS: ASPIRIN EC 81 MG TABLET PO (09:37)
[2025-10-07] MEDS: GABAPENTIN 600 MG TABLET PO ×3 (09:37→17:05)
[2025-10-07] MEDS: TAMSULOSIN 0.4 MG CAPSULE PO ×2 (09:37→21:30)
[2025-10-07] MEDS: METOPROLOL ER 50 MG TABLET 100 MG PO ×2 (09:46→21:21)
[2025-10-07] MEDS: MORPHINE 2 MG/ML INJ IV ×2 (13:37→21:24)
--- NOTE | 2025-10-07 13:45 | CM.DPC ---
DCP COnt: Per MD, pt making progress and states he is ambulating independently and no need for PT and plan of likely d/c home tomorrow 10/08 so that he will be home in time for already scheduled medical transport 10/09 from his home to his MRI in [place] at 1030 and back to home after. does not anticipate any further needs at d/c at this time unless pt cannot discharge tomorrow Wednesday. RODRIGO Garcia
[2025-10-07] MEDS: AMITRIPTYLINE 10 MG TABLET PO (21:21)
[2025-10-07] MEDS: tiZANidine 4 MG TABLET 12 MG PO (21:22)
[2025-10-07] MEDS: GABAPENTIN 600 MG TABLET 1200 MG PO (21:22)
[2025-10-08] VITALS (60 sets, daily range): BP systolic 74–114; BP diastolic 44–76; PULSE 64–135; RESP 12–32; TEMP 36.4–37.1; O2SAT 91–96
[2025-10-08] MEDS: guaiFENesin Solution 100 MG/5 ML UDC 200 MG PO (00:24)
[2025-10-08] MEDS: PIPERACILLIN/TAZO 3.375 GM in SODIUM CHLORIDE 0.9% 100 ML IV ×3 (06:35→21:28)
[2025-10-08] MEDS: PANTOPRAZOLE DR 20 MG TABLET PO (06:46)
[2025-10-08] MEDS: AMIODARONE 200 MG TABLET 400 MG PO ×2 (09:18→19:00)
[2025-10-08] MEDS: GABAPENTIN 600 MG TABLET PO ×3 (09:18→16:54)
[2025-10-08] MEDS: TAMSULOSIN 0.4 MG CAPSULE PO ×2 (09:19→20:33)
[2025-10-08] MEDS: ATORVASTATIN 20 MG TABLET PO (09:19)
[2025-10-08] MEDS: ASPIRIN EC 81 MG TABLET PO (09:19)
[2025-10-08] MEDS: LIDOCAINE 5% PATCH 1 EACH TOP (09:19)
[2025-10-08] MEDS: METOPROLOL ER 50 MG TABLET 100 MG PO (09:19)
[2025-10-08] MEDS: NYSTATIN SUSP 500,000 UNIT/5 ML UDC 500000 UNIT PO ×4 (09:19→20:34)
[2025-10-08] MEDS: DOCUSATE 100 MG CAPSULE PO (09:19)
[2025-10-08] MEDS: SODIUM CHLORIDE 0.9% FLUSH 10 ML IV ×2 (09:20→20:34)
--- NOTE | 2025-10-08 09:45 | DI.RAD.S_ITS ---
PROCEDURE: XR CHEST 1V INDICATIONS: Pleural effusion TECHNIQUE: One view of the chest was acquired. COMPARISON: [facility], CR, XR CHEST 1V, 09/30/2023, 19:44. FINDINGS: Surgical changes and devices: None. Lungs and pleura: No pneumothorax. Small right pleural effusion with subjacent atelectasis. Increased interstitial prominence favored to represent mild pulmonary edema. Mediastinum: Mediastinal contours appear normal. Heart size is normal. Large hiatal hernia. Bones and chest wall: No suspicious bony lesions. Overlying soft tissues appear unremarkable. IMPRESSION: Small right pleural effusion with subjacent atelectasis. Mild pulmonary edema. Large hiatal hernia. Approved by: Namita Traylor M.D.,Ph.D. on 10/08/2025 at 10:12
--- NOTE | 2025-10-08 10:13 | DI.US.S_ITS ---
PROCEDURE: US PARACENTESIS W/ALBUMIN INDICATIONS: Recurrent malignant effusion TECHNIQUE: The indications, alternatives, benefits, risks, and complications of the procedure were explained to the patient. Written informed consent was obtained and placed in the chart. The abdomen and pelvis were examined sonographically, and an appropriate site was chosen for paracentesis. The skin was prepared and draped in the usual sterile fashion, and 1% lidocaine was infiltrated from the skin down through the peritoneal surface. A 19-gauge catheter-covered needle was then introduced into the peritoneal space, the catheter was advanced and the needle was withdrawn, and thereafter peritoneal fluid was withdrawn. The catheter was then removed and a dressing was applied. The fluid was discarded if the clinician did not order diagnostic testing of the fluid. COMPARISON: None. FINDINGS: Access site: Of lower quadrant Needle: One-Step centesis catheter with introducer needle. Fluid volume and description: 6.4 liter Fluid sent for diagnostic testing: No Medications: 1% lidocaine for local anaesthesia. Complications: None. IMPRESSION: Successful ultrasound-guided paracentesis. Dictated by: Sharath Jhaveri M.D. on 10/08/2025 at 14:11 Approved by: Sharath Jhaveri M.D. on 10/08/2025 at 14:12
[2025-10-08 10:20] LABS: Add Manual Diff / Slide Review NO; Hematocrit 43.9 % (41-53); Hemoglobin 14.4 g/dL (13.5-17.5); Lymphocytes Absolute Auto 1300 /uL (1100-4500); Mean Corpuscular HGB Conc 32.9 % (30-36); Mean Corpuscular Hemoglobin 30.6 PG (26-34); Mean Corpuscular Volume 93.1 fL (80-100); Platelet Count 283 X10^3/uL (150-400)
[2025-10-08 10:33] LABS: Alanine Aminotransferase 35 IU/L (<50); Albumin 3.1 g/dL (3.5-5.0); Albumin Globulin Ratio 0.9 (1.0-2.8); Alkaline Phosphatase 116 U/L (38-126); Blood Urea Nitrogen 16 mg/dL (9-20); Calcium 8.2 mg/dL (8.4-10.2); Carbon Dioxide 25 mmol/L (22-32); Chloride 98 mmol/L (98-107); Estimated Glomerular Filt Rate > 60 mL/min (>60); Globulin 3.3 g/dL (1.7-4.1); Glucose 160 mg/dL (70-99); HEMOLYSIS 15 (0-50); Potassium 4.0 mmol/L (3.4-5.1); Sodium 130 mmol/L (137-145); Total Protein 6.4 g/dL (6.3-8.2)
--- NOTE | 2025-10-08 11:00 | DIET.CONS ---
Dietary Consultation Note Admission Date: 10/02/2025 17:05 Assessment: 85 y M admitted for abdominal ascites. Dietitian screened for LOS. EMR reviewed. Low PO intakes <75% until over weekend with improved 75-100% PO intakes recorded. GI panel came back positive for norovirus. Ht: 182.88 cm Wt: 112.5 kg (weight post paracentesis) BMI: 35.8 UBW: 117-119 kg within the past year. 117.5 kg on 08/30/25 (-4% weight loss within a month, non-significant) also noted 7.4 L paracentesis done during admission Last BM: 10/07/25 (10/07/25 12:55) MNA: 14 Smith Score: 20 Diet: 10/03/25 Breakfast General (Regular) Diet Diet Modifications: Food Texture: Level 7 - Regular Liquid Consistency: Level 0 - Thin Nutrition Percent Meal Consumed 75% 10/06/25 18:00 Percent Meal Consumed 100% 10/06/25 12:53 Labs: RBC 4.72 X10^6/uL (4.5-5.9) 10/08/25 10:13 Hgb 14.4 g/dL (13.5-17.5) 10/08/25 10:13 Hct 43.9 % (41-53) 10/08/25 10:13 Creatinine 0.84 mg/dL (0.66-1.25) 10/08/25 10:13 NT-Pro-B Natriuret Pep 1540 pg/mL (<450) H 10/03/25 04:45 Monitoring/Evaluations: Monitoring PO intakes, if multiple <75%, will add oral nutrition supplement BID; pt going to [facility] for GI tomorrow per rounds this morning Electronically Signed by: Brunilda Price 10/08/25 11:00 Clinical Dietitian [address] [address]
--- NOTE | 2025-10-08 11:28 | P.PN_ITS ---
Subjective Subjective Date Patient Seen: 10/07/25 Time Patient Seen: 08:30 Interval history: Chief complaint: Abdominal discomfort with the ascites with possible carcinomatosis versus portal hypotension or congestive hepatopathy with AFib RVR History of present illness: 10/02: 85-year-old male with atrial fibrillation status post Watchman, hypertension, hyperlipidemia, chronic back pain with spinal stimulator who presents with increasing abdominal discomfort and distention. The patient notes that the edges of his belly hurt. He ascribes this pain to being liver pain. He has ascites for which she has been followed by Gastroenterology in [place]. The patient tells me that they initially thought he had cirrhosis then fatty liver. He also mentioned that 1 of the providers said his liver problem might be related to chronic Tylenol use. Patient states that he takes up to 6 500 mg Tylenol tablets daily and has been doing this for 15 years. He is scheduled for an MRI of his abdomen on 10/09/2025 in [place]. The MRI can not be done locally because he has a spinal stimulator. The patient was sent to the ER by his primary care provider for paracentesis for diagnosis and for therapeutic reasons. However presentation in the emergency room he was found to have rapid ventricular rate not responsive to IV diltiazem or IV metoprolol. He was then placed on a diltiazem drip and admitted to the ICU. The patient denies chest pain or shortness of breath. He has not been having nausea or vomiting. He notes just the abdominal distention, pain and decreased appetite. Otherwise review of systems is negative. CT abdomen and pelvis: 1. Significant interval increase in ascites, now large. 2. Suspect peritoneal carcinomatosis. 3. Interval increase in 1 and possibly 2 liver lesions in a patient with underlying cirrhosis. Suspect hepatoma. 3. Bilateral mild to moderate pleural effusions with bibasilar atelectasis now present. 4. Cardiomegaly. CT of the chest by my evaluation does not show pericardial effusion any change from previous done in July Hospital course: 10/03: Discussed the patient with Dr. Dias [phone] we reviewed the findings and recommendations were to start amiodarone infusion and consider digoxin 250 mcg for [address] of the chest does not show pericardial effusion pain can obtain an echocardiogram tomorrow. Concern is that the increased abdominal pressure is compressing or reducing the flow of the IVC and triggering rapid response to chronic atrial fibrillation. We will need an attempt to do ultrasound-guided paracentesis hopefully this will help relieve 10/04: Developed nonproductive cough today paracentesis performed by Dr. Salgado and is draining heart rate still 135 despite amiodarone and digoxin intravenously converted over to oral amiodarone today 10/05: Having some abdominal discomfort and some diarrhea this morning feeling fatigued poor diet at this time 10/06: Patient heart rate running in the 110s to 125 based on the findings echocardiogram is CT of the chest for pulmonary embolus was performed which did not show pulmonary embolus but a moderate right-sided and small left-sided pleural effusion. Case was discussed with Dr. Dias 10/07: Patient feeling a bit better heart rate in the 90s now on Toprol-XL 100 b.i.d. in addition to amiodarone 400 b.i.d. and digoxin 0.125 every other day Patient is still having persistent nonproductive cough however abdominal discomfort and finished appetite have improved urine output 450 mL (some may not be accurately measured) GI film panel positive for norovirus Discussed the findings suspicious for abdominal carcinomatosis with recurrent ascites and the desire to coordinate care with the patient's chief engineer at [facility]. Patient has scheduled an MRI of the abdomen at that facility for 08 09 on Tuesday 10/09: Goal is to arrange medical transport to pick the patient up at [facility] to take him to and from that procedure after discharge in the cover marker on Tuesday 10/09 after which the patient would be returned to home from the MRI in [place]. Additionally we will try to set up is scheduled paracentesis with Radiology Department on an outpatient basis to avoid reaccumulation of ascites roughly weekly it would be optimal to be able to arrange for a visit for patient's chief engineer to get a definitive pathological diagnosis at that institution ([facility]) Review of systems: No fever or chills rigors No chest pain dyspnea Is having abdominal pain discomfort especially with coughing No nausea vomiting diarrhea Physical exam: Alert cogent elderly male HEENT unremarkable Heart irregularly irregular rhythm Lungs clear from apices to bases Abdomen soft no restless more amount of localized deep tenderness in the left lower quadrant Extremities 2+ pedal edema Echocardiogram 10/06: A-fib with variable rate; heart rate is 99-115 bpm. Normal LV size and mild concentric LVH. There is mild global hypokinesis. Ejection fraction is mildly reduced estimated at 45-50%.. D-shaped LV in systole and diastole consistent with RV pressure overload. Compared to prior echo July 26, 2025 LV is slightly less dynamic. Ejection fraction is down from 50-55% to 45-50%. D-shaped appearance of LV in systole and diastole is stable. Tricuspid Valve: There is mild tricuspid regurgitation. The right ventricular systolic pressure is estimated to be at least 40 mmHg based on an estimated right atrial pressure of 8 mm Hg. Pulmonic Valve: The pulmonic valve is not well visualized. There is trace pulmonic regurgitation. CT PE protocol 10/06: No pulmonary embolus. There is a small to moderate right-sided and a small left-sided pleural effusion. There is mild cardiomegaly. Moderate ascites. Stable liver lesion. Assessment and plan 85-year-old male with increasing ascites, possible peritoneal carcinomatosis and cirrhosis demonstrated on CT. He was referred for paracentesis but was found to be in AFib with rapid ventricular rate. The AFib is not new but he is generally rate rate controlled. Right ventricular pressure overload and reduced measured ejection fraction on echocardiogram 10/06: * No pulmonary embolus * Bilateral pleural effusions moderate and small Abdominal pain and diarrhea in the setting of suspected carcinomatosis 24 hours after paracentesis * GI film panel positive for norovirus Atrial fibrillation with RVR Noting any coagulated with anything besides aspirin because he is status post Watchman * Continue aspirin * Loading with amiodarone and digoxin short-term (complications may occur and long-term use) * Echocardiogram to evaluate for compression of the IVC and hemodynamics as above * Adding Lopressor 25 mg every 6 hours to reduce heart rate Cirrhosis Ascites Possible peritoneal carcinomatosis * Therapeutic/diagnostic Paracentesis performed 10/[address] Salgado sent for cell count cytology and culture * Follow-up with gastroenterology in [place] for further evaluation of liver disease and suspected peritoneal carcinomatosis DVT prophylaxis: * Aspirin and SCDs only Code status: * Full code blue Disposition: * Inpatient acute care anticipate 2 more days of hospitalization Time-Based Coding :: 35 minutes spent with patient and on the chart (including review of chart, obtaining history, exam, reviewing outside data, placing orders, documenting exam and treatment plan, and counseling patient). Exam Vital Signs (past 8 hours): - 10/08/25 03:30 10/08/25 03:52 10/08/25 03:52 Temperature Pulse Rate 78 86 Respiratory Rate 18 23 Blood Pressure 74/50 L Pulse Oximetry 95 Oxygen Flow Rate 10/08/25 03:53 10/08/25 03:53 10/08/25 04:00 Temperature 97.6 F Pulse Rate 84 81 Respiratory Rate 20 22 Blood Pressure 90/54 L Pulse Oximetry 92 Oxygen Flow Rate 0 10/08/25 04:30 10/08/25 05:00 10/08/25 05:30 Temperature Pulse Rate 81 83 82 Respiratory Rate 21 19 19 Blood Pressure Pulse Oximetry Oxygen Flow Rate 10/08/25 06:00 10/08/25 06:30 10/08/25 07:00 Temperature Pulse Rate 85 82 79 Respiratory Rate 18 18 18 Blood Pressure Pulse Oximetry Oxygen Flow Rate 10/08/25 07:30 10/08/25 08:00 10/08/25 08:29 Temperature Pulse Rate 85 91 H 88 Respiratory Rate 21 18 20 Blood Pressure Pulse Oximetry 93 Oxygen Flow Rate 10/08/25 08:29 10/08/25 08:30 10/08/25 09:19 Temperature Pulse Rate 91 H 94 H Respiratory Rate 25 H Blood Pressure 81/54 L 114/74 Pulse Oximetry 92 Oxygen Flow Rate 10/08/25 09:49 Temperature Pulse Rate 87 Respiratory Rate Blood Pressure Pulse Oximetry Oxygen Flow Rate Oxygen Delivery Method Room Air Oxygen Flow Rate 0 Objective Labs 10/08/25 10:13 10/08/25 10:13 Labs: Laboratory Results - last 24 hr 10/08/25 10:13 WBC 8.7 RBC 4.72 Hgb 14.4 Hct 43.9 MCV 93.1 MCH 30.6 MCHC 32.9 RDW 15.3 H Plt Count 283 Neut % (Auto) 75.8 H Lymph % (Auto) 14.8 L [place] % (Auto) 6.8 Eos % (Auto) 2.1 Baso % (Auto) 0.5 Neut # (Auto) 6600 Lymph # (Auto) 1300 [place] # (Auto) 600 Eos # (Auto) 200 Baso # (Auto) 0 Sodium 130 L Potassium 4.0 Chloride 98 Carbon Dioxide 25 BUN 16 Creatinine 0.84 Estimated GFR > 60 BUN/Creatinine Ratio 19.0 Glucose 160 H Calcium 8.2 L Total Bilirubin 0.6 AST 58 ALT 35 Alkaline Phosphatase 116 Total Protein 6.4 Albumin 3.1 L Globulin 3.3 Albumin/Globulin Ratio 0.9 L PFSH Medical History Chronic atrial fibrillation with rapid ventricular response Cirrhosis of liver Insomnia Greater trochanteric bursitis of right hip Mild concussion Presence of Watchman left atrial appendage closure device Cellulitis Rotator cuff tear arthropathy Leg edema BPH (benign prostatic hyperplasia) Spinal cord stimulator dysfunction Parkinsonism Depression COVID-19 (~02/2022) Degenerative joint disease of knee Uncomplicated opioid dependence Lumbar post-laminectomy syndrome Paroxysmal atrial fibrillation (~11/09/17) Chronic pain Chronic anticoagulation Other insomnia (06/26/16) Mixed hyperlipidemia (12/19/15) Obstructive sleep apnea syndrome Dorsalgia 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) Surgical History History of repair of right rotator cuff Family History Brother Family history of esophageal cancer Social History marital status: number of children: 2 household members: spouse lives independently: Yes caregiver/support person: No housing: house pets and animals: No education level: college occupational status: other current occupational exposures/hazards: No 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
[2025-10-08] MEDS: ALBUMIN HUMAN 25 GM/100 ML VIAL IV (12:30)
--- NOTE | 2025-10-08 12:45 | P.PN_ITS ---
Subjective Subjective Date Patient Seen: 10/08/25 Time Patient Seen: 12:45 Interval history: Chief complaint: Abdominal discomfort with the ascites with possible carcinomatosis versus portal hypotension or congestive hepatopathy with AFib RVR History of present illness: 10/02: 85-year-old male with atrial fibrillation status post Watchman, hypertension, hyperlipidemia, chronic back pain with spinal stimulator who presents with increasing abdominal discomfort and distention. The patient notes that the edges of his belly hurt. He ascribes this pain to being liver pain. He has ascites for which she has been followed by Gastroenterology in [place]. The patient tells me that they initially thought he had cirrhosis then fatty liver. He also mentioned that 1 of the providers said his liver problem might be related to chronic Tylenol use. Patient states that he takes up to 6 500 mg Tylenol tablets daily and has been doing this for 15 years. He is scheduled for an MRI of his abdomen on 10/09/2025 in [place]. The MRI can not be done locally because he has a spinal stimulator. The patient was sent to the ER by his primary care provider for paracentesis for diagnosis and for therapeutic reasons. However presentation in the emergency room he was found to have rapid ventricular rate not responsive to IV diltiazem or IV metoprolol. He was then placed on a diltiazem drip and admitted to the ICU. The patient denies chest pain or shortness of breath. He has not been having nausea or vomiting. He notes just the abdominal distention, pain and decreased appetite. Otherwise review of systems is negative. CT abdomen and pelvis: 1. Significant interval increase in ascites, now large. 2. Suspect peritoneal carcinomatosis. 3. Interval increase in 1 and possibly 2 liver lesions in a patient with underlying cirrhosis. Suspect hepatoma. 3. Bilateral mild to moderate pleural effusions with bibasilar atelectasis now present. 4. Cardiomegaly. CT of the chest by my evaluation does not show pericardial effusion any change from previous done in July Hospital course: 10/03: Discussed the patient with Dr. Dias [phone] we reviewed the findings and recommendations were to start amiodarone infusion and consider digoxin 250 mcg for [address] of the chest does not show pericardial effusion pain can obtain an echocardiogram tomorrow. Concern is that the increased abdominal pressure is compressing or reducing the flow of the IVC and triggering rapid response to chronic atrial fibrillation. We will need an attempt to do ultrasound-guided paracentesis hopefully this will help relieve 10/04: Developed nonproductive cough today paracentesis performed by Dr. Salgado and is draining heart rate still 135 despite amiodarone and digoxin intravenously converted over to oral amiodarone today 10/05: Having some abdominal discomfort and some diarrhea this morning feeling fatigued poor diet at this time 10/06: Patient heart rate running in the 110s to 125 based on the findings echocardiogram is CT of the chest for pulmonary embolus was performed which did not show pulmonary embolus but a moderate right-sided and small left-sided pleural effusion. Case was discussed with Dr. Dias 10/07: Patient feeling a bit better heart rate in the 90s now on Toprol-XL 100 b.i.d. in addition to amiodarone 400 b.i.d. and digoxin 0.125 every other day Patient is still having persistent nonproductive cough however abdominal discomfort and finished appetite have improved urine output 450 mL (some may not be accurately measured) GI film panel positive for norovirus Discussed the findings suspicious for abdominal carcinomatosis with recurrent ascites and the desire to coordinate care with the patient's managing member at [facility]. Patient has scheduled an MRI of the abdomen at that facility for 08 09 on Tuesday 10/09: Goal is to arrange medical transport to pick the patient up at [facility] to take him to and from that procedure after discharge in the publisher assistant on Tuesday 10/09 after which the patient would be returned to home from the MRI in [place]. Additionally we will try to set up is scheduled paracentesis with Radiology Department on an outpatient basis to avoid reaccumulation of ascites roughly weekly it would be optimal to be able to arrange for a visit for patient's managing member to get a definitive pathological diagnosis at that institution ([facility]) 10/08: Patient feeling somewhat fatigued today abdomen appeared distended again. Underwent paracentesis with large volume followed by IV albumin. Heart rate improved from 90s to 70s afterwards indicating that there was increasing abdominal pressure. Patient's sports therapist is at [facility] telephone [phone] Gwendolyn Corea message left for a call back to coordinate care Review of systems: No fever or chills rigors No chest pain dyspnea Is having abdominal pain discomfort especially with coughing No nausea vomiting diarrhea Physical exam: Alert cogent elderly male HEENT unremarkable Heart irregularly irregular rhythm Lungs clear from apices to bases Abdomen soft no restless more amount of localized deep tenderness in the left lower quadrant Extremities 2+ pedal edema Echocardiogram 10/06: A-fib with variable rate; heart rate is 99-115 bpm. Normal LV size and mild concentric LVH. There is mild global hypokinesis. Ejection fraction is mildly reduced estimated at 45-50%.. D-shaped LV in systole and diastole consistent with RV pressure overload. Compared to prior echo July 26, 2025 LV is slightly less dynamic. Ejection fraction is down from 50-55% to 45-50%. D-shaped appearance of LV in systole and diastole is stable. Tricuspid Valve: There is mild tricuspid regurgitation. The right ventricular systolic pressure is estimated to be at least 40 mmHg based on an estimated right atrial pressure of 8 mm Hg. Pulmonic Valve: The pulmonic valve is not well visualized. There is trace pulmonic regurgitation. CT PE protocol 10/06: No pulmonary embolus. There is a small to moderate right-sided and a small left-sided pleural effusion. There is mild cardiomegaly. Moderate ascites. Stable liver lesion. CT abdomen and pelvis: 1. Significant interval increase in ascites, now large. 2. Suspect peritoneal carcinomatosis. 3. Interval increase in 1 and possibly 2 liver lesions in a patient with underlying cirrhosis. Suspect hepatoma. 3. Bilateral mild to moderate pleural effusions with bibasilar atelectasis now present. 4. Cardiomegaly. Assessment and plan Right ventricular pressure overload and reduced measured ejection fraction on echocardiogram 10/06: * No pulmonary embolus * Bilateral pleural effusions moderate and small * Right ventricular is estimated to be at least 40 mmHg * Followed by Dr. Dias Abdominal ascites with findings suspicious for carcinomatosis (unknown primary) with increased abdominal pressure causing rapid ventricular response to chronic atrial fibrillation * First paracentesis 10/04 7.5 L * 2nd paracentesis 10/08 with improvement in tachycardia * Arrangements be made for scheduled paracentesis October 11 or WednesdayOctober 12 * Follow up with [facility] telephone [phone] Gwendolyn Corea * MRI scheduled at [facility] at 10:30 a.m. a.m. on 10/09: * Looking into medical transport after discharge from [facility] at 7:30 a.m. taken by transport from [facility] to the [facility] and then return to home via medical transport * (case management looking into arrangements) * GI film panel positive for norovirus Atrial fibrillation with RVR * coagulated contraindicated with anything besides aspirin because he is status post Watchman * New regimen * amiodarone 400 mg p.o. b.i.d. * digoxin 0.125 mg q.o.d. * Toprol-XL 100 mg p.o. b.i.d. * Followed by Dr. Dias [phone] DVT prophylaxis: * Aspirin and SCDs only Code status: * Full code blue Disposition: * Inpatient acute care anticipate potential discharge at 7:00 a.m. on WednesdayOctober 09 as mentioned above Time-Based Coding * 55 minutes spent with patient and on the chart (including review of chart, obtaining history, exam, reviewing outside data, placing orders, documenting exam and treatment plan, and counseling patient). Exam Vital Signs (past 8 hours): - 10/08/25 05:00 10/08/25 05:30 10/08/25 06:00 Pulse Rate 83 82 85 Respiratory Rate 19 19 18 Blood Pressure Pulse Oximetry 10/08/25 06:30 10/08/25 07:00 10/08/25 07:30 Pulse Rate 82 79 85 Respiratory Rate 18 18 21 Blood Pressure Pulse Oximetry 10/08/25 08:00 10/08/25 08:29 10/08/25 08:29 Pulse Rate 91 H 88 Respiratory Rate 18 20 Blood Pressure 81/54 L Pulse Oximetry 93 10/08/25 08:30 10/08/25 09:00 10/08/25 09:19 Pulse Rate 91 H 82 94 H Respiratory Rate 25 H 18 Blood Pressure 114/74 Pulse Oximetry 92 10/08/25 09:22 10/08/25 09:22 10/08/25 09:30 Pulse Rate 81 135 H Respiratory Rate 15 23 Blood Pressure 114/74 Pulse Oximetry 10/08/25 09:49 10/08/25 10:00 10/08/25 10:30 Pulse Rate 87 95 H 87 Respiratory Rate 23 12 Blood Pressure Pulse Oximetry 10/08/25 11:00 10/08/25 11:30 10/08/25 12:00 Pulse Rate 86 89 78 Respiratory Rate 19 20 20 Blood Pressure Pulse Oximetry 10/08/25 12:23 10/08/25 12:23 10/08/25 12:30 Pulse Rate 84 87 Respiratory Rate 14 21 Blood Pressure 99/69 Pulse Oximetry Oxygen Delivery Method Room Air Oxygen Flow Rate 0 Objective Labs 10/08/25 10:13 10/08/25 10:13 Labs: Laboratory Results - last 24 hr 10/08/25 10:13 WBC 8.7 RBC 4.72 Hgb 14.4 Hct 43.9 MCV 93.1 MCH 30.6 MCHC 32.9 RDW 15.3 H Plt Count 283 Neut % (Auto) 75.8 H Lymph % (Auto) 14.8 L Sac % (Auto) 6.8 Eos % (Auto) 2.1 Baso % (Auto) 0.5 Neut # (Auto) 6600 Lymph # (Auto) 1300 Sac # (Auto) 600 Eos # (Auto) 200 Baso # (Auto) 0 Sodium 130 L Potassium 4.0 Chloride 98 Carbon Dioxide 25 BUN 16 Creatinine 0.84 Estimated GFR > 60 BUN/Creatinine Ratio 19.0 Glucose 160 H Calcium 8.2 L Total Bilirubin 0.6 AST 58 ALT 35 Alkaline Phosphatase 116 Total Protein 6.4 Albumin 3.1 L Globulin 3.3 Albumin/Globulin Ratio 0.9 L PFSH Medical History Chronic atrial fibrillation with rapid ventricular response Cirrhosis of liver Insomnia Greater trochanteric bursitis of right hip Mild concussion Presence of Watchman left atrial appendage closure device Cellulitis Rotator cuff tear arthropathy Leg edema BPH (benign prostatic hyperplasia) Spinal cord stimulator dysfunction Parkinsonism Depression COVID-19 (~02/2022) Degenerative joint disease of knee Uncomplicated opioid dependence Lumbar post-laminectomy syndrome Paroxysmal atrial fibrillation (~11/09/17) Chronic pain Chronic anticoagulation Other insomnia (06/26/16) Mixed hyperlipidemia (12/19/15) Obstructive sleep apnea syndrome Dorsalgia 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) Surgical History History of repair of right rotator cuff Family History Brother Family history of esophageal cancer Social History marital status: number of children: 2 household members: spouse lives independently: Yes caregiver/support person: No housing: house pets and animals: No education level: college occupational status: other current occupational exposures/hazards: No 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
[2025-10-08] MEDS: MORPHINE 2 MG/ML INJ IV ×2 (14:07→20:33)
--- NOTE | 2025-10-08 16:06 | PC.NURSE ---
Bedside Paracentesis- This RN assisted radiologist with bedside paracentesis along Mony Leung from radiology. Dr Medina also at bedside. 6400ml of clear yellow fluid removed, patient tolerated procedure. No episodes of hypotension. Patient given albumin 25g per order prior to 5000 of fluid removal. Catheter discontinued without complications.
--- NOTE | 2025-10-08 16:19 | CM.DPNOTE ---
DCP note RESEARCH PHLEBOTOMIST reviewed EMR per provider will keep overnight and dc early tomorrow morning. medical transport to OP MRI appt needed. per provider asked we set up appt with OP Gastro f/u per [facility] can arranged wc van transport at 8:30am picked edge sewing machine operator tomorrow for 1030 appt. (address [address] [facility]) and will p/u to transport at 1pm home. Per [facility], OP appt arranged for 10/15 at 2:30pm with Gwendolyn Corea. RESEARCH PHLEBOTOMIST updated provider. RESEARCH PHLEBOTOMIST updated spouse on above information. spouse paid for transport. agreeable to plan. denies other DCP/CM concerns at this time. P: dc tomrorow at 0830 for OP MRI in [place] with [facility] transport. CM team will continue to follow closely for DCP Coordination RODRIGO Montero
[2025-10-08] MEDS: tiZANidine 4 MG TABLET 12 MG PO (20:32)
[2025-10-08] MEDS: AMITRIPTYLINE 10 MG TABLET PO (20:33)
[2025-10-08] MEDS: GABAPENTIN 600 MG TABLET 1200 MG PO (20:33)
[2025-10-09] VITALS (18 sets, daily range): BP systolic 99–158; BP diastolic 59–88; PULSE 58–105; RESP 15–25; TEMP 36.6; O2SAT 93–95
[2025-10-09] MEDS: PIPERACILLIN/TAZO 3.375 GM in SODIUM CHLORIDE 0.9% 100 ML IV (06:28)
--- NOTE | 2025-10-09 07:42 | PM.DS.1 ---
History of Present Illness History of Present Illness Date Patient Seen: 10/09/25 Time Patient Seen: 07:42 Chief complaint: Ascites Narrative: Chief complaint: Abdominal discomfort with the ascites with possible carcinomatosis versus portal hypotension or congestive hepatopathy with AFib RVR History of present illness: 10/02: 85-year-old male with atrial fibrillation status post Watchman, hypertension, hyperlipidemia, chronic back pain with spinal stimulator who presents with increasing abdominal discomfort and distention. The patient notes that the edges of his belly hurt. He ascribes this pain to being liver pain. He has ascites for which she has been followed by Gastroenterology in [place]. The patient tells me that they initially thought he had cirrhosis then fatty liver. He also mentioned that 1 of the providers said his liver problem might be related to chronic Tylenol use. Patient states that he takes up to 6 500 mg Tylenol tablets daily and has been doing this for 15 years. He is scheduled for an MRI of his abdomen on 10/09/2025 in [place]. The MRI can not be done locally because he has a spinal stimulator. The patient was sent to the ER by his primary care provider for paracentesis for diagnosis and for therapeutic reasons. However presentation in the emergency room he was found to have rapid ventricular rate not responsive to IV diltiazem or IV metoprolol. He was then placed on a diltiazem drip and admitted to the ICU. The patient denies chest pain or shortness of breath. He has not been having nausea or vomiting. He notes just the abdominal distention, pain and decreased appetite. Otherwise review of systems is negative. CT abdomen and pelvis: 1. Significant interval increase in ascites, now large. 2. Suspect peritoneal carcinomatosis. 3. Interval increase in 1 and possibly 2 liver lesions in a patient with underlying cirrhosis. Suspect hepatoma. 3. Bilateral mild to moderate pleural effusions with bibasilar atelectasis now present. 4. Cardiomegaly. CT of the chest by my evaluation does not show pericardial effusion any change from previous done in July Hospital course: 10/03: Discussed the patient with Dr. Dias [phone] we reviewed the findings and recommendations were to start amiodarone infusion and consider digoxin 250 mcg for [address] of the chest does not show pericardial effusion pain can obtain an echocardiogram tomorrow. Concern is that the increased abdominal pressure is compressing or reducing the flow of the IVC and triggering rapid response to chronic atrial fibrillation. We will need an attempt to do ultrasound-guided paracentesis hopefully this will help relieve 10/04: Developed nonproductive cough today paracentesis performed by Dr. Salgado and is draining heart rate still 135 despite amiodarone and digoxin intravenously converted over to oral amiodarone today 10/05: Having some abdominal discomfort and some diarrhea this morning feeling fatigued poor diet at this time 10/06: Patient heart rate running in the 110s to 125 based on the findings echocardiogram is CT of the chest for pulmonary embolus was performed which did not show pulmonary embolus but a moderate right-sided and small left-sided pleural effusion. Case was discussed with Dr. Dias 10/07: Patient feeling a bit better heart rate in the 90s now on Toprol-XL 100 b.i.d. in addition to amiodarone 400 b.i.d. 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 Patient has scheduled an MRI of the abdomen at that facility for 08 09 on Tuesday 10/09: Goal is to arrange medical transport to pick the patient up at [facility] to take him to and from that procedure after discharge in the fagot maker on Tuesday 10/09 after which the patient would be returned to home from the MRI in [place]. Additionally we will try to set up is scheduled paracentesis with Radiology Department on an outpatient basis to avoid reaccumulation of ascites roughly weekly it would be optimal to be able to arrange for a visit for patient's silica dry press helper to get a definitive pathological diagnosis at that institution ([facility]) 10/08: Patient feeling somewhat fatigued today abdomen appeared distended again. Underwent paracentesis with large volume followed by IV albumin. Heart rate improved from 90s to 70s afterwards indicating that there was increasing abdominal pressure. Patient's phlebotomy manager is at [facility] telephone [phone] Gwendolyn Nahomy message left for a call back to coordinate care 10/09: Patient feeling better today pulse rate 70s to 90s blood pressure stable patient being discharged from the hospital. Patient will be transported by medical transport to [facility] for an MRI of his liver. Transport within became home from the MRI. Patient will have another paracentesis outpatient through the radiology on October 11. New medications for his atrial fibrillation are now amiodarone 400 mg b.i.d. digoxin 0.125 every other day and Toprol-XL 100 mg p.o. b.i.d. Case was discussed with Dr. Dias he will follow up Review of systems: No fever or chills rigors No chest pain dyspnea Is having abdominal pain discomfort especially with coughing No nausea vomiting diarrhea Physical exam: Alert cogent elderly male HEENT unremarkable Heart irregularly irregular rhythm Lungs clear from apices to bases Abdomen soft no restless more amount of localized deep tenderness in the left lower quadrant Extremities 1+ pedal edema Echocardiogram 10/06: A-fib with variable rate; heart rate is 99-115 bpm. Normal LV size and mild concentric LVH. There is mild global hypokinesis. Ejection fraction is mildly reduced estimated at 45-50%.. D-shaped LV in systole and diastole consistent with RV pressure overload. Compared to prior echo July 26, 2025 LV is slightly less dynamic. Ejection fraction is down from 50-55% to 45-50%. D-shaped appearance of LV in systole and diastole is stable. Tricuspid Valve: There is mild tricuspid regurgitation. The right ventricular systolic pressure is estimated to be at least 40 mmHg based on an estimated right atrial pressure of 8 mm Hg. Pulmonic Valve: The pulmonic valve is not well visualized. There is trace pulmonic regurgitation. CT PE protocol 10/06: No pulmonary embolus. There is a small to moderate right-sided and a small left-sided pleural effusion. There is mild cardiomegaly. Moderate ascites. Stable liver lesion. CT abdomen and pelvis: 1. Significant interval increase in ascites, now large. 2. Suspect peritoneal carcinomatosis. 3. Interval increase in 1 and possibly 2 liver lesions in a patient with underlying cirrhosis. Suspect hepatoma. 3. Bilateral mild to moderate pleural effusions with bibasilar atelectasis now present. 4. Cardiomegaly. Assessment and plan Right ventricular pressure overload and reduced measured ejection fraction on echocardiogram 10/06: No pulmonary embolus Bilateral pleural effusions moderate and small Right ventricular is estimated to be at least [address] Dias Abdominal ascites with findings suspicious for carcinomatosis (unknown primary) with increased abdominal pressure causing rapid ventricular response to chronic atrial fibrillation First paracentesis 10/04 7.5 L 2nd paracentesis 10/08 with improvement in tachycardia Arrangements be made for scheduled paracentesis October 11 or WednesdayOctober 12 Follow up with [facility] telephone [phone] Cortés who will arrange workup through tertiary center probably [facility] MRI scheduled at [facility] at 10:30 a.m. a.m. on 10/09: Looking into medical transport after discharge from [facility] at 7:30 a.m. taken by transport from [facility] to the [facility] and then return to home via medical transport (case management looking into arrangements) GI film panel positive for norovirus Atrial fibrillation with RVR coagulated contraindicated with anything besides aspirin because he is status post Watchman New regimen amiodarone 400 mg p.o. b.i.d. digoxin 0.125 mg q.o.d. Toprol-XL 100 mg p.o. b.i.d. Followed by Dr. Dias [phone] DVT prophylaxis: Aspirin and SCDs only Code status: Full code blue Disposition: discharge at 8:30 a.m. on WednesdayOctober 09 as mentioned above Time-Based Coding 55 minutes spent with patient and on the chart (including review of chart, obtaining history, exam, reviewing outside data, placing orders, documenting exam and treatment plan, and counseling patient). Discharge Providers Provider Date of admission: 10/02/25 17:05 Discharge Date: 10/09/25 Primary care physician: Marco Portillo DO Discharge provider: Km Medina MD Exam Vital Signs (past 8 hours): - 10/09/25 00:00 10/09/25 00:30 10/09/25 01:00 Temperature Pulse Rate 58 L 76 80 Respiratory Rate 15 16 21 Blood Pressure Pulse Oximetry Oxygen Flow Rate 10/09/25 01:30 10/09/25 02:00 10/09/25 02:30 Temperature Pulse Rate 75 79 79 Respiratory Rate 18 20 15 Blood Pressure Pulse Oximetry Oxygen Flow Rate 10/09/25 03:00 10/09/25 03:20 10/09/25 03:20 Temperature 97.8 F Pulse Rate 80 81 Respiratory Rate 19 23 Blood Pressure 99/59 L Pulse Oximetry 93 Oxygen Flow Rate 0 10/09/25 03:30 10/09/25 04:00 10/09/25 04:30 Temperature Pulse Rate 81 84 79 Respiratory Rate 20 17 18 Blood Pressure Pulse Oximetry Oxygen Flow Rate 10/09/25 05:00 10/09/25 05:30 10/09/25 06:00 Temperature Pulse Rate 66 93 H 79 Respiratory Rate 16 22 17 Blood Pressure Pulse Oximetry Oxygen Flow Rate 10/09/25 06:30 10/09/25 07:00 10/09/25 07:27 Temperature Pulse Rate 69 100 H 105 H Respiratory Rate 20 25 H 23 Blood Pressure Pulse Oximetry 95 Oxygen Flow Rate 10/09/25 07:27 10/09/25 07:30 Temperature Pulse Rate 97 H Respiratory Rate 19 Blood Pressure 158/88 H Pulse Oximetry Oxygen Flow Rate Oxygen Delivery Method Room Air Oxygen Flow Rate 0 Objective Labs 10/08/25 10:13 10/08/25 10:13 Labs: Laboratory Results - last 24 hr 10/08/25 10:13 WBC 8.7 RBC 4.72 Hgb 14.4 Hct 43.9 MCV 93.1 MCH 30.6 MCHC 32.9 RDW 15.3 H Plt Count 283 Neut % (Auto) 75.8 H Lymph % (Auto) 14.8 L [place] % (Auto) 6.8 Eos % (Auto) 2.1 Baso % (Auto) 0.5 Neut # (Auto) 6600 Lymph # (Auto) 1300 [place] # (Auto) 600 Eos # (Auto) 200 Baso # (Auto) 0 Sodium 130 L Potassium 4.0 Chloride 98 Carbon Dioxide 25 BUN 16 Creatinine 0.84 Estimated GFR > 60 BUN/Creatinine Ratio 19.0 Glucose 160 H Calcium 8.2 L Total Bilirubin 0.6 AST 58 ALT 35 Alkaline Phosphatase 116 Total Protein 6.4 Albumin 3.1 L Globulin 3.3 Albumin/Globulin Ratio 0.9 L PFSH Medical History Chronic atrial fibrillation with rapid ventricular response Cirrhosis of liver Insomnia Greater trochanteric bursitis of right hip Mild concussion Presence of Watchman left atrial appendage closure device Cellulitis Rotator cuff tear arthropathy Leg edema BPH (benign prostatic hyperplasia) Spinal cord stimulator dysfunction Parkinsonism Depression COVID-19 (~02/2022) Degenerative joint disease of knee Uncomplicated opioid dependence Lumbar post-laminectomy syndrome Paroxysmal atrial fibrillation (~11/09/17) Chronic pain Chronic anticoagulation Other insomnia (06/26/16) Mixed hyperlipidemia (12/19/15) Obstructive sleep apnea syndrome Dorsalgia 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) Surgical History History of repair of right rotator cuff Family History Brother Family history of esophageal cancer Social History marital status: number of children: 2 household members: spouse lives independently: Yes caregiver/support person: No housing: house pets and animals: No education level: college occupational status: other current occupational exposures/hazards: No 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 travel history: recent leisure activities: music, reading and other Smoking Status: Never smoker Tobacco: How many years used: 0 quit status: quit date established second hand exposure: No alcohol intake: never substance use type: does not use Discharge Plan Discharge Plan Patient Disposition: Home Discharge orders & Medications Prescriptions: New amiodarone 200 mg Tablet 400 mg PO BIDWM Qty: 180 1RF guaifenesin 100 mg/5 mL Liquid 200 mg PO Q4HR PRN (Reason: Cough) Qty: 200 0RF digoxin 125 mcg (0.125 mg) Tablet 0.125 mg PO PRN PRN (Reason: EVERY OTHER DAY 09/08) Qty: 45 1RF nystatin 100,000 unit/mL Suspension 500,000 unit PO QID Qty: 100 1RF metoprolol succinate 50 mg Tablet Extended Release 24 Hr 100 mg PO BID Qty: 180 1RF Continued clindamycin phosphate 1 % lotion 1 % Topical BID Qty: 60 3RF tamsulosin 0.4 mg capsule 0.4 mg PO BID Qty: 180 3RF duloxetine 60 mg capsule,delayed release(DR/EC) 60 mg PO DAILY Qty: 90 2RF lidocaine 5 % adhesive patch,medicated 1 patch topical DAILY Qty: 30 0RF Rx Instructions: leave on most painful area for up to 12 hrs duloxetine 30 mg capsule,delayed release(DR/EC) 30 mg PO DAILY Qty: 90 0RF Rx Instructions: Take one 30mg capsule by mouth daily in combination with one 60mg capsule for a total daily dose of 90mg polyethylene glycol 3350 17 gram/dose powder 17 g PO BID ascorbate calcium (vitamin C) 1 tab PO .qday aspirin [Adult Low Dose Aspirin] 81 mg tablet,delayed release (DR/EC) 81 mg PO DAILY cholecalciferol (vitamin D3) 1 tab PO DAILY tizanidine 4 mg tablet 12 mg PO DAILY PRN (Reason: for muscle spasm) omeprazole 20 mg capsule,delayed release(DR/EC) 20 mg PO DAILY ipratropium bromide 42 mcg (0.06 %) spray,non-aerosol 2 spray intranasal ONCE PM PRN (Reason: Insomnia) amitriptyline 10 mg tablet 10 mg PO BEDTIME gabapentin 600 mg tablet See Rx Instructions PO .COMPLEX Rx Instructions: Take 1 tablet by mouth 3 times daily and 2 tablets at bedtime orally; rosuvastatin 10 mg tablet 10 mg PO DAILY Qty: 90 3RF azelastine 137 mcg (0.1 %) spray,non-aerosol 2 spray intranasal Q12H Discontinued hydrochlorothiazide 12.5 mg tablet 12.5 mg PO DAILY Qty: 90 3RF metoprolol succinate 25 mg tablet extended release 24 hr 37.5 mg PO BID Follow up/Referrals: Marco Portillo, [Primary Care Provider, Family Practice] Rashid Reyez MD [Physician, Oncology] Activity Restrictions/Additional Instructions: Your imaging today shows changes consistent with increasing ascites or fluid and concerns for peritoneal carcinomatosis as well as interval increase in 1 and possibly 2 liver lesions in your liver. You also have bilateral [id number] pleural effusions. Follow up with your phlebotomy manager I would also recommend follow up with the Oncology, contacts included below. Please continue your home medications for your atrial fibrillation. Take your pain medications as prescribed by Dr. Portillo. Make sure that you are taking a medication to help you had bowel movements such as your MiraLax. Please return for fevers, new or worsening abdominal back or flank pain, persistent vomiting, black or bloody stools, no urinary symptoms. Visit Report/Discharge Packet Stand Alone Forms: [employer], Patient Portal/API, Stroke Signs & Symptoms, Influenza Vaccine Info, Notice of Privacy Practices, Inpatient vs Outpatient, Pneumococcal Vaccine Info, Pt. Rights & Responsibilities Discharge Data Primary Care Provider: Marco Portillo
[2025-10-09] MEDS: ASPIRIN EC 81 MG TABLET PO (07:56)
[2025-10-09] MEDS: GABAPENTIN 600 MG TABLET PO (07:56)
[2025-10-09] MEDS: METOPROLOL ER 50 MG TABLET 100 MG PO (07:56)
[2025-10-09] MEDS: TAMSULOSIN 0.4 MG CAPSULE PO (07:56)
[2025-10-09] MEDS: ATORVASTATIN 20 MG TABLET PO (07:56)
[2025-10-09] MEDS: PANTOPRAZOLE DR 20 MG TABLET PO (07:57)
[2025-10-09] MEDS: LIDOCAINE 5% PATCH 1 EACH TOP (07:57)
[2025-10-09] MEDS: AMIODARONE 200 MG TABLET 400 MG PO (07:57)
[2025-10-09] MEDS: NYSTATIN SUSP 500,000 UNIT/5 ML UDC 500000 UNIT PO (07:58)
--- NOTE | 2025-10-09 09:16 | CM.DPNOTE ---
DCP note DIRECTOR FRANCHISE SALES reviewed EMR per provider cleared to dc today. [facility] here to transport pt. no furhter CM needs at this time. P: DC to OP MRI in [place] today via [facility]. f/u in OP setting. spouse to support at home. no further CM needs at this time. will continue to follow as needed for DCP Coordination Flory Turcios, RODRIGO
== END 2025-10-09 08:30 | disposition home or self-care (01) | DRG 375 ==
LOC: ED 17:06 → AC 17:06 → ICU 17:13
PROVIDERS: Internal Medicine; Student in an Organized Health Care Education/Training Program; Admitting Provider Internal Medicine Infectious Disease; Emergency Provider Family Medicine; Family Provider Family Medicine; PCP Family Medicine; Referring Provider Family Medicine; Visit Provider Internal Medicine Infectious Disease
DX: C78.6 Secondary malignant neoplasm of retroperitoneum and peritoneum (principal); I48.20 Chronic atrial fibrillation, unspecified; R18.0 Malignant ascites; J90 Pleural effusion, not elsewhere classified; K74.60 Unspecified cirrhosis of liver; R05.9 Cough, unspecified; R19.7 Diarrhea, unspecified; C80.1 Malignant (primary) neoplasm, unspecified; R00.0 Tachycardia, unspecified; N40.0 Benign prostatic hyperplasia without lower urinary tract symptoms; F32.A Depression, unspecified; G89.29 Other chronic pain; M54.9 Dorsalgia, unspecified; E78.2 Mixed hyperlipidemia; Z95.818 Presence of other cardiac implants and grafts; Z79.82 Long term (current) use of aspirin
CPT/HCPCS: 36415; 49083; 71045; 71250; 71275; 74176; 74177; 80048; 80053; 80162; 83690; 83735; 83880; 85025; 85610; 85730; 87040; 87070; 87075; 87205; 87507; 89051; 93005; 93010; 93307; 96365; 96375; 96376; 99284; J0282; J1160; J2270; J2272; J2543; J7050; P9041; Q9967